=== PATIENT | male | born 1940 | race Caucasian/White ===

== ENCOUNTER 2016-07-28 10:46 | Emergency (ER) | payer MEDICARE, OTHER ==
[2016-07-28] MEDS ORDERED: DEXAMETHASONE 10 MG/ML VIAL PO STA (11:36)
[2016-07-28] MEDS ORDERED: CHERRY SYRUP 10 ML UDC PO ONE (11:37)
[2016-07-28] MEDS ORDERED: DEXAMETHASONE 10 MG/ML VIAL ONE (11:37)
== END 2016-07-28 13:15 | disposition home or self-care (01) ==
DX: M54.32 Sciatica, left side (principal); I10 Essential (primary) hypertension; E78.00 Pure hypercholesterolemia, unspecified; Z79.899 Other long term (current) drug therapy
CPT/HCPCS: 93971; 99283; A9270

== ENCOUNTER 2016-10-14 23:09 | Inpatient (IN) | payer MEDICARE, OTHER ==
[2016-10-14] MEDS ORDERED: SODIUM CHLORIDE 0.9% 1,000 ML IV ONE (23:19)
[2016-10-14] MEDS ORDERED: MORPHINE 10 MG/ML VIAL IVP STA (23:19)
[2016-10-14] MEDS ORDERED: ONDANSETRON 4 MG/2 ML VIAL IVP STA (23:19)
[2016-10-14] MEDS ORDERED: MORPHINE 10 MG/ML VIAL ONE (23:28)
[2016-10-14] MEDS ORDERED: ONDANSETRON 4 MG/2 ML VIAL ONE (23:28)
[2016-10-15] MEDS ORDERED: HYDROmorphone 1 MG/ML SYRINGE ONE ×2 (00:37→02:59)
[2016-10-15] MEDS ORDERED: HYDROmorphone 1 MG/ML SYRINGE IVP STA ×2 (00:38→03:04)
[2016-10-15] MEDS ORDERED: ONDANSETRON 4 MG/2 ML VIAL ONE (00:39)
[2016-10-15] MEDS ORDERED: IOPAMIDOL-300 100 ML VIAL IVP ONE (01:19)
[2016-10-15] MEDS ORDERED: MORPHINE 2 MG/ML SYRINGE IVP PRN (03:41)
[2016-10-15] MEDS ORDERED: SODIUM CHLORIDE FLUSH 0.9% 10 ML SYRINGE IVP PRN ×2 (03:41→04:11)
[2016-10-15] MEDS ORDERED: ONDANSETRON 4 MG/2 ML VIAL IVP PRN ×2 (03:46→04:11)
[2016-10-15] MEDS ORDERED: LACTATED RINGERS 1,000 ML IV SCH (04:00)
[2016-10-15] MEDS: LACTATED RINGERS 1,000 ML IV SCH ×3 (05:24→22:29)
[2016-10-15] MEDS: MORPHINE 2 MG/ML SYRINGE IVP PRN ×3 (05:24→17:01)
[2016-10-15] MEDS: SODIUM CHLORIDE FLUSH 0.9% 10 ML SYRINGE IVP SCH ×3 (05:24→22:27)
[2016-10-15] MEDS ORDERED: SODIUM CHLORIDE FLUSH 0.9% 10 ML SYRINGE IVP SCH (06:00)
[2016-10-15] MEDS ORDERED: ENALAPRILAT 1.25 MG/ML VIAL IVP SCH (06:00)
[2016-10-15] MEDS: ENALAPRILAT 1.25 MG/ML VIAL IVP SCH ×2 (06:21→12:55)
[2016-10-15] MEDS ORDERED: ENOXAPARIN 40 MG/0.4 ML SYRINGE SUBQ SCH (09:00)
[2016-10-15] MEDS ORDERED: PHENOL THROAT SPRAY 177 ML MM ONE (09:02)
[2016-10-15] MEDS: ENOXAPARIN 40 MG/0.4 ML SYRINGE SUBQ SCH (12:52)
[2016-10-15] MEDS ORDERED: ENALAPRILAT 1.25 MG/ML VIAL IVP PRN (17:10)
[2016-10-16] MEDS: SODIUM CHLORIDE FLUSH 0.9% 10 ML SYRINGE IVP SCH ×3 (05:53→20:47)
[2016-10-16] MEDS: LACTATED RINGERS 1,000 ML IV SCH ×2 (06:04→16:31)
[2016-10-16] MEDS ORDERED: MAGNESIUM HYDROXIDE 2,400 MG/30 ML UDC NG ONE (08:45)
[2016-10-16] MEDS: ENOXAPARIN 40 MG/0.4 ML SYRINGE SUBQ SCH (09:30)
[2016-10-17] MEDS: SODIUM CHLORIDE FLUSH 0.9% 10 ML SYRINGE IVP SCH (06:34)
== END 2016-10-17 10:02 | disposition home or self-care (01) | DRG 390 ==
DX: K56.60 Unspecified intestinal obstruction (principal); D72.819 Decreased white blood cell count, unspecified; I10 Essential (primary) hypertension; E78.00 Pure hypercholesterolemia, unspecified; Z79.899 Other long term (current) drug therapy; Z90.79 Acquired absence of other genital organ(s)

== ENCOUNTER 2016-11-21 08:39 | Outpatient (CLI) | payer MEDICARE, OTHER ==
[2016-11-21] MEDS ORDERED: SIMETHICONE/SOD BICARB/CIT AC 1 EACH PACKET PO ONE (12:11)
[2016-11-21] MEDS ORDERED: BARIUM SULFATE 148 GM POWDER PO ONE (12:11)
[2016-11-21] MEDS ORDERED: BARIUM SULFATE 135 ML BOTTLE PO ONE (12:11)
--- NOTE | 2016-11-21 12:49 | XRAY Report ---
UPPER GI WITH SMALL BOWEL FOLLOW THROUGH: 11/21/2016 CLINICAL INDICATION: History of bowel obstruction. FINDINGS: Initial hand polisher view of the abdomen demonstrates a normal bowel gas pattern. Single and doub le contrast upper GI was performed, followed by small bowel follow through. The esophagus is normal i n caliber. Gastroesophageal reflux was seen during the course of the study. No esophageal ulceration, mass lesion, or stricturing is appreciated. The stomach demonstrates a normal fold pattern. No gastr ic ulceration or mass lesion is seen. The duodenal cap distends normally. Duodenal diverticula are in cidentally noted. No duodenal ulceration or mass lesion is identified. The jejunum and ileum demonstr ate normal fold patterns. No abnormal dilatation, separation, or stricturing of small bowel loops is identified. Oral contrast reached the colon at 90 minutes. The terminal ileum is unremarkable. IMPRESSION: 1. GASTROESOPHAGEAL REFLUX, WITHOUT EVIDENCE OF ULCERATION. 2. INCIDENTAL DUODENAL DIVERTICULA. 3. NORMAL JEJUNUM AND ILEUM. ORAL CONTRAST REACHED THE COLON AT 90 MINUTES. NO EVIDENCE OF SMALL ANN MARIE L OBSTRUCTION. FLUOROSCOPY TIME: 3 MINUTES 52 SECONDS; 28 SPOT IMAGES OBTAINED. JOB #: [id number] EXT JOB #:[id number]
== END 2016-11-21 08:40 | disposition home or self-care (01) ==
LOC: DI 08:39
PROVIDERS: ATTEND Surgery
DX: K21.9 Gastro-esophageal reflux disease without esophagitis (principal)
CPT/HCPCS: 74249; A9270

== ENCOUNTER 2017-01-30 06:13 | Day surgery (SDC) | payer MEDICARE, OTHER ==
[2017-01-30] MEDS ORDERED: LACTATED RINGERS 1,000 ML IV ONE (06:52)
[2017-01-30] MEDS ORDERED: MIDAZOLAM 2 MG/2 ML VIAL IVP ONE (07:26)
[2017-01-30] MEDS ORDERED: fentaNYL 100 MCG/2 ML VIAL IVP ONE (07:26)
[2017-01-30 09:25] VITALS: BP 133/90
== END 2017-01-30 06:14 | disposition home or self-care (01) ==
LOC: SDS 06:13
PROVIDERS: ATTEND Surgery
PROC: 0DBK8ZX Excision of Ascending Colon, Via Natural or Artificial Opening Endoscopic, Diagnostic (ICD-10-PCS; principal; 2017-01-30 07:30)
DX: K62.5 Hemorrhage of anus and rectum (principal); D12.2 Benign neoplasm of ascending colon; K57.30 Diverticulosis of large intestine without perforation or abscess without bleeding; K64.8 Other hemorrhoids; E78.00 Pure hypercholesterolemia, unspecified; I10 Essential (primary) hypertension
CPT/HCPCS: 45380; J7120

== ENCOUNTER 2017-02-18 00:20 | Observation (INO) | payer MEDICARE, OTHER ==
--- NOTE | 2017-02-18 00:25 | ED Physician Documentation ---
PD HPI ABD PAIN - Stated complaint Stated Complaint: ABDOMINAL PAIN,VOMITING - History obtained from History obtained from: Patient - History of Present Illness Timing - onset: Today (this afternoon) Timing - details: Gradual onset, Waxing and waning Pain level now: 8 Quality: Pain Location: All over / everywhere Radiation: Other (no radiation) Improved by: Other (no ameliorating factors) Worsened by: Other (no exacerbating factors) Associated symptoms: Nausea, Vomiting, Constipation. No: Fever, Diarrhea Similar symptoms before: Diagnosis (similar to SBO (admitted to [facility] September 2016) ) Review of Systems Constitutional: reports: Reviewed and negative Eyes: reports: Reviewed and negative Ears: reports: Reviewed and negative Nose: reports: Reviewed and negative Throat: reports: Reviewed and negative Cardiac: reports: Reviewed and negative Respiratory: reports: Reviewed and negative GI: reports: Abdominal Pain, Abdominal Swelling, Nausea, Vomiting, Constipation. denies: Diarrhea : denies: Dysuria, Frequency Skin: reports: Reviewed and negative Musculoskeletal: reports: Reviewed and negative Neurologic: reports: Reviewed and negative PD PAST MEDICAL HISTORY - Past Medical History Cardiovascular: Hypertension, High cholesterol Respiratory: None Neuro: None Endocrine/Autoimmune: None GI: None, Other : None, Benign prostate hypertrophy HEENT: Other Psych: None Musculoskeletal: Chronic back pain Derm: None - Past Surgical History Past Surgical History: Yes General: Other - Present Medications Home Medications: Ambulatory Orders Medication Instructions Recorded Confirmed Lisinopril 10 mg ORAL DAILY 09/25/14 01/30/17 Simvastatin [Zocor] 40 mg PO QPM 09/25/14 01/30/17 Oxybutynin [Ditropan] 5 mg PO BID 07/28/16 01/30/17 Levocetirizine Dihydrochloride 5 mg PO DAILY 10/15/16 01/30/17 [Xyzal] Aspirin [Aspirin EC] 81 mg PO DAILY 01/30/17 01/30/17 Cholecalciferol (Vitamin D3) 2,000 unit PO DAILY 01/30/17 01/30/17 [Vitamin D] Meclizine [Antivert] 25 mg PO Q6H PRN 01/30/17 01/30/17 Multivitamin [Multiple Vitamins] 1 each PO DAILY 01/30/17 01/30/17 [place]-3/Dha/Epa/Fish Oil [Fish Oil 1 each PO DAILY 01/30/17 01/30/17 1,000 mg Softgel] - Allergies Allergies/Adverse Reactions: Allergies Allergy/AdvReac Type Severity Reaction Status Date / Time No Known Drug Allergies Allergy Verified 01/30/17 06:58 - Social History Does the pt smoke?: No Smoking Status: Never smoker Does the pt drink ETOH?: No Does the pt have substance abuse?: No - Immunizations Immunizations are current?: Yes - POLST Patient has POLST: No PD ED PE NORMAL - Vitals Vital signs reviewed: Yes - General General: Alert and oriented X 3, Well developed/nourished, Other (appears to be in painful distress) - HEENT HEENT: Moist mucous membranes - Neck Neck: Supple, no meningeal sign - Cardiac Cardiac: RRR, No murmur - Respiratory Respiratory: No respiratory distress, Clear bilaterally - Abdomen Abdomen: Soft, Non tender - Back Back: No CVA TTP - Derm Derm: Normal color, Warm and dry - Extremities Extremities: No edema PD ED PE EXPANDED - Abdomen Abdomen: Decreased BS, Tender to palpation (periumbilical without rebound or guarding) Results - Vitals Vitals: Vital Signs - 24 hr 02/18/17 02/18/17 02/18/17 00:28 00:45 01:20 Temperature 36.5 C Heart Rate 83 61 55 L Respiratory 18 17 16 Rate Blood Pressure 154/71 H 147/69 H 156/79 H O2 Saturation 99 94 95 02/18/17 02/18/17 02/18/17 01:45 02:06 02:38 Temperature Heart Rate 79 80 80 Respiratory 16 16 16 Rate Blood Pressure 147/75 H 145/71 H 132/84 H O2 Saturation 95 95 93 Oxygen O2 Source Room air - Labs Labs: Laboratory Tests 02/18/17 02/18/17 00:40 00:40 WBC 7.3 RBC 5.39 Hgb 16.9 Hct 48.2 MCV 89.4 MCH 31.3 H MCHC 35.0 RDW 14.4 Plt Count 296 MPV 6.9 L Neut # 4.4 Lymph # 2.0 [place] # 0.1 Eos # 0.1 Baso # 0.7 H Absolute Nucleated RBC 0.01 Nucleated RBCs 0.2 Manual Slide Review Indicated Platelet Estimate NORMAL (130-450,000) Platelet Morphology NORMAL APPEARANCE RBC Morph Micro Appear NORMAL APPEARANCE Sodium 136 Potassium 4.1 Chloride 101 Carbon Dioxide 22 Anion Gap 13.0 BUN 20 Creatinine 0.9 Estimated GFR (MDRD) 82 L Glucose 205 H Calcium 10.6 H Total Bilirubin 1.2 H AST 25 ALT 29 Alkaline Phosphatase 78 Total Protein 7.7 Albumin 4.6 Globulin 3.1 Albumin/Globulin Ratio 1.5 Lipase 20 L - Rads (name of study) CT A/P Radiology: Prelim report reviewed, See rad report PD MEDICAL DECISION MAKING - ED course Complexity details: reviewed old records, reviewed results, re-evaluated patient , considered differential, d/w patient Departure - Departure Disposition: ED Place in Observation Clinical Impression: Small bowel obstruction Condition: Stable Discharge Date/Time: 02/18/17 03:40
[2017-02-18] MEDS ORDERED: SODIUM CHLORIDE 0.9% 500 ML IV STA (00:42)
[2017-02-18] MEDS ORDERED: ONDANSETRON 4 MG/2 ML VIAL IVP STA (00:42)
[2017-02-18] MEDS ORDERED: MORPHINE 2 MG/ML CARPUJECT IVP STA ×3 (00:42→02:56)
[2017-02-18] MEDS ORDERED: MORPHINE 2 MG/ML CARPUJECT ONE ×3 (00:45→03:02)
[2017-02-18] MEDS ORDERED: ONDANSETRON 4 MG/2 ML VIAL ONE (00:45)
[2017-02-18 00:58] LABS: BASOPHILS # (AUTO) 0.7 10^3/uL (0.0-0.1); BASOPHILS % (AUTO) 9.5 %; EOSINOPHILS # (AUTO) 0.1 10^3/uL (0.0-0.7); HCT - HEMATOCRIT 48.2 % (42.0-52.0); HGB - HEMOGLOBIN 16.9 g/dL (14.0-18.0); LYMPHOCYTES % (AUTO) 27.3 %; MEAN CORPUSCULAR HEMOGLOBIN 31.3 pg (27.0-31.0); MEAN CORPUSCULAR VOLUME 89.4 fL (80.0-94.0); MEAN PLATELET VOLUME 6.9 fL (7.4-11.4); MONOCYTES # (AUTO) 0.1 10^3/uL (0.0-1.0); MONOCYTES % (AUTO) 1.6 %; NEUTROPHILS # (AUTO) 4.4 10^3/uL (1.5-6.6); NEUTROPHILS % (AUTO) 60.6 %; NUCLEATED RED BLOOD CELLS AUTO 0.2 /100WBC; RED BLOOD COUNT 5.39 10^6/uL (4.70-6.10); RED CELL DISTRIBUTION WIDTH 14.4 % (12.0-15.0); UNCORRECTED WHITE BLOOD COUNT 7.3 x10^3/uL; WHITE BLOOD COUNT 7.3 x10^3/uL (4.8-10.8)
[2017-02-18 01:12] LABS: ALBUMIN/GLOBULIN RATIO 1.5 (1.0-2.2); BILIRUBIN,TOTAL 1.2 mg/dL (0.2-1.0); CALCIUM 10.6 mg/dL (8.5-10.3); CREATININE 0.9 mg/dL (0.6-1.2); POTASSIUM 4.1 mmol/L (3.5-5.0); TOTAL PROTEIN 7.7 g/dL (6.7-8.2)
[2017-02-18 01:23] LABS: PLATELET ESTIMATE, MANUAL NORMAL (130-450,000) (NORMAL); PLATELET MORPHOLOGY NORMAL APPEARANCE (NORMAL)
[2017-02-18] MEDS ORDERED: IOPAMIDOL-300 100 ML VIAL IVP ONE (01:43)
[2017-02-18] MEDS ORDERED: SODIUM CHLORIDE 0.9% 1,000 ML IV STA (02:00)
--- NOTE | 2017-02-18 02:39 | CT Preliminary Report ---
Exam: CT Abdomen/Pelvis W/ IMPRESSION: 1. Recurrent bowel obstruction with transition in the right lower quadrant region. 2. Trace amount of intraperitoneal free fluid, probably reactive. 3. Indeterminate .4 cm right adrenal nodule. If the patient has history of malignancy, further assess ment could be considered with a PET CT. If there is no history of prior malignancy, follow-up adrenal protocol CT recommended at 12 months. [facility] SITE ID: [id number]
[2017-02-18] MEDS ORDERED: HYDROmorphone 1 MG/ML SYRINGE IVP PRN (02:59)
[2017-02-18] MEDS ORDERED: SODIUM CHLORIDE FLUSH 0.9% 10 ML SYRINGE IVP PRN (02:59)
[2017-02-18] MEDS ORDERED: PROCHLORPERAZINE 10 MG/2 ML VIAL IVP PRN (02:59)
[2017-02-18] MEDS ORDERED: SODIUM CHLORIDE FLUSH 0.9% 10 ML SYRINGE IVP ONE (03:03)
--- NOTE | 2017-02-18 03:03 | CT Report ---
EXAM: CT ABDOMEN AND PELVIS EXAM DATE: 02/18/2017 01:47 AM. CLINICAL HISTORY: Abdominal pain. COMPARISONS: 10/15/2016. TECHNIQUE: Routine helical CT imaging was performed through the abdomen and pelvis. IV contrast: 100 mL Isovue-300. Enteric contrast: No. Reconstructions: Coronal and sagittal. In accordance with CT protocol optimization, one or more of the following dose reduction techniques w ere utilized for this exam: automated exposure control, adjustment of mA and/or KV based on patient s ize, or use of iterative reconstructive technique. FINDINGS: ABDOMEN: Liver: No significant abnormality. Stomach/Distal Esophagus: Small hiatal hernia. Gallbladder: No significant abnormality. Bile Ducts: No significant abnormality. Pancreas: No significant abnormality. Spleen: No significant abnormality. Kidneys: No solid appearing lesion. No hydronephrosis. Adrenals: Mildly heterogeneous nodule noted within the right adrenal as before, measuring 2.4 cm (fernanda ge 27 series 3). This nodule is difficult to characterize with certainty on this exam. As before, the re is slight thickening of the anterior portion of the left adrenal as well. Bowel: Multiple moderately dilated loops of bowel are present with a right lower quadrant transition point. There is fecal matter within the small bowel near the transition point in the right lower quad rant region. There is mild associated mesenteric edema. There is average amount of retained fecal mat ter within the colon. There is moderate distal colon diverticulosis. No evidence of diverticulitis. Appendix: A few appendicoliths. Appendix is normal in caliber. There is no evidence of inflammatory c hange of the appendix. Lymph Nodes: No pathologically enlarged nodes. Vasculature: Normal caliber aorta. Fluid: There is trace perisplenic ascites. Abdominal Wall: No significant abnormality. Other: No significant abnormality. PELVIS: Prostate and Seminal Vesicles: No significant abnormality. Bladder: Bilateral posterolateral bladder diverticula are noted. No suspicious bladder filling defect noted. Previously noted stones within the right posterolateral bladder diverticulum are not visualiz ed on this exam. Lymph Nodes: No pathologically enlarged nodes. Fluid: Trace amount of fluid layering within the inferior aspect of the pelvis. Other: None. BONES: No suspicious bony lesions. LOWER CHEST: No significant consolidation or effusion. IMPRESSION: 1. Recurrent bowel obstruction with transition in the right lower quadrant region. 2. Trace amount of intraperitoneal free fluid, probably reactive. 3. Indeterminate 2.4 cm right adrenal nodule. If the patient has history of malignancy, further asses sment could be considered with a PET CT. If there is no history of prior malignancy, follow-up adrena l protocol CT recommended at 12 months. [facility] Referring Provider Line: [phone] SITE ID: [id number]
[2017-02-18] MEDS: DEXTROSE 5%-0.9% NACL 1,000 ML IV SCH ×3 (04:32→23:29)
[2017-02-18] MEDS: SODIUM CHLORIDE FLUSH 0.9% 10 ML SYRINGE IVP SCH ×3 (04:32→19:37)
[2017-02-18] MEDS: PANTOPRAZOLE 40 MG VIAL IVP SCH (06:24)
[2017-02-18 06:31] LABS: BILIRUBIN,URINE NEGATIVE (NEGATIVE); UA CHARGE (STRIP ONLY) YES; UR CULTURE IF IND NOT INDICATED
--- NOTE | 2017-02-18 23:43 | CONSULTATION NOTE ---
Referring Provider Name of Referring Provider:: Dr. Ancelmo Godoy Consult Date: 02/18/17 Chief Complaint - Chief Complaint Chief Complaint: Small bowel obstruction History of Present Illness - Admitted From Admitted From:: ED - History Obtained From Records Reviewed: Yes History obtained from: Patient Exam Limitations: None - History of Present Illness HPI Comment/Other: I was called in consultation on this very pleasant 77-year-old male by Dr. Ancelmo Godoy to evaluate him and possibly treat him for a partial small bowel obstruction. The patient had a less than 24-hour history of worsening abdominal pain that he described much like the abdominal pain he experienced back in September of this year when he was admitted with a small bowel obstruction that spontaneously resolved. There are no aggravating or alleviating factors. There is no constipation or diarrhea. There was nausea and vomiting. History - Past Medical History Cardiovascular: reports: Hypertension, High cholesterol Respiratory: reports: None Neuro: reports: None Endocrine/Autoimmune: reports: None GI: reports: None, Other : reports: None, Benign prostate hypertrophy HEENT: reports: Other Psych: reports: None Musculoskeletal: reports: Chronic back pain Derm: reports: None MRSA Hx?: No - Past Surgical History General: reports: Other - POLST Patient has POLST: No Meds/Allgy - Home Medications Home Medications: Ambulatory Orders Medication Instructions Recorded Confirmed Lisinopril 10 mg ORAL DAILY 09/25/14 02/18/17 Simvastatin [Zocor] 40 mg PO QPM 09/25/14 02/18/17 Oxybutynin [Ditropan] 5 mg PO BID 07/28/16 02/18/17 Levocetirizine Dihydrochloride 5 mg PO DAILY 10/15/16 02/18/17 [Xyzal] Aspirin [Aspirin EC] 81 mg PO DAILY 01/30/17 02/18/17 Cholecalciferol (Vitamin D3) 2,000 unit PO DAILY 01/30/17 02/18/17 [Vitamin D] Meclizine [Antivert] 25 mg PO Q6H PRN 01/30/17 02/18/17 Multivitamin [Multiple Vitamins] 1 each PO DAILY 01/30/17 02/18/17 [place]-3/Dha/Epa/Fish Oil [Fish Oil 1 each PO DAILY 01/30/17 02/18/17 1,000 mg Softgel] Methocarbamol [Methocarbamol] 500 mg PO BID 02/18/17 02/18/17 - Allergies Allergies/Adverse Reactions: Allergies Allergy/AdvReac Type Severity Reaction Status Date / Time No Known Drug Allergies Allergy Verified 01/30/17 06:58 Review of Systems - Constitutional Constitutional: denies: Fatigue, Fever, Chills, Malaise, Diaphoresis, Night sweats - Respiratory Respiratory: denies: Cough - Gastrointestinal Gastrointestinal: reports: Abdominal pain, Abdominal distention, Nausea (But markedly improved since he passed gas several times today and had a small bowel movement.), Vomiting Exam - Vital Signs Reviewed Vital Signs: Yes Vital Signs: Vital Signs x48h Temp Pulse Resp BP Pulse Ox 02/18/17 22:21 36.8 C 67 16 111/53 L 94 - Physical Exam General Appearance: positive: No acute distress, Alert Eyes Bilateral: positive: No lid inflammation, Conjunctivae nml, No scleral icterus Neck: positive: Trachea midline Respiratory: positive: Chest non-tender, No respiratory distress, Breath sounds nml Cardiovascular: positive: Regular rate & rhythm Abdomen: positive: Non-tender (There was only mild distention with tympany and near normal bowel sounds.), Nml bowel sounds. negative: Guarding, Rebound, Hepatomegaly, Splenomegaly Skin: positive: Color nml Extremities: positive: Non-tender, Nml appearance (Walking wihtout difficulty or pain.) Conclusion/Plan - Diagnosis Diagnosis: Small bowel obstruction - partially resolved. - Plan Plan: With the passage of gas and a small bowel movement this may signify that the patient's small bowel obstruction has resolved. In any rate he has not had a regular bowel movement and I will watch him over tonight to see whether or not his bowel function returns. I will check his examination and labs in the morning. If his clinical status continues to improve I do not think that he will require radiographic studies. If on the other hand his exam is equivocal abdominal series may be ordered. In short continue to observe overnight and into the morning with the plan being that with clinical improvement he is discharged home and with clinical deterioration he may require surgery. The patient has been told this plan and would like to avoid surgery if at all possible. - Lab Results Lab results reviewed: Yes Fish Bones: 02/18/17 00:40 02/18/17 00:40 - Diagnostic Imaging Results Diagnostic Imaging Results: positive: Final report reviewed, Read independently
[2017-02-19] MEDS: SODIUM CHLORIDE FLUSH 0.9% 10 ML SYRINGE IVP SCH (06:04)
[2017-02-19] MEDS: PANTOPRAZOLE 40 MG VIAL IVP SCH (06:04)
[2017-02-19 07:36] VITALS: BP 119/66
[2017-02-19] MEDS: DEXTROSE 5%-0.9% NACL 1,000 ML IV SCH (09:38)
--- NOTE | 2017-02-19 11:17 | PROVIDER PROGRESS NOTE ---
Subjective - General Admit Date: 02/18/17 - Review of Systems General: positive: No symptoms HEENT: positive: No symptoms Pulmonary: positive: No symptoms Cardiovascular: positive: No symptoms Gastrointestinal: positive: No symptoms (Patient passing gas and stool - hungry. ) Genitourinary: positive: No symptoms Musculoskeletal: positive: No symptoms Skin: positive: No symptoms Psychiatric: positive: No symptoms Objective - Patient Data Reviewed Vital Signs: Yes Vital Signs: Vital Signs x48h Temp Pulse Resp BP Pulse Ox 02/19/17 07:35 36.3 C L 55 L 18 119/66 96 Weight: Weight 02/17/17 02/18/17 02/19/17 23:59 23:59 23:59 Weight (kg) 95.254 kg Intake & Output: Intake and Output Totals x24h 02/17/17 02/18/17 02/19/17 23:59 23:59 23:59 Intake Total 2061 819 Output Total 1002 790 Balance 1059 29 - Lab Results Lab Results: 02/18/17 00:40 02/18/17 00:40 - Current Medications Current Medications: Current Medications Generic Name Dose Route Start Last Admin Trade Name Freq PRN Reason Stop Dose Admin Hydromorphone HCl 0.5 mg 02/18/17 02:59 02/18/17 04:32 Dilaudid Inj IVP 0.5 mg Q2HR PRN Administration Abdominal Pain Dextrose/Sodium Chloride 1,000 mls @ 100 mls/hr 02/18/17 03:00 02/19/17 09:38 D5ns IV 100 mls/hr .Q10H DENZEL Administration Pantoprazole Sodium 40 mg 02/18/17 07:00 02/19/17 06:04 Protonix IVP 40 mg QDAC DENZEL Administration Prochlorperazine Edisylate 10 mg 02/18/17 02:59 02/18/17 04:32 Compazine Inj IVP 10 mg Q6HR PRN Administration Nausea / Vomiting Sodium Chloride 10 ml 02/18/17 02:59 02/18/17 06:24 Normal Saline Flush 0.9% IVP 10 ml PRN PRN Administration NEEDED PER PROVIDER ORDERS Sodium Chloride 10 ml 02/18/17 06:00 02/19/17 06:04 Normal Saline Flush 0.9% IVP 10 ml Q8HR DENZEL Administration - Physical Exam Respiratory: positive: No respiratory distress, Breath sounds nml Cardiovascular: positive: Regular rate & rhythm Abdomen: positive: Non-tender, Nml bowel sounds, No distention Impression/Plan - Problem List Problem List: SBO has resolved. Discharge patient home.
--- NOTE | 2017-02-19 11:19 | Discharge Plan ---
Discharge Plan Disposition: 01 Home, Self Care Condition: Good Diet: Regular Activity Restrictions: No Restrictions Shower Restrictions: No Driving Restrictions: No Weight Bearing: Full Weight No Smoking: If you smoke, Please STOP! Call for help. Follow-up with: Amari Strauss MD [Primary Care Provider] - Darek Palmer MD [Provider Admit Priv/Credential] -
== END 2017-02-19 13:10 | disposition home or self-care (01) ==
LOC: ED 00:20 → OBS 02:59
PROVIDERS: ADMIT Surgery; ATTEND Surgery
DX: K56.60 Unspecified intestinal obstruction (principal); I10 Essential (primary) hypertension; E78.00 Pure hypercholesterolemia, unspecified; N40.0 Benign prostatic hyperplasia without lower urinary tract symptoms; G89.29 Other chronic pain; M54.9 Dorsalgia, unspecified; Z79.82 Long term (current) use of aspirin; Z79.899 Other long term (current) drug therapy
CPT/HCPCS: 36415; 74177; 80053; 81001; 81003; 83690; 85025; 87086; 96361; 96374; 96375; 96376; 99284; 99285

== ENCOUNTER 2017-08-11 03:23 | Inpatient (IN) | payer MEDICARE, OTHER ==
[2017-08-11] MEDS ORDERED: SODIUM CHLORIDE 0.9% 1,000 ML IV ONE ×2 (04:23→06:22)
[2017-08-11] MEDS ORDERED: HYDROmorphone 1 MG/ML SYRINGE IVP STA ×2 (04:24→05:29)
[2017-08-11] MEDS ORDERED: ONDANSETRON 4 MG/2 ML VIAL IVP STA (04:24)
[2017-08-11 04:30] LABS: BASOPHILS % (AUTO) 0.7 %; EOSINOPHILS # (AUTO) 0.1 10^3/uL (0.0-0.7); HGB - HEMOGLOBIN 17.5 g/dL (14.0-18.0); LYMPHOCYTES # (AUTO) 0.9 10^3/uL (1.5-3.5); LYMPHOCYTES % (AUTO) 15.9 %; MEAN CORPUSCULAR HEMOGLOBIN 30.9 pg (27.0-31.0); MEAN CORPUSCULAR VOLUME 90.8 fL (80.0-94.0); MEAN PLATELET VOLUME 7.4 fL (7.4-11.4); MONOCYTES # (AUTO) 0.5 10^3/uL (0.0-1.0); MONOCYTES % (AUTO) 9.5 %; NEUTROPHILS % (AUTO) 72.9 %; PLT - PLATELET COUNT 337 10^3/uL (130-450); RED BLOOD COUNT 5.66 10^6/uL (4.70-6.10); RED CELL DISTRIBUTION WIDTH 14.3 % (12.0-15.0); WHITE BLOOD COUNT 5.5 x10^3/uL (4.8-10.8)
[2017-08-11 04:41] LABS: ALBUMIN 4.4 g/dL (3.2-5.5); ALBUMIN/GLOBULIN RATIO 1.3 (1.0-2.2); ALKALINE PHOSPHATASE 88 IU/L (42-121); ALT ALANINE AMINOTRANSFERASE 35 IU/L (10-60); AST ASPARTATE AMINOTRANSFERASE 32 IU/L (10-42); BUN - BLOOD UREA NITROGEN 17 mg/dL (6-20); CALCIUM 9.8 mg/dL (8.5-10.3); CARBON DIOXIDE - CO2 21 mmol/L (21-32); CHLORIDE 98 mmol/L (101-111); CREATININE 1.2 mg/dL (0.6-1.2); GFR - MDRD 59 (>89); GLUCOSE 221 mg/dL (70-100); LIPASE < 10 U/L (22-51); SODIUM 136 mmol/L (135-145); TOTAL PROTEIN 7.7 g/dL (6.7-8.2)
[2017-08-11] MEDS ORDERED: IOPAMIDOL-300 100 ML VIAL ONE (05:00)
[2017-08-11] MEDS ORDERED: IOPAMIDOL-300 100 ML VIAL IVP ONE (05:16)
--- NOTE | 2017-08-11 05:17 | ED Physician Documentation ---
PD HPI ABD PAIN - Stated complaint Stated Complaint: CONSTIPATION - Chief complaint Chief Complaint: Abd Pain - History obtained from History obtained from: Patient, Family (Son.) - History of Present Illness Timing - onset: Yesterday Timing - details: Gradual onset, Constant Quality: Pain Location: All over / everywhere Associated symptoms: Nausea, Vomiting (Dry heaves.), Diarrhea (One episode.). No: Fever Similar symptoms before: Diagnosis (History of small bowel obstruction.) - Additional information Additional information: The patient is a 77-year-old male who presents with generalized abdominal pain that started yesterday and has become worse this morning. He reports abdominal distention and nausea with dry heaves. He reports one episode of diarrhea. He denies fever or dysuria, but reports decreased urine output. He has a history of similar symptoms in the past, and review of his medical record reveals hospitalization for small bowel obstruction in September and in January 2017. Review of Systems Constitutional: denies: Fever Nose: denies: Congestion Throat: denies: Sore throat Cardiac: denies: Chest pain / pressure Respiratory: denies: Dyspnea, Cough GI: reports: Abdominal Pain, Nausea, Vomiting : denies: Dysuria Skin: denies: Rash Musculoskeletal: denies: Back pain Neurologic: denies: Altered mental status, Headache PD PAST MEDICAL HISTORY - Past Medical History Past Medical History: Yes Cardiovascular: Hypertension, High cholesterol Respiratory: None Neuro: None Endocrine/Autoimmune: None GI: Other (Small bowel obstruction.) : None HEENT: Other Psych: None Musculoskeletal: Chronic back pain Derm: None Other Past Medical History: Bowel obstruction - Past Surgical History Past Surgical History: Yes General: Other - Present Medications Home Medications: Ambulatory Orders Medication Instructions Recorded Confirmed Lisinopril 10 mg ORAL DAILY 09/25/14 02/18/17 Simvastatin [Zocor] 40 mg PO QPM 09/25/14 02/18/17 Oxybutynin [Ditropan] 5 mg PO BID 07/28/16 02/18/17 Levocetirizine Dihydrochloride 5 mg PO DAILY 10/15/16 02/18/17 [Xyzal] Aspirin [Aspirin EC] 81 mg PO DAILY 01/30/17 02/18/17 Cholecalciferol (Vitamin D3) 2,000 unit PO DAILY 01/30/17 02/18/17 [Vitamin D3] Meclizine [Antivert] 25 mg PO Q6H PRN 01/30/17 02/18/17 Multivitamin [Multiple Vitamins] 1 each PO DAILY 01/30/17 02/18/17 [place]-3/Dha/Epa/Fish Oil [Fish Oil 1 each PO DAILY 01/30/17 02/18/17 1,000 mg Softgel] Methocarbamol 500 mg PO BID 02/18/17 02/18/17 - Allergies Allergies/Adverse Reactions: Allergies Allergy/AdvReac Type Severity Reaction Status Date / Time No Known Drug Allergies Allergy Verified 01/30/17 06:58 - Social History Does the pt smoke?: No Smoking Status: Never smoker Does the pt drink ETOH?: No Does the pt have substance abuse?: No - Immunizations Immunizations are current?: Yes - POLST Patient has POLST: No PD ED PE NORMAL - Vitals Vital signs reviewed: Yes (Initially hypertensive.) - General General: Alert and oriented X 3, Well developed/nourished, Other (Groaning in discomfort.) - HEENT HEENT: Atraumatic, Pharynx benign - Neck Neck: No adenopathy, No JVD - Cardiac Cardiac: RRR - Respiratory Respiratory: Clear bilaterally - Abdomen Abdomen: Other (Decreased bowel tones, distended with tympany to percussion. Generalized tenderness to palpation without focal tenderness or rebound.) - Back Back: No CVA TTP - Derm Derm: No rash - Extremities Extremities: No edema, No calf tenderness / cord - Neuro Neuro: Alert and oriented X 3, No motor deficit, Normal speech Results - Vitals Vitals: Vital Signs - 24 hr 08/11/17 08/11/17 08/11/17 03:32 04:33 05:25 Temperature 36.0 C L Heart Rate 111 H 104 H 107 H Respiratory 16 16 Rate Blood Pressure 142/98 H 141/110 H O2 Saturation 94 93 95 08/11/17 08/11/17 07:23 07:25 Temperature Heart Rate 107 H 120 H Respiratory 16 18 Rate Blood Pressure 132/92 H 150/95 H O2 Saturation 92 92 Oxygen O2 Source Nasal cannula - Labs Labs: Laboratory Tests 08/11/17 08/11/17 08/11/17 03:40 03:40 04:38 WBC 5.5 RBC 5.66 Hgb 17.5 Hct 51.4 MCV 90.8 MCH 30.9 MCHC 34.0 RDW 14.3 Plt Count 337 MPV 7.4 Neut # 4.0 Lymph # 0.9 L [place] # 0.5 Eos # 0.1 Baso # 0.0 Absolute Nucleated RBC 0.01 Nucleated RBC % 0.2 Sodium 136 Potassium 4.3 Chloride 98 L Carbon Dioxide 21 Anion Gap 17.0 H BUN 17 Creatinine 1.2 Estimated GFR (MDRD) 59 L Glucose 221 H Lactic Acid 3.1 H* Calcium 9.8 Total Bilirubin 1.0 AST 32 ALT 35 Alkaline Phosphatase 88 Total Protein 7.7 Albumin 4.4 Globulin 3.3 Albumin/Globulin Ratio 1.3 Lipase < 10 L Urine Color Urine Clarity Urine pH Ur Specific [place] Urine Protein Urine Glucose (UA) Urine Ketones Urine Occult Blood Urine Nitrite Urine Bilirubin Urine Urobilinogen Ur Leukocyte Esterase Ur Microscopic Review Urine Culture Comments 08/11/17 05:50 WBC RBC Hgb Hct MCV MCH MCHC RDW Plt Count MPV Neut # Lymph # [place] # Eos # Baso # Absolute Nucleated RBC Nucleated RBC % Sodium Potassium Chloride Carbon Dioxide Anion Gap BUN Creatinine Estimated GFR (MDRD) Glucose Lactic Acid Calcium Total Bilirubin AST ALT Alkaline Phosphatase Total Protein Albumin Globulin Albumin/Globulin Ratio Lipase Urine Color YELLOW Urine Clarity CLEAR Urine pH 5.0 Ur Specific [place] 1.015 Urine Protein NEGATIVE Urine Glucose (UA) NEGATIVE Urine Ketones NEGATIVE Urine Occult Blood TRACE-INTA Urine Nitrite NEGATIVE Urine Bilirubin NEGATIVE Urine Urobilinogen 0.2 (NORMAL) Ur Leukocyte Esterase NEGATIVE Ur Microscopic Review NOT INDICATED Urine Culture Comments NOT INDICATED - Rads (name of study) CT abd/pelvis Radiology: Prelim report reviewed, EMP read contemporaneously, See rad report ( Small bowel obstruction with transition in the right lower quadrant. Appendix appears normal. Colonic diverticula without evidence of diverticulitis. Fatty liver. Right adrenal nodule is unchanged.) Procedures - General procedure General procedure: NGTube placement. After 3 failed attempts by the nurse to place NG tube, I was asked to try inserting the NG tube. After cooling the tube in ice water it was inserted without difficulty. Dark gastric contents were suctioned through the tube, which the patient is tolerating well. PD MEDICAL DECISION MAKING - ED course Complexity details: reviewed old records, reviewed results, re-evaluated patient , considered differential, d/w patient, d/w family, d/w software consultant ED course: The patient's presentation is significant for recurrent small bowel obstruction. CT scan reveals no evidence of perforation or abscess. His white count is normal at 5.5; lactate is elevated at 3.1. Treatment in the emergency depaertment included administration of normal saline IV, Dilaudid 1 mg IV 2, and Zofran 4 mg IV. A nasogastric tube was inserted. I discussed his condition with Dr. Heard who evaluated him in the emergency department and will admit him for further evaluation and treatment. Departure - Departure Disposition: 66 [facility] DC/Xfer Clinical Impression: Small bowel obstruction Condition: Stable
--- NOTE | 2017-08-11 05:37 | CT Report ---
EXAM: CT ABDOMEN AND PELVIS EXAM DATE: 08/11/2017 05:23 AM. CLINICAL HISTORY: Abdominal pain and distention. Constipation. History of bowel obstruction. COMPARISONS: 02/18/2017. TECHNIQUE: Routine helical CT imaging was performed through the abdomen and pelvis. IV contrast: ISOV UE 300 100mL. Enteric contrast: No. Reconstructions: Coronal and sagittal. In accordance with CT protocol optimization, one or more of the following dose reduction techniques w ere utilized for this exam: automated exposure control, adjustment of mA and/or KV based on patient s ize, or use of iterative reconstructive technique. FINDINGS: Lung Bases: Mild bibasilar atelectasis. Coronary artery calcifications. Liver: Fatty infiltration. Gallbladder/Bile Ducts: Unremarkable. Spleen: Normal. Pancreas: Normal. Adrenal Glands: Right adrenal nodule is unchanged. Left adrenal is unremarkable. Kidneys: Normal. No masses or hydronephrosis. Peritoneal Cavity/Bowel: Dilated small bowel loops with air-fluid levels and decompressed distal loop s, consistent with small bowel obstruction. Transition in the right lower quadrant. There are colonic diverticula. No diverticulitis is seen. The colon is empty. No free air or free fluid is seen. No ly mphadenopathy is noted. Appendix appears normal. Pelvic Organs: Bladder diverticula. Visualized pelvic organs are otherwise unremarkable. Vasculature: Mild atherosclerosis. No aortic aneurysm. Bones: No significant abnormality. Other: None. IMPRESSION: 1. Small bowel obstruction with transition in the right lower quadrant. 2. Appendix appears normal. 3. Colonic diverticula without evidence of diverticulitis. No stool is seen in the colon. 4. Fatty liver. 5. Right adrenal nodule is unchanged. [facility] Referring Provider Line: [phone] SITE ID: [id number]
[2017-08-11 06:15] LABS: BILIRUBIN,URINE NEGATIVE (NEGATIVE); GLUCOSE, URINE (UA) NEGATIVE (NEGATIVE); KETONES,URINE (UA) NEGATIVE (NEGATIVE); LEUKOCYTE ESTERASE, URINE NEGATIVE (NEGATIVE); NITRITE,URINE NEGATIVE (NEGATIVE); OCCULT BLOOD,URINE TRACE-INTA (NEGATIVE); PROTEIN,URINE NEGATIVE (NEGATIVE); UROBILINOGEN,URINE 0.2 (NORMAL) E.U./dL (NORMAL)
[2017-08-11 06:18] LABS: CLARITY,URINE CLEAR (CLEAR)
[2017-08-11] MEDS ORDERED: BENZOCAINE/TETRACAINE/BUTAMBEN 20 GM TOP SCH ×2 (06:55→07:00)
[2017-08-11] MEDS ORDERED: ONDANSETRON 4 MG/2 ML VIAL IVP PRN (07:35)
[2017-08-11] MEDS: SODIUM CHLORIDE FLUSH 0.9% 10 ML SYRINGE IVP SCH ×2 (08:40→12:09)
--- NOTE | 2017-08-11 08:50 | HISTORY & PHYSICAL EXAMINATION ---
Chief Complaint - Chief Complaint Chief Complaint: abdominal pain Abdominal Pain HPI - Admitted From Admitted from: ED - History of Present Illness HPI Comment/Other: This is a 77-year-old gentleman who presents to the emergency department for recurrent small bowel obstruction. Patient states that yesterday he began having cramping abdominal pain nausea and vomiting. He has had at least 6 episodes of emesis. He also began having abdominal distention and subsequently came to the emergency department at approximately 2 AM today. Upon evaluation in the emergency department the patient was noted to have a significantly distended abdomen and a CT scan of the abdomen without oral contrast was performed which demonstrated dilated loops of small bowel with a transition point in the right lower quadrant concerning for small bowel obstruction. Subsequently a surgical consultation was obtained.The patient has had 2 prior recent admissions for small bowel obstruction, one in January of last year and prior in September of last year. Both of these episodes resolved with conservative management. On each admission he did have a CT scan and each time his transition point has been noted to be in the right lower quadrant. He states that since September of last year he has not really had normal bowel movements and always has loose stools. He does not feel particularly constipated and has bowel movements most days. His last colonoscopy was performed in December of this past year by myself and was only notable for a single subcentimeter tubular adenoma in the ascending colon. Upon my evaluation of the patient he is continuing to complain of abdominal pain but states that this has improved. He is hemodynamically stable. He does appear dehydrated and his lactic acid is 3. His white blood cell count is normal. PMH/PSH - Past Medical History Cardiovascular: positive: Hypertension, High cholesterol Respiratory: positive: None Neuro: positive: None Endocrine/Autoimmune: positive: None GI: positive: Other (recurrent Small bowel obstruction.) : positive: None HEENT: positive: Other Psych: positive: None Musculoskeletal: positive: Chronic back pain Derm: positive: None MRSA Hx?: No Other Past Medical History: Bowel obstruction - Past Surgical History General: positive: Other Social & Family Hx - Social History Does the pt smoke?: No Smoking Status: Never smoker Does the pt drink ETOH?: No Does the pt have substance abuse?: No - POLST Patient has POLST: No Meds/Allgy - Home Medications Home Medications: Ambulatory Orders Medication Instructions Recorded Confirmed Lisinopril 10 mg ORAL DAILY 09/25/14 08/11/17 Simvastatin [Zocor] 40 mg PO QPM 09/25/14 08/11/17 Oxybutynin [Ditropan] 5 mg PO DAILY 07/28/16 08/11/17 Aspirin [Aspirin EC] 81 mg PO DAILY 01/30/17 08/11/17 Cholecalciferol (Vitamin D3) 2,000 unit PO DAILY 01/30/17 08/11/17 [Vitamin D3] Meclizine [Antivert] 25 mg PO Q6H PRN 01/30/17 08/11/17 Multivitamin [Multiple Vitamins] 1 each PO DAILY 01/30/17 08/11/17 Parker-3/Dha/Epa/Fish Oil [Fish Oil 1 each PO DAILY 01/30/17 08/11/17 1,000 mg Softgel] Methocarbamol 500 mg PO BID 02/18/17 08/11/17 - Allergies Allergies/Adverse Reactions: Allergies Allergy/AdvReac Type Severity Reaction Status Date / Time No Known Drug Allergies Allergy Verified 01/30/17 06:58 Exam - Vital Signs Reviewed Vital Signs: Yes - Physical Exam General Appearance: positive: Mild distress Respiratory: positive: No respiratory distress, Breath sounds nml Cardiovascular: positive: Regular rate & rhythm Abdomen: positive: Other (distended and tympanic abdomen with tenderness to palpation in the RLQ without peritoneal findings. No guarding or rigidity.) Neurologic/Psychiatric: positive: Oriented x3 Results - Lab Results Fish Bones: 08/11/17 03:40 08/11/17 03:40 Impression/Plan - Problem List Problem List: Recurrent SBO The patient will be admitted to the surgical service with an NG tube in place. He will be resuscitated with IV fluids and strict I's and O's will be monitored. His lactate will be repeated in 4 hours to ensure improvement. If he fails to improve with conservative management with the next 24 hours he will likely require operative intervention given that this bowel obstruction has recurred for the third time within 1 year. All this was explained to the patient in detail.
[2017-08-11] MEDS: MORPHINE 2 MG/ML CARPUJECT IVP PRN ×4 (09:13→22:13)
[2017-08-11] MEDS: PANTOPRAZOLE 40 MG VIAL IVP SCH (09:13)
[2017-08-11] MEDS: LACTATED RINGERS 1,000 ML IV SCH ×3 (09:16→20:21)
[2017-08-11] MEDS: PHENOL THROAT SPRAY 177 ML MM PRN (10:56)
[2017-08-11] MEDS: BENZOCAINE/MENTHOL LOZENGE MM PRN (10:56)
--- NOTE | 2017-08-11 13:31 | PROVIDER PROGRESS NOTE ---
Subjective - Prog Note Date Prog Note Date: 08/11/17 - Subjective Pt reports feeling: No change Objective - Vital Signs/Intake & Output Vital Signs: Vital Signs x48h Temp Pulse Resp BP Pulse Ox 08/11/17 12:07 37.1 C 105 H 16 124/75 94 08/11/17 09:00 36.7 C 107 H 18 161/86 H 93 Intake & Output: Intake & Output 08/08/17 08/09/17 08/10/17 08/11/17 23:59 23:59 23:59 23:59 Intake Total 460 Output Total 350 Balance 110 - Lab Results Fish Bones: 08/11/17 03:40 08/11/17 03:40 Other Labs: Lab Results x24hrs 08/11/17 Range/Units 11:40 Lactic Acid 4.6 H* (0.5-2.2) mmol/L Assessment/Plan - Problem List (1) Small bowel obstruction Impression: After admission the patient underwent a repeat lactic acid evaluation which is increased from 3 to 4.6. He has continued to receive pain medication for his persistent abdominal pain, however, he does state that this has not necessarily worsened. Due to his worsening lactic acidosis despite fluid resuscitation I am concerned for bowel ischemia and would like to proceed urgently for exploratory laparoscopy possible laparotomy possible bowel resection and all related procedures. The procedure was explained to the patient in detail including potential risks involved including not limited to bleeding, infection damage to intra-abdominal organs. He understands all the above and agrees to proceed.
[2017-08-11] MEDS ORDERED: LACTATED RINGERS 1,000 ML IV ONE ×3 (13:40→15:40)
[2017-08-11] MEDS ORDERED: BUPIVACAINE 0.5% PF 30 ML VIAL INFIL ONE (15:21)
[2017-08-11] MEDS ORDERED: NEOSTIGMINE 1 MG/1 ML 10 ML MDV IVP ONE (15:24)
[2017-08-11] MEDS ORDERED: ONDANSETRON 4 MG/2 ML VIAL IVP ONE (15:24)
[2017-08-11] MEDS ORDERED: ROCURONIUM 50 MG/5 ML VIAL IVP ONE (15:24)
[2017-08-11] MEDS ORDERED: SUCCINYLCHOLINE 200 MG/10 ML VIAL IVP ONE (15:24)
[2017-08-11] MEDS ORDERED: ceFAZolin 1 GM VIAL IV ONE (15:24)
[2017-08-11] MEDS ORDERED: GLYCOPYRROLATE 1 MG/5 ML VIAL IVP ONE (15:24)
[2017-08-11] MEDS ORDERED: fentaNYL 100 MCG/2 ML VIAL IVP ONE (15:24)
[2017-08-11] MEDS ORDERED: PROPOFOL 200 MG/20 ML VIAL IVP ONE (15:24)
--- NOTE | 2017-08-11 15:27 | OPERATIVE REPORT ---
Operative Report - General Admit Date: 08/11/17 Procedure Date: 08/11/17 Pre-Op Diagnosis: bowel obstruction Procedure Performed: Exploratory laprascopy, lysis of adhesions, evaluation of entire small bowel - Procedure Note Primary Surgeon: ema Anesthesia Technique: General ET tube - Other Other Information/Narrative: After obtaining informed consent the patient was brought into the operating room position on the operating table in the supine position taking noted pressure points. He was intubated by anesthesia and administered perioperative antibiotics. He was prepped and draped in the usual sterile fashion and a timeout was taken according to protocol. A 5 mm incision was created in the patient's left upper quadrant just below the costal margin and using the Optiview trocar the abdominal cavity was entered the abdominal cavity was entered then insufflated. An additional 5 mm port was placed in the infra umbilical midline under direct visualization. The abdomen wall abdominal cavity was inspected and dilated loops of small bowel were noted. There were no adhesions to the anterior abdominal wall. The patient was positioned in Trendelenburg with the right side elevated and the bowel was rotated towards the patient's left upper quadrant but I was unable to do so with only one grasper. A second 5 mm port was placed in the left lateral abdominal wall. Small bowel was then rotated cephalad and to the left. Eventually I was able to find an area of small bowel which had looped upon itself which had an interloop adhesion. This adhesion was freed using a combination of blunt dissection and the LigaSure device. Upon full release of this adhesion the small bowel was inspected and noted to be viable. It was palpated to feel for any intraluminal masses, but none were noted. It felt as though there was fecalization of this portion of the small bowel, however, no intraluminal mass could be definitively palpated. The underlying mesentery was somewhat edematous but otherwise appeared normal. I then ran the bowel from the ileocecal valve to the ligament of Treitz. No additional adhesions were noted. The clear area of obstruction was the interloop adhesion approximately 15 cm proximal to the ligament of Treitz. The bowel distal to the site was decompressed and proximal was dilated. No ischemic bowel was visualized. After satisfactory examination of the entire small bowel the patient's was flattened and the abdominal cavity desufflated. Trochars were removed. The skin incisions were closed with 4-0 Monocryl. 30 cc of local anesthetic was utilized. The patient was subsequently extubated and taken to the recovery room in stable condition. Estimated blood loss minimal Complications none Specimens none Drains: NG tube, Paredes catheter
[2017-08-11] MEDS: HYDROmorphone 1 MG/ML SYRINGE ONE ×3 (15:49→16:12)
[2017-08-11] MEDS ORDERED: fentaNYL 100 MCG/2 ML VIAL ONE (16:35)
[2017-08-11] MEDS ORDERED: ACETAMINOPHEN 1,000 MG/100 ML 100 ML IV ONE (16:48)
[2017-08-11] MEDS ORDERED: HYDROmorphone 1 MG/ML SYRINGE ONE (16:59)
[2017-08-12] MEDS: MORPHINE 2 MG/ML CARPUJECT IVP PRN ×5 (00:13→23:52)
[2017-08-12] MEDS: PHENOL THROAT SPRAY 177 ML MM PRN ×2 (00:13→03:40)
[2017-08-12] MEDS: LACTATED RINGERS 1,000 ML IV SCH ×3 (04:02→20:26)
[2017-08-12] MEDS: SODIUM CHLORIDE FLUSH 0.9% 10 ML SYRINGE IVP SCH ×3 (04:33→21:59)
[2017-08-12 05:58] LABS: BASOPHILS % (AUTO) 0.6 %; EOSINOPHILS % (AUTO) 0.3 %; HGB - HEMOGLOBIN 13.1 g/dL (14.0-18.0); LYMPHOCYTES # (AUTO) 0.6 10^3/uL (1.5-3.5); LYMPHOCYTES % (AUTO) 39.5 %; MEAN CORPUSCULAR HEMOGLOBIN 30.2 pg (27.0-31.0); MEAN CORPUSCULAR HGB CONC 33.5 g/dL (32.0-36.0); MEAN CORPUSCULAR VOLUME 90.2 fL (80.0-94.0); MONOCYTES # (AUTO) 0.3 10^3/uL (0.0-1.0); MONOCYTES % (AUTO) 20.4 %; NEUTROPHILS % (AUTO) 39.2 %; PLT - PLATELET COUNT 239 10^3/uL (130-450); RED BLOOD COUNT 4.32 10^6/uL (4.70-6.10); RED CELL DISTRIBUTION WIDTH 14.5 % (12.0-15.0)
[2017-08-12 06:01] LABS: NEUTROPHILS # (AUTO) 0.6 10^3/uL (1.5-6.6); WHITE BLOOD COUNT 1.6 x10^3/uL (4.8-10.8)
[2017-08-12 06:06] LABS: CALCIUM 7.8 mg/dL (8.5-10.3); CREATININE 1.1 mg/dL (0.6-1.2)
[2017-08-12] MEDS: SODIUM CHLORIDE FLUSH 0.9% 10 ML SYRINGE IVP PRN ×2 (06:23→23:52)
[2017-08-12] MEDS: PANTOPRAZOLE 40 MG VIAL IVP SCH (06:23)
[2017-08-12 06:24] LABS: PLATELET ESTIMATE, MANUAL NORMAL (130-450,000) (NORMAL); PLATELET MORPHOLOGY NORMAL APPEARANCE (NORMAL); RBC MORPHOLOGY (MULTIPLE) NORMAL APPEARANCE (NORMAL)
[2017-08-12] MEDS ORDERED: POLYETHYLENE GLYCOL 3350 17 GM PACKET NG ONE (09:30)
--- NOTE | 2017-08-12 10:25 | PROVIDER PROGRESS NOTE ---
Subjective - General Admit Date: 08/11/17 Procedure Date: 08/11/17 Post Op Days: 1 Procedure Performed: Exploratory laparoscopy, lysis of adhesions - Review of Systems Wound/Incisions: positive: Healing well Drain Type: NGT Drain Output Description: 50 cc bilious General: positive: Weakness. negative: Fever Pulmonary: negative: Shortness of breath Cardiovascular: negative: No symptoms Gastrointestinal: positive: Abdominal pain, Other (incisional abdominal pain). negative: Nausea, Vomiting, Flatus Genitourinary: positive: Other (catheterized) Psychiatric: positive: No symptoms - Other Other Information/Narrative: NGT became dislodged overnight. Was readvanced but hasn't been functioning as well since readvancement. Awaiting imaging confirmation of placement. Objective - Patient Data Reviewed Vital Signs: Yes Vital Signs: Vital Signs x48h Temp Pulse Resp BP Pulse Ox 08/12/17 08:16 36.7 C 78 20 99/66 93 08/12/17 06:13 105/56 L 08/12/17 05:00 37.1 C 88 18 98/62 93 Weight: Weight 08/10/17 08/11/17 08/12/17 23:59 23:59 23:59 Weight (kg) 100.5 kg Intake & Output: Intake and Output Totals x24h 08/10/17 08/11/17 08/12/17 23:59 23:59 23:59 Intake Total 1880.000 980.417 Output Total 600 700 Balance 1280.000 280.417 - Lab Results Lab Results: 08/12/17 05:50 08/12/17 05:50 Other Lab Results: Lab Results x24hrs 08/12/17 08/12/17 08/12/17 Range/Units 05:50 05:50 05:50 WBC 1.6 L* (4.8-10.8) x10^3/uL RBC 4.32 L (4.70-6.10) 10^6/uL Hgb 13.1 L (14.0-18.0) g/dL Hct 39.0 L (42.0-52.0) % MCV 90.2 (80.0-94.0) fL MCH 30.2 (27.0-31.0) pg MCHC 33.5 (32.0-36.0) g/dL RDW 14.5 (12.0-15.0) % Plt Count 239 (130-450) 10^3/uL MPV 7.0 L (7.4-11.4) fL Neut # 0.6 L (1.5-6.6) 10^3/uL Lymph # 0.6 L (1.5-3.5) 10^3/uL [place] # 0.3 (0.0-1.0) 10^3/uL Eos # 0.0 (0.0-0.7) 10^3/uL Baso # 0.0 (0.0-0.1) 10^3/uL Absolute Nucleated RBC 0.01 x10^3/uL Nucleated RBC % 0.3 /100WBC Manual Slide Review Indicated Platelet Estimate NORMAL (130-450,000) (NORMAL) Platelet Morphology NORMAL APPEARANCE (NORMAL) RBC Morph Micro Appear NORMAL APPEARANCE (NORMAL) Sodium 135 (135-145) mmol/L Potassium 4.3 (3.5-5.0) mmol/L Chloride 103 (101-111) mmol/L Carbon Dioxide 23 (21-32) mmol/L Anion Gap 9.0 (6-13) BUN 20 (6-20) mg/dL Creatinine 1.1 (0.6-1.2) mg/dL Estimated GFR (MDRD) 65 L (>89) Glucose 177 H (70-100) mg/dL Lactic Acid 2.4 H (0.5-2.2) mmol/L Calcium 7.8 L (8.5-10.3) mg/dL 08/11/17 Range/Units 11:40 WBC (4.8-10.8) x10^3/uL RBC (4.70-6.10) 10^6/uL Hgb (14.0-18.0) g/dL Hct (42.0-52.0) % MCV (80.0-94.0) fL MCH (27.0-31.0) pg MCHC (32.0-36.0) g/dL RDW (12.0-15.0) % Plt Count (130-450) 10^3/uL MPV (7.4-11.4) fL Neut # (1.5-6.6) 10^3/uL Lymph # (1.5-3.5) 10^3/uL [place] # (0.0-1.0) 10^3/uL Eos # (0.0-0.7) 10^3/uL Baso # (0.0-0.1) 10^3/uL Absolute Nucleated RBC x10^3/uL Nucleated RBC % /100WBC Manual Slide Review Platelet Estimate (NORMAL) Platelet Morphology (NORMAL) RBC Morph Micro Appear (NORMAL) Sodium (135-145) mmol/L Potassium (3.5-5.0) mmol/L Chloride (101-111) mmol/L Carbon Dioxide (21-32) mmol/L Anion Gap (6-13) BUN (6-20) mg/dL Creatinine (0.6-1.2) mg/dL Estimated GFR (MDRD) (>89) Glucose (70-100) mg/dL Lactic Acid 4.6 H* (0.5-2.2) mmol/L Calcium (8.5-10.3) mg/dL - Current Medications Current Medications: Current Medications Generic Name Dose Route Start Last Admin Trade Name Freq PRN Reason Stop Dose Admin Lactated Ringer's 1,000 mls @ 125 mls/hr 08/11/17 09:00 08/12/17 04:02 Lr IV 125 mls/hr .Q8H DENZEL Administration Morphine Sulfate 2 mg 08/11/17 07:35 08/12/17 04:58 Morphine (Carpuject) IVP 2 mg Q2HR PRN Administration Pain 8 to 10 Pantoprazole Sodium 40 mg 08/11/17 09:00 08/12/17 06:23 Protonix IVP 40 mg QDAC DENZEL Administration Phenol/Menthol 2 sprays 08/11/17 10:31 08/12/17 03:40 Chloraseptic MM 2 sprays Q2HR PRN Administration Throat Pain Sodium Chloride 10 ml 08/11/17 07:35 08/12/17 06:23 Normal Saline Flush 0.9% IVP 10 ml PRN PRN Administration NEEDED PER PROVIDER ORDERS Sodium Chloride 10 ml 08/11/17 14:00 08/12/17 07:39 Normal Saline Flush 0.9% IVP Not Given Q8HR DENZEL Throat Lozenges 1 lozenge 08/11/17 10:31 08/11/17 10:56 Cepacol MM 1 lozenge Q2HR PRN Administration Throat pain - Physical Exam Wound/Incisions: positive: Healing well, No drainage General Appearance: positive: No acute distress Respiratory: positive: No respiratory distress Cardiovascular: positive: Regular rate & rhythm Abdomen: positive: Other (soft, mildly distended, mildly tender to palpation) Neurologic/Psychiatric: positive: Oriented x3 Impression/Plan - Problem List Problem List: s/p exploratory laparoscopy and BILLY POD 1 - Awaiting xray confirmation of NGT placement. Once confirmed in stomach will bive Miralax 10 cc Q 4 hours via NGT as tolerated - encourage ambulation - awaiting bowel function. Patient to remain NPO with NGT until passing flatus. - leukopenia - likely secondary to anesthetic. Will monitor. No intra- operative findings to suggest need for antibiotics. Patient remains afebrile. - PPI for GI prophylaxis. - Lovenox SQ for DVT prophylaxis.
[2017-08-12] MEDS: ENOXAPARIN 40 MG/0.4 ML SYRINGE SUBQ SCH (11:15)
--- NOTE | 2017-08-12 13:38 | XRAY Report ---
FRONTAL CHEST: 08/11/2017 CLINICAL INDICATION: NG placement. COMPARISON: 09/25/2014. FINDINGS: Frontal view of the chest demonstrates a normal cardiac silhouette. A nasogastric tube terminates in the stomach. There is bibasilar atelectasis. Nodular opacities are seen at the right base. The possibility of pulmonary nodules cannot be excluded. No definite effusion or pneumothorax is seen. IMPRESSION: NASOGASTRIC TUBE TERMINATING IN THE STOMACH. BIBASILAR ATELECTASIS. POSSIBLE RIGHT PULMONARY NODULE. CONSIDER CHEST CT FOR FURTHER EVALUATION WHEN THE PATIENT'S RESPIRATORY STATUS IMPROVES. TD: 08/12/2017 13:37
[2017-08-13] MEDS: LACTATED RINGERS 1,000 ML IV SCH ×2 (03:47→12:34)
[2017-08-13] MEDS: SODIUM CHLORIDE FLUSH 0.9% 10 ML SYRINGE IVP SCH ×3 (05:43→18:57)
[2017-08-13 05:55] LABS: BASOPHILS % (AUTO) 0.3 %; EOSINOPHILS % (AUTO) 1.9 %; LYMPHOCYTES # (AUTO) 0.7 10^3/uL (1.5-3.5); LYMPHOCYTES % (AUTO) 38.3 %; MEAN CORPUSCULAR HEMOGLOBIN 30.6 pg (27.0-31.0); MEAN CORPUSCULAR HGB CONC 33.8 g/dL (32.0-36.0); MEAN CORPUSCULAR VOLUME 90.7 fL (80.0-94.0); MEAN PLATELET VOLUME 7.1 fL (7.4-11.4); MONOCYTES # (AUTO) 0.3 10^3/uL (0.0-1.0); NEUTROPHILS # (AUTO) 0.9 10^3/uL (1.5-6.6); NEUTROPHILS % (AUTO) 44.5 %; PLT - PLATELET COUNT 216 10^3/uL (130-450); RED BLOOD COUNT 3.91 10^6/uL (4.70-6.10); RED CELL DISTRIBUTION WIDTH 14.2 % (12.0-15.0)
[2017-08-13 05:57] LABS: WHITE BLOOD COUNT 1.9 x10^3/uL (4.8-10.8)
[2017-08-13 05:59] LABS: CREATININE 0.7 mg/dL (0.6-1.2)
[2017-08-13] MEDS: PANTOPRAZOLE 40 MG VIAL IVP SCH (06:03)
[2017-08-13] MEDS: SODIUM CHLORIDE FLUSH 0.9% 10 ML SYRINGE IVP PRN (06:03)
[2017-08-13] MEDS: MORPHINE 2 MG/ML CARPUJECT IVP PRN ×2 (06:03→22:19)
[2017-08-13 06:16] LABS: PLATELET ESTIMATE, MANUAL DECREASED (<130,000) (NORMAL); PLATELET MORPHOLOGY NORMAL APPEARANCE (NORMAL); RBC MORPHOLOGY (MULTIPLE) NORMAL APPEARANCE (NORMAL)
[2017-08-13] MEDS: ENOXAPARIN 40 MG/0.4 ML SYRINGE SUBQ SCH (09:32)
[2017-08-13] MEDS: POLYETHYLENE GLYCOL 3350 17 GM PACKET PO ONE ×2 (09:32→14:30)
--- NOTE | 2017-08-13 09:37 | PROVIDER PROGRESS NOTE ---
Subjective - General Admit Date: 08/11/17 Procedure Date: 08/11/17 Post Op Days: 2 Procedure Performed: Exploratory laparoscopy, lysis of adhesions - Review of Systems Wound/Incisions: positive: Healing well, No drainage Drain Type: NGT Drain Output Description: 100 cc bilious General: positive: Weakness. negative: Fever Pulmonary: negative: Shortness of breath Cardiovascular: negative: No symptoms Gastrointestinal: positive: Abdominal pain, Other (incisional abdominal pain, bloating improved today). negative: Nausea, Vomiting, Flatus Genitourinary: positive: Other (benavides removed and patient is voiding spontaneously) Psychiatric: positive: No symptoms Objective - Patient Data Reviewed Vital Signs: Yes Vital Signs: Vital Signs x48h Temp Pulse Resp BP Pulse Ox 08/13/17 08:51 36.6 C 64 18 122/71 92 08/13/17 04:39 37.0 C 61 18 124/65 92 Weight: Weight 08/11/17 08/12/17 08/13/17 23:59 23:59 23:59 Weight (kg) 100.5 kg Intake & Output: Intake and Output Totals x24h 08/11/17 08/12/17 08/13/17 23:59 23:59 23:59 Intake Total 5544.946 9551.417 931.2 Output Total 600 1415 300 Balance 4971.897 7745.417 631.2 - Lab Results Lab Results: 08/13/17 05:44 08/13/17 05:44 Other Lab Results: Lab Results x24hrs 08/13/17 08/13/17 08/13/17 Range/Units 05:44 05:44 05:44 WBC 1.9 L* (4.8-10.8) x10^3/uL RBC 3.91 L (4.70-6.10) 10^6/uL Hgb 12.0 L (14.0-18.0) g/dL Hct 35.5 L (42.0-52.0) % MCV 90.7 (80.0-94.0) fL MCH 30.6 (27.0-31.0) pg MCHC 33.8 (32.0-36.0) g/dL RDW 14.2 (12.0-15.0) % Plt Count 216 (130-450) 10^3/uL MPV 7.1 L (7.4-11.4) fL Neut # 0.9 L (1.5-6.6) 10^3/uL Lymph # 0.7 L (1.5-3.5) 10^3/uL [place] # 0.3 (0.0-1.0) 10^3/uL Eos # 0.0 (0.0-0.7) 10^3/uL Baso # 0.0 (0.0-0.1) 10^3/uL Absolute Nucleated RBC 0.00 x10^3/uL Nucleated RBC % 0.2 /100WBC Manual Slide Review Indicated Platelet Estimate DECREASED (<130,000) (NORMAL) Platelet Morphology NORMAL APPEARANCE (NORMAL) RBC Morph Micro Appear NORMAL APPEARANCE (NORMAL) Sodium 137 (135-145) mmol/L Potassium 4.0 (3.5-5.0) mmol/L Chloride 104 (101-111) mmol/L Carbon Dioxide 24 (21-32) mmol/L Anion Gap 9.0 (6-13) BUN 18 (6-20) mg/dL Creatinine 0.7 (0.6-1.2) mg/dL Estimated GFR (MDRD) 110 (>89) Glucose 143 H (70-100) mg/dL Lactic Acid 0.9 (0.5-2.2) mmol/L Calcium 8.0 L (8.5-10.3) mg/dL - Current Medications Current Medications: Current Medications Generic Name Dose Route Start Last Admin Trade Name Freq PRN Reason Stop Dose Admin Enoxaparin Sodium 40 mg 08/12/17 11:00 08/12/17 11:15 Lovenox SUBQ 40 mg DAILY DENZEL Administration Lactated Ringer's 1,000 mls @ 125 mls/hr 08/11/17 09:00 08/13/17 03:47 Lr IV 125 mls/hr .Q8H DENZEL Administration Morphine Sulfate 2 mg 08/11/17 07:35 08/13/17 06:03 Morphine (Carpuject) IVP 2 mg Q2HR PRN Administration Pain 8 to 10 Pantoprazole Sodium 40 mg 08/11/17 09:00 08/13/17 06:03 Protonix IVP 40 mg QDAC DENZEL Administration Phenol/Menthol 2 sprays 08/11/17 10:31 08/12/17 03:40 Chloraseptic MM 2 sprays Q2HR PRN Administration Throat Pain Sodium Chloride 10 ml 08/11/17 07:35 08/13/17 06:03 Normal Saline Flush 0.9% IVP 10 ml PRN PRN Administration NEEDED PER PROVIDER ORDERS Sodium Chloride 10 ml 08/11/17 14:00 08/13/17 07:21 Normal Saline Flush 0.9% IVP Not Given Q8HR DENZEL Throat Lozenges 1 lozenge 08/11/17 10:31 08/11/17 10:56 Cepacol MM 1 lozenge Q2HR PRN Administration Throat pain - Physical Exam Wound/Incisions: positive: Healing well, No drainage. negative: Erythema General Appearance: positive: No acute distress Respiratory: positive: No respiratory distress Cardiovascular: positive: Regular rate & rhythm Abdomen: positive: Other (softly distended, incisions CDI. minimal tenderness to light palpation) Extremities: positive: No pedal edema Neurologic/Psychiatric: positive: Oriented x3 Impression/Plan - Problem List Problem List: SBO s/p laparoscopic BILLY POD 2 - still no bowel function. This may take several days to resolved given fecalization of the small bowel. Continue NGT to LCWS until patient is passing flatus. Ice chips for comfort. - IV fluid resuscitation - Encourage ambulation - flush NGT with 10 cc miralax q 4 hours - Continue lovenox for DVT prophylaxis - Continue PPI for GI prophylaxis - leukopenia slightly improved. Will continue to monitor. No indication for antibiotics at this time. - patient will be ready for DC once he is tolerating a diet and having bowel movements. This could take more than 96 hours from admission.
[2017-08-13] MEDS: BENZOCAINE/MENTHOL LOZENGE MM PRN (09:39)
[2017-08-13] MEDS: PHENOL THROAT SPRAY 177 ML MM PRN (09:39)
[2017-08-13] MEDS ORDERED: BACITRACIN OINT TOP ONE (11:48)
[2017-08-13] MEDS: D5.45NS W/20 MEQ KCL 1,000 ML IV SCH (14:24)
[2017-08-13] MEDS: ACETAMINOPHEN 1,000 MG/100 ML 100 ML IV SCH (18:31)
[2017-08-14] MEDS: D5.45NS W/20 MEQ KCL 1,000 ML IV SCH ×3 (00:14→23:52)
[2017-08-14] MEDS: ACETAMINOPHEN 1,000 MG/100 ML 100 ML IV SCH ×2 (00:16→06:18)
[2017-08-14] MEDS: MORPHINE 2 MG/ML CARPUJECT IVP PRN (04:31)
[2017-08-14] MEDS: SODIUM CHLORIDE FLUSH 0.9% 10 ML SYRINGE IVP SCH ×3 (06:19→22:14)
[2017-08-14] MEDS: PANTOPRAZOLE 40 MG VIAL IVP SCH (06:19)
[2017-08-14 06:56] LABS: BASOPHILS % (AUTO) 0.5 %; EOSINOPHILS # (AUTO) 0.1 10^3/uL (0.0-0.7); EOSINOPHILS % (AUTO) 3.3 %; HGB - HEMOGLOBIN 12.9 g/dL (14.0-18.0); LYMPHOCYTES # (AUTO) 0.9 10^3/uL (1.5-3.5); LYMPHOCYTES % (AUTO) 31.9 %; MEAN CORPUSCULAR HEMOGLOBIN 30.7 pg (27.0-31.0); MEAN CORPUSCULAR HGB CONC 34.1 g/dL (32.0-36.0); MEAN PLATELET VOLUME 8.1 fL (7.4-11.4); MONOCYTES # (AUTO) 0.3 10^3/uL (0.0-1.0); MONOCYTES % (AUTO) 12.1 %; NEUTROPHILS # (AUTO) 1.4 10^3/uL (1.5-6.6); NEUTROPHILS % (AUTO) 52.2 %; PLT - PLATELET COUNT 262 10^3/uL (130-450); RED CELL DISTRIBUTION WIDTH 14.3 % (12.0-15.0); WHITE BLOOD COUNT 2.8 x10^3/uL (4.8-10.8)
[2017-08-14 07:39] LABS: DIFFERENTIAL COMMENT MANUAL=AUTO DIFF; PLATELET ESTIMATE, MANUAL NORMAL (130-450,000) (NORMAL); PLATELET MORPHOLOGY NORMAL APPEARANCE (NORMAL); RBC MORPHOLOGY (MULTIPLE) NORMAL APPEARANCE (NORMAL)
[2017-08-14 07:40] LABS: CREATININE 0.8 mg/dL (0.6-1.2)
[2017-08-14] MEDS: POLYETHYLENE GLYCOL 3350 17 GM PACKET PO SCH ×5 (08:00→23:52)
--- NOTE | 2017-08-14 08:17 | PROVIDER PROGRESS NOTE ---
Subjective - General Admit Date: 08/11/17 Procedure Date: 08/11/17 Post Op Days: 3 Procedure Performed: Exploratory laparoscopy, lysis of adhesions - Review of Systems Wound/Incisions: positive: Healing well, No drainage. negative: Erythema Drain Type: NGT Drain Output Description: 100 cc bilious General: positive: Other (feels hungry). negative: Fever HEENT: positive: Sore throat Pulmonary: negative: Shortness of breath Cardiovascular: negative: No symptoms Gastrointestinal: positive: Abdominal pain, Flatus, Other (passing flatus, less distention). negative: Nausea, Vomiting Genitourinary: positive: Other Psychiatric: positive: No symptoms Objective - Patient Data Reviewed Vital Signs: Yes Vital Signs: Vital Signs x48h Temp Pulse Resp BP Pulse Ox 08/14/17 04:10 36.9 C 60 16 121/68 95 Intake & Output: Intake and Output Totals x24h 08/12/17 08/13/17 08/14/17 23:59 23:59 23:59 Intake Total 3020.417 2370.200 1630.000 Output Total 1415 1550 550 Balance 1605.417 413.668 0917.000 - Lab Results Lab Results: 08/14/17 06:15 08/14/17 07:20 Other Lab Results: Lab Results x24hrs 08/14/17 08/14/17 Range/Units 07:20 06:15 WBC 2.8 L (4.8-10.8) x10^3/uL RBC 4.20 L (4.70-6.10) 10^6/uL Hgb 12.9 L (14.0-18.0) g/dL Hct 37.8 L (42.0-52.0) % MCV 90.0 (80.0-94.0) fL MCH 30.7 (27.0-31.0) pg MCHC 34.1 (32.0-36.0) g/dL RDW 14.3 (12.0-15.0) % Plt Count 262 (130-450) 10^3/uL MPV 8.1 (7.4-11.4) fL Neut # 1.4 L (1.5-6.6) 10^3/uL Lymph # 0.9 L (1.5-3.5) 10^3/uL [place] # 0.3 (0.0-1.0) 10^3/uL Eos # 0.1 (0.0-0.7) 10^3/uL Baso # 0.0 (0.0-0.1) 10^3/uL Absolute Nucleated RBC 0.00 x10^3/uL Band Neuts % (Manual) Not Reportable Abnorm Lymph % (Manual) Not Reportable Nucleated RBC % 0.1 /100WBC Neutrophils # (Manual) Not Reportable Lymphocytes # (Manual) Not Reportable Monocytes # (Manual) Not Reportable Eosinophils # (Manual) Not Reportable Basophils # (Manual) Not Reportable Differential Comment MANUAL=AUTO DIFF WBC Morphology NORMAL APPEARANCE (NORMAL) Platelet Estimate NORMAL (130-450,000) (NORMAL) Platelet Morphology NORMAL APPEARANCE (NORMAL) RBC Morph Micro Appear NORMAL APPEARANCE (NORMAL) Sodium 136 (135-145) mmol/L Potassium 3.7 (3.5-5.0) mmol/L Chloride 105 (101-111) mmol/L Carbon Dioxide 22 (21-32) mmol/L Anion Gap 9.0 (6-13) BUN 18 (6-20) mg/dL Creatinine 0.8 (0.6-1.2) mg/dL Estimated GFR (MDRD) 94 (>89) Glucose 146 H (70-100) mg/dL Calcium 8.0 L (8.5-10.3) mg/dL - Current Medications Current Medications: Current Medications Generic Name Dose Route Start Last Admin Trade Name Freq PRN Reason Stop Dose Admin Enoxaparin Sodium 40 mg 08/12/17 11:00 08/13/17 09:32 Lovenox SUBQ 40 mg DAILY DENZEL Administration Potassium Chloride/Dextrose/Sod Cl 1,000 mls @ 100 mls/hr 08/13/17 13:00 06:44 D5.45ns W/20 Meq Kcl IV 100 mls/hr .Q10H DENZEL Infusion Acetaminophen 100 mls @ 400 mls/hr 08/13/17 18:00 08/14/17 06:44 Ofirmev IV Infused Q6H DENZEL Infusion Morphine Sulfate 2 mg 08/11/17 07:35 08/14/17 04:31 Morphine (Carpuject) IVP 2 mg Q2HR PRN Administration Pain 8 to 10 Pantoprazole Sodium 40 mg 08/11/17 09:00 08/14/17 06:19 Protonix IVP 40 mg QDAC DENZEL Administration Phenol/Menthol 2 sprays 08/11/17 10:31 08/13/17 09:39 Chloraseptic MM 2 sprays Q2HR PRN Administration Throat Pain Sodium Chloride 10 ml 08/11/17 07:35 08/13/17 06:03 Normal Saline Flush 0.9% IVP 10 ml PRN PRN Administration NEEDED PER PROVIDER ORDERS Sodium Chloride 10 ml 08/11/17 14:00 08/14/17 06:19 Normal Saline Flush 0.9% IVP 10 ml Q8HR DENZEL Administration Throat Lozenges 1 lozenge 08/11/17 10:31 08/13/17 09:39 Cepacol MM 1 lozenge Q2HR PRN Administration Throat pain - Physical Exam Wound/Incisions: positive: Healing well. negative: Erythema General Appearance: positive: No acute distress Respiratory: positive: No respiratory distress Cardiovascular: positive: Regular rate & rhythm Abdomen: positive: Other (softly distended but improved. Non-tender to palpation. pos bowel sounds) Extremities: positive: No pedal edema Neurologic/Psychiatric: positive: Oriented x3 Impression/Plan - Problem List Problem List: s/p laparoscopic BILLY for SBO POD 3 - Patient is passing flatus. Remove NGT, start clear liquids. Continue Miralax orally. Will advance diet as tolerated - resume home medications - encourage ambulation - continue Lovenox for DVT prophylaxis - Patient will be ready for discharge once he is tolerating a regular diet and having bowel movements.
[2017-08-14] MEDS: ENOXAPARIN 40 MG/0.4 ML SYRINGE SUBQ SCH (08:36)
[2017-08-14] MEDS ORDERED: ACETAMINOPHEN 325 MG TABLET PO PRN (08:46)
[2017-08-14] MEDS: ASPIRIN EC 81 MG TABLET PO SCH (10:26)
[2017-08-14] MEDS: LISINOPRIL 5 MG TABLET PO SCH (12:07)
[2017-08-15] MEDS: POLYETHYLENE GLYCOL 3350 17 GM PACKET PO SCH ×3 (04:46→12:00)
[2017-08-15 06:12] LABS: BASOPHILS % (AUTO) 0.4 %; EOSINOPHILS # (AUTO) 0.1 10^3/uL (0.0-0.7); EOSINOPHILS % (AUTO) 4.7 %; HGB - HEMOGLOBIN 11.8 g/dL (14.0-18.0); LYMPHOCYTES # (AUTO) 1.1 10^3/uL (1.5-3.5); MEAN CORPUSCULAR HEMOGLOBIN 30.8 pg (27.0-31.0); MEAN CORPUSCULAR HGB CONC 33.9 g/dL (32.0-36.0); MEAN CORPUSCULAR VOLUME 90.7 fL (80.0-94.0); MEAN PLATELET VOLUME 7.4 fL (7.4-11.4); MONOCYTES # (AUTO) 0.3 10^3/uL (0.0-1.0); MONOCYTES % (AUTO) 12.6 %; NEUTROPHILS % (AUTO) 39.3 %; PLT - PLATELET COUNT 241 10^3/uL (130-450); RED BLOOD COUNT 3.82 10^6/uL (4.70-6.10); RED CELL DISTRIBUTION WIDTH 14.2 % (12.0-15.0); WHITE BLOOD COUNT 2.6 x10^3/uL (4.8-10.8)
[2017-08-15 06:48] LABS: DIFFERENTIAL COMMENT MANUAL=AUTO DIFF; PLATELET ESTIMATE, MANUAL NORMAL (130-450,000) (NORMAL); RBC MORPHOLOGY (MULTIPLE) NORMAL APPEARANCE (NORMAL)
[2017-08-15] MEDS: SODIUM CHLORIDE FLUSH 0.9% 10 ML SYRINGE IVP SCH (06:53)
--- NOTE | 2017-08-15 08:19 | PROVIDER PROGRESS NOTE ---
Subjective - General Admit Date: 08/11/17 Procedure Date: 08/11/17 Post Op Days: 4 Procedure Performed: Exploratory laparoscopy, lysis of adhesions - Review of Systems Wound/Incisions: positive: Healing well. negative: Erythema General: positive: Other (tolerating clear cliquids. Multiple loose bowel movements yesterday. No Nausea or emesis.). negative: Fever Pulmonary: negative: Shortness of breath Cardiovascular: negative: No symptoms Gastrointestinal: positive: Abdominal pain, Flatus, Other (passing flatus, less distention). negative: Nausea, Vomiting Genitourinary: positive: Other Psychiatric: positive: No symptoms Objective - Patient Data Reviewed Vital Signs: Yes Vital Signs: Vital Signs x48h Temp Pulse Resp BP BP Pulse Ox 08/15/17 07:54 36.4 C L 54 L 18 119/71 93 08/15/17 05:30 36.6 C 67 16 137/70 H 95 Intake & Output: Intake and Output Totals x24h 08/13/17 08/14/17 08/15/17 23:59 23:59 23:59 Intake Total 2370.200 3883.333 250 Output Total 1550 850 400 Balance 465.570 1390.333 -150 - Lab Results Lab Results: 08/15/17 05:14 08/14/17 07:20 Other Lab Results: Lab Results x24hrs 08/15/17 Range/Units 05:14 WBC 2.6 L (4.8-10.8) x10^3/uL RBC 3.82 L (4.70-6.10) 10^6/uL Hgb 11.8 L (14.0-18.0) g/dL Hct 34.6 L (42.0-52.0) % MCV 90.7 (80.0-94.0) fL MCH 30.8 (27.0-31.0) pg MCHC 33.9 (32.0-36.0) g/dL RDW 14.2 (12.0-15.0) % Plt Count 241 (130-450) 10^3/uL MPV 7.4 (7.4-11.4) fL Neut # 1.0 L (1.5-6.6) 10^3/uL Lymph # 1.1 L (1.5-3.5) 10^3/uL [place] # 0.3 (0.0-1.0) 10^3/uL Eos # 0.1 (0.0-0.7) 10^3/uL Baso # 0.0 (0.0-0.1) 10^3/uL Absolute Nucleated RBC 0.00 x10^3/uL Band Neuts % (Manual) Not Reportable Abnorm Lymph % (Manual) Not Reportable Nucleated RBC % 0.0 /100WBC Neutrophils # (Manual) Not Reportable Lymphocytes # (Manual) Not Reportable Monocytes # (Manual) Not Reportable Eosinophils # (Manual) Not Reportable Basophils # (Manual) Not Reportable Differential Comment MANUAL=AUTO DIFF Platelet Estimate NORMAL (130-450,000) (NORMAL) RBC Morph Micro Appear NORMAL APPEARANCE (NORMAL) - Current Medications Current Medications: Current Medications Generic Name Dose Route Start Last Admin Trade Name Freq PRN Reason Stop Dose Admin Aspirin 81 mg 08/14/17 09:00 08/14/17 10:26 Ecotrin PO 81 mg DAILY DENZEL Administration Enoxaparin Sodium 40 mg 08/12/17 11:00 08/14/17 08:36 Lovenox SUBQ 40 mg DAILY DENZEL Administration Lisinopril 10 mg 08/14/17 09:00 08/14/17 12:07 Zestril PO 10 mg DAILY DENZEL Administration Morphine Sulfate 2 mg 08/11/17 07:35 08/14/17 04:31 Morphine (Carpuject) IVP 2 mg Q2HR PRN Administration Pain 8 to 10 Phenol/Menthol 2 sprays 08/11/17 10:31 08/13/17 09:39 Chloraseptic MM 2 sprays Q2HR PRN Administration Throat Pain Polyethylene Glycol 1.89 gm 08/14/17 08:00 08/15/17 04:46 Miralax PO 08/15/17 16:01 Not Given Q4H DENZEL Sodium Chloride 10 ml 08/11/17 07:35 08/13/17 06:03 Normal Saline Flush 0.9% IVP 10 ml PRN PRN Administration NEEDED PER PROVIDER ORDERS Sodium Chloride 10 ml 08/11/17 14:00 08/15/17 06:53 Normal Saline Flush 0.9% IVP Not Given Q8HR DENZEL Throat Lozenges 1 lozenge 08/11/17 10:31 08/13/17 09:39 Cepacol MM 1 lozenge Q2HR PRN Administration Throat pain - Physical Exam Wound/Incisions: positive: Healing well. negative: Erythema General Appearance: positive: No acute distress Respiratory: positive: No respiratory distress Cardiovascular: positive: Regular rate & rhythm Abdomen: positive: Other (soft, non-distended. Incisions CDI) Extremities: positive: No pedal edema Neurologic/Psychiatric: positive: Oriented x3 Impression/Plan - Problem List Problem List: Advance to soft diet. DC IV fluids. If patient tolerates soft diet will plan for discharge today. Persistent Leukopenia - will recheck CBC as outpatient and if persistently low will refer to court reporter. No infectious concerns at this point.
--- NOTE | 2017-08-15 08:25 | Discharge Plan ---
Discharge Plan Disposition: 01 Home, Self Care Condition: Stable Diet: Soft Activity Restrictions: No Restrictions Shower Restrictions: No Driving Restrictions: No Weight Bearing: Full Weight Instruction Topics: Obstruction Sm Bowel, Diet Soft Dc Additional Instructions or Follow Up instructions: You have glue on your incisions. This will come off on its own in approximately 2 weeks. Do not pick the glue. Do not submerge in water in bath or pool for 1 week post operatively. Wash your hands prior to touching your incision. Call your surgeon if you develop redness around incision or drainage from incisions, fever or chills. Take Dulcolox orally once per day. If you don't have a bowel movement within 24 hours increase to three times per day. If you still do not have a bowel movement after 48 yours take Miralax. For pain take Tylenol 650 mg Q 6 hours. Add Ibuprofen 600 mg every 6 hours if you still have pain with Tylenol alone. Follow up with Dr. Heard in 2 weeks from discharge. No Smoking: If you smoke, Please STOP! Call for help. Follow-up with: SOY HEARD MD [Provider Admit Priv/Credential] - 2 Weeks
[2017-08-15] MEDS ORDERED: BISACODYL 5 MG TABLET PO SCH (09:00)
[2017-08-15] MEDS: LISINOPRIL 5 MG TABLET PO SCH (09:47)
[2017-08-15] MEDS: ENOXAPARIN 40 MG/0.4 ML SYRINGE SUBQ SCH (09:48)
[2017-08-15] MEDS: ASPIRIN EC 81 MG TABLET PO SCH (09:48)
[2017-08-15 13:46] VITALS: BP 121/67
--- NOTE | 2017-09-05 15:01 | DISCHARGE SUMMARY ---
Discharge Summary Admit Date: 08/11/17 Discharge Date: 08/15/17 Discharging Provider: Félix Condition at Discharge: Stable Discharge Disposition: 01 Home, Self Care - DIAGNOSES Admission Diagnoses: Small Bowel Obstruction Discharge Diagnoses with Status of Each Condition: Small Bowel Obstruction: resolved after surgical lysis of adhesions - HPI History of Present Illness: This is a 77-year-old gentleman who reported to the emergency department with a recurrent small bowel obstruction. He had had 2 prior admissions within the last 12 months with a similar diagnosis. Both were treated conservatively. Upon admission to the surgical service he was hemodynamically stable. An NG tube was placed for decompression. He did have a slight lactic acidosis upon admission and this was trended. Within the next 6 hours he developed a worsening lactic acidosis despite fluid resuscitation. For this reason he was urgently taken to the operating room for exploratory surgery. - HOSPITAL COURSE Hospital Course: The patient underwent an exploratory laparoscopy with lysis of an interloop adhesion in the distal small bowel. He was transferred to the floor postoperatively with an NG tube and Paredes catheter in place. His Paredes catheter was removed on postoperative day #1 and he was encouraged to ambulate. He began passing flatus on hospital day 3 and the NG tube was subsequently removed and he was started on a clear liquid diet. This was advanced as the patient tolerated. He initially was on IV pain medications and these were discontinued and exchanged for oral pain medications once he was able to tolerate an oral diet. Upon the day of discharge he was noted to be ambulating without assistance and tolerating a soft diet. He had had several soft bowel movements and his small bowel obstruction had resolved. He was discharged home with a prescription for Percocet for pain control and stool softeners. He was instructed to follow-up with the surgeon, Dr. Heard within 2 weeks. He was noted in the postoperative period to be leukopenic. This slowly improved but never normalized prior to discharge. He was instructed to obtain a blood sample prior to his visit with Dr. Heard as an outpatient to ensure his white blood cell count had normalized. - ALLERGIES Allergies/Adverse Reactions: Allergies Allergy/AdvReac Type Severity Reaction Status Date / Time No Known Drug Allergies Allergy Verified 01/30/17 06:58 - MEDICATIONS Home Medications: Ambulatory Orders Medication Instructions Recorded Confirmed Lisinopril 10 mg ORAL DAILY 09/25/14 08/11/17 Simvastatin [Zocor] 40 mg PO QPM 09/25/14 08/11/17 Oxybutynin [Ditropan] 5 mg PO DAILY 07/28/16 08/11/17 Aspirin [Aspirin EC] 81 mg PO DAILY 01/30/17 08/11/17 Cholecalciferol (Vitamin D3) 2,000 unit PO DAILY 01/30/17 08/11/17 [Vitamin D3] Meclizine [Antivert] 25 mg PO Q6H PRN 01/30/17 08/11/17 Multivitamin [Multiple Vitamins] 1 each PO DAILY 01/30/17 08/11/17 [place]-3/Dha/Epa/Fish Oil [Fish Oil 1 each PO DAILY 01/30/17 08/11/17 1,000 mg Softgel] Methocarbamol 500 mg PO BID 02/18/17 08/11/17 Acetaminophen [Tylenol] 650 mg PO Q4HR PRN tablet 08/15/17 Bisacodyl [Dulcolax] 10 mg PO DAILY tablet 08/15/17 Polyethylene Glycol 3350 [Miralax] 1.89 gm PO Q4H packet 08/15/17 - PHYSICAL EXAM AT DISCHARGE General Appearance: positive: No acute distress Respiratory: positive: No respiratory distress Cardiovascular: positive: Regular rate & rhythm Abdomen: positive: Non-tender, No distention, Other (well healing surgical incisions) Extremities: positive: No pedal edema Neurologic/Psychiatric: positive: Oriented x3 - LABS Result Diagrams: 08/15/17 05:14 08/14/17 07:20 - FOLLOW UP Follow Up: Dr. Heard 2 weeks - TIME SPENT Time Spent in Discharge (Minutes): 30
== END 2017-08-15 14:35 | disposition home or self-care (01) | DRG 336 ==
LOC: ED 03:23 → MS2 07:35
PROVIDERS: ADMIT Surgery; ATTEND Surgery
PROC: 0DN84ZZ Release Small Intestine, Percutaneous Endoscopic Approach (ICD-10-PCS; principal; 2017-08-11 14:30)
DX: K56.609 Unspecified intestinal obstruction, unspecified as to partial versus complete obstruction (principal); K56.52 Intestinal adhesions [bands] with complete obstruction; E87.2 Acidosis; G89.29 Other chronic pain; M54.9 Dorsalgia, unspecified; D72.819 Decreased white blood cell count, unspecified; I10 Essential (primary) hypertension; E78.00 Pure hypercholesterolemia, unspecified; Z79.82 Long term (current) use of aspirin; Z79.899 Other long term (current) drug therapy
CPT/HCPCS: 36415; 43752; 71045; 74177; 80048; 80053; 81001; 81003; 83605; 83690; 85025; 87086; 96361; 96374; 96376; 99284; 99285

== ENCOUNTER 2017-08-28 14:26 | Outpatient (CLI) | payer MEDICARE, OTHER ==
[2017-08-28 14:52] LABS: CALCIUM 9.2 mg/dL (8.5-10.3)
[2017-08-28 14:56] LABS: BASOPHILS % (AUTO) 1.3 %; EOSINOPHILS % (AUTO) 1.9 %; HGB - HEMOGLOBIN 15.2 g/dL (14.0-18.0); LYMPHOCYTES % (AUTO) 50.2 %; MEAN CORPUSCULAR HEMOGLOBIN 30.3 pg (27.0-31.0); MEAN CORPUSCULAR HGB CONC 34.4 g/dL (32.0-36.0); MEAN CORPUSCULAR VOLUME 88.1 fL (80.0-94.0); MEAN PLATELET VOLUME 6.5 fL (7.4-11.4); MONOCYTES % (AUTO) 8.1 %; NEUTROPHILS % (AUTO) 38.5 %; PLT - PLATELET COUNT 445 10^3/uL (130-450); RED BLOOD COUNT 5.03 10^6/uL (4.70-6.10); RED CELL DISTRIBUTION WIDTH 14.1 % (12.0-15.0); WHITE BLOOD COUNT 5.1 x10^3/uL (4.8-10.8)
[2017-08-28 15:02] LABS: ABNORMAL LYMPHS % (MANUAL) 0 %
[2017-08-28 15:23] LABS: BAND NEUTROPHILS % (MANUAL) 1 %; DIFFERENTIAL COMMENT MANUAL DIFFERENTIAL; EOSINOPHILS # (MANUAL) 0.1 10^3/uL (0-0.7); LYMPHOCYTES % (MANUAL) 58 %; MONOCYTES # (MANUAL) 0.1 10^3/uL (0.0-1.0); NEUTROPHILS % (MANUAL) 38 %; PLATELET ESTIMATE, MANUAL NORMAL (130-450,000) (NORMAL); PLATELET MORPHOLOGY NORMAL APPEARANCE (NORMAL); RBC MORPHOLOGY (MULTIPLE) NORMAL APPEARANCE (NORMAL)
== END 2017-08-28 14:27 | disposition home or self-care (01) ==
LOC: LAB 14:26
PROVIDERS: ATTEND Surgery
DX: K56.609 Unspecified intestinal obstruction, unspecified as to partial versus complete obstruction (principal)
CPT/HCPCS: 80048; 85025

== ENCOUNTER 2017-08-30 09:26 | Outpatient (CLI) | payer MEDICARE, OTHER ==
[2017-08-30] MEDS ORDERED: IOPAMIDOL-300 100 ML VIAL ONE (09:39)
[2017-08-30] MEDS ORDERED: IOPAMIDOL-300 50 ML VIAL ONE (09:39)
[2017-08-30] MEDS ORDERED: IOPAMIDOL-300 50 ML VIAL PO ONE (11:31)
[2017-08-30] MEDS ORDERED: IOPAMIDOL-300 100 ML VIAL IVP ONE (11:31)
--- NOTE | 2017-08-31 16:53 | CT Report ---
EXAM: CT ABDOMEN AND PELVIS EXAM DATE: 08/30/2017 11:22 AM. CLINICAL HISTORY: BOWEL OBSTRUCTION. COMPARISONS: None. TECHNIQUE: Routine helical CT imaging was performed through the abdomen and pelvis. IV contrast: ISOV UE 300 100mL. Enteric contrast: Yes. Reconstructions: Coronal and sagittal. In accordance with CT protocol optimization, one or more of the following dose reduction techniques w ere utilized for this exam: automated exposure control, adjustment of mA and/or KV based on patient s ize, or use of iterative reconstructive technique. FINDINGS: Lung Bases: There is a 4 mm nodule in the peripheral left lower lobe on image 3/ 8. Otherwise unremarkable. Liver: Diffuse fatty infiltration. No masses. Gallbladder/Bile Ducts: Unremarkable. Spleen: Normal. Pancreas: Normal. Adrenal Glands: Overall stable appearance of right adrenal nodule. Left adrenal gland also appears st able. Kidneys: Normal. No masses or hydronephrosis. Peritoneal Cavity/Bowel: No free fluid, free air or adenopathy. Extensive sigmoid diverticulosis with out evidence of diverticulitis. No masses or acute inflammatory process. The appendix is well visuali zed and normal. Pelvic Organs: Bladder diverticula noted. Otherwise within normal limits. Vasculature: No aneurysms or other significant abnormality. Bones: No significant abnormality. Other: None. IMPRESSION: 1. Extensive sigmoid diverticulosis without evidence of diverticulitis. 2. Overall stable appearance of right adrenal nodule. This remains indeterminate and follow-up adrena l mass CT or MRI would be useful. 3. Bladder diverticula noted. 4. Fatty infiltration of the liver. 5. 4 mm pulmonary nodule in the peripheral left lower lobe. If the patient is considered high risk fo r lung cancer, follow-up CT could be performed in 12 months for further evaluation. [facility] Referring Provider Line: [phone] SITE ID: [id number]
== END 2017-08-30 09:27 | disposition home or self-care (01) ==
LOC: DI 09:26
PROVIDERS: ATTEND Surgery
DX: K57.30 Diverticulosis of large intestine without perforation or abscess without bleeding (principal); E27.9 Disorder of adrenal gland, unspecified; N32.3 Diverticulum of bladder; K76.0 Fatty (change of) liver, not elsewhere classified; R91.1 Solitary pulmonary nodule
CPT/HCPCS: 74177; Q9967

== ENCOUNTER 2017-09-11 10:51 | Outpatient (CLI) | payer MEDICARE, OTHER | END 2017-09-11 10:52 | disposition home or self-care (01) | LOC: LAB 10:51 | PROVIDERS: ATTEND Physician Assistant | DX: N40.0 Benign prostatic hyperplasia without lower urinary tract symptoms (principal) | CPT/HCPCS: 36415; 84153 ==

== ENCOUNTER 2017-12-09 09:41 | Outpatient (CLI) | END 2017-12-09 09:42 | disposition home or self-care (01) | CPT/HCPCS: 99203; G0463 ==

== ENCOUNTER 2018-01-18 20:28 | Outpatient (CLI) | payer MEDICARE, OTHER | END 2018-01-18 20:29 | disposition home or self-care (01) | LOC: SC 20:28 | PROVIDERS: ATTEND Internal Medicine Pulmonary Disease | DX: G47.33 Obstructive sleep apnea (adult) (pediatric) (principal); G47.61 Periodic limb movement disorder | CPT/HCPCS: 95810 ==

== ENCOUNTER 2018-02-26 09:15 | Outpatient (CLI) | payer MEDICARE, OTHER | END 2018-02-26 09:16 | disposition home or self-care (01) | LOC: SC 09:15 | PROVIDERS: ATTEND Nurse Practitioner Family | DX: G47.33 Obstructive sleep apnea (adult) (pediatric) (principal); G47.61 Periodic limb movement disorder | CPT/HCPCS: 99214; G0463; 99212 ==

== ENCOUNTER 2018-04-20 10:35 | Outpatient (CLI) | payer MEDICARE, OTHER | END 2018-04-20 10:36 | disposition home or self-care (01) | LOC: SC 10:35 | PROVIDERS: ATTEND Nurse Practitioner Family | DX: G47.33 Obstructive sleep apnea (adult) (pediatric) (principal) | CPT/HCPCS: 99213; G0463; 99212 ==

== ENCOUNTER 2018-06-27 11:38 | Outpatient (CLI) | payer MEDICARE, OTHER ==
--- NOTE | 2018-06-28 21:50 | XRAY Report ---
Reason: L FOOT PAIN X MONTHS Procedure Date: 06/27/2018 Accession Number: [id number] / [id number] Procedure: XR - Foot 3 View LT CPT Code: FULL RESULT: EXAM: LEFT FOOT RADIOGRAPHY EXAM DATE: 06/27/2018 01:20 PM. CLINICAL HISTORY: Left foot pain for months. COMPARISON: None. TECHNIQUE: 3 views. FINDINGS: Bones: Small calcaneal enthesophytes. No acute fracture or bone lesion. Joints: Hallux valgus deformity Soft Tissues: Normal. No soft tissue swelling. IMPRESSION: 1. Hallux valgus deformity. 2. Small calcaneal enthesophytes. 3. No acute fracture or dislocation. [facility]
== END 2018-06-27 11:39 | disposition home or self-care (01) ==
LOC: DI 11:38
PROVIDERS: ATTEND Podiatrist
DX: M20.12 Hallux valgus (acquired), left foot (principal); M77.32 Calcaneal spur, left foot

== ENCOUNTER 2018-07-15 10:30 | Outpatient (CLI) | payer MEDICARE, OTHER | END 2018-07-15 10:31 | disposition home or self-care (01) | LOC: SC 10:30 | PROVIDERS: ATTEND Nurse Practitioner Family | DX: G47.33 Obstructive sleep apnea (adult) (pediatric) (principal) | CPT/HCPCS: 99214; G0463; 99212 ==

== ENCOUNTER 2018-08-18 13:26 | Outpatient (CLI) | payer MEDICARE, OTHER | END 2018-08-18 13:27 | disposition home or self-care (01) | LOC: SC 13:26 | PROVIDERS: ATTEND Nurse Practitioner Family | DX: G47.33 Obstructive sleep apnea (adult) (pediatric) (principal) | CPT/HCPCS: 99214; G0463; 99212 ==

== ENCOUNTER 2018-09-15 13:37 | Outpatient (CLI) | payer MEDICARE, OTHER | END 2018-09-15 13:38 | disposition home or self-care (01) | LOC: SC 13:37 | PROVIDERS: ATTEND Nurse Practitioner Family | DX: G47.33 Obstructive sleep apnea (adult) (pediatric) (principal) | CPT/HCPCS: 99214; G0463; 99212 ==

== ENCOUNTER 2018-10-19 13:45 | Outpatient (CLI) | payer MEDICARE, OTHER | END 2018-10-19 13:46 | disposition home or self-care (01) | LOC: SC 13:45 | PROVIDERS: ATTEND Nurse Practitioner Family | DX: G47.33 Obstructive sleep apnea (adult) (pediatric) (principal) | CPT/HCPCS: 99214; G0463; 99212 ==

== ENCOUNTER 2018-11-05 20:29 | Outpatient (CLI) | payer MEDICARE, OTHER | END 2018-11-05 20:30 | disposition home or self-care (01) | LOC: SC 20:29 | PROVIDERS: ATTEND Internal Medicine Pulmonary Disease | DX: G47.33 Obstructive sleep apnea (adult) (pediatric) (principal); G47.61 Periodic limb movement disorder; E66.9 Obesity, unspecified; Z68.31 Body mass index [BMI] 31.0-31.9, adult | CPT/HCPCS: 95811 ==

== ENCOUNTER 2018-11-25 13:31 | Outpatient (CLI) | payer MEDICARE, OTHER | END 2018-11-25 13:32 | disposition home or self-care (01) | LOC: SC 13:31 | PROVIDERS: ATTEND Nurse Practitioner Family | DX: G47.33 Obstructive sleep apnea (adult) (pediatric) (principal); G47.61 Periodic limb movement disorder | CPT/HCPCS: 99215; G0463; 99212 ==

== ENCOUNTER 2019-01-25 13:28 | Outpatient (CLI) | payer MEDICARE, OTHER ==
[2019-01-25 15:02] VITALS: BP 120/70
--- NOTE | 2019-01-25 15:02 | SLEEP CARE CONSULTATION ---
Information from patient questionnaire entered by Dorothy Mendoza. I have reviewed and concur with the information entered by Dorothy Mendoza. This document represents the service I personally performed and the decisions made by me, Luz Shay RN, MSN, [employer]. - History of Present Illness HPI: CATIA FROST was diagnosed to have moderate, AHI 21.5, obstructive sleep apnea- hypopnea syndrome and returned today for CPAP therapy two month follow-up. Changes since last seen is he is now sleeping in his own room as his spouse has recovered fully from her cataract / glaucoma surgery. However, he has found that he is getting less sleep due to watching TV later. Instead of his usual 7 hours, he is getting around 5 hours. When he was sharing room with spouse before, he had a timer for TV to shut off about 11- 11:30pm. He had to watch what she wanted but now there are new programs later that he likes. He also had que stions about the non-disposable as it has not been replaced. The mask cushion was replaced for a larger size with better fit when sleeping on his back. But on his side, he will have mask leaks and wake him occasionally. He followed up with his direct support professional caregiver about foot pain that is better but still uncomfortable and working on treatment with an appointment next month. He had urinary tract reconstruction a few weeks ago with better urinary flow. Equipment obtained from: [facility] Mask style: Nasal Mask brand: Respironics Backup mask available: Yes Last cushion change: a couple weeks ago - Compliance Data Reviewed with Patient Average duration of nightly device use: 7.10 Compliance rate % (4+hrs/night over past 30 nights): 96.7 Current pressure setting (cmH2O): 12-14 Humidity settin Heated hose settin Average residual AHI: 11.4 Central apnea: 3.5 Obstructive apnea: 2.9 Hypopnea: 5.0 - Subjective Patient concerns: denies: aerophagia, mask discomfort, air blowing in eyes, mask leak noise, condensation in mask/hose, nasal congestion, dry mouth, nose, throat, epistaxis Observed to snore while using device: No (on rare occasions only when mask leaking ) Current pressure setting perceived as: comfortable On therapy, patient: reports: sleeping better, awakening more refreshed, being more awake and alert during the day, more rested overall. denies: drowsiness while driving Initial [place] Sleepiness Scale score: 9 Current [place] Sleepiness Scale score: 3 - Review of Systems Review of systems same as previous: No Cardiovascular: reports: high blood pressure Urinary: denies: incontinence, frequency, urgency (Has had urinary reconstruction with benefit) - Allergies/Medications Simvastatin 40mg tab one daily at bedtime Lisinopril 10mg tab one daily Meclizine HCI 25mg tab one up to TID prn Multi-Vitamin Tab one daily Vitamin D 2000unit tab one daily Aspirin EC 81mg tab one daily No known drug allergies: No Allergies and home medications reviewed: Yes - Physical Examination Blood Pressure: 120/70 Cuff size: long Heart Rate: 72 O2 Saturation: 96 Height: 5 ft 8.75 in Weight (kg): 98.52 kg Body Mass Index: 32.3 BMI Classification: Class 1 - Impression 1. Obstructive Sleep Apnea-Hypopnea Syndrome,moderate , with good treatment compliance and fair apnea control due to elevated residual AHI. The CPAP pressure was not changed as ordered by [facility]. Thus I will again request pressure change to [id number] and have completed in office if access. On CPAP therapy, there is improved sleep quality and continues to feel more rested overall. For his filter concerns, I showed him the supply replacement schedule and that it could be replaced every 6 months. It is also to be rinsed well every week. An order was written to replace. His mask leaks are much less with new mask cushion size but still occasionally will wake to mask leaks when sleeping on his side. Thus I showed him a CPAP pillow that can be bought online for about $60 or another style. For his upcoming surgery for cataract surgery, he is advised to take his CPAP if sedated and check with his surgeon with rationale discussed. To improve sleep length, we discussed different approaches such as TV timer to go bed earlier or wake later. However, he normally wakes about 7am and unable to go back to sleep. So he will consider a TV timer and other shows to watch earlier. Most people require 7-8 hours a night for optimal mental and physical function. Patient's apnea severity and rationale for treatment to reduce apnea, improve sleep quality and reduce cardiovascular and cerebrovascular events was reviewed. I also reviewed the benefit of consistent device use of CPAP for hypertension. - Plan Plan: Change auto CPAP pressure at 14-18 cm H2O. Notify me if snoring with the mask or feeling that the pressure is too much or too little. Attempt to lose weight. Clean filter as directed Consider CPAP pillow TAke CPAP to surgical procedure Bedtime timer obtain more sleep. Return for follow-up in 6 weeks, or sooner if concerns arise. I spent 100% of this 45 minute visit face to face with the patient with greater than 50% of this was spent time counseling the patient and coordination of care.
== END 2019-01-25 13:29 | disposition home or self-care (01) ==
LOC: SC 13:28
PROVIDERS: ATTEND Nurse Practitioner Family
DX: G47.33 Obstructive sleep apnea (adult) (pediatric) (principal)
CPT/HCPCS: 99215; G0463; 99212

== ENCOUNTER 2019-03-23 13:26 | Outpatient (CLI) | payer MEDICARE, OTHER ==
[2019-03-23 15:03] VITALS: BP 128/68
--- NOTE | 2019-03-23 15:03 | SLEEP CARE CONSULTATION ---
Information from patient questionnaire entered by Dorothy Mendoza. I have reviewed and concur with the information entered by Dorothy Mendoza. This document represents the service I personally performed and the decisions made by me, Luz Shay, RN, MSN, WET CROWN BLOCKING OPERATOR. History of Present Illness Previous diagnosis: Moderate, Obstructive Sleep Apnea-Hypopnea Syndrome AHI: 21.5 Reason for CPAP/BiPAP follow up: other (6 week follow up- pressure change) Equipment type: CPAP Equipment obtained from: [employer] (He is having problems getting equipment or the right size mask. he would like to transfer.) Mask style: Nasal (Dreamwear) Backup mask available: Yes Last cushion change: a couple of weeks ago Prior sleep studies: Yes Year and Where: 2017 [facility] additional information: Changes since last seen is he has had to move in to spouses room and sleeping in recliner with his CPAP as his spouse fell and broke her patella and is wearing a knee brace and requires his assistance. She also has an appointment with a vascular surgeon end of month. CPAP Compliance Data - Data Reviewed with Patient Average duration of nightly device use: 8h 5m Compliance rate %: 100 Current pressure setting (cmH2O): 14-18 Humidity settin Heated hose settin Average residual AHI: 20 Central apnea: 6.5 Obstructive apnea: 5.5 Hypopnea: 8.0 Subjective Patient concerns: reports: dry mouth, nose, throat (mild lip dryness 1 time a week.). denies: aerophagia, mask discomfort, air blowing in eyes, mask leak noise, condensation in mask/hose, nasal congestion, epistaxis Observed to snore while using device: Yes (rare) Current pressure setting perceived as: comfortable On therapy, patient: reports: sleeping better, awakening more refreshed, being more awake and alert during the day, more rested overall. denies: drowsiness while driving Initial [place] Sleepiness Scale score: 9 Current [place] Sleepiness Scale score: 2 Allergies and Home Medications Known drug allergies: No Home medication list reviewed: Yes Allergy and home medication list: Medication Name (generic/name brand) Strength & Dosage Simvastatin 40mg tab one daily at bedtime Lisinopril 10mg tab one daily Meclizine HCI 25mg tab one up to TID prn Multi-Vitamin Tab one daily Vitamin D 2000unit tab one daily Aspirin EC 81mg tab one daily Review of Systems Review of systems same as previous: Yes Physical Exam Blood Pressure: 128/68 Heart Rate: 73 O2 Saturation: 97 Height: 5 ft 8.75 in Weight: 220 lb 12.8 oz Body Mass Index: 32.8 BMI Classification: Obesity Class 1 Impression and Plan 1. Obstructive Sleep Apnea-Hypopnea Syndrome, moderate, with good treatment comp liance and continued elevation of his residual AHI despite change in autoCPAP pressure. On CPAP therapy, the patient has better sleep quality and is more rested overall. Patient continues to benefit from treatment in reduction of sleepiness symptoms despite high residual AHI. Thus after review of compliance it was noted when there is no mask leaks and his pressure was set at [id number], his residual AHI was the lowest. Thus I offered to try a new mask style as current one is leaking so much despite mask adjustment and regular replacement of cushion and daily cleaning. He is also having difficulty getting supplies. I fitted him with a sample Dreamwear Wisp mask, large cushion. For his CPAP concerns, he was advised how he could transfer. He would like to talk to his son on who he uses. I will have my international logistics coordinator inform him of his options. He will consider transfering at next visit if continued problems with getting equipment. Patient's apnea severity and rationale for treatment to reduce apnea, improve sleep quality and reduce cardiovascular and cerebrovascular events was reviewed. I also reviewed the benefit of consistent device use of CPAP for hypertension, . He has also gained some weight since spouse stopped cooking and will be working on weight loss. * * Change CPAP pressure to 16 cmH2O * Try Dreamwear wisp mask * Notify me if snoring with mask or feeling that the pressure is too much or too little * Attempt to lose weight * Return for follow up in 1-2 months , or sooner if concerns arise I spent 100% of this 35 minute visit face to face with the patient with greater than 50% of this was spent time counseling the patient and coordination of care.
== END 2019-03-23 13:27 | disposition home or self-care (01) ==
LOC: SC 13:26
PROVIDERS: ATTEND Nurse Practitioner Family
DX: G47.33 Obstructive sleep apnea (adult) (pediatric) (principal); E66.9 Obesity, unspecified; Z68.32 Body mass index [BMI] 32.0-32.9, adult
CPT/HCPCS: 99214; G0463; 99212

== ENCOUNTER 2019-04-11 03:19 | Observation (INO) | payer MEDICARE, OTHER ==
[2019-04-11] MEDS ORDERED: ONDANSETRON 4 MG/2 ML VIAL IVP STA (03:32)
--- NOTE | 2019-04-11 03:33 | ED Physician Documentation ---
History of Present Illness - Stated complaint Stated Complaint: BOWEL OBSTRUCTION - Chief complaint Chief Complaint: Abd Pain - Additonal information Additional information: This is a 79-year-old male with a history of small bowel obstructions, s/p lysis of adhesions with Dr. Major in July of 2017, who presents with abdominal pain, distention and vomiting. Patient states he had a bowel movement yesterday which was small, and he has not had any bowel movement since then. He thought he was straining to have a bowel movement so he went to [facility] [place] to get an enema, and when he was on his way there he vomited multiple times. He had increasing pain in his abdomen which is diffuse and moderate to severe in severity, so he presented here for further evaluation. No fever. No dysuria. Review of Systems Constitutional: denies: Fever Cardiac: denies: Chest pain / pressure GI: reports: Abdominal Pain, Nausea, Vomiting : denies: Dysuria Neurologic: denies: Generalized weakness PD PAST MEDICAL HISTORY - Past Medical History Cardiovascular: Hypertension, High cholesterol Respiratory: None Endocrine/Autoimmune: None GI: Other (recurrent Small bowel obstruction.) : None HEENT: Other Psych: None Musculoskeletal: Chronic back pain Derm: None - Past Surgical History Past Surgical History: Yes General: Other - Present Medications Home Medications: Ambulatory Orders Medication Instructions Recorded Confirmed Lisinopril 10 mg ORAL DAILY 09/25/14 08/11/17 Simvastatin [Zocor] 40 mg PO QPM 09/25/14 08/11/17 Oxybutynin [Ditropan] 5 mg PO DAILY 07/28/16 08/11/17 Aspirin [Aspirin EC] 81 mg PO DAILY 01/30/17 08/11/17 Cholecalciferol (Vitamin D3) 2,000 unit PO DAILY 01/30/17 08/11/17 [Vitamin D3] Meclizine [Antivert] 25 mg PO Q6H PRN 01/30/17 08/11/17 Multivitamin [Multiple Vitamins] 1 each PO DAILY 01/30/17 08/11/17 [place]-3/Dha/Epa/Fish Oil [Fish Oil 1 each PO DAILY 01/30/17 08/11/17 1,000 mg Softgel] Methocarbamol 500 mg PO BID 02/18/17 08/11/17 Acetaminophen [Tylenol] 650 mg PO Q4HR PRN tablet 08/15/17 Bisacodyl [Dulcolax] 10 mg PO DAILY tablet 08/15/17 Polyethylene Glycol 3350 [Miralax] 1.89 gm PO Q4H packet 08/15/17 - Allergies Allergies/Adverse Reactions: Allergies Allergy/AdvReac Type Severity Reaction Status Date / Time No Known Drug Allergies Allergy Verified 01/30/17 06:58 - Social History Does the pt smoke?: No Smoking Status: Never smoker Does the pt drink ETOH?: No Does the pt have substance abuse?: No - Immunizations Immunizations are current?: Yes - POLST Patient has POLST: No PD ED PE NORMAL - Vitals Vital signs reviewed: Yes - General General: Alert and oriented X 3, No acute distress - HEENT HEENT: PERRL - Neck Neck: Supple, no meningeal sign - Cardiac Cardiac: RRR - Respiratory Respiratory: Clear bilaterally - Abdomen Abdomen: Other (Soft, mildly distended, diffusely tender to palpation. There is no guarding) - Derm Derm: Warm and dry - Extremities Extremities: No deformity - Neuro Neuro: Alert and oriented X 3 - Psych Psych: Normal mood, Normal affect Results - Vitals Vitals: Vital Signs - 24 hr 04/11/19 03:25 Temperature 97.7 C H Heart Rate 99 Respiratory 24 Rate Blood Pressure 158/103 H O2 Saturation 97 Oxygen O2 Source Room air - Labs Labs: Laboratory Tests 04/11/19 04/11/19 04/11/19 03:40 03:40 03:40 WBC 5.6 RBC 5.35 Hgb 16.0 Hct 47.6 MCV 89.0 MCH 29.9 MCHC 33.6 RDW 14.6 Plt Count 290 MPV 8.8 Neut # (Auto) 3.7 Lymph # (Auto) 1.5 [place] # (Auto) 0.3 Eos # (Auto) 0.1 Baso # (Auto) 0.0 Absolute Nucleated RBC 0.00 Nucleated RBC % 0.0 PT 12.2 INR 1.1 Sodium 135 Potassium 4.4 Chloride 99 L Carbon Dioxide 25 Anion Gap 11.0 BUN 18 Creatinine 0.9 Estimated GFR (MDRD) 82 L Glucose 210 H Calcium 9.4 Total Bilirubin 0.8 AST 22 ALT 25 Alkaline Phosphatase 89 Total Protein 7.6 Albumin 4.2 Globulin 3.4 Albumin/Globulin Ratio 1.2 Lipase 29 - Rads (name of study) CT abd/pelvis W Radiology: Other (Bowel obstruction with transition point, along the transition point there is bowel wall edema.) PD MEDICAL DECISION MAKING - ED course Complexity details: considered differential (Bowel obstruction, constipation, ileus, electrolyte abnormality) ED course: On examination patient is somewhat hypertensive, vital signs otherwise unremarkable, he has diffuse abdominal tenderness. He was given Zofran, morphine, and a liter of crystalloid. He had good control of his symptoms with these medications. Labs are unremarkable including normal lactate, CT scan shows a bowel obstruction. I spoke with Dr. Palmer of general surgery who recommended that patient be admitted to the hospitalist service, and General surgery will consult this morning. For now they will try conservative management. On repeat evaluation patient's pain is Creeping back up, he was given a second dose of morphine. I explained the results and the plan of care, patient is in agreement and was admitted to the hospital. Departure - Departure Disposition: ED Place in Observation Clinical Impression: Bowel obstruction Qualifiers: Intestinal obstruction type: unspecified Intestinal obstruction extent: unspecified extent Qualified Code(s): K56.609 - Unspecified intestinal obstruction, unspecified as to partial versus complete obstruction Condition: Stable
[2019-04-11 03:53] LABS: BASOPHILS % (AUTO) 0.5 %; EOSINOPHILS # (AUTO) 0.1 10^3/uL (0.0-0.7); EOSINOPHILS % (AUTO) 0.9 %; LYMPHOCYTES # (AUTO) 1.5 10^3/uL (1.5-3.5); LYMPHOCYTES % (AUTO) 26.5 %; MEAN CORPUSCULAR HEMOGLOBIN 29.9 pg (27.0-31.0); MEAN CORPUSCULAR HGB CONC 33.6 g/dL (32.0-36.0); MEAN PLATELET VOLUME 8.8 fL (7.4-11.4); MONOCYTES # (AUTO) 0.3 10^3/uL (0.0-1.0); MONOCYTES % (AUTO) 5.9 %; NEUTROPHILS # (AUTO) 3.7 10^3/uL (1.5-6.6); NEUTROPHILS % (AUTO) 65.7 %; PLT - PLATELET COUNT 290 10^3/uL (130-450); RED BLOOD COUNT 5.35 10^6/uL (4.70-6.10); RED CELL DISTRIBUTION WIDTH 14.6 % (12.0-15.0); WHITE BLOOD COUNT 5.6 x10^3/uL (4.8-10.8)
[2019-04-11] MEDS ORDERED: MORPHINE 2 MG/ML CARPUJECT IVP STA ×2 (03:58→05:52)
[2019-04-11 04:02] LABS: ALBUMIN 4.2 g/dL (3.2-5.5); ALBUMIN/GLOBULIN RATIO 1.2 (1.0-2.2); BILIRUBIN,TOTAL 0.8 mg/dL (0.2-1.0); CALCIUM 9.4 mg/dL (8.5-10.3); CREATININE 0.9 mg/dL (0.6-1.2); TOTAL PROTEIN 7.6 g/dL (6.7-8.2)
[2019-04-11] MEDS ORDERED: IOVERSOL 320 100 ML VIAL IVP ONE ×2 (04:27→04:50)
--- NOTE | 2019-04-11 05:32 | CT Report ---
Reason: Abd pain, vomiting, hx obstruction Procedure Date: 04/11/2019 Accession Number: [id number] / [id number] Procedure: CT - Abdomen/Pelvis W CPT Code: FULL RESULT: EXAM: CT ABDOMEN AND PELVIS EXAM DATE: 04/11/2019 04:48 AM. CLINICAL HISTORY: Abd pain, vomiting, hx obstruction. COMPARISONS: ABDOMEN/PELVIS W/ 08/30/2017 11:21 AM. TECHNIQUE: Routine helical CT imaging was performed through the abdomen and pelvis. IV contrast: OPTI 320 100ML. Enteric contrast: No. Reconstructions: Coronal and sagittal. In accordance with CT protocol optimization, one or more of the following dose reduction techniques were utilized for this exam: automated exposure control, adjustment of mA and/or KV based on patient size, or use of iterative reconstructive technique. FINDINGS: Lung Bases: Severe coronary artery atherosclerotic calcifications. Otherwise, unremarkable. Liver: The liver is globally enlarged with the longitudinal dimension of the right lobe measuring 17.8 cm. No masses. Gallbladder/Bile Ducts: Unremarkable. Spleen: Normal. Pancreas: Normal. Adrenal Glands: Stable 2.4 cm right adrenal nodule. Kidneys: Low density lesions in the left kidney likely reflects this. 2 mm stone in the inferior left pole. The right kidney appears normal. No hydronephrosis. Peritoneal Cavity/Bowel: Dilated and uncoiled loops of mid to distal small bowel with transition point in the distal ileum in the right anterior abdomen; image 23 series 5. At the transition point the small bowel wall is thickened and hyperemic for approximately 4 cm distance. The distal ileum and colon are decompressed. Small amount of interloop ascites. The appendix is well visualized and normal. Pelvic Organs: Normal. The bladder and visualized pelvic organs are within normal limits. Vasculature: No aneurysms or other significant abnormality. Bones: No significant abnormality. Other: None. IMPRESSION: 1. Findings which likely reflect a mechanical small bowel obstruction. The mid to distal small bowel is dilated and uncoiled with an apparent transition point in the right mid anterior abdomen. At the transition point the small bowel wall is hyperemic and thickened over approximately 4 cm distance. The bowel wall thickening may be from inflammation, infection, or an infiltrative process. The bowel distal to this transition point is decompressed. Small amount of interloop ascites is associated with the loops of dilated small bowel. 2. Severe coronary artery atherosclerotic calcifications. 3. Nephrolithiasis. 4. Hepatomegaly. 5. Stable 2.4 cm right adrenal nodule. RADIA
[2019-04-11] MEDS ORDERED: LACTATED RINGERS 1,000 ML IV STA (05:46)
[2019-04-11] MEDS ORDERED: ONDANSETRON ODT 4 MG TABLET TL PRN (05:53)
[2019-04-11] MEDS ORDERED: MORPHINE 2 MG/ML CARPUJECT IVP PRN (05:53)
[2019-04-11] MEDS ORDERED: ONDANSETRON 4 MG/2 ML VIAL IVP PRN (05:53)
--- NOTE | 2019-04-11 06:00 | HISTORY & PHYSICAL EXAMINATION ---
Chief Complaint - Chief Complaint Chief Complaint: abd pain w hx of SBO x 3 History of Present Illness - Admitted From Admitted From:: Home/ER - History Obtained From Records Reviewed: [facility] History obtained from: patient and medtiech Exam Limitations: none - History of Present Illness HPI Comment/Other: This is a 79-year-old male with a history of small bowel obstructions, who presents with abdominal pain distention and vomiting. Patient states he had a bowel movement yesterday which was small, and he has not had any bowel movement since then. He thought he was straining to have a bowel movement so he went to [facility] to get an enema, and when he was on his way there he vomited multiple times. He had increasing pain in his abdomen which is diffuse and moderate to severe in severity, so he presented here for further evaluation. His WBC is low at 5.6 and he does not have a fever. The patient has had 3 prior recent admissions for small bowel obstruction, one in January of 2017 and prior in September 2016. Both of these episodes resolved with conservative management. On each admission he did have a CT scan and each time his transition point has been noted to be in the right lower quadrant. With his 3rd admission 07/2017, he was taken to the OR by Dr. Heard for a lysis of adhesions. 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 - Past Surgical History General: reports: Bowel surgery (lysis of adnesions), Colonoscopy (01/30/17), Other (hernia repair, epigastric? 1956) - Family & Social History Family History Comment/Other: Mother and unknown history. Dad in his 40s after being in SNF for 5 years after crush injury on the job. Sister unknown hx. Brother unknown hx. 2 Sons, one w with DM Living arrangement: At home Living Situation: With spouse/s.o. ( has her own medical problems and knee fx 01/2019) Social History Notes: born and raised in [place]. Dad when patient was 5 thru crush injury at a foundry. Mother left withhis sister and he and his brother went to an Uncles house where they were raised. 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 Smoked 1-3 cigs a day until 2003 and rarely drinks. No recreational substance abuse - Substance History Use: Uses substance without health or social issues: NONE Abuse: Recurrent use of substance despite neg consequences: NONE Dependence: Experiences withdrawal or developed tolerances: NONE - POLST Patient has POLST: No POLST Status: Full Code Meds/Allgy - Home Medications Home Medications: Ambulatory Orders Medication Instructions Recorded Confirmed Lisinopril 10 mg ORAL DAILY 09/25/14 04/11/19 Simvastatin [Zocor] 40 mg PO QPM 09/25/14 04/11/19 Cetirizine [ZyrTEC] 10 mg PO DAILY 04/11/19 04/11/19 Multivit-Min/FA/Lycopen/Lutein 1 each PO DAILY 04/11/19 04/11/19 [Centrum Silver Men Tablet] Multivit-Min/Iron/Folic/Fnt526 1 each PO DAILY 04/11/19 04/11/19 [Hair, Skin and Nails Tablet] - Allergies Allergies/Adverse Reactions: Allergies Allergy/AdvReac Type Severity Reaction Status Date / Time No Known Drug Allergies Allergy Verified 01/30/17 06:58 Review of Systems - Constitutional Constitutional: denies: Fatigue, Fever, Chills, Malaise - Eyes Eyes: denies: Pain, Irritation, Amaurosis, Blurred vision - Ears, Nose & Throat Ears, Nose & Throat: reports: Hearing loss, Vertigo. denies: Ear pain, Hearing aids, Nasal pain, Nasal discharge, Sore throat - Cardiovascular Cariovascular: denies: Irregular heart rate, Palpitations, Chest pain, Edema, Exertional dyspnea - Respiratory Respiratory: denies: Cough, Sputum production, Wheezing, Snoring - Gastrointestinal Gastrointestinal: reports: Abdominal pain, Abdominal distention, Nausea, Vomiting - Genitourinary Genitourinary: reports: Frequency, Nocturia. denies: Dysuria, Urgency, Hematuria, Flank pain - Musculoskeletal Musculoskeletal: reports: Back pain, Joint pain (right shoulder and right knee but knee is better since PT this last winter) - Integumentary Integumentary: denies: Rash, Pruritis, Lesions - Neurological Neurological: reports: Memory problems. denies: General weakness, Focal weakness, Headache, Dizziness, Pre-existing deficit, Abnormal gait - Psychiatric Psychiatric: denies: Depression, Anxiety, Suicidal - Endocrine Endocrine: denies: Polyuria, Polydypsia - Hematologic/Lymphatic Hematologic/Lymphatic: denies: Anemia, Bruising Prior Level of Functionality: Independent w ADL's and no use of DME. still drives. takes care of . Gets help from sons. Exam - Vital Signs Reviewed Vital Signs: Yes Vital Signs: Vital Signs x48h Temp Pulse Resp BP Pulse Ox 04/11/19 03:25 97.7 C H 99 24 158/103 H 97 - Physical Exam General Appearance: positive: Alert, Moderate distress Eyes Bilateral: positive: PERRL ENT: positive: Pharynx nml Neck: positive: No JVD Respiratory: positive: Chest non-tender. negative: Wheezes, Rales, Rhonchi Cardiovascular: positive: Regular rate & rhythm. negative: JVD present, Gallop/S4, Friction rub Peripheral Pulses: positive: 1+ Abdomen: positive: Other (distended, no bowel sound, crescendoing diffuse ab pa in). negative: Guarding, Rebound Skin: positive: Warm, Dry Extremities: positive: Non-tender, No pedal edema Neurologic/Psychiatric: positive: Oriented x3, CN's nml (2-12) (except deaf), Motor nml Conclusion/Plan - Problem List (1) Small bowel obstruction Conclusion/Plan: this is his 4th episode. Surgery has been consulted in the ER. There is no fever or elvated WBC. NSQIP calculation, if he goes to surgery, shows 10.5% risk of complication and 13.6% of any complication. Predicted LOS if he goes to surgery is 4.5 days. 13.7% risk of going to SNF. Plan; OBV NG CT w gastrograffin challenge morphine for pain zofran for nausea (2) Chronic leukopenia Conclusion/Plan: present since 2016 and was seen by Oncology at [facility]. He states thaat he is now "normal". His current nml level of 5k may be as response to his SBO Plan: old records from [place] we will ask family. if not, peripheral flow cytometry (3) HTN (hypertension) Conclusion/Plan: change his MONSERRAT to IV q 8 for control of BP Qualifiers: Hypertension type: essential hypertension Qualified Code(s): I10 - Essential (primary) hypertension (4) Hyperglycemia, unspecified Conclusion/Plan: no history of DM. Plan: check A1c SS insulin before meals Nutrition consult - Lab Results Lab results reviewed: Yes Fish Bones: 04/11/19 03:40 04/11/19 03:40 - Diagnostic Imaging Results Diagnostic Imaging Results: positive: Final report reviewed Diagnostic Imaging Results Comments: CT ABDOMEN AND PELVIS EXAM DATE: 04/11/2019 04:48 AM. CLINICAL HISTORY: Abd pain, vomiting, hx obstruction. COMPARISONS: ABDOMEN/PELVIS W/ 08/30/2017 11:21 AM. TECHNIQUE: Routine helical CT imaging was performed through the abdomen and pelvis. IV contrast: OPTI 320 100ML. Enteric contrast: No. Reconstructions: Coronal and sagittal. In accordance with CT protocol optimization, one or more of the following dose reduction techniques were utilized for this exam: automated exposure control, adjustment of mA and/or KV based on patient size, or use of iterative reconstructive technique. FINDINGS: Lung Bases: Severe coronary artery atherosclerotic calcifications. Otherwise, unremarkable. Liver: The liver is globally enlarged with the longitudinal dimension of the right lobe measuring 17.8 cm. No masses. Gallbladder/Bile Ducts: Unremarkable. Spleen: Normal. Pancreas: Normal. Adrenal Glands: Stable 2.4 cm right adrenal nodule. Kidneys: Low density lesions in the left kidney likely reflects this. 2 mm stone in the inferior left pole. The right kidney appears normal. No hydronephrosis. Peritoneal Cavity/Bowel: Dilated and uncoiled loops of mid to distal small bowel with transition point in the distal ileum in the right anterior abdomen; image 23 series 5. At the transition point the small bowel wall is thickened and hyperemic for approximately 4 cm distance. The distal ileum and colon are decompressed. Small amount of interloop ascites. The appendix is well visualized and normal. Pelvic Organs: Normal. The bladder and visualized pelvic organs are within normal limits. Vasculature: No aneurysms or other significant abnormality. Bones: No significant abnormality. Other: None. IMPRESSION: 1. Findings which likely reflect a mechanical small bowel obstruction. The mid to distal small bowel is dilated and uncoiled with an apparent transition point in the right mid anterior abdomen. At the transition point the small bowel wall is hyperemic and thickened over approximately 4 cm distance. The bowel wall thickening may be from inflammation, infection, or an infiltrative process. The bowel distal to this transition point is decompressed. Small amount of interloop ascites is associated with the loops of dilated small bowel. 2. Severe coronary artery atherosclerotic calcifications. 3. Nephrolithiasis. 4. Hepatomegaly. 5. Stable 2.4 cm right adrenal nodule. - EKG Results EKG Interpreted Independently: No EKG Comparison: Other (no KG done) Core Measures - Anticipated LOS I expect patient to be DC'd or transferred within 96 hours.: Yes - DVT/VTE - Prophylaxis VTE/DVT Device ordered at admit?: Yes
[2019-04-11 06:03] LABS: INR 1.1 (0.8-1.2); PT - PROTHROMBIN TIME 12.2 secs (9.9-12.6)
--- NOTE | 2019-04-11 07:03 | XRAY Report ---
Reason: NG Placement confirmation Procedure Date: 04/11/2019 Accession Number: [id number] / [id number] Procedure: XR - Chest 1 View X-Ray CPT Code: 54732 FULL RESULT: EXAM: CHEST RADIOGRAPHY EXAM DATE: 04/11/2019 06:30 AM. CLINICAL HISTORY: NG placement confirmation. COMPARISON: None. TECHNIQUE: 1 view. FINDINGS: Lungs/Pleura: Hypoexpansion with minimal subsegmental left basilar atelectasis. No effusion or extra ventilatory air. Mediastinum: Within exam limitations, the cardiomediastinal contour is normal. Other: NG tube traverses the esophagus, the tip is in the stomach. The proximal port of the NG tube is at the level of the EG junction and ideally should be advanced by 5 cm. IMPRESSION: NG tube tip within the stomach. Consider advancing the tube by an additional 5 cm. MICHAELA
[2019-04-11] MEDS: SODIUM CHLORIDE 0.9% 1,000 ML IV SCH ×2 (08:54→18:28)
[2019-04-11] MEDS: SODIUM CHLORIDE FLUSH 0.9% 10 ML SYRINGE IVP SCH ×2 (08:55→18:27)
[2019-04-11] MEDS ORDERED: POLYETHYLENE GLYCOL 3350 17 GM PACKET PO SCH (09:00)
[2019-04-11] MEDS: HYDROmorphone 1 MG/ML CARPUJECT IVP PRN ×2 (09:06→13:14)
[2019-04-11] MEDS: PANTOPRAZOLE 40 MG VIAL IVP SCH (09:13)
[2019-04-11] MEDS: SODIUM CHLORIDE FLUSH 0.9% 10 ML SYRINGE IVP PRN (09:13)
[2019-04-11] MEDS: ENALAPRILAT 1.25 MG/ML VIAL IVP SCH ×3 (09:21→22:05)
--- NOTE | 2019-04-11 10:55 | CT Report ---
Reason: sbo Procedure Date: 04/11/2019 Accession Number: [id number] / [id number] Procedure: CT - Abdomen/Pelvis WO CPT Code: FULL RESULT: EXAM: CT ABDOMEN AND PELVIS EXAM DATE: 04/11/2019 09:54 AM. CLINICAL HISTORY: Small bowel obstruction. COMPARISONS: ABDOMEN/PELVIS W/ 04/11/2019 4:34 AM. ABDOMEN/PELVIS W/ 02/18/2017 1:33 AM. TECHNIQUE: Routine helical CT imaging was performed through the abdomen and pelvis. IV contrast: No. Enteric contrast: IV 100 mL [id number]. Reconstructions: Coronal and sagittal. In accordance with CT protocol optimization, one or more of the following dose reduction techniques were utilized for this exam: automated exposure control, adjustment of mA and/or KV based on patient size, or use of iterative reconstructive technique. FINDINGS: Lung Bases: Subsegmental platelike bibasilar atelectasis. Liver: Normal. No masses. Gallbladder/Bile Ducts: Unremarkable. Spleen: Normal. Pancreas: Normal. Adrenal Glands: Stable circumscribed 2 cm nodule of the right adrenal gland since 2017 measuring less than 10 HU favoring adenoma. Kidneys: Small amounts of excreted contrast within the collecting systems from recent study. Parapelvic cyst formation on the left. Stable 1 cm exophytic structure lower pole right kidney measuring greater than 20 HU, unchanged since 2017 favoring a dense cyst. Peritoneal Cavity/Bowel: Gastrografin contrast administered 2 hours ago remains confined to the stomach. Otherwise, there is no appreciable evidence of gastric outlet obstruction. Continued abnormal bowel gas pattern with multiple mildly dilated loops of small bowel with transition point in the distal ileum, corresponding to an acutely angulated loop of bowel favoring adhesion (reference coronal series 5 images 16 through 20; axial series 3 images 54 through 56 ) . Stable small slips of fluid in the adjacent mesentery. Stable sigmoid diverticulosis but no evidence of diverticulitis. No free air or adenopathy. No masses or acute inflammatory process. The appendix is well visualized and normal. Pelvic Organs: Bilateral bladder diverticula near the UVJ's. The bladder and visualized pelvic organs are otherwise within normal limits. Vasculature: No aneurysms or other significant abnormality. Bones: No significant abnormality. Other: None. IMPRESSION: 1. Findings consistent with distal small bowel obstruction with focal adhesion as likely cause. Transition point corresponds to acutely angulated loop of distal ileum as detailed. 2. Administered Gastrografin contrast remains within the stomach on this study. If functional follow-through study is desired, recommend follow-up with delayed serial plain films to assess contrast progression through the bowel. 3. Other stable/benign imaging findings as detailed. RADIA
[2019-04-11 12:08] LABS: BILIRUBIN,URINE NEGATIVE (NEGATIVE); GLUCOSE, URINE (UA) NEGATIVE (NEGATIVE); KETONES,URINE (UA) NEGATIVE (NEGATIVE); LEUKOCYTE ESTERASE, URINE NEGATIVE (NEGATIVE); NITRITE,URINE NEGATIVE (NEGATIVE); OCCULT BLOOD,URINE TRACE-INTA (NEGATIVE); PH,URINE 6.5 PH (5.0-7.5); PROTEIN,URINE NEGATIVE (NEGATIVE); UROBILINOGEN,URINE 0.2 (NORMAL) E.U./dL (NORMAL)
[2019-04-11 12:09] LABS: CLARITY,URINE CLEAR (CLEAR)
[2019-04-11] MEDS: INSULIN REGULAR HUMAN 300 UNIT/3 ML VIAL SUBQ SCH (19:35)
--- NOTE | 2019-04-11 20:41 | XRAY Report ---
Reason: SBO s/p gastrografin challenge. Procedure Date: 04/11/2019 Accession Number: [id number] / [id number] Procedure: XR - Abdomen 1 View X-Ray CPT Code: 54332 FULL RESULT: EXAM: ABDOMEN RADIOGRAPHY EXAM DATE: 04/11/2019 06:51 PM. CLINICAL HISTORY: SBO s/p gastrografin challenge. COMPARISON: UGI SBFT W/AIR 11/21/2016 9:34 AM. TECHNIQUE: 1 view. FINDINGS: Bowel Gas Pattern: There are dilated loops of small bowel within the abdomen. Maximal diameter is 3.5 cm. There is positive all contrast within colon. There is some small bowel opacification within the mid and low abdomen. Other: None. IMPRESSION: There are mildly dilated loops of small bowel within the abdomen. There is positive oral contrast within these loops. There is a change contrast within stomach. RADIA
--- NOTE | 2019-04-11 21:26 | CONSULTATION NOTE ---
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 - Past Surgical History General: reports: Other - Family & Social History Family History Comment/Other: Mother and unknown history. Dad in his 40s after being in SNF for 5 years after crush injury on the job. Sister unknown hx. Brother unknown hx. 2 Sons, one w with DM Living arrangement: At home Living Situation: With spouse/s.o. ( has her own medical problems and knee fx 01/2019) Social History Notes: born and raised in [facility]. Dad when patient was 5 thru crush injury at a foundry. Mother left withhis sister and he and his brother went to an [id number] house where they were raised. [employer] for 26 years then onto [employer], [employer] and [employer]. Then worked for [employer] for 5 years before retiring. Smoked 1-3 cigs a day until 2003 and rarely drinks. No recreational substance abuse - Substance History Use: Uses substance without health or social issues: NONE Abuse: Recurrent use of substance despite neg consequences: NONE Dependence: Experiences withdrawal or developed tolerances: NONE - POLST Patient has POLST: No POLST Status: Full Code Meds/Allgy - Home Medications Home Medications: Ambulatory Orders Medication Instructions Recorded Confirmed Lisinopril 10 mg ORAL DAILY 09/25/14 04/11/19 Simvastatin [Zocor] 40 mg PO QPM 09/25/14 04/11/19 Cetirizine [ZyrTEC] 10 mg PO DAILY 04/11/19 04/11/19 Multivit-Min/FA/Lycopen/Lutein 1 each PO DAILY 04/11/19 04/11/19 [Centrum Silver Men Tablet] Multivit-Min/Iron/Folic/Vgo381 1 each PO DAILY 04/11/19 04/11/19 [Hair, Skin and Nails Tablet] - Allergies Allergies/Adverse Reactions: Allergies Allergy/AdvReac Type Severity Reaction Status Date / Time No Known Drug Allergies Allergy Verified 01/30/17 06:58 Exam - Vital Signs Reviewed Vital Signs: Yes Vital Signs: Vital Signs x48h Temp Pulse Pulse Resp BP Pulse Ox 04/11/19 20:25 37.0 C 68 16 122/63 92 04/11/19 16:58 37.2 C 60 16 96 04/11/19 16:12 37.2 C 63 20 119/62 96 04/11/19 14:45 71 16 121/70 97 04/11/19 14:01 37.0 C 77 16 126/83 H 95 Conclusion/Plan - Lab Results Lab results reviewed: Yes Fish Bones: 04/11/19 03:40 04/11/19 03:40 - Diagnostic Imaging Results Diagnostic Imaging Results: positive: Final report reviewed, Read independently
[2019-04-12] MEDS ORDERED: BENZOCAINE SPRAY MM PRN (01:40)
[2019-04-12] MEDS: INSULIN REGULAR HUMAN 300 UNIT/3 ML VIAL SUBQ SCH ×3 (01:56→12:36)
[2019-04-12] MEDS: SODIUM CHLORIDE FLUSH 0.9% 10 ML SYRINGE IVP SCH ×3 (01:57→18:34)
[2019-04-12] MEDS ORDERED: PHENOL THROAT SPRAY 177 ML MM PRN (02:13)
[2019-04-12] MEDS: SODIUM CHLORIDE 0.9% 1,000 ML IV SCH (03:56)
[2019-04-12 05:35] LABS: BASOPHILS % (AUTO) 0.8 %; HGB - HEMOGLOBIN 12.9 g/dL (14.0-18.0); LYMPHOCYTES % (AUTO) 41.7 %; MEAN CORPUSCULAR HEMOGLOBIN 29.7 pg (27.0-31.0); MEAN CORPUSCULAR HGB CONC 32.5 g/dL (32.0-36.0); MEAN CORPUSCULAR VOLUME 91.3 fL (80.0-94.0); MEAN PLATELET VOLUME 9.1 fL (7.4-11.4); MONOCYTES % (AUTO) 14.4 %; NEUTROPHILS % (AUTO) 39.7 %; PLT - PLATELET COUNT 251 10^3/uL (130-450); RED BLOOD COUNT 4.35 10^6/uL (4.70-6.10); RED CELL DISTRIBUTION WIDTH 15.2 % (12.0-15.0); WHITE BLOOD COUNT 2.6 x10^3/uL (4.8-10.8)
[2019-04-12 05:43] LABS: ABNORMAL LYMPHS % (MANUAL) 0 %; BAND NEUTROPHILS % (MANUAL) 0 %
[2019-04-12 05:53] LABS: CREATININE 0.9 mg/dL (0.6-1.2)
[2019-04-12 06:00] LABS: HB2 TOTAL 13.6 g/dL; HEMOGLOBIN A1C 0.6 g/dL; HEMOGLOBIN A1C % 6.2 % (4.6-6.2)
[2019-04-12 06:20] LABS: DIFFERENTIAL COMMENT MANUAL DIFFERENTIAL; EOSINOPHILS # (MANUAL) 0.1 10^3/uL (0-0.7); LYMPHOCYTES # (MANUAL) 1.2 10^3/uL (1.5-3.5); LYMPHOCYTES % (MANUAL) 47 %; MONOCYTES # (MANUAL) 0.2 10^3/uL (0.0-1.0); PLATELET ESTIMATE, MANUAL NORMAL (130-450,000) (NORMAL); PLATELET MORPHOLOGY NORMAL APPEARANCE (NORMAL); RBC MORPHOLOGY (MULTIPLE) NORMAL APPEARANCE (NORMAL)
[2019-04-12] MEDS: ENALAPRILAT 1.25 MG/ML VIAL IVP SCH ×2 (06:21→14:27)
[2019-04-12] MEDS: PANTOPRAZOLE 40 MG VIAL IVP SCH (06:34)
[2019-04-12] MEDS: SODIUM CHLORIDE FLUSH 0.9% 10 ML SYRINGE IVP PRN (06:34)
[2019-04-12] MEDS ORDERED: INSULIN ASPART 300 UNIT/3 ML PEN SUBQ SCH (17:00)
--- NOTE | 2019-04-12 17:14 | Discharge Plan ---
Discharge Plan Problem Reviewed?: Yes Disposition: Home, Self Care Condition: Good Diet: Regular Activity Restrictions: Activity as Tolerated Shower Restrictions: No Driving Restrictions: No Instruction Topics: Obstruction Sm Bowel Health Concerns: You were admitted to the hospital because you had an obstruction of your small bowel which has occurred before. We needed to place an NG tube to help decompress your stomach. We gave you contrast to try and relieve the obstruction and that worked. You have been able to eat a diet with no further pain or vomiting. Plan of Treatment: There were no changes made to your medication. Care Goals: Please continue to follow up with your primary care physician. Assessment: The patient expressed understanding of the treatment and goals. No Smoking: If you smoke, Please STOP! Call for help. Follow-up with: Amari Strauss MD [Primary Care Provider] -
--- NOTE | 2019-04-12 17:21 | DISCHARGE SUMMARY ---
"Discharge Summary Admit Date: 04/11/19 Discharge Date: 04/12/19 Discharging Provider: Myke Russell Primary Care Provider: Amari Strauss Code Status: Attempt Resuscitation Condition at Discharge: Good Discharge Disposition: 01 Home, Self Care - DIAGNOSES Admission Diagnoses: SBO Chronic leukopenia Hypertnesion Hyperglycemia Discharge Diagnoses with Status of Each Condition: SBO - Resolved. Required NG tube and gastrografin challenge. Tolerated diet. Leukopenia - Chronic. White count did decrease but no signs of infection. O utpatient follow up. Hypertension - Stable. Continue Lisinopril. Prediabetes - Stable. A1c 6.2%. No medications on discharge. - HPI History of Present Illness: H&P per Dr. Galicia on 04/11/19: This is a 79-year-old male with a history of small bowel obstructions, who presents with abdominal pain distention and vomiting. Patient states he had a bowel movement yesterday which was small, and he has not had any bowel movement since then. He thought he was straining to have a bowel movement so he went to [facility] to get an enema, and when he was on his way there he vomited multiple times. He had increasing pain in his abdomen which is diffuse and moderate to severe in severity, so he presented here for further evaluation. His WBC is low at 5.6 and he does not have a fever. The patient has had 3 prior recent admissions for small bowel obstruction, one in January of 2017 and prior in September 2016. Both of these episodes resolved with conservative management. On each admission he did have a CT scan and each time his transition point has been noted to be in the right lower quadrant. With his 3rd admission 07/2017, he was taken to the OR by Dr. Heard for a lysis of adhesions. - CONSULTS | PROCEDURES Consultations: General Surgery Procedures: NG tube placement. Gastrografin challenge. - HOSPITAL COURSE Hospital Course: He was admitted for SBO and a NG tube was placed. He was given a gastrografin challenge. A CT of the abdomen/pelvis showed showed persistent SBO and concern for adhesion. Following day, he had multiple bowel movements and the contrast had pass the previous transition point. He was given a clear liquid diet and the NG tube was removed. His diet was advanced without problems and he was discharged home. - ALLERGIES Allergies/Adverse Reactions: Allergies Allergy/AdvReac Type Severity Reaction Status Date / Time No Known Drug Allergies Allergy Verified 01/30/17 06:58 - MEDICATIONS Home Medications: Ambulatory Orders Medication Instructions Recorded Confirmed Lisinopril 10 mg ORAL DAILY 09/25/14 04/11/19 Simvastatin [Zocor] 40 mg PO QPM 09/25/14 04/11/19 Cetirizine [ZyrTEC] 10 mg PO DAILY 04/11/19 04/11/19 Multivit-Min/FA/Lycopen/Lutein 1 each PO DAILY 04/11/19 04/11/19 [Centrum Silver Men Tablet] Multivit-Min/Iron/Folic/Zun233 1 each PO DAILY 04/11/19 04/11/19 [Hair, Skin and Nails Tablet] - PHYSICAL EXAM AT DISCHARGE General Appearance: positive: No acute distress, Alert ENT: positive: ENT inspection nml Neck: positive: Nml inspection Respiratory: positive: No respiratory distress. negative: Wheezes, Rales, Rhonchi Cardiovascular: positive: Regular rate & rhythm, No murmur. negative: Tachycardia, Bradycardia Abdomen: positive: Non-tender, Nml bowel sounds, No distention. negative: Tenderness, Guarding, Rebound Skin: positive: Color nml, No rash, Warm, Dry Extremities: positive: Full ROM, No pedal edema Neurologic/Psychiatric: positive: Oriented x3, Motor nml. negative: Disoriented to person, Disoriented to place, Disoriented to time, Weakness - LABS Result Diagrams: 04/12/19 05:03 04/12/19 05:03 - DIAGNOSTIC IMAGING Diagnostic Imaging Results: Final report reviewed - TIME SPENT Time Spent in Discharge (Minutes): 35"
[2019-04-12 18:38] VITALS: BP 136/71
== END 2019-04-12 18:49 | disposition home or self-care (01) ==
LOC: ED 03:19 → MS3 05:53 → MS2 06:46
PROVIDERS: ADMIT Specialist; ATTEND Internal Medicine
DX: K56.609 Unspecified intestinal obstruction, unspecified as to partial versus complete obstruction (principal); D72.819 Decreased white blood cell count, unspecified; I10 Essential (primary) hypertension; R73.03 Prediabetes; G47.33 Obstructive sleep apnea (adult) (pediatric); N40.0 Benign prostatic hyperplasia without lower urinary tract symptoms; I25.10 Atherosclerotic heart disease of native coronary artery without angina pectoris; N20.0 Calculus of kidney; E27.9 Disorder of adrenal gland, unspecified; R16.0 Hepatomegaly, not elsewhere classified; Z87.891 Personal history of nicotine dependence
CPT/HCPCS: 36415; 71045; 74018; 74176; 74177; 80048; 80053; 81003; 83036; 83605; 83690; 85025; 85610; 96361; 96374; 96375; 96376; 99284; 99285; A9270; G0378; J1170; J7120; Q9967; 81001; 87086

== ENCOUNTER 2019-05-12 10:36 | Outpatient (CLI) | payer MEDICARE, OTHER ==
[2019-05-12 11:47] VITALS: BP 124/60
--- NOTE | 2019-05-12 11:47 | SLEEP CARE CONSULTATION ---
Information from patient questionnaire entered by Lorelei Krueger. I have reviewed and concur with the information entered by Lorelei Krueger. This document represents the service I personally performed and the decisions made by me, Luz Shay, RN, MSN, DISPATCHER ELECTRIC POWER. History of Present Illness Previous diagnosis: Moderate, Obstructive Sleep Apnea-Hypopnea Syndrome AHI: 21.5 Reason for follow up: other (6 week) Equipment type: CPAP Equipment obtained from: [facility] Mask style: Nasal (Dreamwear) Mask brand: Respironics Backup mask available: Yes Last cushion change: week ago HPI additional information: The pressure was changed to reduce residual AHI. A sample Wisp nasal mask was given to reduce mask leaks that seemed to contribute to higher residual CPAP Compliance Data - Data Reviewed with Patient Average duration of nightly device use: 8.9 Compliance rate %: 93.3 Current pressure setting (cmH2O): 16 Humidity settin Heated hose settin Average residual AHI: 19.3 Central apnea: 7.1 Obstructive apnea: 4.7 Hypopnea: 7.5 Average large leak: 2 hr 3 min 41 sec Subjective Missed days of use due to: reports: illness Patient concerns: denies: aerophagia, mask discomfort, air blowing in eyes, mask leak noise, condensation in mask/hose, nasal congestion, dry mouth, nose, throat, epistaxis Observed to snore while using device: No Current pressure setting perceived as: comfortable On therapy, patient: reports: sleeping better (he is no longer waking to get up to the bathroom. ), awakening more refreshed, being more awake and alert during the day, more rested overall. denies: drowsiness while driving Initial Gilbert Sleepiness Scale score: 9 Current Gilbert Sleepiness Scale score: 1 Allergies and Home Medications Known drug allergies: No Home medication list reviewed: Yes Allergy and home medication list: Simvastatin 40mg tab one daily at bedtime Lisinopril 10mg tab one daily Meclizine HCI 25mg tab one up to TID prn Multi-Vitamin Tab one daily Vitamin D 2000unit tab one daily Aspirin EC 81mg tab one daily Review of Systems Review of systems same as previous: No (hospitalized for bowel obstruction) Physical Exam Blood Pressure: 124/60 Cuff size: long Heart Rate: 79 O2 Saturation: 96 Height: 5 ft 8.75 in Weight: 214 lb Weight change since last visit: lost 6 pounds Body Mass Index: 31.8 BMI Classification: Obesity Class 1 Impression and Plan 1. Obstructive Sleep Apnea-Hypopnea Syndrome, moderate, with good treatment compliance and elevated residual AHI. Despite elevated residual patient reports that on CPAP therapy, he has better sleep quality and is more rested overall. For mask leaks problems, I will order a mask refitting. It appears the mask leaks are contributing to his residual AHI. At the fitting he is advised to take all his masks to show to see if they can be adjusted better or a new style is needed. I will also reduce his autoCPAP pressure to [id number]. Review of past complaince reports when no mask leaks, one compliance report showed AHI down to normal or mild range. Patient's apnea severity and rationale for treatment to reduce apnea, improve sleep quality and reduce cardiovascular and cerebrovascular events was reviewed. I also reviewed the benefit of consistent device use of CPAP for hypertension. * Change CPAP pressure to 12-13 cmH2O * Mask refitting. * Notify me if snoring with mask or feeling that the pressure is too much or too little * Attempt to lose weight * Return for follow up in 2 months , or sooner if concerns arise I spent 100% of this 30 minute visit face to face with the patient with greater than 50% of this was spent time counseling the patient and coordination of care.
== END 2019-05-12 10:37 | disposition home or self-care (01) ==
LOC: SC 10:36
PROVIDERS: ATTEND Nurse Practitioner Family
DX: G47.33 Obstructive sleep apnea (adult) (pediatric) (principal); E66.9 Obesity, unspecified; Z68.31 Body mass index [BMI] 31.0-31.9, adult
CPT/HCPCS: 99214; G0463; 99212

== ENCOUNTER 2019-05-21 09:50 | Outpatient (CLI) | payer MEDICARE, OTHER | END 2019-05-21 23:59 | disposition home or self-care (01) | LOC: LAB.R 09:50 | PROVIDERS: ATTEND Family Medicine | DX: K52.9 Noninfective gastroenteritis and colitis, unspecified (principal) | CPT/HCPCS: 87045; 87046; 87177; 87209; 87493 ==

== ENCOUNTER 2019-07-14 14:40 | Outpatient (CLI) | payer MEDICARE, OTHER ==
[2019-07-14 15:33] VITALS: BP 112/60
--- NOTE | 2019-07-14 15:33 | SLEEP CARE CONSULTATION ---
Information from patient questionnaire entered by Lorelei Krueger. I have reviewed and concur with the information entered by Lorelei Krueger. This document represents the service I personally performed and the decisions made by me, Luz Shay, RN, MSN, ENVIRONMENTAL PROTECTION GEOLOGIST. History of Present Illness Previous diagnosis: Moderate, Obstructive Sleep Apnea-Hypopnea Syndrome AHI: 21.5 Reason for follow up: other (2 month) Equipment type: CPAP Equipment obtained from: [facility] (having difficulty getting supplies.) Mask style: Nasal (Dreamwear) Mask brand: Respironics Backup mask available: Yes Last cushion change: 1 month ago HPI additional information: He did not get new mask fitting as ordered. He did not pursue as he has noted much better mask fit on his CPAP data since he has adjusted headgear tighter. The CPAP pressure was also reduced. He is much more comfortable with this pressure range as not waking to pressure feeling too high. It is also easier to keep the leaks controlled. CPAP Compliance Data - Data Reviewed with Patient Average duration of nightly device use: 8.25 Compliance rate %: 96.7 (60 days) Current pressure setting (cmH2O): 12-13 Humidity settin Heated hose settin Average residual AHI: 11.7 Central apnea: 3.4 Obstructive apnea: 3.2 Hypopnea: 5.1 Average large leak: 19 min 18 sec Subjective Missed days of use due to: reports: other (power outage) Patient concerns: denies: aerophagia, mask discomfort, air blowing in eyes, mask leak noise, condensation in mask/hose, nasal congestion, dry mouth, nose, throat, epistaxis, other Current pressure setting perceived as: comfortable On therapy, patient: reports: sleeping better, awakening more refreshed, being more awake and alert during the day, more rested overall (especially since pressure reduction) Initial [place] Sleepiness Scale score: 9 Current [place] Sleepiness Scale score: 2 Allergies and Home Medications Known drug allergies: No Home medication list reviewed: Yes (no changes) Review of Systems Review of systems same as previous: Yes Physical Exam Blood Pressure: 112/60 Cuff size: long Heart Rate: 82 O2 Saturation: 97 Height: 5 ft 8.75 in Weight: 220 lb Weight change since last visit: gained 6 pounds he just lost Body Mass Index: 32.7 BMI Classification: Obesity Class 1 Impression and Plan 1. Obstructive Sleep Apnea-Hypopnea Syndrome, moderate but very severe supine , with good treatment compliance and better apnea control. His residual AHI was reduced from 19. 3 to 11.7 since pressure reduction and better control of mask leaks. On CPAP therapy, the patient has better sleep quality and is more rested overall especially since pressure change. Patient very pleased with current pressure and benefit from CPAP. I reviewed several past visits. This is the best residual AHI so far and best benefit. Patient uncomfortable at higher pressures. Thus no change in pressure range and patient will continue to monitor mask fit. If he continues to have problems getting supplies, I again explained he can transfer to another company. At this time he would like to work out supply issues with [facility]. Patient's apnea severity and rationale for treatment to reduce apnea, improve sleep quality and reduce cardiovascular and cerebrovascular events was reviewed. I also reviewed the benefit of consistent device use of CPAP for hypertension . Since his apnea is more severe supine, he is advised to avoid supine sleep and elevate his head 30-40 degrees if unable to use CPAP to reduce apnea risk. * Continue CPAP pressure at 12-13 cmH2O * Monitor mask leaks * Notify me if snoring with mask or feeling that the pressure is too much or too little * Attempt to lose weight * Call this office if any problems using CPAP * Return for follow up in 6 months , or sooner if concerns arise Time Spent with Patient (minutes): 30 I spent 100% of this visit face to face with the patient with greater than 50% of this was spent time counseling the patient and coordination of care.
== END 2019-07-14 14:41 | disposition home or self-care (01) ==
LOC: SC 14:40
PROVIDERS: ATTEND Nurse Practitioner Family
DX: G47.33 Obstructive sleep apnea (adult) (pediatric) (principal); E66.9 Obesity, unspecified; Z68.32 Body mass index [BMI] 32.0-32.9, adult
CPT/HCPCS: 99214; G0463; 99212

== ENCOUNTER 2020-01-06 13:47 | Outpatient (CLI) | payer MEDICARE, OTHER ==
--- NOTE | 2020-01-06 15:00 | SLEEP CARE CONSULTATION ---
Information from patient questionnaire entered by Dorothy Mendoza. I have reviewed and concur with the information entered by Dorothy Mendoza. This document represents the service I personally performed and the decisions made by me, Luz Shay, RN, MSN, REMANUFACTURING TECHNICIAN. History of Present Illness Service Date and Time: 01/06/2020 1347 Previous diagnosis: Moderate, Obstructive Sleep Apnea-Hypopnea Syndrome AHI: 21.5 Reason for follow up: six month Equipment type: CPAP Equipment obtained from: [facility] (getting supplies better recently) Mask style: Nasal (Dreamwear) Backup mask available: Yes (old mask ) Last cushion change: a week ago Prior sleep studies: Yes Year and Where: 2017 [facility] Type of Sleep Study: Polysomnography CPAP Compliance Data - Data Reviewed with Patient Average duration of nightly device use: 8h 43m Compliance rate %: 98.9 Current pressure setting (cmH2O): 12-13 Humidity settin Heated hose settin Average residual AHI: 18.8 Central apnea: 5.8 Obstructive apnea: 7.8 Hypopnea: 4.8 Average large leak: 9m 29s Subjective Patient concerns: denies: aerophagia, mask discomfort, air blowing in eyes, mask leak noise, condensation in mask/hose, nasal congestion, dry mouth, nose, throat, epistaxis, other Observed to snore while using device: No Current pressure setting perceived as: comfortable On therapy, patient: reports: sleeping better (no further nocturia ), awakening more refreshed, being more awake and alert during the day, more rested overall. denies: drowsiness while driving Initial [place] Sleepiness Scale score: 9 Current [place] Sleepiness Scale score: 2 Allergies and Home Medications Known drug allergies: No Home medication list reviewed: No (no changes) Allergy and home medication list: lisinopril 10mg daily Zocor Review of Systems Review of systems same as previous: Yes Physical Exam Blood Pressure: 120/60 Cuff size: long Heart Rate: 74 O2 Saturation: 96 Height: 5 ft 8.75 in Weight: 222 lb 3.2 oz Body Mass Index: 33.0 BMI Classification: Obese Impression and Plan 1. Obstructive Sleep Apnea-Hypopnea Syndrome, moderate, with good treatment compliance and moderate elevation of residual AHI even with better control mask leaks. Despite residual AHI elevation on CPAP therapy, the patient has better sleep quality and is more rested overall. He no longer experiences nocturia and sleeps well through the night. There have been several pressure adjustments with difficulty getting to optimal residual AHI. His residual last visit was 11.7 and best achieved so far yet elevated to 18.5 this visit on same pressure with no change in weight. Patient has not wanted to come back to a manual titration study. His last study the mask was uncomfortable and he did not feel the surveying technician listened to him. After much discussion, patient agreed to manual titration study. He will have a different techician and I will have the lean leader talk to him about his concerns about the test and Covid precautions so that he is comfortable with process. He has a tech preference. He is also advised to update his mask headgear as it is coming loose sometimes even after adjustment. Until his sleep study I will change his autoCPAP pressure to [id number]. Patient advised to contact this office if uncomfortable. Patient is aware he needs to lose weight but reports this is a challenge with choice of food available due to spouse dietary wants and no desire to cook. Patient's apnea severity and rationale for treatment to reduce apnea, improve sleep quality and reduce cardiovascular and cerebrovascular events was reviewed. I also reviewed the benefit of consistent device use of CPAP for hypertension. * Change auto CPAP pressure to 10-15 cmH2O * Manual titration study. * Notify me if snoring with mask or feeling that the pressure is too much or too little * Attempt to lose weight * Call this office if any problems using CPAP * Return for follow up after manual titration study , or sooner if concerns arise At check out, the lean leader Michael Jim spoke to patient about his concerns and reported back that patient comfortable with process. Visit Type: In Office Time Spent with Patient (minutes): 30 Provider Statement: I spent 100% of the Face to Face Visit with the patient with greater than 50% spent counseling the patient and coordination of care.
[2020-01-06 15:01] VITALS: BP 120/60
== END 2020-01-06 13:48 | disposition home or self-care (01) ==
LOC: SC 13:47
PROVIDERS: ATTEND Nurse Practitioner Family
DX: G47.33 Obstructive sleep apnea (adult) (pediatric) (principal); E66.9 Obesity, unspecified; Z68.33 Body mass index [BMI] 33.0-33.9, adult
CPT/HCPCS: 99214; G0463; 99212

== ENCOUNTER 2020-02-06 20:35 | Outpatient (CLI) | payer MEDICARE, OTHER | END 2020-02-06 20:36 | disposition home or self-care (01) | LOC: SC 20:35 | PROVIDERS: ATTEND Internal Medicine Pulmonary Disease | DX: G47.33 Obstructive sleep apnea (adult) (pediatric) (principal); G47.61 Periodic limb movement disorder | CPT/HCPCS: 95811 ==

== ENCOUNTER 2020-02-27 08:25 | Emergency (ER) | payer MEDICARE, OTHER ==
[2020-02-27] MEDS ORDERED: KETOROLAC 60 MG/2 ML VIAL IM STA (08:53)
--- NOTE | 2020-02-27 08:56 | ED Physician Documentation ---
History of Present Illness - Stated complaint Stated Complaint: R SHOULDER PX - Chief complaint Chief Complaint: Ext Problem - History obtained from History obtained from: Patient - Additonal information Additional information: Emergency department complaining of right shoulder pain and limited range of motion after an injury about a week and a half ago. Patient states that he was trying to lift a garbage can to put into his truck when he suddenly felt a pop and instant pain in his right shoulder. Patient states that he had not had an injury there before. He states that over the course of the next several days, the pain peaked and then seem to be getting better. However, he was at the hospital with his , who was admitted, and was pushing a reclining chair while there. He states the chair was heavy and that he suddenly felt a recurrence of sharp pain in his right shoulder, but that this time, it shot down into his upper arm, as well. The patient states that he has not been able to move his shoulder without severe pain since, especially with rotational movements. He denies any other injuries. He has a little numbness and tingling in his first 3 digits. He is right-hand dominant. Patient has not seen anybody for this medically yet, prior to today. Review of Systems Ten Systems: 10 systems reviewed and negative Constitutional: reports: Reviewed and negative Eyes: reports: Reviewed and negative Ears: reports: Reviewed and negative Nose: reports: Reviewed and negative Throat: reports: Reviewed and negative Cardiac: reports: Reviewed and negative Respiratory: reports: Reviewed and negative GI: reports: Reviewed and negative : reports: Reviewed and negative Skin: reports: Reviewed and negative Musculoskeletal: reports: Extremity pain, Joint pain Neurologic: reports: Numbness. denies: Focal weakness Psychiatric: reports: Reviewed and negative Endocrine: reports: Reviewed and negative Immunocompromised: reports: Reviewed and negative PD PAST MEDICAL HISTORY - Past Medical History Cardiovascular: Hypertension, High cholesterol Respiratory: None Neuro: Other (Xavier's Palsy) Endocrine/Autoimmune: None GI: Other (recurrent Small bowel obstruction.) : None HEENT: Other Psych: None Musculoskeletal: Chronic back pain Derm: None - Past Surgical History Past Surgical History: Yes General: Other - Present Medications Home Medications: Ambulatory Orders Medication Instructions Recorded Confirmed Simvastatin [Zocor] 40 mg PO QPM 09/25/14 04/11/19 lisinopriL [Lisinopril] 10 mg ORAL DAILY 09/25/14 04/11/19 Cetirizine [ZyrTEC] 10 mg PO DAILY 04/11/19 04/11/19 Multivit-Min/FA/Lycopen/Lutein 1 each PO DAILY 04/11/19 04/11/19 [Centrum Silver Men Tablet] Multivit-Min/Iron/Folic/[id number] 1 each PO DAILY 04/11/19 04/11/19 [Hair, Skin and Nails Tablet] Ibuprofen [Motrin] 800 mg PO Q8H PRN #30 tablet 02/27/20 Oxycodone HCl/Acetaminophen 1 - 2 each PO Q6H PRN #14 tablet 02/27/20 [Percocet 5-325 mg Tablet] - Allergies Allergies/Adverse Reactions: Allergies Allergy/AdvReac Type Severity Reaction Status Date / Time No Known Drug Allergies Allergy Verified 01/30/17 06:58 - Social History Does the pt smoke?: No Smoking Status: Never smoker Does the pt drink ETOH?: No Does the pt have substance abuse?: No - Immunizations Immunizations are current?: Yes - POLST Patient has POLST: No POLST Status: Full Code PD ED PE NORMAL - Vitals Vital signs reviewed: Yes - General General: Alert and oriented X 3, No acute distress - HEENT HEENT: Atraumatic, PERRL, EOMI, Moist mucous membranes - Neck Neck: Supple, no meningeal sign - Cardiac Cardiac: Strong equal pulses - Respiratory Respiratory: No respiratory distress - Back Back: No spinal TTP - Derm Derm: Normal color, Warm and dry, No rash - Extremities Extremities: No deformity, Other (Full tenderness over his right shoulder, including the deltoid, and anteriorly and posteriorly. No palpable deformity. There does seem to be a possible effusion palpable posteriorly.). No: Normal ROM s pain (Patient is very limited range of motion of right shoulder. He is able to flex his elbow nearly fully, but cannot externally or internally rotate at the shoulder in this position, even a little bit. Patient has no rotation and minimal abduction of the shoulder.) - Neuro Neuro: Alert and oriented X 3 - Psych Psych: Normal mood, Normal affect Results - Vitals Vitals: Vital Signs - 24 hr 02/27/20 02/27/20 08:37 09:54 Temperature 36.7 C Heart Rate 69 61 Respiratory 16 18 Rate Blood Pressure 146/59 H 124/77 O2 Saturation 98 95 Oxygen O2 Source Room air - Rads (name of study) R shoulder Radiology: Final report received, EMP read indepedently, See rad report (No fx) PD MEDICAL DECISION MAKING - ED course Complexity details: reviewed old records, reviewed results, re-evaluated patient, considered differential, d/w patient ED course: I discussed with the patient that his symptoms sound most likely to represent a tendon or muscle injury, particularly in light of his initial mechanism of injury. It is also possible that he has a ligamentous injury. I discussed with him that the most helpful test for this would be an MRI, which would be done as an outpatient through his primary care physician. I have ordered an x-ray series of the patient's right shoulder for today. He is also been given a dose of Toradol, as he did drive himself here and has no one else to drive him home. I have also discussed that it is very important that he tries to get even some mild range of motion of the shoulder to avoid a frozen shoulder, and that it is important that he talk with his doctor about getting set up with physical therapy, as he will almost certainly need it after this. Departure - Departure Disposition: 01 Home, Self Care Clinical Impression: Right shoulder strain Qualifiers: Encounter type: initial encounter Qualified Code(s): S46.911A - Strain of unspecified muscle, fascia and tendon at shoulder and upper arm level, right arm, initial encounter Condition: Stable Instructions: ED Torn Rotator Cuff Prescriptions: Ibuprofen [Motrin] 800 mg PO Q8H PRN #30 tablet PRN Reason: PAIN &/OR FEVER Oxycodone HCl/Acetaminophen [Percocet 5-325 mg Tablet] 1 - 2 each PO Q6H PRN #14 tablet PRN Reason: pain Comments: Series looks good, and that there is no evidence of bony injury. As we Friday discussed you most likely have torn either the tendon or actual muscle associated with 20 your rotator cuff muscles. It is possible, alternatively, that you may have torn a ligament in your shoulder complex. Unfortunately, the reinjury a few days ago has probably worsened the injury a little and has triggered greater inflammation and swelling, causing the increase in pain. It is extremely important that you try to move the shoulder at least a little. To take the pressure of moving away from your body off, you may bend forward slightly, as much as is comfortable for you, and let your arm hang to gravity. You can lightly push the hanging arm with the good arm/hand to cause it to move in a circular fashion, and this will help with range of motion. You may also walk your fingers up the wall progressively to help inch your shoulder into a greater range of motion. Both of these are very important to prevent you from developing a frozen shoulder. Please take the medication for pain and inflammation, as prescribed and as needed. This will also help you with being able to go through your range of motion exercises. It is important that you follow-up with your primary care physician to discuss getting an MRI done and potentially, going to physical therapy to help restore function and range of motion of your shoulder. Discharge Date/Time: 02/27/20 10:00
--- NOTE | 2020-02-27 09:36 | XRAY Report ---
PROCEDURE: Shoulder 3 View RT INDICATIONS: injury/pain TECHNIQUE: 3 views of the shoulder were acquired. COMPARISON: Correlation is made with chest radiograph 04/11/2019 FINDINGS: Bones: No fractures or dislocations. No suspicious bony lesions. Visualized ribs appear intact. Ag e-appropriate degenerative changes are seen. Soft tissues: No suspicious soft tissue calcifications. The visualized lung demonstrates a normal a ppearance. IMPRESSION: Normal plain films for age. If it would be helpful for clinical management decision making, please consider a dedicated, schedule d shoulder MRI for further evaluation (assuming that there is no contraindication). If there is stron g clinical concern for labral pathology, then please consider performing this according to the arthro gram protocol. Reviewed by: Matt Cortés MD on 02/27/2020 8:34 AM SERA Approved by: Matt Cortés MD on 02/27/2020 8:34 AM SERA Station ID: [id number]
[2020-02-27 09:54] VITALS: BP 124/77
== END 2020-02-27 10:00 | disposition home or self-care (01) ==
LOC: ED 08:25
DX: S46.911A Strain of unspecified muscle, fascia and tendon at shoulder and upper arm level, right arm, initial encounter (principal); X50.1XXA Overexertion from prolonged static or awkward postures, initial encounter; I10 Essential (primary) hypertension; E78.00 Pure hypercholesterolemia, unspecified
CPT/HCPCS: 99283

== ENCOUNTER 2020-07-07 01:53 | Emergency (ER) | payer MEDICARE, OTHER ==
--- NOTE | 2020-07-07 02:22 | ED Physician Documentation ---
PD HPI ABD PAIN - Stated complaint Stated Complaint: BOWEL OBSTRUCTION - Chief complaint Chief Complaint: Abd Pain - History obtained from History obtained from: Patient - History of Present Illness Timing - onset: How many days ago (2) Timing - duration: Days (2) Timing - details: Gradual onset, Still present Quality: Cramping, Aching, Fullness/distended, Pain Location: All over / everywhere Improved by: Laying still Worsened by: Eating, Position, Palpation Associated symptoms: Nausea, Constipation. No: Diarrhea Similar symptoms before: Diagnosis (small bowel obstruction) Recently seen: Not recently seen - Additional information Additional information: 80-year-old male with a 2-year history of recurrent small bowel obstruction has had 4 prior obstructions he has had one surgical procedure and has had conservative treatment for the rest. He has had a hernia operation is the only abdominal operation he has had and he had lysis of adhesions that is his initial bowel obstruction. He has developed symptoms about 2 days ago of having some difficulty with getting stool out and distention of the abdomen this worsened today now is having isabel pain and distention consistent with what he has had previously with bowel obstruction. He is still mourning the loss of his of 60 years who here at this hospital in April. He is feeling somewhat emotional about being here at the hospital. Review of Systems Constitutional: denies: Fever Ears: denies: Ear pain Nose: denies: Congestion Throat: denies: Sore throat Cardiac: denies: Chest pain / pressure, Palpitations Respiratory: denies: Dyspnea, Cough GI: reports: Abdominal Pain, Abdominal Swelling, Nausea, Constipation. denies: Vomiting, Diarrhea : denies: Dysuria, Frequency Skin: denies: Rash Musculoskeletal: denies: Neck pain, Back pain, Extremity pain PD PAST MEDICAL HISTORY - Past Medical History Cardiovascular: Hypertension, High cholesterol Respiratory: None Neuro: Other (Xavier's Palsy) Endocrine/Autoimmune: None GI: Other (recurrent Small bowel obstruction.) : None HEENT: Other Psych: None Musculoskeletal: Chronic back pain Derm: None - Past Surgical History Past Surgical History: Yes General: Other - Present Medications Home Medications: Ambulatory Orders Medication Instructions Recorded Confirmed Simvastatin [Zocor] 40 mg PO QPM 09/25/14 07/07/20 lisinopriL [Lisinopril] 10 mg ORAL DAILY 09/25/14 07/07/20 Cetirizine [ZyrTEC] 10 mg PO DAILY 04/11/19 07/07/20 Multivit-Min/FA/Lycopen/Lutein 1 each PO DAILY 04/11/19 07/07/20 [Centrum Silver Men Tablet] Multivit-Min/Iron/Folic/Qlj659 1 each PO DAILY 04/11/19 07/07/20 [Hair, Skin and Nails Tablet] Ibuprofen [Motrin] 800 mg PO Q8H PRN #30 tablet 02/27/20 07/07/20 Oxycodone HCl/Acetaminophen 1 - 2 each PO Q6H PRN #14 tablet 02/27/20 07/07/20 [Percocet 5-325 mg Tablet] Aspirin Chewable [[place] Juaquin 81 mg PO DAILY 07/07/20 07/07/20 Aspirin] - Allergies Allergies/Adverse Reactions: Allergies Allergy/AdvReac Type Severity Reaction Status Date / Time No Known Drug Allergies Allergy Verified 07/07/20 02:05 - Social History Does the pt smoke?: No Smoking Status: Never smoker Does the pt drink ETOH?: No Does the pt have substance abuse?: No - Immunizations Immunizations are current?: Yes - POLST Patient has POLST: No POLST Status: Full Code PD ED PE NORMAL - Vitals Vital signs reviewed: Yes (hypertensive mild ) - General General: Alert and oriented X 3, Well developed/nourished, Other - HEENT HEENT: Atraumatic, PERRL, EOMI - Neck Neck: Supple, no meningeal sign - Cardiac Cardiac: RRR, No murmur - Respiratory Respiratory: No respiratory distress, Clear bilaterally - Abdomen Abdomen: Normal bowel sounds (The abdomen is firm and distended it is generally tender there is no specific guarding.), Other - Back Back: No CVA TTP, No spinal TTP - Derm Derm: Normal color, Warm and dry, No rash - Extremities Extremities: No deformity, No edema - Neuro Neuro: Alert and oriented X 3, block engraver 2-12 intact, No motor deficit, No sensory deficit, Normal speech Eye Opening: Spontaneous Motor: Obeys Commands Verbal: Oriented GCS Score: 15 - Psych Psych: Other (The patient's mood is sad and his affect is labile He is currently mourning.) Results - Vitals Vitals: Vital Signs - 24 hr 07/07/20 07/07/2007/07/21 02:03 02:17 04:19 Temperature 36.1 C L 36.1 C L Heart Rate 94 94 64 Respiratory 18 18 Rate Blood Pressure 148/82 H 148/82 H 120/80 O2 Saturation 95 95 95 Oxygen O2 Source Room air - Labs Labs: Laboratory Tests 07/07/20 07/07/20 07/07/20 03:08 03:08 03:39 WBC 4.4 L RBC 5.23 Hgb 15.7 Hct 46.8 MCV 89.5 MCH 30.0 MCHC 33.5 RDW 14.3 Plt Count 293 MPV 9.2 Neut # (Auto) 2.4 Lymph # (Auto) 1.4 L Pratt # (Auto) 0.4 Eos # (Auto) 0.1 Baso # (Auto) 0.0 Absolute Nucleated RBC 0.00 Nucleated RBC % 0.0 Sodium 137 Potassium 4.5 Chloride 102 Carbon Dioxide 22 Anion Gap 13.0 BUN 24 H Creatinine 1.0 Estimated GFR (MDRD) 72 L Glucose 163 H Calcium 9.2 Total Bilirubin 0.9 AST 24 ALT 29 Alkaline Phosphatase 88 Total Protein 7.6 Albumin 4.1 Globulin 3.5 Albumin/Globulin Ratio 1.2 Lipase 34 Nasal Adenovirus (PCR) NOT DETECTED Nasal B. parapertussis DNA (PCR) NOT DETECTED Nasal Coronavir 229E PCR NOT DETECTED Nasal Coronavir HKU1 PCR NOT DETECTED Nasal Coronavir NL63 PCR NOT DETECTED Nasal Coronavir OC43 PCR NOT DETECTED Nasal Enterovir/Rhinovir PCR NOT DETECTED Nasal Influenza B PCR NOT DETECTED Nasal Influenza A PCR NOT DETECTED Nasal Parainfluen 1 PCR NOT DETECTED Nasal Parainfluen 2 PCR NOT DETECTED Nasal Parainfluen 3 PCR NOT DETECTED Nasal Parainfluen 4 PCR NOT DETECTED Nasal RSV (PCR) NOT DETECTED Nasal B.pertussis DNA PCR NOT DETECTED Nasal C.pneumoniae (PCR) NOT DETECTED Yousif Human Metapneumo PCR NOT DETECTED Nasal M.pneumoniae (PCR) NOT DETECTED Nasal SARS-CoV-2 (PCR) NOT DETECTED PD MEDICAL DECISION MAKING - ED course Complexity details: considered differential, d/w patient ED course: Josias Byers is a 80-year-old male with 2 days of bowel obstruction symptoms similar to what is had previously with small bowel obstruction. He is also still grieving the loss of his white spooler of 60 years who in this hospital over Thanksgiving. In anticipation of the patient being admitted into the hospital a respiratory PCR is obtained to rule out COVID-19. The patients symptoms improve dramatically with the morphine and his CT scan is without evidence of obstruction. The results are shared with the patient and for reassurance he is given copy's of sales representative [employer] cuts of his CT scan from today and from 2018. He is satisfied that he will be OK to go home. He is concerned about his bowel movements and today there really is not much stool in the colon at all. He has been using miralax and supplementing this with exlax and he has only watery stool and no formed stool. Not very satisfying. I have encouraged the patient to stop the exlax and not to strain for BM. Departure - Departure Disposition: 01 Home, Self Care Clinical Impression: Abdominal pain Qualifiers: Abdominal location: generalized Qualified Code(s): R10.84 - Generalized abdominal pain Condition: Stable Instructions: ED Abdominal Pain Unkn Cause Follow-Up: Amari Strauss MD [Primary Care Provider] - Comments: Today there is no evidence of constipation and there is no evidence of bowel obstruction on the CT scan. My recommendation for your bowel program is to stop the use of the Ex-Lax and use the MiraLAX on a regular basis.
[2020-07-07] MEDS ORDERED: MORPHINE 2 MG/ML CARPUJECT IVP STA (02:51)
[2020-07-07] MEDS ORDERED: ONDANSETRON 4 MG/2 ML VIAL IVP STA (02:51)
[2020-07-07] MEDS ORDERED: SODIUM CHLORIDE 0.9% 1,000 ML IV STA ×2 (02:51→05:11)
[2020-07-07] MEDS ORDERED: IOVERSOL 320 100 ML VIAL IVP ONE (03:13)
[2020-07-07 03:33] LABS: BASOPHILS % (AUTO) 0.9 %; EOSINOPHILS # (AUTO) 0.1 10^3/uL (0.0-0.7); EOSINOPHILS % (AUTO) 1.6 %; HGB - HEMOGLOBIN 15.7 g/dL (14.0-18.0); LYMPHOCYTES # (AUTO) 1.4 10^3/uL (1.5-3.5); LYMPHOCYTES % (AUTO) 32.5 %; MEAN CORPUSCULAR HGB CONC 33.5 g/dL (32.0-36.0); MEAN CORPUSCULAR VOLUME 89.5 fL (80.0-94.0); MEAN PLATELET VOLUME 9.2 fL (7.4-11.4); MONOCYTES # (AUTO) 0.4 10^3/uL (0.0-1.0); MONOCYTES % (AUTO) 9.6 %; NEUTROPHILS # (AUTO) 2.4 10^3/uL (1.5-6.6); NEUTROPHILS % (AUTO) 54.9 %; PLT - PLATELET COUNT 293 10^3/uL (130-450); RED BLOOD COUNT 5.23 10^6/uL (4.70-6.10); RED CELL DISTRIBUTION WIDTH 14.3 % (12.0-15.0); WHITE BLOOD COUNT 4.4 x10^3/uL (4.8-10.8)
[2020-07-07 03:43] LABS: ALBUMIN 4.1 g/dL (3.2-5.5); ALBUMIN/GLOBULIN RATIO 1.2 (1.0-2.2); BILIRUBIN,TOTAL 0.9 mg/dL (0.2-1.0); CALCIUM 9.2 mg/dL (8.5-10.3); TOTAL PROTEIN 7.6 g/dL (6.7-8.2)
[2020-07-07 04:30] LABS: C. PNEUMONIAE- RESP PCR PANEL NOT DETECTED
[2020-07-07 06:11] VITALS: BP 157/85
--- NOTE | 2020-07-07 08:35 | CT Report ---
PROCEDURE: Abdomen/Pelvis W INDICATIONS: bowel obstruction CONTRAST: IV CONTRAST: Optiray 320 ml: 100 PO CONTRAST: *NO PO CONTRAST TECHNIQUE: After the administration of intravenous contrast, 5 mm thick sections acquired from the diaphragms to the symphysis. 5 mm thick coronal and sagittal reformats were acquired. For radiation dose reducti on, the following was used: automated exposure control, adjustment of mA and/or kV according to shirley ent size. COMPARISON: None. FINDINGS: Image quality: Excellent. ABDOMEN: Lung bases: Lung bases are clear. Heart size is normal. Solid organs: Hepatic steatosis. Spleen unremarkable Gallbladder negative Biliary system is non dilated. Pancreas enhances normally. Grossly unchanged a ppearance of right adrenal nodule measuring approximately 1.9 cm, dating back to 08/30/2017. No hydron ephrosis. Bilateral few sub-3 mm renal calculi Peritoneum and bowel: There are scattered air-fluid levels seen within the small bowel and colon. Nor mal appearance of the appendix. Colonic diverticulosis incidentally noted without evidence of acute i nflammation. Nodes and vessels: No retroperitoneal or mesenteric adenopathy by size criteria. Aorta and inferior vena cava are normal in size. Scattered vascular calcifications are present in the aorta. Miscellaneous: No ventral hernias. PELVIS: Genitourinary: Bladder wall thickness is normal. Miscellaneous: No inguinal hernias or adenopathy. Bones: No suspicious bony lesions. No vertebral body compression fractures. IMPRESSION: Scattered air-fluid levels throughout the colon and small bowel suggestive of enterocoli tis and/or malabsorption. Recommend clinical correlation No specific evidence of bowel obstruction although continued surveillance with abdominal radiographs could be performed if the patient's symptoms do not improve. Additional chronic and incidental findin gs as above. Findings are concordant with the preliminary study interpretation provided at the time of the study. Reviewed by: William Roger MD on 07/07/2020 8:33 AM PST Approved by: William Roger MD on 07/07/2020 8:33 AM PST Station ID: [id number]
== END 2020-07-07 06:11 | disposition home or self-care (01) ==
LOC: ED 01:53
DX: R10.84 Generalized abdominal pain (principal); Z87.19 Personal history of other diseases of the digestive system; Z20.822 Contact with and (suspected) exposure to COVID-19; I10 Essential (primary) hypertension; Z79.82 Long term (current) use of aspirin
CPT/HCPCS: 74177; 80053; 83690; 85025; 87631; 96374; 96375; 99284; Q9967; 0202U

== ENCOUNTER 2020-07-25 13:50 | Outpatient (CLI) | payer MEDICARE, OTHER ==
--- NOTE | 2020-07-25 14:42 | SLEEP CARE CONSULTATION ---
Information from patient questionnaire entered by Addie Barnett. I have reviewed and concur with the information entered by Addie Barnett. This document represents the service I personally performed and the decisions made by me, Maya Jin ARNP. History of Present Illness Service Date and Time: 07/25/2020 1350 Previous diagnosis: Moderate, Obstructive Sleep Apnea-Hypopnea Syndrome AHI: 21.5 (in 2018)(34.9 in 2010) Reason for follow up: six month (followup) Equipment type: CPAP Equipment obtained from: Other ([facility]; gets supplies as needed) Mask style: Nasal (unknown - ? Dreamwear) Backup mask available: Yes Prior sleep studies: Yes Year and Where: 2018 [email or web address] additional information: CATIA FROST was diagnosed to have moderate, AHI 21.8, obstructive sleep apnea- hypopnea syndrome and returned today for CPAP therapy six month pressure change follow-up. Sleep Study - Results Prior sleep studies: Yes Year and Where: 2017 [facility] CPAP Compliance Data - Data Reviewed with Patient Average duration of nightly device use: 7 h 51 min Compliance rate %: 87.2 Current pressure setting (cmH2O): 14-16 (average 14.2 and 90% 15.4 cmH2O) Humidity settin Heated hose settin Average residual AHI: 22.8 Central apnea: 8.2 Obstructive apnea: 7.4 Hypopnea: 7.2 Average large leak: 56 min 20 sec Subjective Missed days of use due to: reports: family emergency Patient concerns: reports: other (Need to change size of mask (headgear)). denies: aerophagia, mask discomfort, air blowing in eyes, mask leak noise, condensation in mask/hose, nasal congestion, dry mouth, nose, throat, epistaxis Observed to snore while using device: No Current pressure setting perceived as: comfortable On therapy, patient: reports: sleeping better, awakening more refreshed, being more awake and alert during the day, more rested overall. denies: drowsiness while driving Initial [place] Sleepiness Scale score: 8 (in 2009) Current [place] Sleepiness Scale score: 1 Allergies and Home Medications Drug allergies reviewed: Yes (NKDA) Home medication list reviewed: Yes (no changes) Review of Systems Review of systems same as previous: Yes (no changes) Physical Exam Heart Rate: 98 O2 Saturation: 86 Height: 5 ft 10 in Weight: 218 lb Body Mass Index: 31.2 BMI Classification: Obese Impression and Plan 1. Obstructive Sleep Apnea-Hypopnea Syndrome, moderate, with good treatment compliance and poor apnea control with elevated residual AHI. On CPAP therapy, the patient has better sleep quality and is more rested overall. He lost his in April and is still very sad about her passing. He is not sleeping much and having difficulty with using the machine due to this stressful situation at his 's . He was very tearful in the office and I suggested that he seek grief counseling or at least finding a good friend of family member to talk to about his loss. He voiced understanding but is not sure he wants to do any counseling. The patients pressure will be changed to autoCPAP 12-14 cmH20 for elevation of residual AHI (elevated central at 8.2 and obstructive index 7.4). Patient advised to contact me if pressure change is uncomfortable so that it can be adjusted. Goals for apnea control discussed. Patient's apnea severity and rationale for treatment to reduce apnea, improve sleep quality and reduce cardiovascular and cerebrovascular events was reviewed. I also reviewed the benefit of consistent device use of CPAP for hypertension. * Update supplies, needs smaller headgear for his mask * Change auto CPAP pressure to 12-14 cmH2O * Notify me if snoring with mask or feeling that the pressure is too much or too little * Attempt to lose weight * Call this office if any problems using CPAP * Return for follow up in 1-2 months, or sooner if concerns arise Counseling Topics: Spare mask Visit Type: In Office Time Spent with Patient (minutes): 25 Provider Statement: I spent 100% of the Face to Face Visit with the patient with greater than 50% spent counseling the patient and coordination of care.
== END 2020-07-25 13:51 | disposition home or self-care (01) ==
LOC: SC 13:50
PROVIDERS: ATTEND Nurse Practitioner Family
DX: G47.33 Obstructive sleep apnea (adult) (pediatric) (principal); E66.9 Obesity, unspecified; Z68.31 Body mass index [BMI] 31.0-31.9, adult
CPT/HCPCS: 99213; G0463; 99212

== ENCOUNTER 2020-10-04 13:43 | Outpatient (CLI) | payer MEDICARE, OTHER ==
--- NOTE | 2020-10-04 14:14 | SLEEP CARE CONSULTATION ---
Information from patient questionnaire entered by Addie Barnett. I have reviewed and concur with the information entered by Addie Barnett. This document represents the service I personally performed and the decisions made by me, Maya Jin ARNP. History of Present Illness Service Date and Time: 10/04/2020 1343 Previous diagnosis: Moderate, Obstructive Sleep Apnea-Hypopnea Syndrome AHI: 21.5 (in 2018)(34.9 in 2009) Reason for follow up: other (2-month followup - pressure change) Equipment type: CPAP Equipment obtained from: Other ([facility]; gets supplies but they are getting his mask size wrong and not communicating well with him) Mask style: Nasal (unknown - ? Dreamwear) Backup mask available: Yes (old mask) Last cushion change: 2-3 weeks ago Prior sleep studies: Yes Year and Where: 2017 and 2009 [facility] additional information: CATIA FROST was diagnosed to have moderate, AHI 21.5, obstructive sleep apnea- hypopnea syndrome and returned today for CPAP therapy 2 month pressure change follow-up. CPAP Compliance Data - Data Reviewed with Patient Average duration of nightly device use: 5 h 46 min Compliance rate %: 86.7 Current pressure setting (cmH2O): 12-14 Humidity settin Heated hose settin Average residual AHI: 26.2 Central apnea: 8.9 Obstructive apnea: 11.2 Hypopnea: 6.1 Average large leak: 20 min 10 sec Subjective Missed days of use due to: reports: family emergency Patient concerns: denies: aerophagia, mask discomfort, air blowing in eyes, mask leak noise, condensation in mask/hose, nasal congestion, dry mouth, nose, throat, epistaxis, other Observed to snore while using device: No Current pressure setting perceived as: comfortable On therapy, patient: reports: sleeping better, awakening more refreshed, being more awake and alert during the day, more rested overall. denies: drowsiness while driving Initial [place] Sleepiness Scale score: 8 (in 2009) Current [place] Sleepiness Scale score: 0 Allergies and Home Medications Drug allergies reviewed: Yes (NKDA) Home medication list reviewed: Yes (no changes) Review of Systems Review of systems same as previous: Yes (no changes) Physical Exam Heart Rate: 76 O2 Saturation: 97 Height: 5 ft 10 in Weight: 224 lb Body Mass Index: 32.1 BMI Classification: Obese Impression and Plan 1. Obstructive Sleep Apnea-Hypopnea Syndrome, moderate, with good treatment compliance and poor apnea control. On CPAP therapy, the patient has better sleep quality and is more rested overall. The patients pressure will be changed to autoCPAP 14-18 cmH20 for elevation of residual AHI. Patient advised to contact me if pressure change is uncomfortable so that it can be adjusted. Goals for apnea control discussed. Patient has not been happy with current DME. He tried to get mask size changed and got the run around. He finally got the mask but it was sent without the corresponding headgear. He would like to consider other options for his DME but does not want to change today. 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 Patient's apnea severity and rationale for treatment to reduce apnea, improve sleep quality and reduce cardiovascular and cerebrovascular events was reviewed. I also reviewed the benefit of consistent device use of CPAP for hypertension. * Change auto CPAP pressure to 14-18 cmH2O * Notify me if snoring with mask or feeling that the pressure is too much or too little * Attempt to lose weight * Call this office if any problems using CPAP * Return for follow up in 1-2 months, or sooner if concerns arise Counseling Topics: Spare mask, Weight loss health impact Visit Type: In Office Time Spent with Patient (minutes): 21 Provider Statement: I spent 100% of the Face to Face Visit with the patient with greater than 50% spent counseling the patient and coordination of care.
== END 2020-10-04 13:44 | disposition home or self-care (01) ==
LOC: SC 13:43
PROVIDERS: ATTEND Nurse Practitioner Family
DX: G47.33 Obstructive sleep apnea (adult) (pediatric) (principal); E66.9 Obesity, unspecified; Z68.32 Body mass index [BMI] 32.0-32.9, adult
CPT/HCPCS: 99213; G0463; 99212

== ENCOUNTER 2020-12-06 13:38 | Outpatient (CLI) | payer MEDICARE, OTHER ==
--- NOTE | 2020-12-06 14:24 | SLEEP CARE CONSULTATION ---
Information from patient questionnaire entered by Lorelei Krueger. I have reviewed and concur with the information entered by Lorelei Krueger. This document represents the service I personally performed and the decisions made by , Maya Jin ARNP. History of Present Illness Service Date and Time: 12/06/2020 1338 Previous diagnosis: Moderate, Obstructive Sleep Apnea-Hypopnea Syndrome AHI: 21.5 (in 2017)(34.9 in 2009) Reason for follow up: other (2 month with pressure change) Equipment type: CPAP Equipment obtained from: Other ([facility]: keeps getting wrong st uf) Mask style: Nasal (unknown - ? Dreamwear) Backup mask available: Yes (old mask) Prior sleep studies: Yes Year and Where: 2017 and 2009 - [facility] Type of Sleep Study: Polysomnography HPI additional information: CATIA FROST was diagnosed to have moderate, AHI 21.5, obstructive sleep apnea- hypopnea syndrome and returned today for CPAP therapy 2 month pressure change follow-up. CPAP Compliance Data - Data Reviewed with Patient Average duration of nightly device use: 4 hr 38 min Compliance rate %: 51.7 ( 60 days) Current pressure setting (cmH2O): 14-18 (mean 14.5, 90% avg 16.0, peak 17.5) Humidity settin Heated hose settin Average residual AHI: 20.6 Central apnea: 5.7 Obstructive apnea: 5.2 Hypopnea: 9.7 Average large leak: 1 hr 14 min Subjective Missed days of use due to: reports: mask issues Patient concerns: denies: aerophagia, mask discomfort, air blowing in eyes, mask leak noise, condensation in mask/hose, nasal congestion, dry mouth, nose, throat, epistaxis, other Observed to snore while using device: No Current pressure setting perceived as: comfortable On therapy, patient: reports: sleeping better, awakening more refreshed, being more awake and alert during the day, more rested overall. denies: drowsiness while driving Initial [place] Sleepiness Scale score: 8 (in 2009) Current [place] Sleepiness Scale score: 0 Allergies and Home Medications Home medication list reviewed: Yes (no new meds) Review of Systems Review of systems same as previous: Yes (no changes) Physical Exam Heart Rate: 62 O2 Saturation: 98 Height: 5 ft 10 in Weight: 220 lb Body Mass Index: 31.5 BMI Classification: Obese Impression and Plan 1. Obstructive Sleep Apnea-Hypopnea Syndrome, moderate, with fair treatment compliance and fair apnea control with an elevated residual AHI. On CPAP therapy, the patient has better sleep quality and is more rested overall. Patient states he is feeling well at current pressure settings and would like to stay, despite the elevated residual AHI. He does have a large air leak over an hour which may be adding to his elevation. His overall central and obstructive apneas have reduced with this last pressure change. His current Gray sleepiness scale is at 0 out of 24. Patient states he is just not sleeping very well since the of his . He states he cannot sleep during the day or at night. He is trying to take care of himself and is appreciative of the care through our office. We will continue pressure settings and follow-up with him in 3 months to see if he has improved his compliance and apnea control. He was encouraged to lose weight. Patient's apnea severity and rationale for treatment to reduce apnea, improve sleep quality and reduce cardiovascular and cerebrovascular events was reviewed. I also reviewed the benefit of consistent device use of CPAP for hypertension. * Continue auto CPAP pressure at 14-18 cmH2O * Notify me if snoring with mask or feeling that the pressure is too much or too little * Attempt to lose weight * Call this office if any problems using CPAP * Return for follow up in 3 months, or sooner if concerns arise Counseling Topics: Spare mask, Weight loss health impact Visit Type: In Office Time Spent with Patient (minutes): 26 Provider Statement: I spent 100% of the Face to Face Visit with the patient with greater than 50% spent counseling the patient and coordination of care.
== END 2020-12-06 13:39 | disposition home or self-care (01) ==
LOC: SC 13:38
PROVIDERS: ATTEND Nurse Practitioner Family
DX: G47.33 Obstructive sleep apnea (adult) (pediatric) (principal); E66.9 Obesity, unspecified; Z68.31 Body mass index [BMI] 31.0-31.9, adult
CPT/HCPCS: 99213; G0463; 99212

== ENCOUNTER 2021-01-19 08:16 | Emergency (ER) | payer MEDICARE, OTHER ==
[2021-01-19 08:26] VITALS: BP 133/77
--- NOTE | 2021-01-19 08:43 | ED Physician Documentation ---
PD HPI LOWER EXT INJURY - Stated complaint Stated Complaint: RT LITTLE TOE INJURY - Chief complaint Chief Complaint: Trauma Ext - History obtained from History obtained from: Patient - History of Present Illness PD HPI LOW EXT INJURY LOCATION: Right, Toe Pain level max: 7 Pain level now: 4 Improved by: Rest Worsened by: Moving, Palpating Associated symptoms: Swelling. No: Weakness - Additional information Additional information: Patient is an 81-year-old male who presents to the emergency department with a right fifth toe injury. He states he stubbed it this morning about 4:30 in the morning. Has swelling and pain. Worse with walking, better with rest. Review of Systems Constitutional: denies: Fever, Chills GI: denies: Vomiting, Diarrhea Skin: denies: Rash Musculoskeletal: denies: Neck pain, Back pain Neurologic: denies: Headache PD PAST MEDICAL HISTORY - Past Medical History Cardiovascular: Hypertension, High cholesterol Respiratory: None Neuro: Other (Xavier's Palsy) Endocrine/Autoimmune: None GI: Other (recurrent Small bowel obstruction.) : None HEENT: Other Psych: None Musculoskeletal: Chronic back pain Derm: None - Past Surgical History Past Surgical History: Yes General: Other - Present Medications Home Medications: Ambulatory Orders Medication Instructions Recorded Confirmed Simvastatin [Zocor] 40 mg PO QPM 09/25/14 07/07/20 lisinopriL [Lisinopril] 10 mg ORAL DAILY 09/25/14 07/07/20 Cetirizine [ZyrTEC] 10 mg PO DAILY 04/11/19 07/07/20 Multivit-Min/FA/Lycopen/Lutein 1 each PO DAILY 04/11/19 07/07/20 [Centrum Silver Men Tablet] Multivit-Min/Iron/Folic/Kjo739 1 each PO DAILY 04/11/19 07/07/20 [Hair, Skin and Nails Tablet] Ibuprofen [Motrin] 800 mg PO Q8H PRN #30 tablet 02/27/20 07/07/20 Oxycodone HCl/Acetaminophen 1 - 2 each PO Q6H PRN #14 tablet 02/27/20 07/07/20 [Percocet 5-325 mg Tablet] Aspirin Chewable [St Juaquin 81 mg PO DAILY 07/07/20 07/07/20 Aspirin] - Allergies Allergies/Adverse Reactions: Allergies Allergy/AdvReac Type Severity Reaction Status Date / Time No Known Drug Allergies Allergy Verified 01/19/21 08:26 - Social History Does the pt smoke?: No Smoking Status: Never smoker Does the pt drink ETOH?: No Does the pt have substance abuse?: No - Immunizations Immunizations are current?: Yes - POLST Patient has POLST: No POLST Status: Full Code PD ED PE NORMAL - Vitals Vital signs reviewed: Yes - General General: Alert and oriented X 3, No acute distress - HEENT HEENT: Moist mucous membranes - Neck Neck: Supple, no meningeal sign - Derm Derm: Warm and dry - Extremities Extremities: Other (TTP over the R 5th toe, No tenderness over the remainder of the foot. Mild swelling over the toe. Diffusely tender over the toe) Results - Vitals Vitals: Vital Signs - 24 hr 01/19/21 08:24 Temperature 36.0 C L Heart Rate 73 Respiratory 16 Rate Blood Pressure 133/77 H O2 Saturation 96 Oxygen O2 Source Room air - Rads (name of study) Right fifth toe x-ray Radiology: Final report received, EMP read contemporaneously, See rad report (Minimally displaced transverse fracture of the fifth proximal phalanx. ) PD MEDICAL DECISION MAKING - ED course Complexity details: reviewed results, considered differential, d/w patient ED course: Patient with a right fifth toe fracture. Placed in a postop shoe for comfort. Declines pain medication here for home. Patient counseled regarding signs and symptoms for which I believe and urgent re-evaluation would be necessary. Patient with good understanding of and agreement to plan and is comfortable going home at this time This document was made in part using voice recognition software. While efforts are made to proofread this document, sound alike and grammatical errors may occur. Departure - Departure Disposition: 01 Home, Self Care Clinical Impression: Toe fracture, right Qualifiers: Encounter type: initial encounter Toe: lesser toe Fracture type: closed Phalanx: middle Fracture alignment: nondisplaced Qualified Code(s): S92.524A - Nondisplaced fracture of middle phalanx of right lesser toe(s), initial encounter for closed fracture Condition: Good Instructions: ED Fx Toe Closed Follow-Up: Amari Strauss MD [Primary Care Provider] - Within 1 week Comments: Wear the postop shoe for comfort. Follow-up with your doctor for further care. Return if you worsen. You can use Motrin or Tylenol for pain.
--- NOTE | 2021-01-19 09:22 | XRAY Report ---
PROCEDURE: Toe(s) RT INDICATIONS: R 5th toe injury TECHNIQUE: AP view of the foot and 2 views of the right fifth toe obtained. COMPARISON: None. FINDINGS: Bones: There is a transverse fracture at the fifth proximal phalangeal shaft with minimal angulation. No intra-articular extension is seen. The remaining visualized osseous structures are intact. No diann picious bony lesions. Soft tissues: No suspicious soft tissue densities. IMPRESSION: Minimally displaced transverse fracture of the fifth proximal phalanx. Reviewed by: Jesús Lopez MD on 01/19/2021 9:20 AM PDT Approved by: Jesús Lopez MD on 01/19/2021 9:20 AM PDT Station ID: [id number]
[2021-01-19] MEDS ORDERED: IBUPROFEN 600 MG TABLET PO STA (09:26)
== END 2021-01-19 09:46 | disposition home or self-care (01) ==
LOC: ED 08:16
DX: S92.514A Nondisplaced fracture of proximal phalanx of right lesser toe(s), initial encounter for closed fracture (principal); W22.09XA Striking against other stationary object, initial encounter; I10 Essential (primary) hypertension; Z79.82 Long term (current) use of aspirin
CPT/HCPCS: 99282; 99283

== ENCOUNTER 2021-01-27 10:43 | Emergency (ER) | payer MEDICARE, OTHER ==
[2021-01-27 11:19] VITALS: BP 139/103
--- NOTE | 2021-01-27 11:51 | ED Physician Documentation ---
PD HPI LOWER EXT INJURY - Stated complaint Stated Complaint: R FOOT PX - Chief complaint Chief Complaint: Ext Problem - History obtained from History obtained from: Patient - History of Present Illness PD HPI LOW EXT INJURY LOCATION: Right, Ankle, Foot. No: Lower leg Type of injury: Other (he had broken his little toe a week ago and has post op shoe on. He states he is having some tenderness top of the foot now. No pain in calf nor lower leg edema. He noted the vein on top of foot to be prominent and tender.). No: Fall, Twist Timing - details: Gradual onset, Still present, Waxing and waning Worsened by: Palpating Associated symptoms: No: Weakness, Numbness Similar symptoms before: Has not had sx before Recently seen: Emergency Dept (toe fracture a week ago and has post op shoe. was not shown taping for toes.) Review of Systems Constitutional: denies: Fever, Chills Cardiac: denies: Chest pain / pressure, Palpitations Respiratory: denies: Dyspnea, Cough Skin: denies: Rash, Lesions Neurologic: denies: Focal weakness, Numbness PD PAST MEDICAL HISTORY - Past Medical History Cardiovascular: Hypertension, High cholesterol Respiratory: None Neuro: Other Endocrine/Autoimmune: None GI: Other : None HEENT: Other Psych: None Musculoskeletal: Chronic back pain Derm: None - Past Surgical History Past Surgical History: Yes General: Other - Present Medications Home Medications: Ambulatory Orders Medication Instructions Recorded Confirmed Simvastatin [Zocor] 40 mg PO QPM 09/25/14 07/07/20 lisinopriL [Lisinopril] 10 mg ORAL DAILY 09/25/14 07/07/20 Cetirizine [ZyrTEC] 10 mg PO DAILY 04/11/19 07/07/20 Multivit-Min/FA/Lycopen/Lutein 1 each PO DAILY 04/11/19 07/07/20 [Centrum Silver Men Tablet] Multivit-Min/Iron/Folic/[id number] 1 each PO DAILY 04/11/19 07/07/20 [Hair, Skin and Nails Tablet] Ibuprofen [Motrin] 800 mg PO Q8H PRN #30 tablet 02/27/20 07/07/20 Oxycodone HCl/Acetaminophen 1 - 2 each PO Q6H PRN #14 tablet 09/06/20 01/15/21 [Percocet 5-325 mg Tablet] Aspirin Chewable [St Juaquin 81 mg PO DAILY 07/07/20 07/07/20 Aspirin] - Allergies Allergies/Adverse Reactions: Allergies Allergy/AdvReac Type Severity Reaction Status Date / Time No Known Drug Allergies Allergy Verified 01/19/21 08:26 - Social History Does the pt smoke?: No Smoking Status: Never smoker Does the pt drink ETOH?: No Does the pt have substance abuse?: No - Immunizations Immunizations are current?: Yes - POLST Patient has POLST: No POLST Status: Full Code PD ED PE NORMAL - Vitals Vital signs reviewed: Yes - General General: Alert and oriented X 3, No acute distress, Well developed/nourished - Derm Derm: Normal color, Warm and dry - Extremities Extremities: Other (right little toe without deformity. It has some old bruising at base of it near MTP and proximal phalanx. Good sensation at tip. Dorsum of the foot with mild tendeness at vein. Good pulse. There is mild firmness of the vein but it is collapsable to palpation. No calf tenderness nor swelling. ) - Neuro Neuro: Alert and oriented X 3, No motor deficit, No sensory deficit Results - Vitals Vitals: Oxygen O2 Source Room air PD MEDICAL DECISION MAKING - ED course Complexity details: considered differential (seems likely some mild phlebitis from the foot strap portion of the post op shoe rubbing. No clinical suspicion for DVT higher. Given precautions of what to watch for for DVT. ), d/w patient Departure - Departure Disposition: 01 Home, Self Care Clinical Impression: Superficial phlebitis Condition: Stable Record reviewed to determine appropriate education?: Yes Instructions: ED Phlebitis Superficial Follow-Up: Amari Strauss MD [Primary Care Provider] - Comments: This seems like some irritation of the vein on the top of the foot. It likely is coming from just a little pressure off of the foot orthosis you are using. It is okay to continue with the foot splint. You can also add taping of the toes to decrease movement and pain of the toes. Have the foot rested and elevated periodically through the day with the boot off as you have been doing. Use warm moist towels to the area periodically as well. This helps with softening of the lew of the vein to reduce the chance of clotting. Return if you have increased tenderness, swelling through the foot and particularly if it develops into the lower calf. Discharge Date/Time: 01/27/21 12:17
== END 2021-01-27 12:17 | disposition home or self-care (01) ==
LOC: ED 10:43
DX: I80.3 Phlebitis and thrombophlebitis of lower extremities, unspecified (principal); M79.671 Pain in right foot; I10 Essential (primary) hypertension; Z79.82 Long term (current) use of aspirin
CPT/HCPCS: 99281; 99283

== ENCOUNTER 2021-03-07 13:33 | Outpatient (CLI) | payer MEDICARE, OTHER ==
--- NOTE | 2021-03-07 14:34 | SLEEP CARE CONSULTATION ---
Information from patient questionnaire entered by Lorelei Krueger. I have reviewed and concur with the information entered by Lorelei Krueger. This document represents the service I personally performed and the decisions made by , Maya Jni ARNP. History of Present Illness Service Date and Time: 03/07/2021 1333 Previous diagnosis: Moderate, Obstructive Sleep Apnea-Hypopnea Syndrome AHI: 21.5 (in 2018)(34.9 in 2009) Reason for follow up: three month Equipment type: CPAP Equipment obtained from: Other ([facility]: getting supplies as needed) Mask style: Nasal (Dreamwear) Mask brand: Respironics Backup mask available: Yes (old mask) Last cushion change: last week Prior sleep studies: Yes Year and Where: 2017 and [address] [facility] Sleep Type of Sleep Study: Polysomnography HPI additional information: CATIA FROST was diagnosed to have moderate, AHI 21.5, obstructive sleep apnea- hypopnea syndrome and returned today for CPAP therapy three month follow-up. CPAP Compliance Data - Data Reviewed with Patient Average duration of nightly device use: 4 hr 27 min Compliance rate %: 55.6 (90 days) Current pressure setting (cmH2O): 14-18 Humidity settin Heated hose settin Average residual AHI: 18 Central apnea: 6.4 Obstructive apnea: 5.6 Hypopnea: 6.0 Average large leak: 36 min 24 sec Subjective Patient concerns: denies: aerophagia, mask discomfort, air blowing in eyes, mask leak noise, condensation in mask/hose, nasal congestion, dry mouth, nose, throat, epistaxis, other Observed to snore while using device: No Current pressure setting perceived as: comfortable On therapy, patient: reports: sleeping better, awakening more refreshed, being more awake and alert during the day, more rested overall. denies: drowsiness while driving Initial [place] Sleepiness Scale score: 8 (in 2009) Current [place] Sleepiness Scale score: 3 Allergies and Home Medications Home medication list reviewed: Yes (no changes) Review of Systems Review of systems same as previous: Yes (no changes) Physical Exam Blood Pressure: 127/75 Cuff size: wrist Heart Rate: 68 O2 Saturation: 95 Height: 5 ft 10 in Weight: 216 lb 6.4 oz Body Mass Index: 31.0 BMI Classification: Obese Impression and Plan 1. Obstructive Sleep Apnea-Hypopnea Syndrome, moderate, with poor treatment compliance and fair apnea control with elevated residual AHI. On CPAP therapy, the patient has better sleep quality and is more rested overall. Patient was aware of the recall on his device and we reviewed particulars. Patient has already registered their device for the recall. Patient denies any black particles seen in machine or hoses, any unusual odors coming from device. Patient has not experienced any physical symptoms such as upper airway irritation, headache, skin or eye irritation, asthma, nausea/vomiting, difficulty breathing or chest pain. Patient informed that they may use an inline CPAP filter that they can obtain online to reduce chance of any particles being inhaled or ingested. We discussed thoroughly the health risks of not using the CPAP versus continuing use with the filter in place. If patient is not able to sleep due to waking up choking, gasping for air or other respiratory distress that they may decide to continue using it until it is either replaced or repaired. Patient voiced understanding and agreement with plan. Patient would still like to continue pressures at current setting since it is comfortable for him and he feels he is getting good results. I will make no adjustments today. Patient's apnea severity and rationale for treatment to reduce apnea, improve sleep quality and reduce cardiovascular and cerebrovascular events was reviewed. I also reviewed the benefit of consistent device use of CPAP for hypertension. * Continue auto CPAP pressure at 14-18 cmH2O * Notify me if snoring with mask or feeling that the pressure is too much or too little * Attempt to lose weight * Call this office if any problems using CPAP * Return for follow up in 6 months, or sooner if concerns arise Counseling Topics: Spare mask, Weight loss health impact Visit Type: In Office Time Spent with Patient (minutes): 24 Provider Statement: I spent 100% of the Face to Face Visit with the patient with greater than 50% spent counseling the patient and coordination of care.
[2021-03-07 14:35] VITALS: BP 127/75
== END 2021-03-07 13:34 | disposition home or self-care (01) ==
LOC: SC 13:33
PROVIDERS: ATTEND Nurse Practitioner Family
DX: G47.33 Obstructive sleep apnea (adult) (pediatric) (principal); E66.9 Obesity, unspecified; Z68.31 Body mass index [BMI] 31.0-31.9, adult
CPT/HCPCS: 99213; G0463; 99212

== ENCOUNTER 2021-03-18 10:35 | Emergency (ER) | payer MEDICARE, OTHER ==
[2021-03-18] MEDS ORDERED: TETANUS/DIPHTHERIA/PERTUSSIS 0.5 ML SYRINGE IM ONE (11:11)
--- NOTE | 2021-03-18 11:52 | ED Physician Documentation ---
PD HPI LOWER EXT INJURY - Stated complaint Stated Complaint: R LEG LAC - Chief complaint Chief Complaint: Laceration - History obtained from History obtained from: Patient - History of Present Illness PD HPI LOW EXT INJURY LOCATION: Right, Lower leg Type of injury: Other (deep abrasion) Where injury occurred: Home Timing - onset: Yesterday Timing - duration: Days (1) Timing - details: Abrupt onset, Still present Improved by: Rest, Immobilization Worsened by: Moving, Palpating Associated symptoms: Discolored. No: Weakness, Numbness, Tingling Contributing factors: No: Anticoagulated Similar symptoms before: Diagnosis (abrasion) Recently seen: Not recently seen - Additional information Additional information: 81-year-old male was disassembling a fence yesterday when he was scraped by a old gabriele nail in his right calf laterally. He was able to control the bleeding with direct pressure and he comes in now for evaluation. He has some redness around the margins of the wound which he states have improved dramatically since earlier in the day. He does state that he is not up-to-date on his tetanus. Review of Systems Constitutional: denies: Fever Eyes: denies: Decreased vision Ears: denies: Ear pain Nose: denies: Congestion Throat: denies: Sore throat Respiratory: denies: Cough GI: denies: Vomiting PD PAST MEDICAL HISTORY - Past Medical History Past Medical History: Yes Cardiovascular: Hypertension, High cholesterol Respiratory: None Neuro: Other Endocrine/Autoimmune: None GI: Other : None HEENT: Other Psych: None Musculoskeletal: Chronic back pain Derm: None - Past Surgical History Past Surgical History: Yes General: Other - Present Medications Home Medications: Ambulatory Orders Medication Instructions Recorded Confirmed Simvastatin [Zocor] 40 mg PO QPM 09/25/14 07/07/20 lisinopriL [Lisinopril] 10 mg ORAL DAILY 09/25/14 07/07/20 Cetirizine [ZyrTEC] 10 mg PO DAILY 04/11/19 07/07/20 Multivit-Min/FA/Lycopen/Lutein 1 each PO DAILY 04/11/19 07/07/20 [Centrum Silver Men Tablet] Multivit-Min/Iron/Folic/Aik322 1 each PO DAILY 04/11/19 07/07/20 [Hair, Skin and Nails Tablet] Ibuprofen [Motrin] 800 mg PO Q8H PRN #30 tablet 02/27/20 07/07/20 Oxycodone HCl/Acetaminophen 1 - 2 each PO Q6H PRN #14 tablet 02/27/20 07/07/20 [Percocet 5-325 mg Tablet] Aspirin Chewable [St Juaquin 81 mg PO DAILY 07/07/20 07/07/20 Aspirin] - Allergies Allergies/Adverse Reactions: Allergies Allergy/AdvReac Type Severity Reaction Status Date / Time No Known Drug Allergies Allergy Verified 03/18/21 10:51 - Social History Does the pt smoke?: No Smoking Status: Never smoker Does the pt drink ETOH?: No Does the pt have substance abuse?: No - Immunizations Immunizations are current?: Yes - POLST Patient has POLST: No POLST Status: Full Code PD ED PE NORMAL - Vitals Vital signs reviewed: Yes (normal) - General General: Alert and oriented X 3, No acute distress, Well developed/nourished - HEENT HEENT: Atraumatic, PERRL, EOMI - Respiratory Respiratory: No respiratory distress - Back Back: No CVA TTP, No spinal TTP - Derm Derm: Normal color, Warm and dry, No rash - Extremities Extremities: No deformity, No edema, Other (There is a 3cm abrasion to the right anterolateral calf, about mid calf. There is no involvment of deeper structures. Mild erythema about 1-2mm from the edge of the wound. 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, No motor deficit, No sensory deficit, Normal speech Eye Opening: Spontaneous Motor: Obeys Commands Verbal: Oriented GCS Score: 15 - Psych Psych: Normal mood, Normal affect Results - Vitals Vitals: Vital Signs - 24 hr 03/18/21 03/18/21 10:49 12:15 Temperature 36.2 C L 36.5 C Heart Rate 83 80 Respiratory 15 16 Rate Blood Pressure 142/73 H 138/70 H O2 Saturation 95 96 Oxygen O2 Source Room air PD MEDICAL DECISION MAKING - ED course Complexity details: considered differential, d/w patient ED course: Deep abrasion to the anterior lateral calf on the right side with some surrounding erythema that does not look angry and does not extend into the fish rrounding soft tissues. There is no drainage from the wound. Wound is cleansed and dressed and the patient is administered a tetanus booster. He is instructed return to the emergency department should he have signs of expanding erythema or drainage. I did indicate to the patient this wound will take excessively long to heal secondary to its location. Departure - Departure Disposition: 01 Home, Self Care Clinical Impression: Abrasion of lower leg Qualifiers: Encounter type: initial encounter Laterality: right Qualified Code(s): S80.811A - Abrasion, right lower leg, initial encounter Condition: Stable Instructions: ED Abrasion Follow-Up: Amari Strauss MD [Primary Care Provider] - Discharge Date/Time: 03/18/21 12:15
[2021-03-18 12:16] VITALS: BP 138/70
== END 2021-03-18 12:15 | disposition home or self-care (01) ==
LOC: ED 10:35
DX: S80.811A Abrasion, right lower leg, initial encounter (principal); W45.0XXA Nail entering through skin, initial encounter; Y93.H3 Activity, building and construction
CPT/HCPCS: 90471; 99282; 99283

== ENCOUNTER 2021-03-23 08:00 | Outpatient (CLI) | payer MEDICARE, OTHER | END 2021-03-23 23:59 | disposition home or self-care (01) | LOC: LAB.N 08:00 | PROVIDERS: ATTEND Family Medicine | DX: L03.115 Cellulitis of right lower limb (principal) | CPT/HCPCS: 87070; 87077; 87181; 87205 ==

== ENCOUNTER 2021-04-18 16:08 | Emergency (ER) | payer MEDICARE, OTHER ==
--- NOTE | 2021-04-18 17:05 | ED Physician Documentation ---
History of Present Illness - Stated complaint Stated Complaint: GLF - Chief complaint Chief Complaint: Trauma Ch/Bk - History obtained from History obtained from: Patient - History of Present Illness Timing: Today Pain level max: 6 Pain level now: 4 - Additonal information Additional information: 81-year-old male presents to the emergency department after a trip and fall today. Landed on the left ribs and injured his left shoulder and ribs. Worse with movement, better with rest. No head neck or back pain. No loss of consciousness. Does not take anticoagulants. Ambulating without difficulty. Review of Systems Constitutional: denies: Fever, Chills GI: denies: Vomiting, Diarrhea Skin: denies: Rash Musculoskeletal: denies: Neck pain, Back pain Neurologic: denies: Headache PD PAST MEDICAL HISTORY - Past Medical History Past Medical History: Yes Cardiovascular: Hypertension, High cholesterol Respiratory: None Neuro: Other Endocrine/Autoimmune: None GI: Other : None HEENT: Other Psych: None Musculoskeletal: Chronic back pain Derm: None - Past Surgical History Past Surgical History: Yes General: Other - Present Medications Home Medications: Ambulatory Orders Medication Instructions Recorded Confirmed Simvastatin [Zocor] 40 mg PO QPM 09/25/14 07/07/20 lisinopriL [Lisinopril] 10 mg ORAL DAILY 09/25/14 07/07/20 Cetirizine [ZyrTEC] 10 mg PO DAILY 04/11/19 07/07/20 Multivit-Min/FA/Lycopen/Lutein 1 each PO DAILY 04/11/19 07/07/20 [Centrum Silver Men Tablet] Multivit-Min/Iron/Folic/Rgn620 1 each PO DAILY 04/11/19 07/07/20 [Hair, Skin and Nails Tablet] Ibuprofen [Motrin] 800 mg PO Q8H PRN #30 tablet 02/27/20 07/07/20 Oxycodone HCl/Acetaminophen 1 - 2 each PO Q6H PRN #14 tablet 02/27/20 07/07/20 [Percocet 5-325 mg Tablet] Aspirin Chewable [St Juaquin 81 mg PO DAILY 07/07/20 07/07/20 Aspirin] - Allergies Allergies/Adverse Reactions: Allergies Allergy/AdvReac Type Severity Reaction Status Date / Time No Known Drug Allergies Allergy Verified 04/18/21 16:17 - Social History Does the pt smoke?: No Smoking Status: Never smoker Does the pt drink ETOH?: No Does the pt have substance abuse?: No - Immunizations Immunizations are current?: Yes - POLST Patient has POLST: No POLST Status: Full Code PD ED PE NORMAL - Vitals Vital signs reviewed: Yes - General General: Alert and oriented X 3, No acute distress, Well developed/nourished - HEENT HEENT: Moist mucous membranes - Neck Neck: Supple, no meningeal sign - Cardiac Cardiac: RRR, Strong equal pulses - Respiratory Respiratory: No respiratory distress, Clear bilaterally, Other (Tender to palpation over the left low anterior ribs. No crepitus. No ecchymosis.) - Abdomen Abdomen: Soft, Non tender, Non distended - Derm Derm: Warm and dry - Extremities Extremities: No edema, No calf tenderness / cord, Other (Tender palpation over the left shoulder, no deformity. Full range of motion present with minimal pain. The pain is mainly in the anterior aspect of the shoulder. Does have a history of a rotator cuff tear. Neurovascularly intact.) - Neuro Neuro: Alert and oriented X 3 - Psych Psych: Normal mood, Normal affect Results - Vitals Vitals: Vital Signs - 24 hr 04/18/21 04/18/21 16:09 17:48 Temperature 36.3 C L Heart Rate 97 85 Respiratory 16 16 Rate Blood Pressure 142/97 H 142/91 H O2 Saturation 99 97 Oxygen O2 Source Room air - Rads (name of study) Left shoulder x-ray Radiology: Final report received, EMP read contemporaneously, See rad report (No acute abnormality) Left-sided ribs with chest x-ray Radiology: Final report received, EMP read contemporaneously, See rad report (no acute abnormality) PD MEDICAL DECISION MAKING - ED course Complexity details: reviewed results, considered differential, d/w patient ED course: 81-year-old male status post ground-level fall. No acute findings on x-ray. Using the arm freely. Declines any pain medication here for home. Did not strike his head. No headache. No loss of consciousness. Does not take blood thinners. No indication for CT of the head or neck. Ambulating without difficulty. We will continue supportive care and have him follow-up with his doctor. Patient counseled regarding signs and symptoms for which I believe and urgent re-evaluation would be necessary. Patient with good understanding of and agreement to plan and is comfortable going home at this time This document was made in part using voice recognition software. While efforts are made to proofread this document, sound alike and grammatical errors may occur. Departure - Departure Disposition: 01 Home, Self Care Clinical Impression: Fall Qualifiers: Encounter type: initial encounter Qualified Code(s): W19.XXXA - Unspecified fall, initial encounter Contusion of rib on left side Qualifiers: Encounter type: initial encounter Qualified Code(s): S20.212A - Contusion of l eft front wall of thorax, initial encounter Shoulder pain Qualifiers: Chronicity: acute Laterality: left Qualified Code(s): M25.512 - Pain in left shoulder Condition: Good Instructions: ED Contusion Vs Minor Fx Rib, ED Shoulder Pain [facility] Follow-Up: Amari Strauss MD [Primary Care Provider] - Within 1 week Comments: Thankfully your x-rays do not show any acute abnormalities. Please follow-up with your doctor for further care. You can use Tylenol as needed for pain. Discharge Date/Time: 04/18/21 17:48
--- NOTE | 2021-04-18 17:32 | XRAY Report ---
PROCEDURE: Shoulder 3 View LT INDICATIONS: fall, pain TECHNIQUE: 3 views of the shoulder were acquired. COMPARISON: None. FINDINGS: Bones: No acute fractures or dislocations. Possible old distal clavicular head fracture is deformit y versus prominent osteophyte. No suspicious bony lesions. [id number] acromioclavicular and gl enohumeral joint degeneration. Visualized ribs appear intact. Soft tissues: No suspicious soft tissue calcifications. IMPRESSION: 1. No fracture or dislocation. If clinical symptoms persist, a repeat examination in 7-10 days or adv anced imaging such as CT or MRI is suggested. 2. Quwi-yy-rywtfjvr osteoarthritis. Reviewed by: Hailey Jo MD on 04/18/2021 5:30 PM PDT Approved by: Hailey Jo MD on 04/18/2021 5:30 PM PDT Station ID: [id number]
--- NOTE | 2021-04-18 17:36 | XRAY Report ---
PROCEDURE: Ribs w/PA Chest LT INDICATIONS: fall, pain TECHNIQUE: 3 views of the left ribs were acquired, along with a single view chest. COMPARISON: None. FINDINGS: Surgical changes and devices: None. Bones and chest wall: No fractures or dislocations. No suspicious bony lesions. Overlying soft tis sues appear unremarkable. Lungs and pleura: Left basilar atelectasis. No pleural effusions or pneumothorax. Lungs appear homar r. Mediastinum: Mediastinal contours appear normal. Heart size is normal. IMPRESSION: No displaced rib fractures. If clinical symptoms persist, a repeat examination is suggested in 7-10 d ays. Reviewed by: Hailey Jo MD on 04/18/2021 5:34 PM PDT Approved by: Hailey Jo MD on 04/18/2021 5:34 PM PDT Station ID: [id number]
[2021-04-18 17:49] VITALS: BP 142/91
== END 2021-04-18 17:48 | disposition home or self-care (01) ==
LOC: ED 16:08
DX: S20.212A Contusion of left front wall of thorax, initial encounter (principal); W01.0XXA Fall on same level from slipping, tripping and stumbling without subsequent striking against object, initial encounter
CPT/HCPCS: 99282; 99283

== ENCOUNTER 2021-09-24 19:15 | Emergency (ER) | payer MEDICARE, OTHER ==
[2021-09-24 20:09] LABS: BASOPHILS % (AUTO) 0.7 %; EOSINOPHILS # (AUTO) 0.1 10^3/uL (0.0-0.7); EOSINOPHILS % (AUTO) 1.4 %; HCT - HEMATOCRIT 46.7 % (42.0-52.0); HGB - HEMOGLOBIN 16.1 g/dL (14.0-18.0); LYMPHOCYTES # (AUTO) 1.3 10^3/uL (1.5-3.5); LYMPHOCYTES % (AUTO) 30.5 %; MEAN CORPUSCULAR HEMOGLOBIN 30.7 pg (27.0-31.0); MEAN CORPUSCULAR HGB CONC 34.5 g/dL (32.0-36.0); MEAN PLATELET VOLUME 8.5 fL (7.4-11.4); MONOCYTES # (AUTO) 0.5 10^3/uL (0.0-1.0); MONOCYTES % (AUTO) 10.5 %; NEUTROPHILS # (AUTO) 2.4 10^3/uL (1.5-6.6); NEUTROPHILS % (AUTO) 56.4 %; PLT - PLATELET COUNT 259 10^3/uL (130-450); RED BLOOD COUNT 5.25 10^6/uL (4.70-6.10); RED CELL DISTRIBUTION WIDTH 13.9 % (12.0-15.0); WHITE BLOOD COUNT 4.3 x10^3/uL (4.8-10.8)
[2021-09-24] MEDS ORDERED: IOVERSOL 320 100 ML VIAL IVP ONE ×2 (20:12→21:51)
[2021-09-24] MEDS ORDERED: IOVERSOL 320 50 ML VIAL ONE (20:13)
[2021-09-24 20:23] LABS: ALBUMIN/GLOBULIN RATIO 1.2 (1.0-2.2); BILIRUBIN,TOTAL 0.8 mg/dL (0.2-1.0); CALCIUM 9.5 mg/dL (8.5-10.3); CREATININE 0.9 mg/dL (0.6-1.2); POTASSIUM 4.7 mmol/L (3.5-5.0); TOTAL PROTEIN 7.3 g/dL (6.7-8.2)
[2021-09-24] MEDS ORDERED: MORPHINE 2 MG/ML CARPUJECT IVP STA (20:23)
[2021-09-24] MEDS ORDERED: IOVERSOL 320 50 ML VIAL PO ONE (21:52)
--- NOTE | 2021-09-24 22:22 | ED Physician Documentation ---
History of Present Illness - Stated complaint Stated Complaint: ABD PX,BLOATED - Chief complaint Chief Complaint: Abd Pain - History obtained from History obtained from: Patient - History of Present Illness Timing: Today Pain level max: 5 Pain level now: 5 - Additonal information Additional information: 81-year-old male states that he had abdominal pain and bloating today. History of bowel obstructions in the past. States this feels similar. Did have a bowel movement this morning. Has had nausea but no vomiting. No fevers. No chills. Nothing makes it better or worse. Review of Systems Constitutional: denies: Fever, Chills Respiratory: denies: Cough Skin: denies: Rash Musculoskeletal: denies: Neck pain, Back pain Neurologic: denies: Headache PD PAST MEDICAL HISTORY - Past Medical History Cardiovascular: Hypertension, High cholesterol Respiratory: None Neuro: Other Endocrine/Autoimmune: None GI: Other : None HEENT: Other Psych: None Musculoskeletal: Chronic back pain Derm: None - Past Surgical History Past Surgical History: Yes General: Other - Present Medications Home Medications: Ambulatory Orders Medication Instructions Recorded Confirmed Simvastatin [Zocor] 40 mg PO QPM 09/25/14 07/07/20 lisinopriL [Lisinopril] 10 mg ORAL DAILY 09/25/14 07/07/20 Cetirizine [ZyrTEC] 10 mg PO DAILY 04/11/19 07/07/20 Multivit-Min/FA/Lycopen/Lutein 1 each PO DAILY 04/11/19 07/07/20 [Centrum Silver Men Tablet] Multivit-Min/Iron/Folic/Alb086 1 each PO DAILY 04/11/19 07/07/20 [Hair, Skin and Nails Tablet] Ibuprofen [Motrin] 800 mg PO Q8H PRN #30 tablet 02/27/20 07/07/20 Oxycodone HCl/Acetaminophen 1 - 2 each PO Q6H PRN #14 tablet 02/27/20 07/07/20 [Percocet 5-325 mg Tablet] Aspirin Chewable [St Juaquin 81 mg PO DAILY 07/07/20 07/07/20 Aspirin] Hyoscyamine Sulfate [Levsin-Sl] 0.125 mg SL Q6H PRN #30 tab 09/24/21 Ondansetron Odt [Zofran] 4 mg TL Q6H PRN #10 tablet 09/24/21 - Allergies Allergies/Adverse Reactions: Allergies Allergy/AdvReac Type Severity Reaction Status Date / Time No Known Drug Allergies Allergy Verified 09/24/21 19:25 - Social History Does the pt smoke?: No Smoking Status: Never smoker Does the pt drink ETOH?: No Does the pt have substance abuse?: No - Immunizations Immunizations are current?: Yes - POLST Patient has POLST: No POLST Status: Full Code PD ED PE NORMAL - Vitals Vital signs reviewed: Yes - General General: Alert and oriented X 3, No acute distress - HEENT HEENT: Moist mucous membranes - Neck Neck: Supple, no meningeal sign - Cardiac Cardiac: RRR - Respiratory Respiratory: No respiratory distress, Clear bilaterally - Abdomen Abdomen: Soft, Non distended, Other (Mild diffuse tenderness to palpation. No peritoneal signs) - Derm Derm: Warm and dry - Extremities Extremities: No edema - Neuro Neuro: Alert and oriented X 3 - Psych Psych: Normal mood, Normal affect Results - Vitals Vitals: Vital Signs - 24 hr 09/24/21 09/24/21 19:19 19:24 Temperature 36.4 C L 36.4 C L Heart Rate 110 H 110 H Respiratory 18 18 Rate Blood Pressure 134/77 H 134/77 H O2 Saturation 97 97 Oxygen O2 Source Room air - Labs Labs: Laboratory Tests 09/24/21 09/24/21 20:04 20:04 WBC 4.3 L RBC 5.25 Hgb 16.1 Hct 46.7 MCV 89.0 MCH 30.7 MCHC 34.5 RDW 13.9 Plt Count 259 MPV 8.5 Neut # (Auto) 2.4 Lymph # (Auto) 1.3 L Rogers # (Auto) 0.5 Eos # (Auto) 0.1 Baso # (Auto) 0.0 Absolute Nucleated RBC 0.00 Nucleated RBC % 0.0 Sodium 135 Potassium 4.7 Chloride 99 L Carbon Dioxide 26 Anion Gap 10.0 BUN 22 H Creatinine 0.9 Estimated GFR (MDRD) 81 L Glucose 142 H Calcium 9.5 Total Bilirubin 0.8 AST 27 ALT 35 Alkaline Phosphatase 85 Total Protein 7.3 Albumin 4.0 Globulin 3.3 Albumin/Globulin Ratio 1.2 Lipase 29 - Rads (name of study) CT abdomen pelvis Radiology: Final report received, EMP read contemporaneously, See rad report PD MEDICAL DECISION MAKING - ED course Complexity details: reviewed results, re-evaluated patient, considered differential, d/w patient ED course: CT scan does not show a definite obstruction. He is not having any vomiting here. Possibly has an ileus. Pain well controlled. Tolerating p.o. without difficulty. Able to drink oral contrast without any vomiting. We will place him on antispasmodics for home and have him follow-up closely with his doctor to ensure resolution. He will return if he worsens including vomiting or worsening pain. Patient counseled regarding signs and symptoms for which I believe and urgent re-evaluation would be necessary. Patient with good understanding of and agreement to plan and is comfortable going home at this time This document was made in part using voice recognition software. While efforts are made to proofread this document, sound alike and grammatical errors may occur. IMPRESSION: 1. Mild small bowel fecalization suggestive of stasis without definite evidence of obstruction. Findings may reflect a possible ileus. 2. Nodular thickening of the adrenal glands appear stable in size compared to prior studies. 3. Small bibasilar nodules appear stable in size compared to the 07/07/2020 study but were not well evaluated on the 2019 study. Departure - Departure Disposition: 01 Home, Self Care Clinical Impression: Ileus Abdominal pain Qualifiers: Abdominal location: unspecified location Qualified Code(s): R10.9 - Unspecified abdominal pain Condition: Good Instructions: Ileus Follow-Up: Amari Strauss MD [Primary Care Provider] - Within 3 Days Prescriptions: Hyoscyamine Sulfate [Levsin-Sl] 0.125 mg SL Q6H PRN #30 tab PRN Reason: Abdominal Pain Ondansetron Odt [Zofran] 4 mg TL Q6H PRN #10 tablet PRN Reason: Nausea / Vomiting Comments: Your CT scan does not show any evidence of bowel obstruction today. You could have a possible ileus, this is when part of the intestine does not move normally. Usually these will resolve on their own. We will prescribe medication to help with any abdominal cramping. It is recommended that you stay on a liquid diet for the next 24 to 48 hours. Please return if you worsen as it is possible that you could develop a bowel obstruction. Drink plenty of fluids. Your prescriptions were sent to [facility].
--- NOTE | 2021-09-24 22:23 | CT Report ---
PROCEDURE: Abdomen/Pelvis W INDICATIONS: abd pain, h/o SBO CONTRAST: IV CONTRAST: Optiray 320 ml: 100 PO CONTRAST: Optiray 320 ml50 TECHNIQUE: After the administration of oral and intravenous contrast, 5 mm thick sections acquired from the diap hragms to the symphysis. 5 mm thick coronal and sagittal reformats were acquired. For radiation dos e reduction, the following was used: automated exposure control, adjustment of mA and/or kV accordin g to patient size. COMPARISON: CT abdomen pelvis 07/07/2020, 04/11/2019. FINDINGS: Image quality: Excellent. ABDOMEN: Lung bases: There is linear atelectasis and scarring the lung bases. Within the inferior right middl e lobe, there is a small nodule measuring 0.5 cm along the minor fissure. In the left lower lobe, the re is a small pleural-based nodule measuring up to 0.4 cm series 4 image 23. The findings appear unc hanged in size compared to the study of 07/07/2020. The right middle lobe nodule was likely present on the 2019 study but was not fully included. The left lower lobe nodule appears stable compared to the 07/07/2020 study and may have been obscured by left basilar atelectasis and scarring on the 2019 stud y. Heart size is normal. Solid organs: Evaluation of the liver demonstrates no focal hepatic lesions. Gallbladder is distended without calcified gallstones or wall thickening. Biliary system is non dilated. The spleen is tom l in size. Pancreas enhances normally without peripancreatic fat stranding or fluid collections. Ther e is a right adrenal nodule measuring up to 2.5 cm which appears stable in size compared to the prior studies. There is also thickening of the left adrenal gland which measures up to 1.1 cm in thickness , also unchanged from the prior study. Kidneys demonstrate no hydronephrosis. There are small parapel rafael renal cysts. Peritoneum and bowel: Bowel loops demonstrate normal wall thickness and caliber. There is mild fecal ization of the distal small bowel extending to the distal ileum. No focal transition point to suggest an obstruction. There is colonic diverticulosis without acute diverticulitis. No free fluid or air. Nodes and vessels: No retroperitoneal or mesenteric adenopathy by size criteria. Aorta and inferior vena cava are normal in size. Miscellaneous: No ventral hernias. PELVIS: Genitourinary: Bladder wall thickness is normal. There are small bilateral bladder diverticula or ur eteroceles redemonstrated. Miscellaneous: No inguinal hernias or adenopathy. Bones: No suspicious bony lesions. No vertebral body compression fractures. IMPRESSION: 1. Mild small bowel fecalization suggestive of stasis without definite evidence of obstruction. Findi ngs may reflect a possible ileus. 2. Nodular thickening of the adrenal glands appear stable in size compared to prior studies. 3. Small bibasilar nodules appear stable in size compared to the 07/07/2020 study but were not well ev aluated on the 2019 study. Reviewed by: Michael Otero MD on 09/24/2021 10:22 PM PDT Approved by: Michael Otero MD on 09/24/2021 10:22 PM PDT Station ID: [id number]
[2021-09-24] MEDS ORDERED: HYOSCYAMINE SL 0.125 MG TABLET SL STA (22:33)
[2021-09-24 23:20] VITALS: BP 129/88
== END 2021-09-24 23:31 | disposition home or self-care (01) ==
LOC: ED 19:15
DX: K56.7 Ileus, unspecified (principal)
CPT/HCPCS: 36415; 74177; 80053; 83690; 85025; 96374; 99283; 99284; A9270; Q9967

== ENCOUNTER 2022-03-07 10:32 | Outpatient (CLI) | payer MEDICARE, OTHER ==
[2022-03-07 11:20] VITALS: BP 158/80
--- NOTE | 2022-03-07 11:20 | SLEEP CARE CONSULTATION ---
Information from patient questionnaire entered by Nancy Roe. I have reviewed and concur with the information entered by Nancy Roe. This document represents the service I personally performed and the decisions made by me, Maya Jin ARNP. History of Present Illness Service Date and Time: 03/07/2022 1032 Previous diagnosis: Moderate, Obstructive Sleep Apnea-Hypopnea Syndrome AHI: 21.5 (in 2017)(34.9 in 2009) Reason for follow up: other (2 month f/u ) Equipment type: CPAP (DREAMSTATION) Equipment obtained from: Other ([facility]: getting supplies as needed) Mask style: Nasal (Dreamwear) Mask brand: Respironics Backup mask available: Yes (old mask) Last cushion change: 1 week Prior sleep studies: Yes Year and Where: 2017 and 2009 - [facility] Type of Sleep Study: Polysomnography HPI additional information: CATIA FROST was diagnosed to have moderate, AHI 21.5, obstructive sleep apnea- hypopnea syndrome and returned today for CPAP therapy two month follow-up. Sleep Study - Results Type of Sleep Study: Polysomnography Prior sleep [facility]: Yes [facility] Data - Data Reviewed with Patient Average duration of nightly device use: 4 HOURS, 37 MINUTES, 41 SECONDS Compliance rate %: 73.3 (02/04/22-03/05/22; 30/30 days used; 65% in last 2 months) Current pressure setting (cmH2O): 16-20 (avg 17.0) Average residual AHI: 16.5 Average large leak: 1 hours 36 mins 8 secs Subjective Patient concerns: denies: aerophagia, mask discomfort, air blowing in eyes, mask leak noise, condensation in mask/hose, nasal congestion, dry mouth, nose, throat Observed to snore while using device: No Current pressure setting perceived as: comfortable On therapy, patient: reports: sleeping better, awakening more refreshed, being more awake and alert during the day, more rested overall. denies: drowsiness while driving Initial Oz[place] Sleepiness Scale score: 8 (in 2009) Current [place] Sleepiness Scale score: 2 (03/07/22) Allergies and Home Medications Drug allergies reviewed: Yes (NKDA) Home medication list reviewed: Yes (no changes) Allergy and home medication list: Allergies No Known Drug Allergies Allergy (Verified 09/24/21 19:25) Physical Exam Vital signs obtained and entered by: CASTILLO MA Blood Pressure: 158/80 (right arm ) Cuff size: regular Heart Rate: 88 O2 Saturation: 97 Height: 5 ft 10 in Weight: 209 lb Weight change since last visit: 6 lb loss Body Mass Index: 29.9 BMI Classification: Overweight Impression and Plan 1. Obstructive Sleep Apnea-Hypopnea Syndrome, moderate, with fair treatment compliance and fair apnea control with elevation of residual AHI. On CPAP therapy, the patient has better sleep quality and is more rested overall. He has good improvement of his sleep apnea and patient finds current pressure comfortable. His residual AHI seems to be trending down with current pressure of 16-20 cmH2O and is average 90% pressure is 17 cmH2O. Patient's apnea severity and rationale for treatment to reduce apnea, improve sleep quality and reduce cardiovascular and cerebrovascular events was reviewed. I also reviewed the kevin efit of consistent device use of CPAP for hypertension. 2. Obesity, unspecified. Currently patients BMI is 29.9. Obesity increases the risk of apnea, CPAP pressure requirements and overall health risks especially cardiovascular and diabetes. Thus patient is advised to continue to try to lose weight. Weight loss can be done with reducing portion size, reducing refined foods and balancing content with vegetables, fruit and whole grain foods. In addition, patient encouraged to get regular exercise. * Continue auto CPAP pressure at 16-20 cmH2O * Notify me if snoring with mask or feeling that the pressure is too much or too little * Attempt to lose weight * Call this office if any problems using CPAP * Return for follow up in 1 year, or sooner if concerns arise Counseling Topics: Spare mask, Weight loss health impact Visit Type: In Office Time Spent with Patient (minutes): 21 Provider Statement: I spent 100% of the Face to Face Visit with the patient with greater than 50% spent counseling the patient and coordination of care.
== END 2022-03-07 10:33 | disposition home or self-care (01) ==
LOC: SC 10:32
PROVIDERS: ATTEND Nurse Practitioner Family
DX: G47.33 Obstructive sleep apnea (adult) (pediatric) (principal); E66.3 Overweight; Z68.29 Body mass index [BMI] 29.0-29.9, adult
CPT/HCPCS: 99213; G0463; 99212

== ENCOUNTER 2022-06-01 08:00 | Outpatient (CLI) | payer MEDICARE, OTHER | END 2022-06-01 23:59 | disposition home or self-care (01) | LOC: LAB.N 08:00 | PROVIDERS: ATTEND Nurse Practitioner | DX: R30.0 Dysuria (principal) | CPT/HCPCS: 87077; 87086; 87181 ==

== ENCOUNTER 2022-06-03 06:01 | Emergency (ER) | payer MEDICARE, OTHER ==
[2022-06-03 06:31] VITALS: BP 141/99
[2022-06-03 06:37] LABS: BILIRUBIN,URINE NEGATIVE (NEGATIVE); CLARITY,URINE SL. CLOUDY (CLEAR); GLUCOSE, URINE (UA) NEGATIVE (NEGATIVE); KETONES,URINE (UA) NEGATIVE (NEGATIVE); LEUKOCYTE ESTERASE, URINE MODERATE (NEGATIVE); NITRITE,URINE NEGATIVE (NEGATIVE); OCCULT BLOOD,URINE LARGE (NEGATIVE); PH,URINE 6.5 PH (5.0-7.5); PROTEIN,URINE 100 mg/dL (NEGATIVE); UROBILINOGEN,URINE 0.2 (NORMAL) E.U./dL (NORMAL)
[2022-06-03 06:45] LABS: BACTERIA,URINE Few /HPF (None Seen); SQUAMOUS EPITHELIAL CELL,UR RARE Squamous (<= Few); WBC,URINE >25 /HPF (0-3)
[2022-06-03] MEDS ORDERED: PHENAZOPYRIDINE 100 MG TABLET PO STA (08:04)
[2022-06-03] MEDS ORDERED: ACETAMINOPHEN 325 MG TABLET PO STA (08:04)
[2022-06-03 08:33] LABS: BASOPHILS % (AUTO) 0.9 %; EOSINOPHILS # (AUTO) 0.1 10^3/uL (0.0-0.7); EOSINOPHILS % (AUTO) 1.5 %; HCT - HEMATOCRIT 43.3 % (42.0-52.0); HGB - HEMOGLOBIN 14.9 g/dL (14.0-18.0); LYMPHOCYTES # (AUTO) 0.8 10^3/uL (1.5-3.5); LYMPHOCYTES % (AUTO) 25.3 %; MEAN CORPUSCULAR HEMOGLOBIN 29.9 pg (27.0-31.0); MEAN CORPUSCULAR HGB CONC 34.4 g/dL (32.0-36.0); MEAN CORPUSCULAR VOLUME 86.9 fL (80.0-94.0); MEAN PLATELET VOLUME 8.1 fL (7.4-11.4); MONOCYTES # (AUTO) 0.5 10^3/uL (0.0-1.0); MONOCYTES % (AUTO) 14.5 %; NEUTROPHILS # (AUTO) 1.9 10^3/uL (1.5-6.6); NEUTROPHILS % (AUTO) 57.2 %; PLT - PLATELET COUNT 332 10^3/uL (130-450); RED BLOOD COUNT 4.98 10^6/uL (4.70-6.10); WHITE BLOOD COUNT 3.2 x10^3/uL (4.8-10.8)
[2022-06-03 08:44] LABS: CALCIUM 9.3 mg/dL (8.5-10.3); CREATININE 1.1 mg/dL (0.6-1.2); POTASSIUM 4.1 mmol/L (3.5-5.0)
--- NOTE | 2022-06-03 09:34 | ED Physician Documentation ---
History of Present Illness - Stated complaint Stated Complaint: MALE - Chief complaint Chief Complaint: General - History obtained from History obtained from: Patient - Additonal information Additional information: Patient is an 82-year-old male presenting for evaluation of dysuria and a feeling that he is not urinating enough. He was recently seen by his urologist (Dr. Campuzano) and had a procedure done to the foreskin of his penis. He was seen 2 days ago at the walk-in clinic and they told him he had a urinary tract infection and be started on Bactrim. Patient continues to report having disc omfort and that has been drinking a lot of water but does not feel like he is urinating enough. He denies fever, chest pain, difficulty breathing, abdominal pain, vomiting or diarrhea. Review of Systems Constitutional: denies: Fever Cardiac: denies: Chest pain / pressure Respiratory: denies: Dyspnea, Cough GI: denies: Abdominal Pain : reports: Dysuria. denies: Hematuria Musculoskeletal: denies: Back pain Neurologic: denies: Headache PD PAST MEDICAL HISTORY - Past Medical History Cardiovascular: Hypertension, High cholesterol Respiratory: None Neuro: Other Endocrine/Autoimmune: None GI: Other : None HEENT: Other Psych: None Musculoskeletal: Chronic back pain Derm: None - Past Surgical History Past Surgical History: Yes General: Other - Present Medications Home Medications: Ambulatory Orders Medication Instructions Recorded Confirmed Simvastatin [Zocor] 40 mg PO QPM 09/25/14 07/07/20 lisinopriL [Lisinopril] 10 mg ORAL DAILY 09/25/14 07/07/20 Cetirizine [ZyrTEC] 10 mg PO DAILY 04/11/19 07/07/20 Multivit-Min/FA/Lycopen/Lutein 1 each PO DAILY 04/11/19 07/07/20 [Centrum Silver Men Tablet] Multivit-Min/Iron/Folic/[id number] 1 each PO DAILY 04/11/19 07/07/20 [Hair, Skin and Nails Tablet] Ibuprofen [Motrin] 800 mg PO Q8H PRN #30 tablet 02/27/20 07/07/20 Oxycodone HCl/Acetaminophen 1 - 2 each PO Q6H PRN #14 tablet 02/27/20 07/07/20 [Percocet 5-325 mg Tablet] Aspirin Chewable [St Juaquin 81 mg PO DAILY 07/07/20 07/07/20 Aspirin] Hyoscyamine Sulfate [Levsin-Sl] 0.125 mg SL Q6H PRN #30 tab 09/24/21 Ondansetron Odt [Zofran] 4 mg TL Q6H PRN #10 tablet 09/24/21 Phenazopyridine HCl [Pyridium] 200 mg PO TID PRN #6 tablet 06/03/22 - Allergies Allergies/Adverse Reactions: Allergies Allergy/AdvReac Type Severity Reaction Status Date / Time No Known Drug Allergies Allergy Verified 06/03/22 06:24 - Social History Does the pt smoke?: No Smoking Status: Never smoker Does the pt drink ETOH?: No Does the pt have substance abuse?: No - Immunizations Immunizations are current?: Yes - POLST Patient has POLST: No POLST Status: Full Code PD ED PE NORMAL - General General: Alert and oriented X 3, No acute distress, Well developed/nourished - HEENT HEENT: Atraumatic - Neck Neck: Supple, no meningeal sign - Cardiac Cardiac: RRR, No murmur - Respiratory Respiratory: No respiratory distress, Clear bilaterally - Abdomen Abdomen: Soft, Non tender, Non distended, Other (No suprapubic tenderness or fullness) - Male Male : 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5 Eos # (Auto) 0.1 Baso # (Auto) 0.0 Absolute Nucleated RBC 0.00 Nucleated RBC % 0.0 Sodium 136 Potassium 4.1 Chloride 101 Carbon Dioxide 23 Anion Gap 12.0 BUN 23 H Creatinine 1.1 Estimated GFR (MDRD) 64 L Glucose 156 H Calcium 9.3 Urine Color YELLOW Urine Clarity SL. CLOUDY Urine pH 6.5 Ur Specific Anson 1.025 Urine Protein 100 H Urine Glucose (UA) NEGATIVE Urine Ketones NEGATIVE Urine Occult Blood LARGE H Urine Nitrite NEGATIVE Urine Bilirubin NEGATIVE Urine Urobilinogen 0.2 (NORMAL) Ur Leukocyte Esterase MODERATE H Urine RBC 6-10 H Urine WBC >25 H Ur Squamous Epith Cells RARE Squamous Urine Bacteria Few Urine Culture Comments INDICATED PD MEDICAL DECISION MAKING - ED course ED course: Patient presenting for evaluation of dysuria and has concerns that he is not urinating enough.A Paredes catheter was placed upon patient's arrival but he did not have much out of the catheter. Bedside ultrasound also did not show a distended bladder and Bladder scan also did not show retention. Labs reviewed without significant findings. Patient does feel better after Tylenol and Pyridium. As patient does not actually appear to have urinary retention I did advise that we remove the catheter and have the patient continue with antibiotics and other supportive treatments. He is aware he needs to follow-up with his urologist this week. He is counseled on concerning symptoms to return for. Departure - Departure Disposition: 01 Home, Self Care Clinical Impression: Dysuria, UTI (urinary tract infection) Condition: Stable Instructions: ED UTI Cystitis Male Follow-Up: Elba Campuzano MD [Physician No Access] - Prescriptions: Phenazopyridine HCl [Pyridium] 200 mg PO TID PRN #6 tablet PRN Reason: dysuria Comments: I have sent a prescription for medication to help you with the burning called Pyridium to [facility] in [place]. I would also recommend using Tylenol for any discomfort. Please make sure to stay hydrated. Please complete the course of antibiotics. Please call your urologist today to ensure close follow-up this week. If you have any worsening symptoms such as increased pain or any concerns please consider return to the ER. Discharge Date/Time: 06/03/22 10:42
== END 2022-06-03 10:42 | disposition home or self-care (01) ==
LOC: ED 06:01
DX: N39.0 Urinary tract infection, site not specified (principal)
CPT/HCPCS: 36415; 80048; 81001; 85025; 87086; 99283; 99284; A9270

== ENCOUNTER 2022-11-14 07:45 | Day surgery (SDC) | payer MEDICARE, OTHER ==
--- NOTE | 2022-11-14 07:40 | ANESTHESIA ---
Pre-Anesthesia VS, & Labs - Diagnosis R nuclear cataract - Procedure r extraction cataract wIOL Height: 5 ft 10 in - NPO >8 hours - Lab Results Lab results reviewed: Yes Home Medications and Allergies Simvastatin [Zocor] 40 mg PO QPM 09/25/14 lisinopriL [Lisinopril] 10 mg ORAL DAILY 09/25/14 Cetirizine [ZyrTEC] 10 mg PO DAILY 04/11/19 Multivit-Min/FA/Lycopen/Lutein [Centrum Silver Men Tablet] 1 each PO DAILY 04/11/19 Multivit-Min/Iron/Folic/Ltk901 [Hair, Skin and Nails Tablet] 1 each PO DAILY 04/11/19 Aspirin Chewable [St Juaquin Aspirin] 81 mg PO DAILY 07/07/20 Allergies/Adverse Reactions: Allergies Allergy/AdvReac Type Severity Reaction Status Date / Time No Known Drug Allergies Allergy Verified 11/14/22 08:15 Anes History & Medical History - Anesthetic History Anesthesia Complications: reports: No previous complications Family history of Anesthesia Complications: Denies Family history of Malignant Hyperthermia: Denies - Medical History Cardiovascular: reports: Hypertension, High cholesterol Pulmonary: reports: None, Sleep apnea, CPAP use Gastrointestinal: reports: Colon polyps Urinary: reports: Benign prostate hypertrophy, Incontinence Neuro: reports: Other Musculoskeletal: reports: None Endocrine/Autoimmune: reports: None Blood Disorders: reports: None Skin: reports: None Smoking Status: Never smoker History of Cancer?: No - Surgical History General: reports: Colonoscopy Urologic: reports: Prostatic surgery Plan Anesthesia Type: MAC Consent for Procedure(s) Verified and Reviewed: Yes Code Status: Attempt Resuscitation ASA classification: 2-Mild systemic disease Is this case an emergency?: No
[~2022-11-14 07:45] MED LIST: CYCLOPENTOLATE 1% OPHTH DROPS 2 ML ONE; KETOROLAC 0.45% OPHTH DROPS ONE; PHENYLEPHRINE 2.5% OPHTH 2 ML DROPS ONE; PROPARACAINE 0.5% OPHTH DROPS 15 ML ONE
[2022-11-14] MEDS ORDERED: LACTATED RINGERS 1,000 ML IV ONE (08:02)
[2022-11-14] MEDS ORDERED: MIDAZOLAM 2 MG/2 ML VIAL ONE (08:18)
[2022-11-14] MEDS ORDERED: BSS/LIDOCAINE/EPINEPHRINE 1 ML VIAL ONE (08:33)
[2022-11-14] MEDS ORDERED: TRIAMCIN/MOXIFLOX OPHTHALMIC 0.6 ML VIAL IO ONE ×2 (08:33→08:38)
[2022-11-14] MEDS ORDERED: BRIMONIDINE 0.2% OPHTH DROPS 5 ML ONE (08:33)
[2022-11-14] MEDS ORDERED: EPINEPHrine 1 MG/ML AMP ONE (08:33)
[2022-11-14] MEDS ORDERED: TIMOLOL 0.5% OPHTH DROPS ONE (08:33)
[2022-11-14] MEDS ORDERED: VANCOMYCIN OPHTH (TOPICAL) 10 MG/ML SYRINGE ONE (08:33)
[2022-11-14] MEDS ORDERED: BRIMONIDINE 0.2% OPHTH DROPS 5 ML OPTH ONE (08:37)
[2022-11-14] MEDS ORDERED: TIMOLOL 0.5% OPHTH DROPS OPTH ONE (08:38)
[2022-11-14] MEDS ORDERED: BSS/LIDOCAINE/EPINEPHRINE 1 ML SYRINGE IO ONE (08:38)
[2022-11-14] MEDS ORDERED: EPINEPHrine 1 MG/ML AMP IR ONE (08:38)
[2022-11-14] MEDS ORDERED: VANCOMYCIN OPHTH (TOPICAL) 10 MG/ML SYRINGE TOP ONE (08:39)
[2022-11-14] MEDS ORDERED: PROPARACAINE 0.5% OPHTH DROPS 15 ML EACHEYE ONE (08:39)
--- NOTE | 2022-11-14 09:07 | OPERATIVE REPORT ---
Operative Report - Other Other Information/Narrative: Date of Surgery: 11/14/22 Preop Dx: Visually significant cataract right eye. This was the first cataract surgery. Postop Dx: Same Procedure: Phacoemulsification with posterior chamber intraocular lens implant right eye Surgeon: Dr. Amari Durant Anesthesia: Monitored anesthesia care Complications: None Operative Indications: This is a 82-year-old M with progressive vision loss in the right eye due to 3-4+ nuclear sclerotic and trace posterior subcapsular cataract. Best corrected visual acuity was 20/25 with glare to 20/100 vision in the right eye. Indications for surgery were: - Overall decrease in vision - Difficulty reading - Difficulty driving in low light or at night - Difficulty driving at night because of headlights from other vehicles The patient was consented at length concerning the risks and benefits of cataract surgery after which the patient expressed a desire to proceed with surgery. Operative Procedure: The patient was taken into OR#3 and placed under monitored anesthesia care. A surgical time-out was conducted confirming correct patient, correct procedure, and correct surgical site. The patient was given topical anesthesia and then prepped and draped in the usual sterile fashion. The eye was entered at the 6 and 3 oclock positions. Intracameral Shugarcaine was injected into the anterior chamber followed by a dispersive viscoelastic. A continuous-tear curvilinear capsulorhexis was performed. The nucleus was hydrodissected and phacoemulsified. The cortex was evacuated using automated infusion and aspiration. A cohesive viscoelastic was injected into the capsular bag and a 21.5 diopter intraocular lens was inserted into the bag. Infusion and aspiration were used to evacuate the viscoelastic materials from the eye. The wounds were hydrated and the eye inflated to physiologic pressure using balanced salt solution. Approximately 0.25ml of a mixture of triamcinolone and moxifloxacin was injected trans-sclerally into the vitreous in the inferotemporal quadrant using a 30 gauge cannula. An additional 0.25ml of a mixture of triamcinolone and moxifloxacin was injected subconjunctivally in the superior quadrant for infection and inflammation prophylaxis. Wound integrity was checked with Weck-Nan sponges. The patient was taken from the operating room in good condition and given post-op instructions.
[2022-11-14] MEDS ORDERED: LACTATED RINGERS 800 ML IV ONE (09:11)
--- NOTE | 2022-11-14 09:27 | ANESTHESIA POST OP EVALUATION ---
Anesthesia Post Eval - Post Anesthesia Eval Vitals: Last Vital Signs Temp 36.4 C L 11/14/22 09:13 Pulse 59 L 11/14/22 09:13 Resp 16 11/14/22 09:13 BP 109/85 H 11/14/22 09:13 Pulse Ox 97 11/14/22 09:13 O2 Flow Rate CV Function Including HR & BP: Stable Pain Control: Satisfactory Nausea & Vomiting: Negative Mental Status: Baseline Respiratory Status: Airway Patent Hydration Status: Satisfactory Anesthesia Complications: None
[2022-11-14 09:49] VITALS: BP 119/85
== END 2022-11-14 07:46 | disposition home or self-care (01) ==
LOC: SDS 07:45
PROVIDERS: ATTEND Ophthalmology
DX: H25.11 Age-related nuclear cataract, right eye (principal); G47.33 Obstructive sleep apnea (adult) (pediatric); N40.1 Benign prostatic hyperplasia with lower urinary tract symptoms; N39.498 Other specified urinary incontinence
CPT/HCPCS: 66984; A9270; J3490; J7120

== ENCOUNTER 2023-02-06 08:25 | Day surgery (SDC) | payer MEDICARE, OTHER ==
[2023-02-06] MEDS ORDERED: LACTATED RINGERS 1,000 ML IV ONE ×2 (08:31→10:37)
--- NOTE | 2023-02-06 09:19 | ANESTHESIA ---
Pre-Anesthesia VS, & Labs - Diagnosis Left eye senile combined cataract - Procedure Left eye cataract extraction with IOL implant Vital Signs: Temp Pulse Resp BP Pulse Ox O2 Flow Rate 36.5 C 61 16 139/83 H 97 02/06/23 08:37 02/06/23 08:37 02/06/23 08:37 02/06/23 08:37 02/06/23 08:37 Height: 5 ft 10 in Weight (kg): 96 kg Body Mass Index: 30.3 BMI Classification: Obese - NPO >8 hours Home Medications and Allergies Simvastatin [Zocor] 40 mg PO QPM 09/25/14 lisinopriL [Lisinopril] 10 mg ORAL DAILY 09/25/14 Cetirizine [ZyrTEC] 10 mg PO DAILY 04/11/19 Multivit-Min/Iron/Folic/Lhq140 [Hair, Skin and Nails Tablet] 1 each PO DAILY 04/11/19 Mv-Min/Folic/K1/Lycopen/Lutein [Centrum Silver Men Tablet] 1 each PO DAILY 04/11/19 Aspirin Chewable [St Juaquin Aspirin] 81 mg PO DAILY 07/07/20 Allergies/Adverse Reactions: Allergies Allergy/AdvReac Type Severity Reaction Status Date / Time No Known Drug Allergies Allergy Verified 02/05/23 12:48 Anes History & Medical History - Anesthetic History Anesthesia Complications: reports: No previous complications - Medical History Cardiovascular: reports: Hypertension, High cholesterol Pulmonary: reports: None, Sleep apnea, CPAP use (periodically) Gastrointestinal: reports: Colon polyps Urinary: reports: Benign prostate hypertrophy, Incontinence Neuro: reports: Other Musculoskeletal: reports: None Endocrine/Autoimmune: reports: None Blood Disorders: reports: None Skin: reports: None Smoking Status: Never smoker Psychosocial: reports: No issues indicated History of Cancer?: No - Surgical History General: reports: Colonoscopy Eyes Ears Nose Throat (EENT): reports: Cataracts Urologic: reports: Prostatic surgery Exam General: Alert, Oriented x3, Cooperative, No acute distress Dental: WNL Mouth Openin Fingerbreadth Neck Mobility: Normal Mallampati classification: III Thyromental Distance: 4-6 cm Mental/Cognitive Status: Alert/Oriented X3, Normal for patient Plan Anesthesia Type: MAC Consent for Procedure(s) Verified and Reviewed: Yes Code Status: Attempt Resuscitation ASA classification: 2-Mild systemic disease Is this case an emergency?: No
[2023-02-06] MEDS ORDERED: MIDAZOLAM 2 MG/2 ML VIAL ONE (09:53)
[2023-02-06] MEDS ORDERED: TIMOLOL 0.5% OPHTH DROPS ONE (10:14)
[2023-02-06] MEDS ORDERED: EPINEPHrine 1 MG/ML AMP ONE (10:14)
[2023-02-06] MEDS ORDERED: TRIAMCIN/MOXIFLOX OPHTHALMIC 0.6 ML VIAL IO ONE ×2 (10:14→10:29)
[2023-02-06] MEDS ORDERED: BRIMONIDINE 0.2% OPHTH DROPS 5 ML ONE (10:14)
[2023-02-06] MEDS ORDERED: BSS/LIDOCAINE/EPINEPHRINE 1 ML VIAL ONE (10:14)
[2023-02-06] MEDS ORDERED: BRIMONIDINE 0.2% OPHTH DROPS 5 ML OPTH ONE (10:28)
[2023-02-06] MEDS ORDERED: EPINEPHrine 1 MG/ML AMP IR ONE (10:29)
[2023-02-06] MEDS ORDERED: BSS/LIDOCAINE/EPINEPHRINE 1 ML SYRINGE IO ONE (10:29)
[2023-02-06] MEDS ORDERED: TIMOLOL 0.5% OPHTH DROPS OPTH ONE (10:29)
[2023-02-06] MEDS ORDERED: PROPARACAINE 0.5% OPHTH DROPS 15 ML EACHEYE ONE (10:30)
[2023-02-06] MEDS ORDERED: VANCOMYCIN OPHTH (TOPICAL) 10 MG/ML SYRINGE TOP ONE (10:30)
--- NOTE | 2023-02-06 10:46 | OPERATIVE REPORT ---
Operative Report - Other Other Information/Narrative: Date of Surgery: 02/06/23 Preop Dx: Visually significant cataract left eye. Cataract surgery was performed in the right eye on . Postop Dx: Same Procedure: Phacoemulsification with posterior chamber intraocular lens implant left eye Surgeon: Dr. Amari Durant Anesthesia: Monitored anesthesia care Complications: None Operative Indications: This is a 83-year-old M with progressive vision loss in the left eye due to 3-4+ nuclear sclerotic and 1+ posterior subcapsular cataract. Best corrected visual acuity was 20/30 with glare to 20/250 vision in the left eye. Indications for surgery were: - Overall decrease in vision - Difficulty reading - Difficulty driving in low light or at night - Difficulty driving at night because of headlights from other vehicles - Difficulty with glare or bright lights in any situation The patient was consented at length concerning the risks and benefits of cataract surgery after which the patient expressed a desire to proceed with surgery. Operative Procedure: The patient was taken into OR#3 and placed under monitored anesthesia care. A surgical time-out was conducted confirming correct patient, correct procedure, and correct surgical site. The patient was given topical anesthesia and then prepped and draped in the usual sterile fashion. The eye was entered at the 6 and 3 oclock positions. Intracameral Shugarcaine was injected into the anterior chamber followed by a dispersive viscoelastic. A continuous-tear curvilinear capsulorhexis was performed. The nucleus was hydrodissected and phacoemulsified. The cortex was evacuated using automated infusion and aspiration. A cohesive viscoelastic was injected into the capsular bag and a 21.5 diopter intraocular lens was inserted into the bag. Infusion and aspiration were used to evacuate the viscoelastic materials from the eye. The wounds were hydrated and the eye inflated to physiologic pressure using balanced salt solution. Approximately 0.25ml of a mixture of triamcinolone and moxifloxacin was injected trans-sclerally into the vitreous in the inferotemporal quadrant using a 30 gauge cannula. An additional 0.25ml of a mixture of triamcinolone and moxifloxacin was injected subconjunctivally in the superior quadrant for infection and inflammation prophylaxis. Wound integrity was checked with Weck-Nan sponges. The patient was taken from the operating room in good condition and given post-op instructions.
[2023-02-06 10:50] VITALS: BP 140/68; O2SAT 98
--- NOTE | 2023-02-06 11:06 | ANESTHESIA POST OP EVALUATION ---
Anesthesia Post Eval - Post Anesthesia Eval Vitals: Last Vital Signs Temp 36.5 C 02/06/23 10:40 Pulse 57 L 02/06/23 10:45 Resp 16 02/06/23 10:45 BP 140/68 H 02/06/23 10:45 Pulse Ox 98 02/06/23 10:45 O2 Flow Rate CV Function Including HR & BP: Stable Pain Control: Satisfactory Nausea & Vomiting: Negative Mental Status: Baseline Respiratory Status: Airway Patent Hydration Status: Satisfactory Anesthesia Complications: None
== END 2023-02-06 08:26 | disposition home or self-care (01) ==
LOC: SDS 08:25
PROVIDERS: ATTEND Ophthalmology
DX: H25.12 Age-related nuclear cataract, left eye (principal); I10 Essential (primary) hypertension; E66.9 Obesity, unspecified; Z68.30 Body mass index [BMI] 30.0-30.9, adult; G47.30 Sleep apnea, unspecified
CPT/HCPCS: 66984; A9270; J3490; J7120

== ENCOUNTER 2023-03-11 13:39 | Outpatient (CLI) | payer MEDICARE, OTHER ==
--- NOTE | 2023-03-11 14:14 | Sleep Patient Instructions ---
Sleep Center Visit Summary - Patient Visit Information Reason for Visit: Annual visit for PAP therapy - Patient Instructions Additional Instructions: You will continue with CPAP therapy with pressure set at 16-20 cmH2O. A supply prescription will be updated with your DME. We encourage you to continue to try to lose weight. Please follow up with the sleep care office in 1 year. - Clinic Information Contact: [facility] [address] [place] [address] [email or web address] T: [phone]
--- NOTE | 2023-03-11 14:24 | SLEEP CARE CONSULTATION ---
Information from patient questionnaire entered by Vandana Anguiano. I have reviewed and concur with the information entered by Vandana Anguiano. This document represents the service I personally performed and the decisions made by me, Maya Jin ARNP. History of Present Illness Service Date and Time: 03/11/2023 1339 Previous diagnosis: Moderate, Obstructive Sleep Apnea-Hypopnea Syndrome AHI: 21.5 (in 2018)(34.9 in 2009) Reason for follow up: annual (LAST SEEN 02/2022) Equipment type: CPAP (DREAMSTATION (not affected by recall); s/u 09/2020, [place] CARD NEEDED) Equipment obtained from: Other ([facility]: getting supplies as needed) Mask style: Nasal (Dreamwear, medium) Mask brand: Respironics Backup mask available: Yes (old mask) Last cushion change: 1 week Prior sleep studies: Yes Year and Where: 2017 and [address] - [facility] Type of Sleep Study: Polysomnography HPI additional information: CATIA FROST was diagnosed to have moderate, AHI 21.5, obstructive sleep apnea- hypopnea syndrome and returned today for CPAP therapy annual follow-up. Sleep Study - Results Type of Sleep Study: Polysomnography Prior sleep studies: Yes Year and Where: 2017 and [address] - [facility] CPAP Compliance Data - Data Reviewed with Patient Average duration of nightly device use: 3 hours 46 minutes Compliance rate %: 38.3 (148/180 days used) Current pressure setting (cmH2O): 16-20 (90% avg 17 cmH2O) Average residual AHI: 25.4 Central apnea: 4.3 Obstructive apnea: 3.2 Hypopnea: 17.9 Average large leak: 1 hour 28 minutes Subjective Missed days of use due to: reports: other (wears for all sleep but will sometimes not put on at all) Patient concerns: reports: mask leak noise. denies: aerophagia, mask discomfort, air blowing in eyes, condensation in mask/hose, nasal congestion, dry mouth, nose, throat, epistaxis Observed to snore while using device: No Current pressure setting perceived as: comfortable On therapy, patient: reports: sleeping better, awakening more refreshed, being more awake and alert during the day, more rested overall. denies: drowsiness while driving Initial [place] Sleepiness Scale score: 8 (in 2009) Current [place] Sleepiness Scale score: 2 (03/11/23) Allergies and Home Medications Known drug allergies: No Drug allergies reviewed: Yes Home medication list reviewed: Yes (no changes) Allergy and home medication list: Allergies No Known Drug Allergies Allergy (Verified 03/10/23 08:52) Review of Systems Review of systems same as previous: No (cataracts removed in both eyes) Physical Exam Vital signs obtained and entered by: VANDANA López MA Blood Pressure: 132/90 (LEFT ARM) Cuff size: regular Heart Rate: 97 O2 Saturation: 94 Height: 5 ft 10 in Weight: 219 lb Body Mass Index: 31.4 BMI Classification: Obese Impression and Plan 1. Obstructive Sleep Apnea-Hypopnea Syndrome, moderate, with good treatment compliance and fair apnea control with elevated residual AHI. On CPAP therapy, the patient has better sleep quality and is more rested overall. Darek states that he just does not sleep very much. He does remember to put his CPAP mask on most nights but does not make 4 hours regularly. He states he is comfortable with current pressures. His residual AHI is elevated with a hypopnea index of 17.4 and large leak of 1 hour 28 minutes on average. I think this is falsely elevating his AHI. I did talk to him about a titration study but he declined at this time. I will not make any adjustments at this time to his pressure. He became tearful when I asked him if he was depressed and he said yes. He is still grieving for his who 3 years ago. He was encouraged to followup with his primary doctor about his depression. He voiced that he did not feel they cared. I feel he would benefit from some evaluation and help in this area. I am not sure if he will reach out to them. Patient's apnea severity and rationale for treatment to reduce apnea, improve sleep quality and reduce cardiovascular and cerebrovascular events was reviewed. I also reviewed the benefit of consistent device use of CPAP for hypertension. 2. Obesity, unspecified. Currently patients BMI is 31.4. Obesity increases the risk of apnea, CPAP pressure requirements and overall health risks especially cardiovascular and diabetes. Thus patient is advised to lose weight. * Continue auto CPAP pressure at 16-20 cmH2O * Update supplies * Notify me if snoring with mask or feeling that the pressure is too much or too little * Attempt to lose weight * Call this office if any problems using CPAP * Return for follow up in 1 year, or sooner if concerns arise Counseling Topics: Spare mask, Weight loss health impact Prescriptions: Device supplies Visit Type: In Office Time Spent with Patient (minutes): 29 Provider Statement: I spent 100% of the Face to Face Visit with the patient with greater than 50% spent counseling the patient and coordination of care.
[2023-03-11 14:27] VITALS: BP 132/90; O2SAT 94
== END 2023-03-11 13:40 | disposition home or self-care (01) ==
LOC: SC 13:39
PROVIDERS: ATTEND Nurse Practitioner Family
DX: G47.33 Obstructive sleep apnea (adult) (pediatric) (principal); E66.9 Obesity, unspecified; Z68.31 Body mass index [BMI] 31.0-31.9, adult
CPT/HCPCS: 99213; G0463; 99212

== ENCOUNTER 2023-04-18 02:28 | Inpatient (IN) | payer MEDICARE, OTHER ==
[2023-04-18] MEDS ORDERED: SODIUM CHLORIDE 0.9% 1,000 ML IV STA (02:53)
[2023-04-18] MEDS ORDERED: MORPHINE 2 MG/ML CARPUJECT IVP STA (02:53)
[2023-04-18] MEDS ORDERED: ONDANSETRON 4 MG/2 ML VIAL IVP STA ×2 (02:54→06:56)
[2023-04-18 03:20] LABS: BASOPHILS % (AUTO) 0.8 %; EOSINOPHILS # (AUTO) 0.1 10^3/uL (0.0-0.7); EOSINOPHILS % (AUTO) 2.1 %; HCT - HEMATOCRIT 46.5 % (42.0-52.0); HGB - HEMOGLOBIN 15.6 g/dL (14.0-18.0); LYMPHOCYTES # (AUTO) 1.8 10^3/uL (1.5-3.5); MEAN CORPUSCULAR HEMOGLOBIN 30.1 pg (27.0-31.0); MEAN CORPUSCULAR HGB CONC 33.5 g/dL (32.0-36.0); MEAN CORPUSCULAR VOLUME 89.8 fL (80.0-94.0); MONOCYTES # (AUTO) 0.4 10^3/uL (0.0-1.0); MONOCYTES % (AUTO) 8.1 %; NEUTROPHILS # (AUTO) 2.5 10^3/uL (1.5-6.6); NEUTROPHILS % (AUTO) 51.6 %; PLT - PLATELET COUNT 284 10^3/uL (130-450); RED BLOOD COUNT 5.18 10^6/uL (4.70-6.10); RED CELL DISTRIBUTION WIDTH 14.1 % (12.0-15.0); WHITE BLOOD COUNT 4.8 x10^3/uL (4.8-10.8)
[2023-04-18 04:12] LABS: ALBUMIN 4.5 g/dL (3.2-5.5); ALBUMIN/GLOBULIN RATIO 1.6 (1.0-2.2); BILIRUBIN,TOTAL 0.7 mg/dL (0.2-1.0); CALCIUM 9.7 mg/dL (8.5-10.3); POTASSIUM 4.6 mmol/L (3.5-4.5); TOTAL PROTEIN 7.4 g/dL (6.4-8.9)
[2023-04-18] MEDS ORDERED: HYDROmorphone 1 MG/ML CARPUJECT IVP STA ×2 (04:50→06:56)
[2023-04-18] MEDS ORDERED: iohexoL-300 100 ML VIAL IVP ONE (06:02)
[2023-04-18 06:50] LABS: BILIRUBIN,URINE NEGATIVE (NEGATIVE); GLUCOSE, URINE (UA) NEGATIVE (NEGATIVE); KETONES,URINE (UA) NEGATIVE (NEGATIVE); LEUKOCYTE ESTERASE, URINE NEGATIVE (NEGATIVE); NITRITE,URINE NEGATIVE (NEGATIVE); OCCULT BLOOD,URINE NEGATIVE (NEGATIVE); PROTEIN,URINE NEGATIVE (NEGATIVE); UROBILINOGEN,URINE 0.2 (NORMAL) E.U./dL (NORMAL)
[2023-04-18 06:51] LABS: CLARITY,URINE CLEAR (CLEAR)
[2023-04-18] MEDS: SODIUM CHLORIDE 0.9% 1,000 ML IV SCH ×4 (06:51→21:19)
--- NOTE | 2023-04-18 07:03 | ED Physician Documentation ---
History of Present Illness - Stated complaint Stated Complaint: ABD PX - Chief complaint Chief Complaint: Abd Pain - History obtained from History obtained from: Patient - Additonal information Additional information: 83yM with pmh multiple prior sbo, no psh, pmh htn, hld, p/w midabdominal pain that is severe, aching, constant, similar to prior obstructions. unable to pass flatus. denies fever, n/v/d back pain, cp soa. PD PAST MEDICAL HISTORY - Past Medical History Cardiovascular: Hypertension, High cholesterol Respiratory: None, Sleep apnea, CPAP use Neuro: Other Endocrine/Autoimmune: None GI: Colon polyps : Benign prostate hypertrophy, Incontinence HEENT: Other Psych: None Musculoskeletal: None Derm: None - Past Surgical History Past Surgical History: Yes General: Colonoscopy - Present Medications Home Medications: Ambulatory Orders Medication Instructions Recorded Confirmed Simvastatin [Zocor] 40 mg PO QPM 09/25/14 04/18/23 lisinopriL [Lisinopril] 10 mg ORAL DAILY 09/25/14 04/18/23 Multivit-Min/Iron/Folic/Wud225 1 each PO DAILY 04/11/19 04/18/23 [Hair, Skin and Nails Tablet] Mv-Min/Folic/K1/Lycopen/Lutein 1 each PO DAILY 04/11/19 04/18/23 [Centrum Silver Men Tablet] Aspirin Chewable [St Juaquin 81 mg PO DAILY 07/07/20 04/18/23 Aspirin] Hyoscyamine Sulfate [Levsin-Sl] 0.125 mg SL Q6H PRN #30 tab 09/24/21 04/18/23 - Allergies Allergies/Adverse Reactions: Allergies Allergy/AdvReac Type Severity Reaction Status Date / Time No Known Drug Allergies Allergy Verified 04/18/23 02:36 - Social History Does the pt smoke?: No Smoking Status: Never smoker Does the pt drink ETOH?: No Does the pt have substance abuse?: No - Immunizations Immunizations are current?: Yes - POLST Patient has POLST: No POLST Status: Full Code PD ED PE NORMAL - Vitals Vital signs reviewed: Yes - General General: Alert and oriented X 3, Well developed/nourished, Other (large body habitus) - HEENT HEENT: Atraumatic, PERRL, EOMI, Moist mucous membranes, Pharynx benign - Neck Neck: Supple, no meningeal sign - Cardiac Cardiac: RRR - Respiratory Respiratory: No respiratory distress, Clear bilaterally - Abdomen Abdomen: Other (diffusely ttp) - Back Back: No CVA TTP - Derm Derm: Normal color, Warm and dry Results - Vitals Vitals: Vital Signs - 24 hr 04/18/23 04/18/23 04/18/23 02:29 03:24 05:00 Temperature 36.4 C L Heart Rate 86 78 70 Respiratory 20 16 18 Rate Blood Pressure 123/89 H 128/83 H 146/83 H O2 Saturation 100 92 95 Oxygen O2 Source Room air - Labs Labs: Laboratory Tests 04/18/23 04/18/23 04/18/23 03:13 03:13 06:35 WBC 4.8 RBC 5.18 Hgb 15.6 Hct 46.5 MCV 89.8 MCH 30.1 MCHC 33.5 RDW 14.1 Plt Count 284 MPV 9.0 Neut # (Auto) 2.5 Lymph # (Auto) 1.8 Slope # (Auto) 0.4 Eos # (Auto) 0.1 Baso # (Auto) 0.0 Absolute Nucleated RBC 0.00 Nucleated RBC % 0.0 Sodium 136 Potassium 4.6 H Chloride 102 Carbon Dioxide 27 Anion Gap 7.0 BUN 16 Creatinine 1.0 Estimated GFR (MDRD) 72 L Glucose 179 H Calcium 9.7 Total Bilirubin 0.7 AST 30 ALT 34 Alkaline Phosphatase 92 Total Protein 7.4 Albumin 4.5 Globulin 2.9 Albumin/Globulin Ratio 1.6 Lipase 18 Urine Color YELLOW Urine Clarity CLEAR Urine pH 6.0 Ur Specific [place] 1.010 Urine Protein NEGATIVE Urine Glucose (UA) NEGATIVE Urine Ketones NEGATIVE Urine Occult Blood NEGATIVE Urine Nitrite NEGATIVE Urine Bilirubin NEGATIVE Urine Urobilinogen 0.2 (NORMAL) Ur Leukocyte Esterase NEGATIVE Ur Microscopic Review NOT INDICATED Urine Culture Comments NOT INDICATED PD Medical Decision Making - ED course ED course: 83yM presents to the ED with abdominal pain, found to have SBO on CT. d/w Dr. Maldonado who states we should admit medicine and he will consult in. Plan to admit daytime hospitalist. Departure - Departure Disposition: 66 [facility] DC/Xfer Clinical Impression: Abdominal pain, SBO (small bowel obstruction) Condition: Fair
--- NOTE | 2023-04-18 07:20 | ED Physician Documentation ---
ED Addendum - Addendum Addendum: 04/18/23 07:[address] Eduardo at 7 AM shift change. Briefly 83-year-old gentleman with recurrent SBO, now with NG tube in place. Previous SBO's have been managed medically and he has had no abdominal surgeries. Decision to admit was made after the telehealth cut off time so I spoke with Dr. Godwin at this time for admission. Disposition: Admitted to the hospital Condition: Stable Diagnosis: 1. SBO
--- NOTE | 2023-04-18 08:11 | XRAY Report ---
PROCEDURE: Chest for Line Placement INDICATIONS: NGT TECHNIQUE: One view of the chest was acquired. COMPARISON: Lung bases on CT 04/18/2023 at 5:46 AM. CXR 04/11/2019. FINDINGS: Surgical changes and devices: Enteric tube with the tip in the stomach. Lungs and pleura: No pleural effusions or pneumothorax. Lungs are clear. Mediastinum: Mediastinal contours appear unchanged. Heart size is normal. Bones and chest wall: No suspicious bony lesions. Overlying soft tissues appear unremarkable. IMPRESSION: No acute cardiopulmonary process. Enteric tube with the tip in the stomach. Reviewed by: Anthony Alvarez MD on 04/18/2023 8:09 AM PDT Approved by: Anhtony Alvarez MD on 04/18/2023 8:09 AM PDT Station ID: [id number]
[2023-04-18] MEDS ORDERED: SODIUM CHLORIDE FLUSH 0.9% 10 ML SYRINGE IVP PRN (08:56)
[2023-04-18] MEDS ORDERED: BENZOCAINE/MENTHOL LOZENGE MM PRN (08:59)
[2023-04-18] MEDS ORDERED: SALIVA STIMULANT SPRAY 44.3 ML BOTTLE PO PRN (09:01)
--- NOTE | 2023-04-18 09:05 | HISTORY & PHYSICAL EXAMINATION ---
Chief Complaint - Chief Complaint Chief Complaint: abdominal pain History of Present Illness - Admitted From Admitted From:: Home - History Obtained From Records Reviewed: Yes History obtained from: Patient and ED provider - History of Present Illness HPI Comment/Other: An 83 years old male with history of hypertension, hyperlipidemia, recurrent sma ll bowel obstruction, with no history of abdominal surgery Presented to the ED due to severe abdominal pain for 1 day, unable to pass gas, report similar symptoms as previous small bowel obstructions. Patient reports this is the fifth time of the same condition, his last small bowel obstruction was 3 years ago. The previous episode was on managed conservatively with NG tube suction. Patient reports he was not given a diagnosis on why he has recurrent small bowel obstruction. He only recalled in 1964 he was told that he had hernia. Patient reports he eat out often. After his 3 years ago, he really felt depressed. He has 1 son lives in an RV on his property, another son lives in town. Both are single, somewhat supportive. In the ED, patient vitals were within normal limits, labs are unremarkable. CT abdomen showsSmall bowel obstruction, transition point in the right lower quadrant. Trace fluid next to the liver no free air. Small bladder diverticuli, diverticulosis. Benign right adrenal adenoma ED provider discussed with on-call surgeon who recommended continued conservative treatment, NG tube was placed for GI decompression History - Past Medical History Cardiovascular: reports: Hypertension, High cholesterol Respiratory: reports: None, Sleep apnea, CPAP use Neuro: reports: Other Endocrine/Autoimmune: reports: None GI: reports: Colon polyps : reports: Benign prostate hypertrophy, Incontinence HEENT: reports: Other Psych: reports: None Musculoskeletal: reports: None Derm: reports: None MRSA Hx?: No - Past Surgical History General: reports: Colonoscopy - Family & Social History Family History Comment/Other: Mother and unknown history. Dad in his 40s after being in SNF for 5 years after crush injury on the job. Sister unknown hx. Brother unknown hx. 2 Sons, one w with DM Social History Notes: born and raised in [facility]. Dad when patient was 5 thru crush injury at a foundry. Mother left withhis sister and he and his brother went to an [employer] house where they were raised. 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 Smoked 1-3 cigs a day until 2003 and rarely drinks. No recreational substance abuse - Substance History Use: Uses substance without health or social issues: NONE - POLST Patient has POLST: No POLST Status: Full Code Meds/Allgy - Home Medications Home Medications: Ambulatory Orders Medication Instructions Recorded Confirmed Simvastatin [Zocor] 40 mg PO QPM 09/25/14 04/18/23 lisinopriL [Lisinopril] 10 mg ORAL DAILY 09/25/14 04/18/23 Multivit-Min/Iron/Folic/Nun388 1 each PO DAILY 04/11/19 04/18/23 [Hair, Skin and Nails Tablet] Mv-Min/Folic/K1/Lycopen/Lutein 1 each PO DAILY 04/11/19 04/18/23 [Centrum Silver Men Tablet] Aspirin Chewable [St Juaquin 81 mg PO DAILY 07/07/20 04/18/23 Aspirin] Hyoscyamine Sulfate [Levsin-Sl] 0.125 mg SL Q6H PRN #30 tab 09/24/21 04/18/23 - Allergies Allergies/Adverse Reactions: Allergies Allergy/AdvReac Type Severity Reaction Status Date / Time No Known Drug Allergies Allergy Verified 04/18/23 02:36 Review of Systems - Constitutional Constitutional: reports: Fatigue. denies: Fever, Chills - Eyes Eyes: denies: Vision loss - Ears, Nose & Throat Ears, Nose & Throat: reports: Other (Sore throat). denies: Nasal discharge - Cardiovascular Cariovascular: denies: Palpitations, Chest pain, Syncope - Respiratory Respiratory: reports: Snoring. denies: Cough, Wheezing, SOB with exertion - Gastrointestinal Gastrointestinal: reports: Abdominal pain, Abdominal distention. denies: Change in bowel habits, Rectal bleeding, Nausea, Vomiting - Genitourinary Genitourinary: denies: Dysuria, Frequency, Urgency - Neurological Neurological: denies: Focal weakness, Headache - Psychiatric Psychiatric: reports: Depression - Endocrine Endocrine: denies: Polyuria, Polydypsia, Polyphagia - Hematologic/Lymphatic Hematologic/Lymphatic: denies: Anemia Prior Level of Functionality: Independent ADLs Lives alone Exam - Vital Signs Reviewed Vital Signs: Yes Vital Signs: Vital Signs x48h Temp Pulse Resp BP Pulse Ox 04/18/23 07:19 67 18 139/86 H 97 04/18/23 05:00 70 18 146/83 H 95 04/18/23 03:24 78 16 128/83 H 92 04/18/23 02:29 36.4 C L 86 20 123/89 H 100 - Physical Exam General Appearance: positive: Mild distress Eyes Bilateral: positive: PERRL, EOMI ENT: positive: Other (NG tube in place, on intermittent suction) Neck: positive: Nml inspection, No JVD Respiratory: positive: Chest non-tender, No respiratory distress Cardiovascular: positive: Regular rate & rhythm Abdomen: positive: Other (Distended, tender, bowel sounds present) Skin: positive: Warm, Dry Extremities: positive: No pedal edema Sepsis Event Note (H) - Evaluation Current Stage of Sepsis: Ruled out Conclusion/Plan - Problem List (1) Small bowel obstruction Conclusion/Plan: recurrent, this is the 5th episodes, the last one was three years ago. Patient always can have a resoluation of the SBO with conservative treatment. call center support consultant surgical team is aware of patient, recommends NG suction, bowel rest (2) HTN (hypertension) Conclusion/Plan: Patient was on amlodipine 5 mg twice a day at home Currently n.p.o., blood pressure is reasonable, monitoring blood pressure Qualifiers: Hypertension type: essential hypertension Qualified Code(s): I10 - Essential (primary) hypertension - Lab Results Fish Bones: 04/18/23 03:13 04/18/23 03:13 - Diagnostic Imaging Results Diagnostic Imaging Results: positive: Final report reviewed
--- NOTE | 2023-04-18 09:22 | CT Report ---
PROCEDURE: ABDOMEN/PELVIS W INDICATIONS: mid abdominal pain sharp since midnight CONTRAST: Omni 300 100ml TECHNIQUE: After the administration of intravenous contrast, 5 mm thick sections acquired from the diaphragms to the symphysis. 5 mm thick coronal and sagittal reformats were acquired. For radiation dose reducti on, the following was used: automated exposure control, adjustment of mA and/or kV according to shirley ent size. COMPARISON: CT abdomen pelvis 09/24/2021. Noncontrast CT abdomen pelvis 04/11/2019. FINDINGS: Image quality: Excellent. Lung bases and heart: Bibasal atelectasis. No pleural effusion. Liver: No focal lesion. Gallbladder and biliary tree: Gallbladder is distended. No calcified gallstones seen. No biliary duct al dilatation. Spleen: No splenomegaly. Pancreas: No pancreatic ductal dilation. Adrenals: Right adrenal nodule measuring 2.5 cm, (08/20), unchanged. Also unchanged compared to 2019 w here it measures less than 10 Hounsfield units on the noncontrast CT. Kidneys and ureters: No hydronephrosis. No renal cystic lesion which requires follow up. No solid mas s. Bowel and peritoneum: Sigmoid colon is redundant. Diverticulosis. No diverticulitis. Small bowel obst ruction. Transition point in the right lower quadrant, (11/14). There is fecalization within the adjac ent small bowel. There are scattered air-fluid levels. The stomach is not significantly distended. Th e duodenum is not distended. Small duodenal diverticulum. No pneumoperitoneum. Trace free fluid adjac ent to the liver. Lymph nodes: No central or retroperitoneal adenopathy. Vessels: No infrarenal aortic aneurysm. Scattered calcified atherosclerotic plaque. PELVIS Reproductive organs: Suspect prior TURP. Bladder: Small bladder diverticuli. No stone. Pelvic lymph nodes: No pelvic adenopathy by size criteria. Bones: No aggressive osseous abnormality. Other: No significant ventral or inguinal hernia. IMPRESSION: 1. Small bowel obstruction. Transition point in the right lower quadrant. 2. Trace free fluid adjacent to the liver. No pneumoperitoneum. 3. Small bladder diverticuli. Abdominal diverticulum. Diverticulosis. 4. Benign right adrenal adenoma measuring 2.5 cm, unchanged. This report is concordant with the overnight preliminary interpretation. Reviewed by: Anthony Alvarez MD on 04/18/2023 9:21 AM PDT Approved by: Anthony Alvarez MD on 04/18/2023 9:21 AM PDT Station ID: [id number]
--- NOTE | 2023-04-18 10:40 | PHARMACY PROGRESS NOTE ---
- Best Possible Medication History Admit Date and Time: 04/18/23 0856 Processed by: Nursing As the person ultimately responsible for medication therapy, providers are able to order a medication from an existing home medication list in [facility] via the "Reconcile Routine" prior to Confirmation of that medication by support service tech. Such practice is discouraged except when the physician, in their clinical judgment, deems that a medical need exists for a medication without regard to previous use.
[2023-04-18] MEDS: ENOXAPARIN 40 MG/0.4 ML SYRINGE SUBQ SCH (11:48)
--- NOTE | 2023-04-18 14:14 | CONSULTATION NOTE ---
Referring Provider Consult Date: 04/18/23 Chief Complaint - Chief Complaint Chief Complaint: sharp abdominal pain History of Present Illness - History Obtained From Records Reviewed: yes History obtained from: pt Exam Limitations: none - History of Present Illness HPI Comment/Other: History poor small bowel motility for years. prior admissions for " small bowel obstruction", last time 3 years ago. No prior abdominal surgery. pain currently improved. last bm/ flatus yesterday. he states he typically passes alot of gas. ct scans over the years show chronic poor small bowel motility and large duodenum diverticulum History - Past Medical History Cardiovascular: reports: Hypertension, High cholesterol Respiratory: reports: None, Sleep apnea, CPAP use Neuro: reports: Other Endocrine/Autoimmune: reports: None GI: reports: Colon polyps : reports: Benign prostate hypertrophy, Incontinence HEENT: reports: Other Psych: reports: None Musculoskeletal: reports: None Derm: reports: None MRSA Hx?: No - Past Surgical History General: reports: Colonoscopy - Family & Social History Family History Comment/Other: Mother and unknown history. Dad in his 40s after being in SNF for 5 years after crush injury on the job. Sister unknown hx. Brother unknown hx. 2 Sons, one w with DM Social History Notes: born and raised in [facility]. Dad when patient was 5 thru crush injury at a foundry. Mother left withhis sister and he and his brother went to an [employer] house where they were raised. 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 Smoked 1-3 cigs a day until 2003 and rarely drinks. No recreational substance abuse - Substance History Use: Uses substance without health or social issues: NONE - POLST Patient has POLST: No POLST Status: Full Code Meds/Allgy - Home Medications Home Medications: Ambulatory Orders Medication Instructions Recorded Confirmed Simvastatin [Zocor] 40 mg PO QPM 09/25/14 04/18/23 lisinopriL [Lisinopril] 10 mg ORAL DAILY 09/25/14 04/18/23 Multivit-Min/Iron/Folic/Jcc504 1 each PO DAILY 04/11/19 04/18/23 [Hair, Skin and Nails Tablet] Mv-Min/Folic/K1/Lycopen/Lutein 1 each PO DAILY 04/11/19 04/18/23 [Centrum Silver Men Tablet] Aspirin Chewable [St Juaquin 81 mg PO DAILY 07/07/20 04/18/23 Aspirin] Hyoscyamine Sulfate [Levsin-Sl] 0.125 mg SL Q6H PRN #30 tab 09/24/21 04/18/23 - Allergies Allergies/Adverse Reactions: Allergies Allergy/AdvReac Type Severity Reaction Status Date / Time No Known Drug Allergies Allergy Verified 04/18/23 02:36 Review of Systems - Other Findings Other Findings: 10 pt ros as above otherwise unremarkable Exam - Vital Signs Reviewed Vital Signs: Yes Vital Signs: Vital Signs x48h Temp Pulse Pulse Resp BP BP Pulse Ox 04/18/23 10: 36.4 C L 60 18 134/81 H 97 04/18/23 07:19 67 18 139/86 H 97 - Physical Exam General Appearance: positive: No acute distress, Alert Eyes Bilateral: positive: PERRL, EOMI, No scleral icterus ENT: positive: No signs of dehydration Neck: positive: No JVD, Trachea midline Respiratory: positive: No respiratory distress Abdomen: positive: Other (mild distension and tenderness. benign abdominal exam ngt scant clear) Neurologic/Psychiatric: positive: Oriented x3 Conclusion/Plan - Problem List (1) Abdominal pain Conclusion/Plan: chronic poor small bowel motility with pain yesterday. currently improved. agree with supportive care and bowel rest until feeling better. - Lab Results Fish Bones: 04/18/23 03:13 04/18/23 03:13
[2023-04-18] MEDS: SODIUM CHLORIDE FLUSH 0.9% 10 ML SYRINGE IVP SCH ×2 (14:16→21:38)
[2023-04-18] MEDS: PHENOL THROAT SPRAY 177 ML MM PRN ×2 (15:14→18:18)
[2023-04-18] MEDS: BENZOCAINE/MENTHOL LOZENGE MM PRN ×2 (15:14→20:58)
[2023-04-18] MEDS: ACETAMINOPHEN 325 MG TABLET PO PRN (16:58)
[2023-04-19] MEDS: SODIUM CHLORIDE FLUSH 0.9% 10 ML SYRINGE IVP SCH ×4 (01:19→23:55)
[2023-04-19] MEDS: PHENOL THROAT SPRAY 177 ML MM PRN ×5 (01:20→23:57)
[2023-04-19] MEDS: ACETAMINOPHEN 325 MG TABLET PO PRN ×2 (01:26→05:38)
[2023-04-19] MEDS: BENZOCAINE/MENTHOL LOZENGE MM PRN ×5 (01:27→21:05)
[2023-04-19 05:27] LABS: BASOPHILS % (AUTO) 0.3 %; EOSINOPHILS # (AUTO) 0.1 10^3/uL (0.0-0.7); EOSINOPHILS % (AUTO) 3.3 %; HCT - HEMATOCRIT 39.6 % (42.0-52.0); HGB - HEMOGLOBIN 13.7 g/dL (14.0-18.0); LYMPHOCYTES # (AUTO) 1.1 10^3/uL (1.5-3.5); LYMPHOCYTES % (AUTO) 31.8 %; MEAN CORPUSCULAR HEMOGLOBIN 30.9 pg (27.0-31.0); MEAN CORPUSCULAR HGB CONC 34.6 g/dL (32.0-36.0); MEAN CORPUSCULAR VOLUME 89.4 fL (80.0-94.0); MEAN PLATELET VOLUME 9.2 fL (7.4-11.4); MONOCYTES # (AUTO) 0.4 10^3/uL (0.0-1.0); MONOCYTES % (AUTO) 11.8 %; NEUTROPHILS # (AUTO) 1.7 10^3/uL (1.5-6.6); NEUTROPHILS % (AUTO) 52.5 %; PLT - PLATELET COUNT 215 10^3/uL (130-450); RED BLOOD COUNT 4.43 10^6/uL (4.70-6.10); RED CELL DISTRIBUTION WIDTH 14.4 % (12.0-15.0); WHITE BLOOD COUNT 3.3 x10^3/uL (4.8-10.8)
[2023-04-19 05:58] LABS: CALCIUM 8.6 mg/dL (8.5-10.3); CREATININE 0.8 mg/dL (0.6-1.3)
[2023-04-19] MEDS ORDERED: guaiFENesin/DEXTROMETHORPHAN 10 ML UDC PO PRN (07:37)
[2023-04-19] MEDS ORDERED: SODIUM CHLORIDE 0.9% 1,000 ML IV SCH (08:00)
--- NOTE | 2023-04-19 08:15 | PROVIDER PROGRESS NOTE ---
Progress Note General Surgery Progress Note S: Patient's abdominal bloating and discomfort have resolved with NGT. He has throat discomfort from the NGT. He claims to have passed flatus this morning but denies having a bowel motion. He has had several prior episodes since 2018 that have resolved with medical management. Of note, on 08/11/2017 the patient had laparoscopic adhesiolysis with what is described to be a clear area of obstruction due to adhesions in the RLQ 15-20 cm proximal to the TI. O: VS: WNL AAO: Does not appear uncomfortable. Easily converses with examiner. HEENT: NGT in place. The wall suction is connected to the air vent instead of the tube. I corrected this and educated his nurse on the proper way to manage an NGT. There is about 300 - 400 ml of succus in the NGT cannister Lungs: Clear to auscultation Heart: NSR, no tachycardia; Radial pulse easily palpable Abd: Soft, non-distended, no tympany, no tenderness, few BS Labs: BMP, CBC normal Images: CT Abd/pelvis - fecalization of small bowel in RLQ with dilation of proximal small bowel and decompression of terminal ileum. No free fluid or bowel wall ischemia. Similar to CT findings in 09/2021 A: SBO vs ileus; no clinical, lab or image findings consistent with ischemic intestine. P: SBFT challenge study; May need diagnostic laparoscopy if medical management fails to resolve his bowel dysfunction Timothy Gage MD General Surgery Service
--- NOTE | 2023-04-19 08:36 | PROVIDER PROGRESS NOTE ---
Assessment/Plan - Problem List (1) Small bowel obstruction Assessment/Plan: Resolved, Patient had small bowel follow-through, contrast agent appeared in colon within 2 hours Patient had bowel movement Per surgical Dr. Lyons, advance patient diet as tolerated (2) HTN (hypertension) Qualifiers: Hypertension type: essential hypertension Assessment/Plan: Blood pressure is stable with systolic 130s Resume home meds amlodipine 5 mg once a day - Current Meds Current Meds: Current Medications Generic Name Dose Route Start Last Admin Trade Name Freq PRN Reason Stop Dose Admin Acetaminophen 650 mg 04/18/23 16:27 04/19/23 05:38 Acetaminophen 325 Mg Tablet PO 650 mg Q4HR PRN Administration Pain or Fever > 38C (100.4F) Enoxaparin Sodium 40 mg 04/18/23 09:00 04/18/23 11:48 Enoxaparin 40 Mg/0.4 Ml Syringe SUBQ 40 mg DAILY DENZEL Administration Sodium Chloride 1,000 mls @ 100 mls/hr 04/19/23 08:00 04/19/23 07:39 Normal Saline 0.9% IV 04/19/23 17:59 100 mls/hr .Q10H DENZEL Administration Phenol/Menthol 2 sprays 04/18/23 12:59 04/19/23 05:36 Phenol Throat [place] 177 Ml MM 2 sprays Q2HR PRN Administration Throat Pain Sodium Chloride 10 ml 04/18/23 09:00 04/19/23 01:19 Sodium Chloride Flush 0.9% 10 Ml Syringe IVP 10 ml 0100,0900,1700 DENZEL Administration Throat Lozenges 1 lozenge 04/18/23 14:39 04/19/23 05:39 Benzocaine/Menthol Lozenge MM 1 lozenge Q1H PRN Administration soar thorat - Lab Result Fish Bone Diagrams: 04/19/23 04:44 04/19/23 04:44 - Diagnostic Imaging Results Diagnostic Imaging Results: See rad report, Read independently - Additional Planning Condition/Complexity: Improved My Orders: My Active Orders 04/18/23 08:56 Activity Orders [RC] Q2HR IO [RC] IOSHIFT Incentive Spirometry - RT [RC] TID Initiate Bowel Care Protocol [RC] .protocol Initiate Line Care Protocol [RC] QSHIFT Initiate Personal Care Protoco [RC] .protocol Oxygen Therapy [RC] .PRN Vital Signs [RC] 0800,1600,0000 Sodium Chloride Flush 0.9% [Normal Saline Flush 0.9%] 10 ml IVP PRN PRN Code Status [OTHERS] Routine Condition of Patient [OTHERS] Routine DVT Prophylaxis [OTHERS] Routine 04/18/23 08:58 NPO [DIET] 04/18/23 09:00 Enoxaparin [Lovenox] 40 mg SUBQ DAILY Sodium Chloride Flush 0.9% [Normal Saline Flush 0.9%] 10 ml IVP 0100,0900,1700 04/18/23 09:01 Saliva Stimulant [place] [Biotene Moisturizing Mouth [place]] 2 sprays PO Q4H PRN 04/18/23 12:59 phenoL [Chloraseptic] 2 sprays MM Q2HR PRN 04/18/23 14:39 Benzocaine/Menthol [Cepacol] 1 lozenge MM Q1H PRN 04/18/23 16:27 Acetaminophen [Tylenol] 650 mg PO Q4HR PRN 04/18/23 17:37 NG Tube Care [RC] Q4HR 04/19/23 07:37 guaiFENesin/DEXTROMETHORPHAN [Robitussin Dm] 10 ml PO Q6HR PRN 04/19/23 08:00 Sodium Chloride 0.9% [Normal Saline 0.9%] 1,000 ml IV 100 mls/hr 04/20/23 05:00 BMP - BASIC METABOLIC PANEL [CHEM] DAILYLAB CBC [CBC - COMP BLD CT W/AUTO DIFF] [HEME] DAILYLAB 04/21/23 05:00 BMP - BASIC METABOLIC PANEL [CHEM] DAILYLAB CBC [CBC - COMP BLD CT W/AUTO DIFF] [HEME] DAILYLAB 04/22/23 05:00 BMP - BASIC METABOLIC PANEL [CHEM] DAILYLAB CBC [CBC - COMP BLD CT W/AUTO DIFF] [HEME] DAILYLAB 04/23/23 05:00 BMP - BASIC METABOLIC PANEL [CHEM] DAILYLAB CBC [CBC - COMP BLD CT W/AUTO DIFF] [HEME] DAILYLAB Plan Discussed with:: Patient Time Spent: 15-30 minutes Subjective - Subjective Patient Reports: Feeling Better (Abdominal pain much resolved, able to have tess wel movements) Objective Vital Signs: Vital Signs - 24 hr 04/18/23 04/18/2323 10 16:00 01:27 Temperature 36.4 C L 36.7 C 37.3 C Heart Rate [ 60 64 66 Brachial] Respiratory 18 18 18 Rate Blood Pressure 134/81 H 130/69 138/57 H [Right Brachial artery] O2 Saturation 97 94 96 Oxygen O2 Source Room air I&O (Last 24 Hrs): Intake and Output Totals x24h 04/17/23 04/18/23 04/19/23 23:59 23:59 23:59 Intake Total 2620.833 170 Output Total 2175 2100 Balance 445.833 -1930 General: Alert, Oriented x3 HEENT: PERRLA Neck: Supple, No JVD Neuro: Alert Cardiovascular: Regular rate, Normal S1 Respiratory: Chest non-tender, No respiratory distress Abdomen: Soft, Other (Bowel sound present) Extremities: No clubbing, No edema - Results Results: Laboratory Results WBC 3.3 x10^3/uL (4.8-10.8) L 04/19/23 04:44 RBC 4.43 10^6/uL (4.70-6.10) L 04/19/23 04:44 Hgb 13.7 g/dL (14.0-18.0) L 04/19/23 04:44 Hct 39.6 % (42.0-52.0) L 04/19/23 04:44 MCV 89.4 fL (80.0-94.0) 04/19/23 04:44 MCH 30.9 pg (27.0-31.0) 04/19/23 04:44 MCHC 34.6 g/dL (32.0-36.0) 04/19/23 04:44 RDW 14.4 % (12.0-15.0) 04/19/23 04:44 Plt Count 215 10^3/uL (130-450) 04/19/23 04:44 MPV 9.2 fL (7.4-11.4) 04/19/23 04:44 Neut # (Auto) 1.7 10^3/uL (1.5-6.6) 04/19/23 04:44 Lymph # (Auto) 1.1 10^3/uL (1.5-3.5) L 04/19/23 04:44 [place] # (Auto) 0.4 10^3/uL (0.0-1.0) 04/19/23 04:44 Eos # (Auto) 0.1 10^3/uL (0.0-0.7) 04/19/23 04:44 Baso # (Auto) 0.0 10^3/uL (0.0-0.1) 04/19/23 04:44 Absolute Nucleated RBC 0.00 x10^3/uL 04/19/23 04:44 Nucleated RBC % 0.0 /100WBC 04/19/23 04:44 Sodium 139 mmol/L (135-145) 04/19/23 04:44 Potassium 4.0 mmol/L (3.5-4.5) 04/19/23 04:44 Chloride 106 mmol/L (101-111) 04/19/23 04:44 Carbon Dioxide 28 mmol/L (21-32) 04/19/23 04:44 Anion Gap 5.0 (6-13) L 04/19/23 04:44 BUN 13 mg/dL (6-20) 04/19/23 04:44 Creatinine 0.8 mg/dL (0.6-1.3) 04/19/23 04:44 Estimated GFR (MDRD) 93 (>89) 04/19/23 04:44 Glucose 149 mg/dL (74-104) H 04/19/23 04:44 Calcium 8.6 mg/dL (8.5-10.3) 04/19/23 04:44 Total Bilirubin 0.7 mg/dL (0.2-1.0) 04/18/23 03:13 AST 30 IU/L (10-42) 04/18/23 03:13 ALT 34 IU/L (10-60) 04/18/23 03:13 Alkaline Phosphatase 92 IU/L (42-121) 04/18/23 03:13 Total Protein 7.4 g/dL (6.4-8.9) 04/18/23 03:13 Albumin 4.5 g/dL (3.2-5.5) 04/18/23 03:13 Globulin 2.9 g/dL (2.1-4.2) 04/18/23 03:13 Albumin/Globulin Ratio 1.6 (1.0-2.2) 04/18/23 03:13 Lipase 18 U/L (11-82) 04/18/23 03:13 Urine Color YELLOW 04/18/23 06:35 Urine Clarity CLEAR (CLEAR) 04/18/23 06:35 Urine pH 6.0 PH (5.0-7.5) 04/18/23 06:35 Ur Specific [place] 1.010 (1.002-1.030) 04/18/23 06:35 Urine Protein NEGATIVE mg/dL (NEGATIVE) 04/18/23 06:35 Urine Glucose (UA) NEGATIVE mg/dL (NEGATIVE) 04/18/23 06:35 Urine Ketones NEGATIVE mg/dL (NEGATIVE) 04/18/23 06:35 Urine Occult Blood NEGATIVE (NEGATIVE) 04/18/23 06:35 Urine Nitrite NEGATIVE (NEGATIVE) 04/18/23 06:35 Urine Bilirubin NEGATIVE (NEGATIVE) 04/18/23 06:35 Urine Urobilinogen 0.2 (NORMAL) E.U./dL (NORMAL) 04/18/23 06:35 Ur Leukocyte Esterase NEGATIVE (NEGATIVE) 04/18/23 06:35 Ur Microscopic Review NOT INDICATED 04/18/23 06:35 Urine Culture Comments NOT INDICATED 04/18/23 06:35 - Procedures Procedures: Procedures EXCISION OF ASCENDING COLON, ENDO, DIAGN (01/30/17) RELEASE SMALL INTESTINE, PERCUTANEOUS ENDOSCOPIC APPROACH (08/11/17) Sepsis Event Note (H) - Evaluation Current Stage of Sepsis: Ruled out ABX Reporting Has patient been on IV antibiotics over the past 48 hours?: No Current Medications - Current Medications Current Medications: Active Medications Acetaminophen (Acetaminophen 325 Mg Tablet) 650 mg PO Q4HR PRN PRN Reason: Pain or Fever > 38C (100.4F) Last Admin: 04/19/23 05:38 Dose: 650 mg Amlodipine Besylate (Amlodipine 5 Mg Tablet) 5 mg PO DAILY [facility] Enoxaparin Sodium (Enoxaparin 40 Mg/0.4 Ml Syringe) 40 mg SUBQ DAILY [facility] Last Admin: 04/19/23 08:46 Dose: 40 mg Guaifenesin (Guaifenesin/Dextromethorphan 10 Ml Udc) 10 ml PO Q6HR PRN PRN Reason: Cough Phenol/Menthol (Phenol Throat [place] 177 Ml) 2 sprays MM Q1HR PRN PRN Reason: Throat Pain Saliva Substitute (Saliva Stimulant [place] 44.3 Ml Bottle) 2 sprays PO Q4H PRN PRN Reason: Mouth Sore Pain Sodium Chloride (Sodium Chloride Flush 0.9% 10 Ml Syringe) 10 ml IVP PRN PRN PRN Reason: NEEDED PER PROVIDER ORDERS Sodium Chloride (Sodium Chloride Flush 0.9% 10 Ml Syringe) 10 ml IVP 0100,0900,1700 DENZEL Last Admin: 04/19/23 08:46 Dose: Not Given Throat Lozenges (Benzocaine/Menthol Lozenge) 1 lozenge MM Q1H PRN PRN Reason: zia nino Last Admin: 04/19/23 08:46 Dose: 1 lozenge Simvastatin [Zocor] 40 mg PO QPM 09/25/14 lisinopriL [Lisinopril] 10 mg ORAL DAILY 09/25/14 Multivit-Min/Iron/Folic/Uyj305 [Hair, Skin and Nails Tablet] 1 each PO DAILY 04/11/19 Mv-Min/Folic/K1/Lycopen/Lutein [Centrum Silver Men Tablet] 1 each PO DAILY 04/11/19 Aspirin Chewable [[place]quin Aspirin] 81 mg PO DAILY 07/07/20
[2023-04-19] MEDS: ENOXAPARIN 40 MG/0.4 ML SYRINGE SUBQ SCH (08:46)
[2023-04-19] MEDS ORDERED: guaiFENesin 600 MG TABLET PO SCH (09:00)
[2023-04-19] MEDS ORDERED: NICOTINE 21 MG PATCH TOP SCH (09:00)
[2023-04-19] MEDS ORDERED: DIATR MEGLU/DIATRIZOATE SODIUM 120 ML BOTTLE ONE (09:22)
--- NOTE | 2023-04-19 12:16 | XRAY Report ---
PROCEDURE: SBFT Challenge Panel INDICATIONS: SBO vs Ileus COMPARISON: CT abdomen 2022 CONTRAST: Oral contrast FLUOROSCOPY TIME: Was administered at 9:30, 945, and 1030, 11:15 FINDINGS: Small bowel: Sequential images reveal oral contrast which had been administered through an enteric tu be in the stomach, progressing through the small intestine, and appearing within the right side of th e colon by one hour and 45 minutes. IMPRESSION: Passage of contrast through to the colon in less than 2 hours. Reviewed by: Earnest Lizama MD on 04/19/2023 11:15 AM SERA Approved by: Earnest Lizama MD on 04/19/2023 11:15 AM SERA Station ID: [id number]
[2023-04-19] MEDS ORDERED: DIATR MEGLU/DIATRIZOATE SODIUM 120 ML BOTTLE PO ONE (12:19)
--- NOTE | 2023-04-19 15:07 | PROVIDER PROGRESS NOTE ---
Progress Note General Surgery Progress Note: S: Feels good; Passing stool and flatus from rectum. No abdominal pain. O: Abdomen is soft and not distended; no tenderness SBFT challenge study shows contrast in the entire colon by 2 hours. There is no distended small bowel present. The patient does not have image evidence of a small bowel obstruction. A: Resolved ileus vs SBO P: Remove NGT; May start on clear liquid diet and advance as tolerated. Timothy Gage MD General Surgery Service
[2023-04-20] MEDS: BENZOCAINE/MENTHOL LOZENGE MM PRN ×5 (00:04→18:06)
[2023-04-20] MEDS: PHENOL THROAT SPRAY 177 ML MM PRN ×3 (04:46→21:17)
[2023-04-20 05:09] LABS: BASOPHILS % (AUTO) 0.3 %; EOSINOPHILS % (AUTO) 1.1 %; HCT - HEMATOCRIT 37.8 % (42.0-52.0); HGB - HEMOGLOBIN 12.7 g/dL (14.0-18.0); LYMPHOCYTES # (AUTO) 1.2 10^3/uL (1.5-3.5); LYMPHOCYTES % (AUTO) 32.1 %; MEAN CORPUSCULAR HEMOGLOBIN 30.3 pg (27.0-31.0); MEAN CORPUSCULAR HGB CONC 33.6 g/dL (32.0-36.0); MEAN CORPUSCULAR VOLUME 90.2 fL (80.0-94.0); MONOCYTES # (AUTO) 0.5 10^3/uL (0.0-1.0); MONOCYTES % (AUTO) 12.7 %; NEUTROPHILS % (AUTO) 53.5 %; PLT - PLATELET COUNT 232 10^3/uL (130-450); RED BLOOD COUNT 4.19 10^6/uL (4.70-6.10); RED CELL DISTRIBUTION WIDTH 14.4 % (12.0-15.0); WHITE BLOOD COUNT 3.7 x10^3/uL (4.8-10.8)
[2023-04-20 05:48] LABS: CREATININE 0.9 mg/dL (0.6-1.3); POTASSIUM 3.8 mmol/L (3.5-4.5)
--- NOTE | 2023-04-20 08:14 | PROVIDER PROGRESS NOTE ---
Progress Note General Surgery Progress Note S: No complaints of recurrent abdominal pain. Tolerated a full liquid diet and is now eating eggs, oatmeal, and toast for breakfast. No BM since yesterday O: VSS, T ~ 100 Lungs are clear - no cough or wheezing Abdomen is soft, non-distended, and non-tender; BS are present Labs: BMP and CBC normal (WBC unchanged - low normal) Admission UA normal A: SBO vs Ileus - resolved; Single temp elevation noted. Recommendation: Ambulate QID; Miralax q 3 days if no BM; Consider fever work-up if temp remains elevated. Timothy Gage MD General Surgery Service
[2023-04-20] MEDS: ACETAMINOPHEN 325 MG TABLET PO PRN (08:25)
[2023-04-20] MEDS: ENOXAPARIN 40 MG/0.4 ML SYRINGE SUBQ SCH (08:26)
[2023-04-20] MEDS: amLODIPine 5 MG TABLET PO SCH (08:26)
[2023-04-20] MEDS: SODIUM CHLORIDE FLUSH 0.9% 10 ML SYRINGE IVP SCH ×2 (08:27→18:06)
[2023-04-20] MEDS ORDERED: ACETAMINOPHEN 325 MG TABLET PO SCH (11:00)
[2023-04-20] MEDS: ACETAMINOPHEN 325 MG TABLET PO SCH ×2 (13:32→21:27)
--- NOTE | 2023-04-20 13:48 | PROVIDER PROGRESS NOTE ---
Assessment/Plan - Problem List (1) Small bowel obstruction Assessment/Plan: Resolved, able to tolerate with diet (2) HTN (hypertension) Qualifiers: Hypertension type: essential hypertension Assessment/Plan: Stable, controlled BP 110/60 Continue amlodipine (3) Sore throat Assessment/Plan: Patient reports sore throat at time of admission, was thought can be from the NG tube insertion However his thought throat has been persistent, on physical exam both tonsils are swollen and red, no exudate noted. Check strep throat With unwell feeling, and weakness, keep patient overnight for further obse rvation Optimize potassium level with giving 10 mEq for 2 times with goal potassium of 4 (4) Acute anemia Assessment/Plan: Baseline hemoglobin 15 at time of admission, today hemoglobin 12.7 No sign of bleeding Patient may have hemoconcentration due to dehydration at time of admission, with IV fluid received after admission it can have dilutional component Check FOBT to rule out GI blood loss Monitoring CBC - Current Meds Current Meds: Current Medications Generic Name Dose Route Start Last Admin Trade Name Freq PRN Reason Stop Dose Admin Acetaminophen 650 mg 04/20/23 14:00 04/20/23 13:32 Acetaminophen 325 Mg Tablet PO 650 mg TID DENZEL Administration Amlodipine Besylate 5 mg 04/20/23 09:00 04/20/23 08:26 Amlodipine 5 Mg Tablet PO 5 mg DAILY DENZEL Administration Enoxaparin Sodium 40 mg 04/18/23 09:00 04/20/23 08:26 Enoxaparin 40 Mg/0.4 Ml Syringe SUBQ 40 mg DAILY DENZEL Administration Phenol/Menthol 2 sprays 04/19/23 16:05 04/20/23 08:17 Phenol Throat [place] 177 Ml MM 2 sprays Q1HR PRN Administration Throat Pain Sodium Chloride 10 ml 04/18/23 09:00 04/20/23 08:27 Sodium Chloride Flush 0.9% 10 Ml Syringe IVP 10 ml 0100,0900,1700 DENZEL Administration Throat Lozenges 1 lozenge 04/18/23 14:39 04/20/23 08:25 Benzocaine/Menthol Lozenge MM 1 lozenge Q1H PRN Administration soblank thorat - Lab Result Lab results reviewed: Yes Fish Bone Diagrams: 04/20/23 04:33 04/20/23 04:33 - Diagnostic Imaging Results Diagnostic Imaging Results: Final report reviewed - Additional Planning Condition/Complexity: Stable My Orders: My Active Orders 04/19/23 16:05 phenoL [Chloraseptic] 2 sprays MM Q1HR PRN 04/20/23 OCCULT BLOOD IN PAT. SINGLE [RAPID] Routine 04/20/23 Breakfast DIET [Soft (Low Fiber) Diet] [DIET] 04/20/23 05:00 CRP - C-REACTIVE PROTEIN [CHEM] Routine 04/20/23 09:00 amLODIPine [Norvasc] 5 mg PO DAILY 04/20/23 11:30 CUL, THROAT (STREP SCREEN) [RM] Routine 04/20/23 14:00 Acetaminophen [Tylenol] 650 mg PO TID Potassium Chloride/Water 10 mEq/100 mL q1h (Enter # of bags) Potassium Chlor 10 Meq/100 ml [Potassium Chloride] 10 meq in 100 ml IV Q1H 04/21/23 05:00 BMP - BASIC METABOLIC PANEL [CHEM] DAILYLAB CBC [CBC - COMP BLD CT W/AUTO DIFF] [HEME] DAILYLAB 04/22/23 05:00 BMP - BASIC METABOLIC PANEL [CHEM] DAILYLAB CBC [CBC - COMP BLD CT W/AUTO DIFF] [HEME] DAILYLAB 04/23/23 05:00 BMP - BASIC METABOLIC PANEL [CHEM] DAILYLAB CBC [CBC - COMP BLD CT W/AUTO DIFF] [HEME] DAILYLAB Plan Discussed with:: Patient Time Spent: 15-30 minutes Subjective - Subjective Patient Reports: Pain, Other (Throat pain, weakness, general unwell feeding) Objective Vital Signs: Vital Signs - 24 hr 04/19/23 04/19/23 04/20/23 16:00 23:49 08:00 Temperature 36.9 C 37.8 C 36.8 C Heart Rate [ 95 72 69 Brachial] Respiratory 20 18 18 Rate Blood Pressure 138/73 H 102/52 L 113/62 [Right Brachial artery] O2 Saturation 92 94 92 Oxygen O2 Source Room air I&O (Last 24 Hrs): Intake and Output Totals x24h 04/18/23 04/19/23 04/20/23 23:59 23:59 23:59 Intake Total 2620.833 3460 1680 Output Total 2175 2400 300 Balance 537.682 6759 1380 General: Alert, Oriented x3 HEENT: PERRLA, EOMI, Other (Both tonsils are enlarged, redness noted No exudate) Neck: Supple, No JVD Neuro: Alert, CN 2-12 Grossly Intact Cardiovascular: Regular rate Respiratory: Chest non-tender, No respiratory distress Abdomen: Normal bowel sounds, Soft, No tenderness Extremities: No clubbing, No edema Skin: No rashes, No breakdown - Results Results: Laboratory Results WBC 3.7 x10^3/uL (4.8-10.8) L 04/20/23 04:33 RBC 4.19 10^6/uL (4.70-6.10) L 04/20/23 04:33 Hgb 12.7 g/dL (14.0-18.0) L 04/20/23 04:33 Hct 37.8 % (42.0-52.0) L 04/20/23 04:33 MCV 90.2 fL (80.0-94.0) 04/20/23 04:33 MCH 30.3 pg (27.0-31.0) 04/20/23 04:33 MCHC 33.6 g/dL (32.0-36.0) 04/20/23 04:33 RDW 14.4 % (12.0-15.0) 04/20/23 04:33 Plt Count 232 10^3/uL (130-450) 04/20/23 04:33 MPV 9.0 fL (7.4-11.4) 04/20/23 04:33 Neut # (Auto) 2.0 10^3/uL (1.5-6.6) 04/20/23 04:33 Lymph # (Auto) 1.2 10^3/uL (1.5-3.5) L 04/20/23 04:33 [place] # (Auto) 0.5 10^3/uL (0.0-1.0) 04/20/23 04:33 Eos # (Auto) 0.0 10^3/uL (0.0-0.7) 04/20/23 04:33 Baso # (Auto) 0.0 10^3/uL (0.0-0.1) 04/20/23 04:33 Absolute Nucleated RBC 0.00 x10^3/uL 04/20/23 04:33 Nucleated RBC % 0.0 /100WBC 04/20/23 04:33 Sodium 138 mmol/L (135-145) 04/20/23 04:33 Potassium 3.8 mmol/L (3.5-4.5) 04/20/23 04:33 Chloride 108 mmol/L (101-111) 04/20/23 04:33 Carbon Dioxide 24 mmol/L (21-32) 04/20/23 04:33 Anion Gap 6.0 (6-13) 04/20/23 04:33 BUN 17 mg/dL (6-20) 04/20/23 04:33 Creatinine 0.9 mg/dL (0.6-1.3) 04/20/23 04:33 Estimated GFR (MDRD) 81 (>89) L 04/20/23 04:33 Glucose 168 mg/dL (74-104) H 04/20/23 04:33 Calcium 8.0 mg/dL (8.5-10.3) L 04/20/23 04:33 Total Bilirubin 0.7 mg/dL (0.2-1.0) 04/18/23 03:13 AST 30 IU/L (10-42) 04/18/23 03:13 ALT 34 IU/L (10-60) 04/18/23 03:13 Alkaline Phosphatase 92 IU/L (42-121) 04/18/23 03:13 Total Protein 7.4 g/dL (6.4-8.9) 04/18/23 03:13 Albumin 4.5 g/dL (3.2-5.5) 04/18/23 03:13 Globulin 2.9 g/dL (2.1-4.2) 04/18/23 03:13 Albumin/Globulin Ratio 1.6 (1.0-2.2) 04/18/23 03:13 Lipase 18 U/L (11-82) 04/18/23 03:13 Urine Color YELLOW 04/18/23 06:35 Urine Clarity CLEAR (CLEAR) 04/18/23 06:35 Urine pH 6.0 PH (5.0-7.5) 04/18/23 06:35 Ur Specific [place] 1.010 (1.002-1.030) 04/18/23 06:35 Urine Protein NEGATIVE mg/dL (NEGATIVE) 04/18/23 06:35 Urine Glucose (UA) NEGATIVE mg/dL (NEGATIVE) 04/18/23 06:35 Urine Ketones NEGATIVE mg/dL (NEGATIVE) 04/18/23 06:35 Urine Occult Blood NEGATIVE (NEGATIVE) 04/18/23 06:35 Urine Nitrite NEGATIVE (NEGATIVE) 04/18/23 06:35 Urine Bilirubin NEGATIVE (NEGATIVE) 04/18/23 06:35 Urine Urobilinogen 0.2 (NORMAL) E.U./dL (NORMAL) 04/18/23 06:35 Ur Leukocyte Esterase NEGATIVE (NEGATIVE) 04/18/23 06:35 Ur Microscopic Review NOT INDICATED 04/18/23 06:35 Urine Culture Comments NOT INDICATED 04/18/23 06:35 - Procedures Procedures: Procedures EXCISION OF ASCENDING COLON, ENDO, DIAGN (01/30/17) RELEASE SMALL INTESTINE, PERCUTANEOUS ENDOSCOPIC APPROACH (08/11/17) Sepsis Event Note (H) - Evaluation Current Stage of Sepsis: Ruled out ABX Reporting Has patient been on IV antibiotics over the past 48 hours?: No Current Medications - Current Medications Current Medications: Active Medications Acetaminophen (Acetaminophen 325 Mg Tablet) 650 mg PO TID [facility] Last Admin: 04/20/23 13:32 Dose: 650 mg Amlodipine Besylate (Amlodipine 5 Mg Tablet) 5 mg PO DAILY [facility] Last Admin: 04/20/23 08:26 Dose: 5 mg Enoxaparin Sodium (Enoxaparin 40 Mg/0.4 Ml Syringe) 40 mg SUBQ DAILY [facility] Last Admin: 04/20/23 08:26 Dose: 40 mg Guaifenesin (Guaifenesin/Dextromethorphan 10 Ml Udc) 10 ml PO Q6HR PRN PRN Reason: Cough Potassium Chloride (Potassium Chloride) 10 meq in 100 mls @ 100 mls/hr IV Q1H [facility] Stop: 04/20/23 15:59 Phenol/Menthol (Phenol Throat [place] 177 Ml) 2 sprays MM Q1HR PRN PRN Reason: Throat Pain Last Admin: 04/20/23 08:17 Dose: 2 sprays Saliva Substitute (Saliva Stimulant [place] 44.3 Ml Bottle) 2 sprays PO Q4H PRN PRN Reason: Mouth Sore Pain Sodium Chloride (Sodium Chloride Flush 0.9% 10 Ml Syringe) 10 ml IVP PRN PRN PRN Reason: NEEDED PER PROVIDER ORDERS Sodium Chloride (Sodium Chloride Flush 0.9% 10 Ml Syringe) 10 ml IVP 0100,0900,1700 DENZEL Last Admin: 04/20/23 08:27 Dose: 10 ml Throat Lozenges (Benzocaine/Menthol Lozenge) 1 lozenge MM Q1H PRN PRN Reason: zia nino Last Admin: 04/20/23 08:25 Dose: 1 lozenge Simvastatin [Zocor] 40 mg PO QPM 09/25/14 lisinopriL [Lisinopril] 10 mg ORAL DAILY 09/25/14 Multivit-Min/Iron/Folic/Yho065 [Hair, Skin and Nails Tablet] 1 each PO DAILY 04/11/19 Mv-Min/Folic/K1/Lycopen/Lutein [Centrum Silver Men Tablet] 1 each PO DAILY 04/11/19 Aspirin Chewable [[place]quin Aspirin] 81 mg PO DAILY 07/07/20
[2023-04-20] MEDS: POTASSIUM CHLOR 10 MEQ/100 ML 10 MEQ/100 ML BAG IV SCH ×2 (14:08→15:43)
[2023-04-21] MEDS: PHENOL THROAT SPRAY 177 ML MM PRN ×3 (00:28→08:47)
[2023-04-21] MEDS: SODIUM CHLORIDE FLUSH 0.9% 10 ML SYRINGE IVP SCH ×3 (00:29→16:36)
[2023-04-21 05:51] LABS: BASOPHILS % (AUTO) 0.4 %; EOSINOPHILS # (AUTO) 0.1 10^3/uL (0.0-0.7); EOSINOPHILS % (AUTO) 3.9 %; HCT - HEMATOCRIT 35.2 % (42.0-52.0); HGB - HEMOGLOBIN 11.8 g/dL (14.0-18.0); LYMPHOCYTES # (AUTO) 1.1 10^3/uL (1.5-3.5); LYMPHOCYTES % (AUTO) 43.9 %; MEAN CORPUSCULAR HEMOGLOBIN 30.1 pg (27.0-31.0); MEAN CORPUSCULAR HGB CONC 33.5 g/dL (32.0-36.0); MEAN CORPUSCULAR VOLUME 89.8 fL (80.0-94.0); MEAN PLATELET VOLUME 9.5 fL (7.4-11.4); MONOCYTES # (AUTO) 0.3 10^3/uL (0.0-1.0); MONOCYTES % (AUTO) 10.2 %; NEUTROPHILS # (AUTO) 1.1 10^3/uL (1.5-6.6); NEUTROPHILS % (AUTO) 41.6 %; PLT - PLATELET COUNT 217 10^3/uL (130-450); RED BLOOD COUNT 3.92 10^6/uL (4.70-6.10); RED CELL DISTRIBUTION WIDTH 14.1 % (12.0-15.0); WHITE BLOOD COUNT 2.6 x10^3/uL (4.8-10.8)
[2023-04-21 06:10] LABS: CALCIUM 8.4 mg/dL (8.5-10.3); CREATININE 0.8 mg/dL (0.6-1.3); POTASSIUM 4.1 mmol/L (3.5-4.5)
[2023-04-21] MEDS: ACETAMINOPHEN 325 MG TABLET PO SCH ×3 (06:32→21:41)
[2023-04-21] MEDS ORDERED: PANTOPRAZOLE 40 MG VIAL IV STA (08:15)
--- NOTE | 2023-04-21 08:16 | PROVIDER PROGRESS NOTE ---
Assessment/Plan - Problem List (1) Acute anemia Assessment/Plan: Hb 15 on admission, today 11, had black stool, with FOBT positive concerns of upper GI bleed Give PPI drip for 24h Surgery Dr. Gage performed EGD, found gastritis, recommended PPI twice a day for 4-6 weeks started on PPI oral tomorrow (ordered) (2) Small bowel obstruction Assessment/Plan: resolved on soft low fiber diet (3) HTN (hypertension) Qualifiers: Hypertension type: essential hypertension Assessment/Plan: stable continue with amlodipin (4) Sore throat Assessment/Plan: Improved After being given Tylenol Strep throat culture in process - Current Meds Current Meds: Current Medications Generic Name Dose Route Start Last Admin Trade Name Freq PRN Reason Stop Dose Admin Acetaminophen 650 mg 04/20/23 14:00 04/21/23 06:32 Acetaminophen 325 Mg Tablet PO 650 mg TID DENZEL Administration Amlodipine Besylate 5 mg 04/20/23 09:00 04/20/23 08:26 Amlodipine 5 Mg Tablet PO 5 mg DAILY DENZEL Administration Enoxaparin Sodium 40 mg 04/18/23 09:00 04/20/23 08:26 Enoxaparin 40 Mg/0.4 Ml Syringe SUBQ 40 mg DAILY DENZEL Administration Guaifenesin 10 ml 04/19/23 07:37 04/20/23 21:28 Guaifenesin/Dextromethorphan 10 Ml Udc PO 10 ml Q6HR PRN Administration Cough Phenol/Menthol 2 sprays 04/19/23 16:05 04/21/23 06:40 Phenol Throat [place] 177 Ml MM 2 sprays Q1HR PRN Administration Throat Pain Sodium Chloride 10 ml 04/18/23 09:00 04/21/23 00:29 Sodium Chloride Flush 0.9% 10 Ml Syringe IVP 10 ml 0100,0900,1700 DENZEL Administration Throat Lozenges 1 lozenge 04/18/23 14:39 04/20/23 18:06 Benzocaine/Menthol Lozenge MM 1 lozenge Q1H PRN Administration soar thorat - Lab Result Lab results reviewed: Yes Fish Bone Diagrams: 04/21/23 04:46 04/21/23 04:46 - Diagnostic Imaging Results Diagnostic Imaging Results: Final report reviewed - Additional Planning Condition/Complexity: Stable My Orders: My Active Orders 04/20/23 09:00 amLODIPine [Norvasc] 5 mg PO DAILY 04/20/23 11:30 CUL, THROAT (STREP SCREEN) [RM] Routine 04/20/23 14:00 Acetaminophen [Tylenol] 650 mg PO TID 04/21/23 08:15 NPO [DIET] Pantoprazole [Protonix] 80 mg IV ONCE STA 04/21/23 09:00 PANTOPRAZOLE INFUSION (CONTINUOUS) Sodium Chloride 0.9% 100Ml [Normal Saline 0.9% 100Ml] 100 ml Pantoprazole [Protonix] 80 mg IV 10 mls/hr 04/22/23 05:00 BMP - BASIC METABOLIC PANEL [CHEM] DAILYLAB CBC [CBC - COMP BLD CT W/AUTO DIFF] [HEME] DAILYLAB 04/23/23 05:00 BMP - BASIC METABOLIC PANEL [CHEM] DAILYLAB CBC [CBC - COMP BLD CT W/AUTO DIFF] [HEME] DAILYLAB Time Spent: 31-60 minutes Subjective - Subjective Patient Reports: Feeling Better ( throat is better, concerns about dark stool) Nursing Reports: Other (Black stool noted) Objective Vital Signs: Vital Signs - 24 hr 04/20/23 04/21/23 16:00 00:23 Temperature 36.8 C 36.7 C Heart Rate [ 62 58 L Brachial] Respiratory 10 L 16 Rate Blood Pressure 112/98 H 107/55 L [Right Brachial artery] O2 Saturation 93 96 Oxygen O2 Source Room air I&O (Last 24 Hrs): Intake and Output Totals x24h 04/19/23 04/20/23 04/21/23 23:59 23:59 23:59 Intake Total 3460 2360.0 Output Total 2400 300 Balance 1060 2060.0 General: Alert, Oriented x3 HEENT: PERRLA, EOMI Neck: Supple, No JVD Neuro: Alert, CN 2-12 Grossly Intact Cardiovascular: Regular rate Respiratory: Chest non-tender, No respiratory distress Abdomen: Normal bowel sounds, Soft Extremities: No clubbing, No edema - Results Results: Laboratory Results WBC 2.6 x10^3/uL (4.8-10.8) L 04/21/23 04:46 RBC 3.92 10^6/uL (4.70-6.10) L 04/21/23 04:46 Hgb 11.8 g/dL (14.0-18.0) L 04/21/23 04:46 Hct 35.2 % (42.0-52.0) L 04/21/23 04:46 MCV 89.8 fL (80.0-94.0) 04/21/23 04:46 MCH 30.1 pg (27.0-31.0) 04/21/23 04:46 MCHC 33.5 g/dL (32.0-36.0) 04/21/23 04:46 RDW 14.1 % (12.0-15.0) 04/21/23 04:46 Plt Count 217 10^3/uL (130-450) 04/21/23 04:46 MPV 9.5 fL (7.4-11.4) 04/21/23 04:46 Neut # (Auto) 1.1 10^3/uL (1.5-6.6) L 04/21/23 04:46 Lymph # (Auto) 1.1 10^3/uL (1.5-3.5) L 04/21/23 04:46 [place] # (Auto) 0.3 10^3/uL (0.0-1.0) 04/21/23 04:46 Eos # (Auto) 0.1 10^3/uL (0.0-0.7) 04/21/23 04:46 Baso # (Auto) 0.0 10^3/uL (0.0-0.1) 04/21/23 04:46 Absolute Nucleated RBC 0.00 x10^3/uL 04/21/23 04:46 Nucleated RBC % 0.0 /100WBC 04/21/23 04:46 Sodium 137 mmol/L (135-145) 04/21/23 04:46 Potassium 4.1 mmol/L (3.5-4.5) 04/21/23 04:46 Chloride 107 mmol/L (101-111) 04/21/23 04:46 Carbon Dioxide 25 mmol/L (21-32) 04/21/23 04:46 Anion Gap 5.0 (6-13) L 04/21/23 04:46 BUN 17 mg/dL (6-20) 04/21/23 04:46 Creatinine 0.8 mg/dL (0.6-1.3) 04/21/23 04:46 Estimated GFR (MDRD) 93 (>89) 04/21/23 04:46 Glucose 165 mg/dL (74-104) H 04/21/23 04:46 Calcium 8.4 mg/dL (8.5-10.3) L 04/21/23 04:46 Total Bilirubin 0.7 mg/dL (0.2-1.0) 04/18/23 03:13 AST 30 IU/L (10-42) 04/18/23 03:13 ALT 34 IU/L (10-60) 04/18/23 03:13 Alkaline Phosphatase 92 IU/L (42-121) 04/18/23 03:13 C-Reactive Protein 10.4 mg/dL (<0.5) H 04/20/23 04:33 Total Protein 7.4 g/dL (6.4-8.9) 04/18/23 03:13 Albumin 4.5 g/dL (3.2-5.5) 04/18/23 03:13 Globulin 2.9 g/dL (2.1-4.2) 04/18/23 03:13 Albumin/Globulin Ratio 1.6 (1.0-2.2) 04/18/23 03:13 Lipase 18 U/L (11-82) 04/18/23 03:13 Urine Color YELLOW 04/18/23 06:35 Urine Clarity CLEAR (CLEAR) 04/18/23 06:35 Urine pH 6.0 PH (5.0-7.5) 04/18/23 06:35 Ur Specific [place] 1.010 (1.002-1.030) 04/18/23 06:35 Urine Protein NEGATIVE mg/dL (NEGATIVE) 04/18/23 06:35 Urine Glucose (UA) NEGATIVE mg/dL (NEGATIVE) 04/18/23 06:35 Urine Ketones NEGATIVE mg/dL (NEGATIVE) 04/18/23 06:35 Urine Occult Blood NEGATIVE (NEGATIVE) 04/18/23 06:35 Urine Nitrite NEGATIVE (NEGATIVE) 04/18/23 06:35 Urine Bilirubin NEGATIVE (NEGATIVE) 04/18/23 06:35 Urine Urobilinogen 0.2 (NORMAL) E.U./dL (NORMAL) 04/18/23 06:35 Ur Leukocyte Esterase NEGATIVE (NEGATIVE) 04/18/23 06:35 Ur Microscopic Review NOT INDICATED 04/18/23 06:35 Urine Culture Comments NOT INDICATED 04/18/23 06:35 - Procedures Procedures: Procedures EXCISION OF ASCENDING COLON, ENDO, DIAGN (01/30/17) RELEASE SMALL INTESTINE, PERCUTANEOUS ENDOSCOPIC APPROACH (08/11/17) Sepsis Event Note (H) - Evaluation Current Stage of Sepsis: Ruled out ABX Reporting Has patient been on IV antibiotics over the past 48 hours?: No Current Medications - Current Medications Current Medications: Active Medications Acetaminophen (Acetaminophen 325 Mg Tablet) 650 mg PO TID [facility] Last Admin: 04/21/23 13:55 Dose: Not Given Amlodipine Besylate (Amlodipine 5 Mg Tablet) 5 mg PO DAILY [facility] Last Admin: 04/21/23 08:36 Dose: Not Given Guaifenesin (Guaifenesin/Dextromethorphan 10 Ml Udc) 10 ml PO Q6HR PRN PRN Reason: Cough Last Admin: 04/20/23 21:28 Dose: 10 ml Pantoprazole Sodium 80 mg/ (Sodium Chloride) 100 mls @ 10 mls/hr IV .Q10H [facility] Stop: 04/22/23 08:59 Last Infusion: 04/21/23 14:20 Dose: 10 mls/hr Pantoprazole Sodium (Pantoprazole 40 Mg Tablet) 40 mg PO BID [facility] Phenol/Menthol (Phenol Throat [place] 177 Ml) 2 sprays MM Q1HR PRN PRN Reason: Throat Pain Last Admin: 04/21/23 08:47 Dose: 2 sprays Saliva Substitute (Saliva Stimulant [place] 44.3 Ml Bottle) 2 sprays PO Q4H PRN PRN Reason: Mouth Sore Pain Sodium Chloride (Sodium Chloride Flush 0.9% 10 Ml Syringe) 10 ml IVP PRN PRN PRN Reason: NEEDED PER PROVIDER ORDERS Sodium Chloride (Sodium Chloride Flush 0.9% 10 Ml Syringe) 10 ml IVP 0100,0900,1700 [facility] Last Admin: 04/21/23 16:36 Dose: Not Given Throat Lozenges (Benzocaine/Menthol Lozenge) 1 lozenge MM Q1H PRN PRN Reason: zia nino Last Admin: 04/21/23 08:37 Dose: 1 lozenge Simvastatin [Zocor] 40 mg PO QPM 09/25/14 lisinopriL [Lisinopril] 10 mg ORAL DAILY 09/25/14 Multivit-Min/Iron/Folic/Ggs550 [Hair, Skin and Nails Tablet] 1 each PO DAILY 04/11/19 Mv-Min/Folic/K1/Lycopen/Lutein [Centrum Silver Men Tablet] 1 each PO DAILY 04/11/19 Aspirin Chewable [St Juaquin Aspirin] 81 mg PO DAILY 07/07/20
[2023-04-21] MEDS: amLODIPine 5 MG TABLET PO SCH (08:36)
[2023-04-21] MEDS: PANTOPRAZOLE 80 MG in SODIUM CHLORIDE 0.9% 100ML 100 ML IV SCH ×2 (08:37→19:11)
[2023-04-21] MEDS: BENZOCAINE/MENTHOL LOZENGE MM PRN (08:37)
--- NOTE | 2023-04-21 13:33 | PROVIDER PROGRESS NOTE ---
Progress Note General Surgery Pre-op Note Mr Byers has developed an unexpected anemia and Guiaic + stools for which I have been asked to perform upper endoscopy. He is hemodynamically stable and has not required a blood transfusion. The concern is that he may have an undiagnosed UGI source for this anemia. Mr Byers did experience a traumatic NGT insertion episode with a transient period of epistaxis but this was brief and does not explain his Hgb drop from 15 g/dL to 11 g/dL since admission. I explained to Mr. Byers that the EGD would allow us to have an accurate diagnosis of the reason for his anemia prior to discharge from the hospital. Consent: Mr Byers has been counseled for the procedure (EGD), it's indications, risks, benefits and expected outcome as well as alternative therapies. We specifically discussed risks associated with anesthesia and placement of the endoscope. Torsten understands, agrees, and consents to the proposed operative strategy and requests that we proceed with the procedure as outlined in our discussion. Timothy Gage MD General Surgery Service
[2023-04-21] MEDS ORDERED: LIDOCAINE-MPF 2% 5 ML VIAL ONE (13:43)
[2023-04-21] MEDS ORDERED: PROPOFOL 200 MG/20 ML VIAL IVP ONE (13:43)
--- NOTE | 2023-04-21 13:52 | ANESTHESIA ---
Pre-Anesthesia VS, & Labs - Diagnosis anemia - Procedure EGD Vital Signs: Temp Pulse Resp BP Pulse Ox O2 Flow Rate 36.7 C 72 18 112/55 L 92 04/21/23 08:23 04/21/23 08:23 04/21/23 08:23 04/21/23 08:23 04/21/23 08:23 Height: 5 ft 10 in Weight (kg): 100 kg Body Mass Index: 31.6 BMI Classification: Obese - NPO >8 hours - Lab Results Current Lab Results: Laboratory Tests 04/21/23 04:46: Sodium 137, Potassium 4.1, Chloride 107, Carbon Dioxide 25, Anion Gap 5.0 L, BUN 17, Creatinine 0.8, Estimated GFR (MDRD) 93, Glucose 165 H, Calcium 8.4 L 04/21/23 04:46: WBC 2.6 L, RBC 3.92 L, Hgb 11.8 L, Hct 35.2 L, MCV 89.8, MCH 30.1, MCHC 33.5, RDW 14.1, Plt Count 217, MPV 9.5, Neut # (Auto) 1.1 L, Lymph # (Auto) 1.1 L, [place] # (Auto) 0.3, Eos # (Auto) 0.1, Baso # (Auto) 0.0, Absolute Nucleated RBC 0.00, Nucleated RBC % 0.0 04/20/23 04:33: C-Reactive Protein 10.4 H 04/20/23 04:33: Sodium 138, Potassium 3.8, Chloride 108, Carbon Dioxide 24, Anion Gap 6.0, BUN 17, Creatinine 0.9, Estimated GFR (MDRD) 81 L, Glucose 168 H, Calcium 8.0 L 04/20/23 04:33: WBC 3.7 L, RBC 4.19 L, Hgb 12.7 L, Hct 37.8 L, MCV 90.2, MCH 30.3, MCHC 33.6, RDW 14.4, Plt Count 232, MPV 9.0, Neut # (Auto) 2.0, Lymph # (Auto) 1.2 L, [place] # (Auto) 0.5, Eos # (Auto) 0.0, Baso # (Auto) 0.0, Absolute Nucleated RBC 0.00, Nucleated RBC % 0.0 04/19/23 04:44: Sodium 139, Potassium 4.0, Chloride 106, Carbon Dioxide 28, Anion Gap 5.0 L, BUN 13, Creatinine 0.8, Estimated GFR (MDRD) 93, Glucose 149 H, Calcium 8.6 04/19/23 04:44: WBC 3.3 L, RBC 4.43 L, Hgb 13.7 L, Hct 39.6 L, MCV 89.4, MCH 30.9, MCHC 34.6, RDW 14.4, Plt Count 215, MPV 9.2, Neut # (Auto) 1.7, Lymph # (Auto) 1.1 L, [place] # (Auto) 0.4, Eos # (Auto) 0.1, Baso # (Auto) 0.0, Absolute Nucleated RBC 0.00, Nucleated RBC % 0.0 04/18/23 03:13: Sodium 136, Potassium 4.6 H, Chloride 102, Carbon Dioxide 27, Anion Gap 7.0, BUN 16, Creatinine 1.0, Estimated GFR (MDRD) 72 L, Glucose 179 H, Calcium 9.7, Total Bilirubin 0.7, AST 30, ALT 34, Alkaline Phosphatase 92, Total Protein 7.4, Albumin 4.5, Globulin 2.9, Albumin/Globulin Ratio 1.6, Lipase 18 04/18/23 03:13: WBC 4.8, RBC 5.18, Hgb 15.6, Hct 46.5, MCV 89.8, MCH 30.1, MCHC 33.5, RDW 14.1, Plt Count 284, MPV 9.0, Neut # (Auto) 2.5, Lymph # (Auto) 1.8, [place] # (Auto) 0.4, Eos # (Auto) 0.1, Baso # (Auto) 0.0, Absolute Nucleated RBC 0 .00, Nucleated RBC % 0.0 Fish Bones: 04/21/23 04:46 04/21/23 04:46 Home Medications and Allergies Active Medications Acetaminophen (Acetaminophen 325 Mg Tablet) 650 mg PO TID [facility] Last Admin: 04/21/23 06:32 Dose: 650 mg Amlodipine Besylate (Amlodipine 5 Mg Tablet) 5 mg PO DAILY [facility] Last Admin: 04/21/23 08:36 Dose: Not Given Guaifenesin (Guaifenesin/Dextromethorphan 10 Ml Udc) 10 ml PO Q6HR PRN PRN Reason: Cough Last Admin: 04/20/23 21:28 Dose: 10 ml Pantoprazole Sodium 80 mg/ (Sodium Chloride) 100 mls @ 10 mls/hr IV .Q10H DENZEL Last Admin: 04/21/23 08:37 Dose: 10 mls/hr Phenol/Menthol (Phenol Throat [place] 177 Ml) 2 sprays MM Q1HR PRN PRN Reason: Throat Pain Last Admin: 04/21/23 08:47 Dose: 2 sprays Saliva Substitute (Saliva Stimulant [place] 44.3 Ml Bottle) 2 sprays PO Q4H PRN PRN Reason: Mouth Sore Pain Sodium Chloride (Sodium Chloride Flush 0.9% 10 Ml Syringe) 10 ml IVP PRN PRN PRN Reason: NEEDED PER PROVIDER ORDERS Sodium Chloride (Sodium Chloride Flush 0.9% 10 Ml Syringe) 10 ml IVP 0100,0900,1700 [facility] Last Admin: 04/21/23 08:37 Dose: 10 ml Throat Lozenges (Benzocaine/Menthol Lozenge) 1 lozenge MM Q1H PRN PRN Reason: zia nino Last Admin: 04/21/23 08:37 Dose: 1 lozenge Simvastatin [Zocor] 40 mg PO QPM 09/25/14 lisinopriL [Lisinopril] 10 mg ORAL DAILY 09/25/14 Multivit-Min/Iron/Folic/Xhk905 [Hair, Skin and Nails Tablet] 1 each PO DAILY 04/11/19 Mv-Min/Folic/K1/Lycopen/Lutein [Centrum Silver Men Tablet] 1 each PO DAILY 04/11/19 Aspirin Chewable [[place] Aspirin] 81 mg PO DAILY 07/07/20 Allergies/Adverse Reactions: Allergies Allergy/AdvReac Type Severity Reaction Status Date / Time No Known Drug Allergies Allergy Verified 04/18/23 02:36 Anes History & Medical History - Anesthetic History Anesthesia Complications: reports: No previous complications Family history of Anesthesia Complications: Denies Family history of Malignant Hyperthermia: Denies - Medical History Cardiovascular: reports: Hypertension, High cholesterol Pulmonary: reports: None, Sleep apnea, CPAP use Gastrointestinal: reports: Colon polyps Urinary: reports: Benign prostate hypertrophy, Incontinence Neuro: reports: Other Musculoskeletal: reports: None Endocrine/Autoimmune: reports: None Blood Disorders: reports: None Skin: reports: None Smoking Status: Never smoker - Surgical History General: reports: Colonoscopy Urologic: reports: Prostatic surgery Exam General: Alert, Oriented x3, Cooperative Dental: WNL Mouth Openin Fingerbreadth Neck Mobility: Normal Mallampati classification: II Thyromental Distance: 4-6 cm Respiratory: Lungs clear Cardiovascular: Regular rate Plan Anesthesia Type: General, Total IV Consent for Procedure(s) Verified and Reviewed: Yes Code Status: Attempt Resuscitation ASA classification: 2-Mild systemic disease Is this case an emergency?: No
--- NOTE | 2023-04-21 14:15 | PROVIDER PROGRESS NOTE ---
Progress Note General Surgery Brief Procedure Note - See "Provation" for details. EGD identified proximal gastric inflammation with mucosal friability. No active bleeding seen and esophagus and duodenum were normal. This finding explains his recent decrease in Hgb. Assessment: Proximal gastritis Recomendation: Avoid gastric irritants; PPI for 4-6 weeks Timothy Gage MD General Surgery Service
--- NOTE | 2023-04-21 14:45 | ANESTHESIA POST OP EVALUATION ---
Anesthesia Post Eval - Post Anesthesia Eval Vitals: Last Vital Signs Temp 36.4 C L 04/21/23 14:34 Pulse 53 L 04/21/23 14:34 Resp 18 04/21/23 14:34 BP 113/59 L 04/21/23 14:34 Pulse Ox 94 04/21/23 14:34 O2 Flow Rate CV Function Including HR & BP: Stable Pain Control: Satisfactory Nausea & Vomiting: Negative Mental Status: Baseline Respiratory Status: Airway Patent Hydration Status: Satisfactory Anesthesia Complications: None
[2023-04-22] MEDS: SODIUM CHLORIDE FLUSH 0.9% 10 ML SYRINGE IVP SCH ×3 (04:46→16:04)
[2023-04-22] MEDS: PANTOPRAZOLE 80 MG in SODIUM CHLORIDE 0.9% 100ML 100 ML IV SCH (05:15)
[2023-04-22] MEDS ORDERED: SODIUM CHLORIDE 0.9% 250 ML IV ONE (05:21)
[2023-04-22] MEDS: ACETAMINOPHEN 325 MG TABLET PO SCH ×3 (05:23→21:09)
[2023-04-22 05:59] LABS: BASOPHILS % (AUTO) 0.9 %; EOSINOPHILS % (AUTO) 7.6 %; HCT - HEMATOCRIT 35.1 % (42.0-52.0); HGB - HEMOGLOBIN 11.9 g/dL (14.0-18.0); LYMPHOCYTES % (AUTO) 45.8 %; MEAN CORPUSCULAR HEMOGLOBIN 30.1 pg (27.0-31.0); MEAN CORPUSCULAR HGB CONC 33.9 g/dL (32.0-36.0); MEAN CORPUSCULAR VOLUME 88.9 fL (80.0-94.0); MEAN PLATELET VOLUME 9.5 fL (7.4-11.4); MONOCYTES % (AUTO) 11.6 %; NEUTROPHILS % (AUTO) 33.7 %; PLT - PLATELET COUNT 227 10^3/uL (130-450); RED BLOOD COUNT 3.95 10^6/uL (4.70-6.10); WHITE BLOOD COUNT 2.3 x10^3/uL (4.8-10.8)
[2023-04-22 06:11] LABS: ABNORMAL LYMPHS % (MANUAL) 0 %; CALCIUM 8.2 mg/dL (8.5-10.3); CREATININE 0.8 mg/dL (0.6-1.3); POTASSIUM 3.9 mmol/L (3.5-4.5)
[2023-04-22 06:38] LABS: BAND NEUTROPHILS % (MANUAL) 1 %; BASOPHILS % (MANUAL) 1 %; DIFFERENTIAL COMMENT MANUAL DIFFERENTIAL; EOSINOPHILS # (MANUAL) 0.2 10^3/uL (0-0.7); LYMPHOCYTES # (MANUAL) 1.1 10^3/uL (1.5-3.5); LYMPHOCYTES % (MANUAL) 46 %; MONOCYTES # (MANUAL) 0.3 10^3/uL (0.0-1.0); NEUTROPHILS # (MANUAL) 0.7 10^3/uL (1.5-6.6); PLATELET ESTIMATE, MANUAL NORMAL (130-450,000) (NORMAL); RBC MORPHOLOGY (MULTIPLE) NORMAL APPEARANCE (NORMAL)
[2023-04-22] MEDS: PANTOPRAZOLE 40 MG TABLET PO SCH ×2 (08:41→21:08)
[2023-04-22] MEDS: amLODIPine 5 MG TABLET PO SCH (08:41)
[2023-04-22] MEDS ORDERED: MAG HYDROX/AL HYDROX/SIMETH 30 ML UDC PO PRN (12:27)
[2023-04-22] MEDS: BENZOCAINE/MENTHOL LOZENGE MM PRN (13:09)
[2023-04-22] MEDS: PHENOL THROAT SPRAY 177 ML MM PRN (13:09)
--- NOTE | 2023-04-22 14:41 | PROVIDER PROGRESS NOTE ---
Assessment/Plan - Problem List (1) Gastritis Assessment/Plan: As per findings on EGD done yesterday 04/21/23, and Dr. Gage recommended PPI twice a day for 4-6 weeks He was given PPI drip for 24h Plan: Started on PPI oral today and plan 4-6 weeks PPI Stop the prophylactic baby ASA he was on. I discussed this with pt today. I will also add QID Sucralfate (2) Odynophagia Assessment/Plan: To yesterday's provider it seemed like a "sore throat", so strep throat culture was ordered and is still pending For me today he describes it as pain in his lower neck when he swallows. He said it started after the ng tube was placed. I spoke to Dr Gage today who did the EGD and he advised to try Mylanta, which was ordered and it had no effect Plan: I will order QID Sucralfate Await Strep throat culture (3) Acute anemia Assessment/Plan: Hb 15 on admission, then dropped to 11, and he had black stool, which was guaic positive Given PPI drip for 24h Surgery Dr[address] Gage performed EGD, found gastritis, and recommended PPI twice a day for 4-6 weeks Plan: Monitor Hgb daily, transfuse if <7 or if <8 and unstable (4) Orthostatic hypotension Assessment/Plan: Today he feels fatigued which could be from the anemia. I ordered orthostatic vital sign checks and they are very abnormal (supine BP 121>> standing BP 88) Plan: He is not yet ready for discharge I will adjust meds that drop his BP and watch the hemoglobin. He may need another transfusion (5) Small bowel obstruction Assessment/Plan: Resolved and he is passing gas and stool Plan: Cont on soft, low fiber diet (6) HTN (hypertension) Qualifiers: Hypertension type: essential hypertension Assessment/Plan: Stable resting BP Plan: Continue with amlodipine but I will place parameters for holding and decrease the dose due to orthostasis - Current Meds Current Meds: Current Medications Generic Name Dose Route Start Last Admin Trade Name Freq PRN Reason Stop Dose Admin Acetaminophen 650 mg 04/20/23 14:00 04/22/23 13:09 Acetaminophen 325 Mg Tablet PO 650 mg TID DENZEL Administration Al Hydroxide/Mg Hydroxide 30 ml 04/22/23 12:27 04/22/23 13:09 Mag Hydrox/Al Hydrox/Simeth 30 Ml Udc PO 30 ml Q4HR PRN Administration INDIGESTION Amlodipine Besylate 5 mg 04/20/23 09:00 04/22/23 08:41 Amlodipine 5 Mg Tablet PO 5 mg DAILY DENZEL Administration Guaifenesin 10 ml 04/19/23 07:37 04/20/23 21:28 Guaifenesin/Dextromethorphan 10 Ml Udc PO 10 ml Q6HR PRN Administration Cough Pantoprazole Sodium 40 mg 04/22/23 09:00 04/22/23 08:41 Pantoprazole 40 Mg Tablet PO 40 mg BID DENZEL Administration Phenol/Menthol 2 sprays 04/19/23 16:05 04/22/23 13:09 Phenol Throat [place] 177 Ml MM 2 sprays Q1HR PRN Administration Throat Pain Sodium Chloride 10 ml 04/18/23 09:00 04/22/23 08:41 Sodium Chloride Flush 0.9% 10 Ml Syringe IVP Not Given 0100,0900,1700 DENZEL Throat Lozenges 1 lozenge 04/18/23 14:39 04/22/23 13:09 Benzocaine/Menthol Lozenge MM 1 lozenge Q1H PRN Administration zia nino - Lab Result Fish Bone Diagrams: 04/22/23 05:00 04/22/23 05:00 - Additional Planning My Orders: My Active Orders 04/22/23 Evaluate and Treat PT [PT] Routine 04/22/23 09:18 Orthostatic [Vital Signs - Orthostatic] [RC] QSHIFT 04/22/23 12:27 Mag Hydrox/Al Hydrox/Simeth [Mylanta Plus] 30 ml PO Q4HR PRN 04/22/23 16:00 Sucralfate [Carafate] 1 gm PO 0700,1100,1600,2200 04/23/23 05:00 HGB - HEMOGLOBIN [HEME] DAILYLAB Subjective - Subjective Patient Reports: Pain (10/10 pain in lower neck when he swallows) Objective Vital Signs: Vital Signs - 24 hr 04/21/23 04/21/23 04/21/23 14:45 14:59 16:00 Temperature 36.6 C 36.6 C 35.9 C L Heart Rate [ 50 L 53 L 58 L Brachial] Respiratory 18 18 18 Rate Blood Pressure 123/64 116/70 142/68 H [Right Brachial artery] O2 Saturation 95 93 97 04/22/23 04/22/23 00:00 08:31 Temperature 36.5 C 36.4 C L Heart Rate [ 58 L 70 Brachial] Respiratory 18 18 Rate Blood Pressure 108/58 L 124/60 [Right Brachial artery] O2 Saturation 91 L 93 Oxygen O2 Source Room air I&O (Last 24 Hrs): Intake and Output Totals x24h 04/20/23 04/21/23 04/22/23 23:59 23:59 23:59 Intake Total 2360.0 7562.062 9616 Output Total 300 500 325 Balance 2060.0 461.042 3859 General: Alert, Oriented x3 HEENT: Mucous membr. moist/pink Neck: Supple, No JVD Neuro: Alert, Non Focal Cardiovascular: Regular rate, No murmurs Respiratory: No respiratory distress Abdomen: Normal bowel sounds, Soft, No tenderness Extremities: No clubbing, No edema, No tenderness/swelling - Results Results: Laboratory Results WBC 2.3 x10^3/uL (4.8-10.8) L 04/22/23 05:00 RBC 3.95 10^6/uL (4.70-6.10) L 04/22/23 05:00 Hgb 11.9 g/dL (14.0-18.0) L 04/22/23 05:00 Hct 35.1 % (42.0-52.0) L 04/22/23 05:00 MCV 88.9 fL (80.0-94.0) 04/22/23 05:00 MCH 30.1 pg (27.0-31.0) 04/22/23 05:00 MCHC 33.9 g/dL (32.0-36.0) 04/22/23 05:00 RDW 14.0 % (12.0-15.0) 04/22/23 05:00 Plt Count 227 10^3/uL (130-450) 04/22/23 05:00 MPV 9.5 fL (7.4-11.4) 04/22/23 05:00 Neut # (Auto) Not Reportable 04/22/23 05:00 Lymph # (Auto) Not Reportable 04/22/23 05:00 [place] # (Auto) Not Reportable 04/22/23 05:00 Eos # (Auto) Not Reportable 04/22/23 05:00 Baso # (Auto) Not Reportable 04/22/23 05:00 Absolute Nucleated RBC Not Reportable 04/22/23 05:00 Total Counted 100 04/22/23 05:00 Band Neuts % (Manual) 1 % (0-10) 04/22/23 05:00 Abnorm Lymph % (Manual) 0 % 04/22/23 05:00 Nucleated RBC % Not Reportable 04/22/23 05:00 Neutrophils # (Manual) 0.7 10^3/uL (1.5-6.6) L 04/22/23 05:00 Lymphocytes # (Manual) 1.1 10^3/uL (1.5-3.5) L 04/22/23 05:00 Monocytes # (Manual) 0.3 10^3/uL (0.0-1.0) 04/22/23 05:00 Eosinophils # (Manual) 0.2 10^3/uL (0-0.7) 04/22/23 05:00 Basophils # (Manual) 0.0 10^3/uL (0-0.1) 04/22/23 05:00 Differential Comment MANUAL DIFFERENTIAL 04/22/23 05:00 Platelet Estimate NORMAL (130-450,000) (NORMAL) 04/22/23 05:00 RBC Morph Micro Appear NORMAL APPEARANCE (NORMAL) 04/22/23 05:00 Sodium 140 mmol/L (135-145) 04/22/23 05:00 Potassium 3.9 mmol/L (3.5-4.5) 04/22/23 05:00 Chloride 109 mmol/L (101-111) 04/22/23 05:00 Carbon Dioxide 26 mmol/L (21-32) 04/22/23 05:00 Anion Gap 5.0 (6-13) L 04/22/23 05:00 BUN 15 mg/dL (6-20) 04/22/23 05:00 Creatinine 0.8 mg/dL (0.6-1.3) 04/22/23 05:00 Estimated GFR (MDRD) 93 (>89) 04/22/23 05:00 Glucose 160 mg/dL (74-104) H 04/22/23 05:00 Calcium 8.2 mg/dL (8.5-10.3) L 04/22/23 05:00 Total Bilirubin 0.7 mg/dL (0.2-1.0) 04/18/23 03:13 AST 30 IU/L (10-42) 04/18/23 03:13 ALT 34 IU/L (10-60) 04/18/23 03:13 Alkaline Phosphatase 92 IU/L (42-121) 04/18/23 03:13 C-Reactive Protein 10.4 mg/dL (<0.5) H 04/20/23 04:33 Total Protein 7.4 g/dL (6.4-8.9) 04/18/23 03:13 Albumin 4.5 g/dL (3.2-5.5) 04/18/23 03:13 Globulin 2.9 g/dL (2.1-4.2) 04/18/23 03:13 Albumin/Globulin Ratio 1.6 (1.0-2.2) 04/18/23 03:13 Lipase 18 U/L (11-82) 04/18/23 03:13 Urine Color YELLOW 04/18/23 06:35 Urine Clarity CLEAR (CLEAR) 04/18/23 06:35 Urine pH 6.0 PH (5.0-7.5) 04/18/23 06:35 Ur Specific [place] 1.010 (1.002-1.030) 04/18/23 06:35 Urine Protein NEGATIVE mg/dL (NEGATIVE) 04/18/23 06:35 Urine Glucose (UA) NEGATIVE mg/dL (NEGATIVE) 04/18/23 06:35 Urine Ketones NEGATIVE mg/dL (NEGATIVE) 04/18/23 06:35 Urine Occult Blood NEGATIVE (NEGATIVE) 04/18/23 06:35 Urine Nitrite NEGATIVE (NEGATIVE) 04/18/23 06:35 Urine Bilirubin NEGATIVE (NEGATIVE) 04/18/23 06:35 Urine Urobilinogen 0.2 (NORMAL) E.U./dL (NORMAL) 04/18/23 06:35 Ur Leukocyte Esterase NEGATIVE (NEGATIVE) 04/18/23 06:35 Ur Microscopic Review NOT INDICATED 04/18/23 06:35 Urine Culture Comments NOT INDICATED 04/18/23 06:35 - Procedures Procedures: Procedures EXCISION OF ASCENDING COLON, ENDO, DIAGN (01/30/17) RELEASE SMALL INTESTINE, PERCUTANEOUS ENDOSCOPIC APPROACH (08/11/17) Sepsis Event Note (H) - Evaluation Current Stage of Sepsis: Ruled out
[2023-04-22] MEDS: SUCRALFATE 1 GM/10 ML UDC PO SCH ×2 (16:04→21:09)
[2023-04-23] MEDS: SODIUM CHLORIDE FLUSH 0.9% 10 ML SYRINGE IVP SCH ×2 (00:45→08:35)
[2023-04-23 06:05] LABS: CALCIUM 8.5 mg/dL (8.5-10.3); CREATININE 0.9 mg/dL (0.6-1.3); POTASSIUM 4.1 mmol/L (3.5-4.5)
[2023-04-23] MEDS: ACETAMINOPHEN 325 MG TABLET PO SCH (06:17)
[2023-04-23] MEDS: SUCRALFATE 1 GM/10 ML UDC PO SCH ×2 (06:18→13:20)
--- NOTE | 2023-04-23 07:57 | Discharge Plan ---
Discharge Plan Problem Reviewed?: Yes Disposition: Home, Self Care Condition: Stable Prescriptions: Sucralfate [Carafate] 1 gm PO 0700,1100,1600,2200 #28 ea Pantoprazole [Protonix] 40 mg PO BID #60 tab Diet: Soft Activity Restrictions: Activity as Tolerated Assistance Devices: Walker Weight Bearing: Full Weight Instruction Topics: Gastritis Tx, Lysis of Adhesions Health Concerns: You were hospitalized to manage a recurrent small bowel obstruction. You have recurrent obstructions due to "adhesions" in your abdominal cavity and these even needed to be "removed" with "adhesiolysis" in 2018. You may need this again if bowel obstructions keep occurring. Then we found that you to be anemia and you had blood in your bowel movements, thus a scope of the stomach was done which showed you have gastritis (an inflamed stomach). This is treated like having a stomach ulcer with a medicine called Protonix, which you should take for the next 4-6 weeks. Also, the insertion of the first naso-gastric tube caused some nasal bleeding and then painful swallowing. This is treated by taking a week of a medicine called Suc ralfate, to coat the inflamed area, which will also help heal the gastritis. Stop taking the daily aspirin going forward, which added to the inflammation. You should now be eating a soft and easily digestible diet. Stop taking aspirin but resume all your other pre-hospital medications. All new medications were electronically sent to your [facility] in [place]. Plan of Treatment: As above. Care Goals: Improvement in symptoms and stabilization are the goals. Assessment: The patient understands and is agreeable with the plan. Additional Instructions or Follow Up instructions: If you have new or worsening symptoms, call your Primary Care Provider for advice, or come to the ER. No Smoking: If you smoke, Please STOP! Call for help. Follow-up with: Maya Jin ARNP [Provider Admit Priv/Credential] -
[2023-04-23] MEDS: PANTOPRAZOLE 40 MG TABLET PO SCH (08:35)
[2023-04-23] MEDS ORDERED: amLODIPine 5 MG TABLET PO SCH (09:00)
[2023-04-23 10:07] VITALS: BP 131/72; O2SAT 98
--- NOTE | 2023-04-23 12:14 | DISCHARGE SUMMARY ---
Discharge Summary Admit Date: 04/18/23 Discharge Date: 04/23/23 Discharging Provider: Dr Jossie Giordano Primary Care Provider: JEN Jin Condition at Discharge: Stable Discharge Disposition: 01 Home, Self Care - HPI History of Present Illness: An 83 years old male with history of hypertension, hyperlipidemia, recurrent small bowel obstruction, with no history of abdominal surgery Presented to the ED due to severe abdominal pain for 1 day, unable to pass gas, report similar symptoms as previous small bowel obstructions. Patient reports this is the fifth time of the same condition, his last small bowel obstruction was 3 years ago. The previous episode was on managed conservatively with NG tube suction. Patient reports he was not given a diagnosis on why he has recurrent small bowel obstruction. He only recalled in 1965 he was told that he had hernia. Patient reports he eat out often. After his 3 years ago, he really felt depressed. He has 1 son lives in an RV on his property, another son lives in town. Both are single, somewhat supportive. In the ED, patient vitals were within normal limits, labs are unremarkable. CT abdomen showsSmall bowel obstruction, transition point in the right lower quadrant. Trace fluid next to the liver no free air. Small bladder diverticuli, diverticulosis. Benign right adrenal adenoma ED provider discussed with on-call surgeon who recommended continued conservative treatment, NG tube was placed for GI decompression - HOSPITAL COURSE Hospital Course: (1) Small bowel obstruction This is his 6th SBO. He did have lysis of adhesions in 2018, but this SBO recurred. It resolved with conservative management (ng decompression and Gastrografin challenge) and he began passing gas and stool and a diet was started. (2) Acute anemia Hgb was 15 on admission, then dropped rapidly to 11, and he had black stool, which was guaic positive. He underwent a W/U (see #3). He did not need blood transfused. The Hgb was 12.6 at discharge. (3) Gastritis Gastritis was found on EGD done 04/21/23. He was given a PPI drip for 24 hrs, and Dr. Gage then recommended oral PPI twice a day for 4-6 weeks. He was told to stop taking daily baby aspirin. (4) Odynophagia He first complained of a "sore throat", so a Strep throat culture was ordered and is still pending. The next day he described the pain in his lower neck, worse when he swallows. He said it started after the ng tube was placed and that gave him a nose bleed. Dr Gage advised Mylanta, which was ordered and it had no effect. Then po Sucralfate was ordered, which helped, and he was discharged to take this QID for a week, and to stay on a very soft diet. (5) Orthostatic hypotension On the expected day of discharge, he felt marked fatigued. Orthostatic vital signs were checked and were very abnormal (supine BP 121>> standing BP 88). This delayed his discharge by a day. He was evaluated by PT and felt to be at his baseline. (6) HTN (hypertension) Stable resting BP, but he needed parameters for holding BP meds due to orthostasis - ALLERGIES Allergies/Adverse Reactions: Allergies Allergy/AdvReac Type Severity Reaction Status Date / Time No Known Drug Allergies Allergy Verified 04/18/23 02:36 - MEDICATIONS Home Medications: Ambulatory Orders Medication Instructions Recorded Confirmed Simvastatin [Zocor] 40 mg PO QPM 09/25/14 04/18/23 lisinopriL [Lisinopril] 10 mg ORAL DAILY 09/25/14 04/18/23 Multivit-Min/Iron/Folic/Smn575 1 each PO DAILY 04/11/19 04/18/23 [Hair, Skin and Nails Tablet] Mv-Min/Folic/K1/Lycopen/Lutein 1 each PO DAILY 04/11/19 04/18/23 [Centrum Silver Men Tablet] Hyoscyamine Sulfate [Levsin-Sl] 0.125 mg SL Q6H PRN #30 tab 09/24/21 04/18/23 Pantoprazole [Protonix] 40 mg PO BID #60 tab 04/23/23 Sucralfate [Carafate] 1 gm PO 0700,1100,1600,2200 #28 ea 04/23/23 - PHYSICAL EXAM AT DISCHARGE General Appearance: positive: No acute distress, Alert, Other (Elderly obese male, male pattern baldness) Eyes Bilateral: positive: Normal inspection (except lid lag on one side), EOMI ENT: positive: ENT inspection nml, No signs of dehydration Neck: positive: Nml inspection, No JVD Respiratory: positive: No respiratory distress, Breath sounds nml Cardiovascular: positive: Regular rate & rhythm, No murmur Abdomen: positive: Non-tender, No distention, Other (Obese) Skin: positive: Warm, Dry Extremities: positive: Non-tender, No pedal edema Neurologic/Psychiatric: positive: Oriented x3, Motor nml - LABS Result Diagrams: 04/23/23 05:32 04/23/23 05:32 - DIAGNOSTIC IMAGING Diagnostic Imaging Results: Final report reviewed - SEPSIS Current Stage of Sepsis: Ruled out - FOLLOW UP Follow Up: See PCP in 1-2 weeks after discharge. - TIME SPENT Time Spent in Discharge (Minutes): 40
== END 2023-04-23 14:00 | disposition home or self-care (01) | DRG 389 ==
LOC: ED 02:28 → MS2 08:56
PROVIDERS: ADMIT Internal Medicine; ATTEND Internal Medicine
PROC: 0DJ08ZZ Inspection of Upper Intestinal Tract, Via Natural or Artificial Opening Endoscopic (ICD-10-PCS; principal; 2023-04-21 13:30)
DX: K56.609 Unspecified intestinal obstruction, unspecified as to partial versus complete obstruction (principal); K56.50 Intestinal adhesions [bands], unspecified as to partial versus complete obstruction; K92.1 Melena; D64.9 Anemia, unspecified; K29.70 Gastritis, unspecified, without bleeding; R13.10 Dysphagia, unspecified; I95.1 Orthostatic hypotension; I10 Essential (primary) hypertension; E66.9 Obesity, unspecified; Z68.31 Body mass index [BMI] 31.0-31.9, adult; Z87.891 Personal history of nicotine dependence; E86.0 Dehydration; N40.1 Benign prostatic hyperplasia with lower urinary tract symptoms; N39.498 Other specified urinary incontinence
CPT/HCPCS: 36415; 43753; 74177; 74250; 80048; 80053; 81003; 82272; 83690; 85018; 85025; 86140; 87070; 96374; 96375; 96376; 97116; 97162; 99285; A9270; J1170; J1650; Q9963; Q9967; 81001; 87086

== ENCOUNTER 2023-09-24 09:00 | Outpatient (CLI) | payer MEDICARE, OTHER ==
--- NOTE | 2023-09-24 16:13 | XRAY Report ---
PROCEDURE: Ribs w/PA Chest 3+V RT INDICATIONS: RIB PAIN, RIGHT SIDED FROM UNSPECIFIED FALL TECHNIQUE: 2 views of the ribs were acquired, along with a single view chest. COMPARISON: None. FINDINGS: Surgical changes and devices: None. Bones and chest wall: No fractures or dislocations. No suspicious bony lesions. Overlying soft tis sues appear unremarkable. Lungs and pleura: No pleural effusions or pneumothorax. Lungs appear clear. Mediastinum: Mediastinal contours appear normal. Heart size is normal. IMPRESSION: No displaced rib fracture or pneumothorax. Reviewed by: Subhash Barnes MD on 09/24/2023 3:11 PM AKDT Approved by: Subhash Barnes MD on 09/24/2023 3:11 PM AKDT Station ID: [id number]
== END 2023-09-24 09:15 | disposition home or self-care (01) ==
LOC: DI.N 09:00
PROVIDERS: ATTEND Registered Nurse
DX: R07.81 Pleurodynia (principal)

== ENCOUNTER 2024-01-28 15:06 | Outpatient (CLI) | payer MEDICARE, OTHER ==
--- NOTE | 2024-01-28 20:38 | XRAY Report ---
PROCEDURE: Foot 1-2V RT INDICATIONS: PAIN IN RIGHT FOOT TECHNIQUE: 2 views of the foot were acquired. COMPARISON: 01/19/2021. FINDINGS: Bones: No acute fractures or dislocations. Chronic fracture deformity of the fifth proximal phalanx. Mild diffuse interphalangeal and first MTP joint degeneration. No suspicious bony lesions. Soft tissues: No tibiotalar joint effusion. Achilles tendon appears normal. IMPRESSION: No acute bony abnormality. Mild degenerative changes of the foot. Reviewed by: Tim Kirk MD on 01/28/2024 8:37 PM PDT Approved by: Tim Kirk MD on 01/28/2024 8:37 PM PDT Station ID: [id number]
== END 2024-01-28 23:59 | disposition home or self-care (01) ==
LOC: DI.N 15:06
PROVIDERS: ATTEND Physician Assistant Medical
DX: M19.071 Primary osteoarthritis, right ankle and foot (principal)

== ENCOUNTER 2024-03-17 11:25 | Outpatient (CLI) | payer MEDICARE, OTHER ==
--- NOTE | 2024-03-17 11:57 | Sleep Patient Instructions ---
Sleep Center Visit Summary - Patient Visit Information Reason for Visit: Annual follow-up - Patient Instructions Additional Instructions: You will continue with CPAP therapy with pressure set at 16-20 cmH2O. A supply prescription will be updated with your DME supplier. We encourage you to continue to try to lose weight. Please follow up with the sleep care office in 1 year. - Clinic Information Contact: [facility] [address] [place] [address] [email or web address] T: [phone]
--- NOTE | 2024-03-17 12:14 | SLEEP CARE CONSULTATION ---
Information from patient questionnaire entered by Addie Barnett. I have reviewed and concur with the information entered by Addie Barnett. This document represents the service I personally performed and the decisions made by , Maya Jin ARNP. History of Present Illness Service Date and Time: 03/17/2024 1125 Previous diagnosis: Moderate, Obstructive Sleep Apnea-Hypopnea Syndrome AHI: 21.5 (in 2018)(34.9 in 2009) Reason for follow up: annual (last seen 02/2023) Equipment type: CPAP (DREAMSTATION (not affected by recall); s/u 09/2020, SD CARD NEEDED) Equipment obtained from: Other ([facility]: getting supplies as needed) Mask style: Nasal (Dreamwear, medium) Mask brand: Respironics Backup mask available: Yes Last cushion change: 2 weeks Prior sleep studies: Yes Year and Where: 2017 and [address] - [facility] Type of Sleep Study: Polysomnography HPI additional information: CATIA FROST was diagnosed to have moderate, AHI 21.5, obstructive sleep apnea-hypopnea syndrome and returned today for CPAP therapy annual follow-up. Sleep Study - Results Type of Sleep Study: Polysomnography Prior sleep studies: Yes Year and Where: 2017 and [address] - [facility] CPAP Compliance Data - Data Reviewed with Patient Average duration of nightly device use: 4 hours 32 minutes Compliance rate %: 47.2 (149/180 days used (82.8%)) Current pressure setting (cmH2O): 16-20 (avg 17) Humidity settin Heated hose settin Average residual AHI: 27.6 Central apnea: 4.3 Obstructive apnea: 3.8 Hypopnea: 19.5 Average large leak: 2 hours 3 mins Subjective Missed days of use due to: reports: illness, other (having hard time adjust to new bed) Patient concerns: reports: dry mouth, nose, throat (not often). denies: aerophagia, mask discomfort, air blowing in eyes, mask leak noise, condensation in mask/hose, nasal congestion, epistaxis Observed to snore while using device: No Current pressure setting perceived as: comfortable On therapy, patient: reports: sleeping better, awakening more refreshed, being more awake and alert during the day, more rested overall, other (trying to adjust to new bed, more tired and not sleeping much). denies: drowsiness while driving Initial [place] Sleepiness Scale score: 8 (in 2009) Current [place] Sleepiness Scale score: 18 (03/17/24) Allergies and Home Medications Known drug allergies: No Drug allergies reviewed: Yes Home medication list reviewed: Yes (no changes) Allergy and home medication list: Allergies No Known Drug Allergies Allergy Review of Systems Review of systems same as previous: Yes (no changes) Physical Exam Vital signs obtained and entered by: Maya Adan NP Blood Pressure: 143/74 Cuff size: long (left arm) Heart Rate: 89 O2 Saturation: 97 Height: 5 ft 10 in Weight: 212 lb 12.8 oz Body Mass Index: 30.5 BMI Classification: Obese Impression and Plan 1. Obstructive Sleep Apnea-Hypopnea Syndrome, moderate, with fair treatment compliance and fair apnea control with elevated residual AHI. On CPAP therapy, the patient has better sleep quality and is more rested overall. Darek has been having difficulty with using his CPAP because he got a new bed and it is just not comfortable for him to sleep in. He has been used to sleeping in a recliner until he got this but about 2 weeks ago. He has not been able to sleep well, get comfortable and it has affected his CPAP use. His residual AHI is elevated but he has an average large leak of 2 hours and most of the residual AHI is hypopneas. Because of his CPAP set at higher pressures, I recommended he try a full face mask. He likes his nasal cushion, DreamWear. He did try a full face during a titration study but says the mask made the bridge of his nose really sore and so he did not want to continue with a full face mask. I showed him a hybrid full face which does not go over the bridge of the nose and he liked how it fit. I will write for a mask refitting for a hybrid like the Dreamwear full face mask for him to try to get a better fitted mask and hopefully reduce his large average leaks. Patient's apnea severity and rationale for treatment to reduce apnea, improve sleep quality and reduce cardiovascular and cerebrovascular events was reviewed. I also reviewed the benefit of consistent device use of CPAP for hypertension. 2. Obesity, unspecified. Currently patients BMI is 30.5. Obesity increases the risk of apnea, CPAP pressure requirements and overall health risks especially cardiovascular and diabetes. Thus patient is advised to lose weight. * Continue auto CPAP pressure at 16-20 cmH2O * Mask refitting for hybrid full face mask (Dreamwear) * Update supply prescription * Notify me if snoring with mask or feeling that the pressure is too much or too little * Attempt to lose weight * Call this office if any problems using CPAP * Return for follow up in 12 months, or sooner if concerns arise Counseling Topics: Spare mask, Weight loss health impact Prescriptions: Device supplies Follow up with Sleep Care in: 1 year Visit Type: In Office Time Spent with Patient (minutes): 29 Provider Statement: I spent 100% of the Face to Face Visit with the patient with greater than 50% spent counseling the patient and coordination of care.
[2024-03-17 12:15] VITALS: BP 143/74; O2SAT 97
== END 2024-03-17 11:26 | disposition home or self-care (01) ==
LOC: SC 11:25
PROVIDERS: ATTEND Nurse Practitioner Family
DX: G47.33 Obstructive sleep apnea (adult) (pediatric) (principal); E66.9 Obesity, unspecified; Z68.30 Body mass index [BMI] 30.0-30.9, adult
CPT/HCPCS: 99213; G0463; 99212

== ENCOUNTER 2024-08-21 18:22 | Inpatient (IN) ==
[2024-08-21 19:08] LABS: BASOPHILS % (AUTO) 0.8 %; EOSINOPHILS # (AUTO) 0.1 10^3/uL (0.0-0.7); EOSINOPHILS % (AUTO) 1.8 %; HCT - HEMATOCRIT 40.3 % (42.0-52.0); HGB - HEMOGLOBIN 13.2 g/dL (14.0-18.0); LYMPHOCYTES # (AUTO) 1.3 10^3/uL (1.5-3.5); MEAN CORPUSCULAR HEMOGLOBIN 27.4 pg (27.0-31.0); MEAN CORPUSCULAR HGB CONC 32.8 g/dL (32.0-36.0); MEAN CORPUSCULAR VOLUME 83.6 fL (80.0-94.0); MEAN PLATELET VOLUME 8.5 fL (7.4-11.4); MONOCYTES # (AUTO) 0.3 10^3/uL (0.0-1.0); MONOCYTES % (AUTO) 8.4 %; NEUTROPHILS # (AUTO) 2.1 10^3/uL (1.5-6.6); NEUTROPHILS % (AUTO) 54.5 %; PLT - PLATELET COUNT 382 10^3/uL (130-450); RED BLOOD COUNT 4.82 10^6/uL (4.70-6.10); RED CELL DISTRIBUTION WIDTH 16.1 % (12.0-15.0); WHITE BLOOD COUNT 3.9 x10^3/uL (4.8-10.8)
[2024-08-21 19:21] LABS: ALBUMIN 3.9 g/dL (3.2-5.5); ALBUMIN/GLOBULIN RATIO 1.2 (1.0-2.2); BILIRUBIN,TOTAL 0.5 mg/dL (0.2-1.0); CALCIUM 9.3 mg/dL (8.5-10.3); CREATININE 0.9 mg/dL (0.6-1.3); POTASSIUM 4.3 mmol/L (3.5-4.5); TOTAL PROTEIN 7.2 g/dL (6.4-8.9)
[2024-08-21] MEDS ORDERED: iohexoL-300 100 ML VIAL ONE (19:39)
[2024-08-21] MEDS: MAG HYDROX/AL HYDROX/SIMETH 30 ML UDC PO STA (20:09)
[2024-08-21] MEDS: LIDOCAINE VISCOUS 2% 15 ML UDC MM STA (20:10)
--- NOTE | 2024-08-21 21:46 | ED Physician Documentation ---
PD HPI ABD PAIN Stated complaint Stated Complaint: ABD PX Chief complaint Chief Complaint: Abd Pain History obtained from History obtained from: Patient History of Present Illness Timing - onset: Enter time (0700) and Today Additional information Additional information: Liu Byers is an 84-year-old male with a prior history of small bowel obstruction who presents today with symptoms similar to what he is had previously with small bowel obstruction. He states that pain began about 7:00 this morning. He was able to eat some today and drink some fluids but pain persisted he felt this was similar to what he is had previously with bowel obstruction. He did have a bowel movement this morning. He has not had vomiting. He does indicate to me that he has been working with his son carrying some pieces of plywood over the past several days. He has a history of bladder outlet obstruction he has had a catheter placed at some point. He does not have a catheter in place currently does not feel that he has a problem urinating. Michael Coma Scale Assess Eye opening: Spontaneous Verbal response: Oriented Motor response: Obeys Commands Total score: 15 Review of Systems Patient denies any vomiting does have slight nausea he has epigastric abdominal pain. He had a normal bowel movement this morning. He has not had fever chills sweats. He has had slight cough. Meds/Allgy Home Medications Ambulatory Orders Medication Instructions Recorded Confirmed lisinopril 10 mg tablet 10 mg ORAL DAILY 09/25/14 08/17/24 simvastatin 40 mg tablet (Zocor) 40 mg PO QPM 09/25/14 08/09/24 deimtyxq-xv-ppxyb 300 mcg-K 60 1 ea PO DAILY 04/11/19 08/09/24 mcg-lycop 600 mcg-lutein 300 mcg tablet (Centrum Silver Men) hyoscyamine sulfate 0.125 mg 0.125 mg sublingual Q6H PRN 09/24/21 08/03/24 sublingual tablet (Levsin/SL) Abdominal Pain #30 tabs pantoprazole 40 mg tablet,delayed 40 mg PO BID #60 tabs 04/23/23 08/09/24 release sucralfate 100 mg/mL oral 1 g (10 mL) PO 0700,1100,1600,2200 04/23/23 08/09/24 suspension #28 ea nystatin 100,000 unit/gram topical 1 applic topical BID #30 grams 06/17/24 08/03/24 cream albuterol sulfate 90 mcg/actuation 2 puff inhalation 6XD PRN 07/22/24 08/03/24 aerosol inhaler (Ventolin HFA) shortness of breath or wheezing #8.5 grams Allergies Allergies Allergy/AdvReac Type Severity Reaction Status Date / Time No Known Drug Allergies Allergy Verified 08/21/24 18:48 PFSH Active Problems All Active Problems (Updated 08/22/24 @ 04:36 by Darek Desai MD) Acute UTI (Acute) SBO (small bowel obstruction) (Acute) Acute urinary retention (Acute) Dyspnea on exertion (Acute) Urethral stenosis (Acute) Cough (Acute) Frequent urination (Acute) Balanoposthitis (Acute) Gastritis (Acute) Acute anemia (Acute) Sore throat (Acute) Abdominal pain (Acute) Right shoulder strain (Acute) Hyperglycemia, unspecified (Acute) Chronic leukopenia (Acute) Bowel obstruction (Acute) Small bowel obstruction (Acute) Sciatic leg pain (Acute) Left leg pain (Acute) Shoulder contusion (Acute) Pneumonia (Acute) Medical History Medical History (Updated 08/22/24 @ 04:36 by Darek Desai MD) Hx of small bowel obstruction HTN (hypertension) History of cataract High cholesterol Sleep apnea treated with continuous positive airway pressure (CPAP) Surgical History Surgical History History of colonoscopy Social History Social History Smoking Status: Former smoker If you are a former smoker, when did you quit? (Date/Year): 1989 Number of Years Smoked: 10 How many cigarettes a day do you smoke? (20 cigarettes=1 Pk): 2 Second hand tobacco smoke exposure: No Do you dip or chew tobacco?: No Do you vape?: No Patient requests smoking cessation consult: No Initiate information on smoking cessation: No Living arrangement: At home Living Condition: With spouse/s.o. ( has her own medical problems and knee fx 01/2019) Relationship: Level: Independent Do you feel safe in your home environment?: Yes Suffered physical, verbal, emotional, or financial abuse?: No History of Abuse: No ETOH Use: None Substance Use: denies use Are you sexually active?: No POLST Patient has POLST: No POLST Status: Full Code Exam Exam 84-year-old male laying supine on a gurney appears hard of hearing but does not appear to be in significant distress. Vital signs show mild hypertension of 132/70 normal pulse of 63 respirations of 16 and O2 saturation of 93%. Constitutional normal general appearance and no apparent distress HENMT normocephalic, head/scalp atraumatic and hearing grossly abnormal (The patient is hard of hearing) Eyes PERRL and EOMs intact bilaterally Neck/C-Spine visual inspection normal and trachea midline Respiratory breath sounds equal bilaterally, normal respiratory effort and clear to auscultation bilaterally Cardiovascular normal heart rate noted, regular rhythm noted and no murmur Gastrointestinal abdomen normal to inspection, abdomen soft to palpation and tender to palpation (There is specific point tenderness to the epigastric region without tendern) Genitourinary no CVA tenderness and bladder normal to palpation The bladder is examined bedside ultrasound it is not over distended and the bladder is sonographically nontender Back/Pelvis spine normal to inspection, no thoracic spine tenderness and no lumbar spine tenderness Extremities normal to inspection Neurology student counsellor II-XII intact and speech normal Psychiatry mental status grossly normal, oriented x3, thought process normal, cooperative, affect normal, psychomotor activity normal and memory normal Skin skin color normal and no rash Results Vitals Vitals: Vital Signs - 24 hr 08/21/24 18:46 08/21/24 20:13 08/21/24 21:44 Temperature 36.5 C Temperature Source Temporal Artery Scan Pulse Rate 96 84 Respiratory Rate 18 16 Blood Pressure 137/89 H O2 Saturation 96 96 O2 Source Room air Room air Pain Intensity 6 4 08/21/24 21:50 08/21/24 23:00 08/22/24 00:25 Temperature Temperature Source Pulse Rate 82 76 63 Respiratory Rate 16 20 16 Blood Pressure 153/85 H 130/78 132/70 H O2 Saturation 393 H 95 93 O2 Source Room air Room air Room air Pain Intensity 3 08/22/24 00:39 08/22/24 01:03 Temperature Temperature Source Pulse Rate Respiratory Rate Blood Pressure O2 Saturation O2 Source Pain Intensity 7 7 Oxygen O2 Source Room air Labs Labs: Laboratory Tests 08/21/24 08/22/24 19:00 00:50 WBC 3.9 L RBC 4.82 Hgb 13.2 L Hct 40.3 L MCV 83.6 MCH 27.4 MCHC 32.8 RDW 16.1 H Plt Count 382 MPV 8.5 Neut # (Auto) 2.1 Lymph # (Auto) 1.3 L Traill # (Auto) 0.3 Eos # (Auto) 0.1 Baso # (Auto) 0.0 Absolute Nucleated RBC 0.00 Nucleated RBC % 0.0 Sodium 137 Potassium 4.3 Chloride 103 Carbon Dioxide 27 Anion Gap 7.0 BUN 20 Creatinine 0.9 Estimated GFR (MDRD) 81 L Glucose 141 H Calcium 9.3 Total Bilirubin 0.5 AST 21 ALT 16 Alkaline Phosphatase 86 Total Protein 7.2 Albumin 3.9 Globulin 3.3 Albumin/Globulin Ratio 1.2 Lipase 15 Urine Color YELLOW Urine Clarity HAZY Urine pH 8.0 H Ur Specific [place] 1.010 Urine Protein 30 H Urine Glucose (UA) NEGATIVE Urine Ketones TRACE Urine Occult Blood TRACE-INTA Urine Nitrite POSITIVE H Urine Bilirubin NEGATIVE Urine Urobilinogen 0.2 (NORMAL) Ur Leukocyte Esterase SMALL H Urine RBC 0-5 Urine WBC >25 H Ur Squamous Epith Cells RARE Squamous Urine Bacteria Moderate H Ur Microscopic Review INDICATED Urine Culture Comments INDICATED Rads (name of study) CT ab/pel with: Relevant Findings:: Final report received and EMP independent interpretation of test (dilated loops of small bowel with air fluid levels) Interpretation: Impression: There is a small bowel obstruction seen, with a transition point seen with in the right lower quadrant, where there is small bowel wall thickening seen. The bladder wall is thickened and irregular with diverticular formation. TURP defect is seen. Please correlate with a history of bladder outlet obstruction. Additional findings: Moderate coronary calcification minimal stable nodules at the lung bases stable right adrenal nodule diverticulosis, without findings of active diverticulitis. Bilateral fat- containing inguinal hernias. Procedures Bedside sono Bedside sono by EMP: With use of POCUS the bladder is examined it is sonographically nontender and does not appear overfilled. PD Medical Decision Making ED course Complexity details: reviewed old records, reviewed results, re-evaluated patient, considered differential, d/w patient and d/w family ED course: Keke Byers presented to the emergency department with signs and symptoms of small bowel obstruction similar to his had previously. By history the patient had been carrying some plywood with his son the previous days and abdominal pain was mostly in the epigastrium to palpation. I thought it was important that we rule out a musculoskeletal cause the CT scan to help this with that and that the patient appears to have a bowel obstruction similar to what he is had previously. Additionally we considered the possibility of peptic ulcer disease as a cause for the patient's epigastric pain we administered viscous lidocaine and Mylanta without relief. I have contacted our surgeon Dr. Arcos who recommends placement of an NG tube to low intermittent suction IV fluids and admission to the hospitalist. Discharge Plan Discharge Patient Disposition: 66 [facility] DC/Xfer Condition: Stable Clinical Impression: SBO (small bowel obstruction), Acute UTI Interventions: ED Admission Assessment Last Done: 08/22/24 02:45
[2024-08-21] MEDS: iohexoL-300 100 ML VIAL IVP ONE (21:49)
--- NOTE | 2024-08-21 22:31 | CT Report ---
PROCEDURE: CT Abdomen/Pelvis W INDICATIONS: abd pain hx of SBO CONTRAST: 100 ML OMNI 300 TECHNIQUE: After the administration of intravenous contrast, a CT scan of the abdomen and pelvis was performed. Images were recorded and evaluated at appropriate window settings. Reformats: coronal and sagittal. F or radiation dose reduction, the following was used: automated exposure control, adjustment of mA and /or kV according to patient size. COMPARISON: 04/18/2023, 09/24/2021 FINDINGS: Image quality: Diagnostic. Lower chest: Moderate coronary calcification is seen. Minimal stable lung nodules can be seen at the lung bases. Liver: No solid mass. Gallbladder: Within normal limits. Biliary tree: No intrahepatic or extrahepatic dilation, accounting for age. Spleen: No splenomegaly. Pancreas: No pancreatic ductal dilation. Adrenals: There is a right adrenal nodule seen, as on series 2 image 49, measuring 2.6 cm. On this po stcontrast study, this measures 64 Hounsfield units. No left adrenal nodule. Kidneys and ureters: No hydronephrosis. No renal cystic lesion which requires follow up. No solid mas s. Stomach, bowel and peritoneum: Dilated loops of small bowel can be seen, measuring up to 3.7 cm. Ther e is a relative transition point seen within the right lower quadrant, where there is thickened small bowel seen. Distal to this point, the small bowel is relatively decompressed. Diverticulosis can be seen, without isabel findings of active diverticulitis. No significant colonic a bnormality is seen. Lymph nodes: No central or retroperitoneal adenopathy. Vessels: No infrarenal aortic aneurysm. Patent portal vein. PELVIS Reproductive organs: A TURP defect is seen. Bladder: The urinary bladder wall is thickened and irregular, with diverticular formation. Pelvic lymph nodes: No pelvic adenopathy by size criteria. Bones: No aggressive osseous abnormality. Other: Bilateral fat-containing inguinal hernias are seen, left larger than right. IMPRESSION: There is a small bowel obstruction seen, with a transition point seen within the right lower quadrant , where there is small bowel wall thickening seen. The bladder wall is thickened and irregular with diverticular formation. TURP defect is seen. Please correlate with a history of bladder outlet obstruction. Additional findings: Moderate coronary calcification Minimal stable nodules at the lung bases Stable right adrenal nodule Diverticulosis, without findings of active diverticulitis. Bilateral fat-containing inguinal hernias Reviewed by: Matt Cortés MD on 08/21/2024 9:30 PM [place] Approved by: Matt Cortés MD on 08/21/2024 9:30 PM [facility] Station ID: [id number]
[2024-08-22] MEDS: ONDANSETRON 4 MG/2 ML VIAL IVP STA (01:02)
[2024-08-22] MEDS: MORPHINE 10 MG/ML VIAL IVP STA (01:03)
[2024-08-22 01:12] LABS: BILIRUBIN,URINE NEGATIVE (NEGATIVE); GLUCOSE, URINE (UA) NEGATIVE (NEGATIVE); KETONES,URINE (UA) TRACE mg/dL (NEGATIVE); LEUKOCYTE ESTERASE, URINE SMALL (NEGATIVE); NITRITE,URINE POSITIVE (NEGATIVE); OCCULT BLOOD,URINE TRACE-INTA (NEGATIVE); PROTEIN,URINE 30 mg/dL (NEGATIVE); UROBILINOGEN,URINE 0.2 (NORMAL) E.U./dL (NORMAL)
[2024-08-22 01:14] LABS: CLARITY,URINE HAZY (CLEAR)
[2024-08-22] MEDS: SODIUM CHLORIDE 0.9% 1,000 ML IV STA (01:15)
[2024-08-22 01:26] LABS: WBC,URINE >25 /HPF (0-3)
[2024-08-22 01:27] LABS: BACTERIA,URINE Moderate /HPF (None Seen); RBC,URINE 0-5 /HPF (0-5); SQUAMOUS EPITHELIAL CELL,UR RARE Squamous (<= Few)
[2024-08-22] MEDS ORDERED: HYOSCYAMINE SL 0.125 MG TABLET SL PRN (01:33)
[2024-08-22] MEDS ORDERED: SODIUM CHLORIDE FLUSH 0.9% 10 ML SYRINGE IVP PRN (01:37)
[2024-08-22] MEDS ORDERED: ONDANSETRON ODT 4 MG TABLET TL PRN (01:37)
[2024-08-22] MEDS ORDERED: ONDANSETRON 4 MG/2 ML VIAL IVP PRN (01:37)
[2024-08-22] MEDS ORDERED: MORPHINE 2 MG/ML CARPUJECT IVP PRN (01:37)
--- NOTE | 2024-08-22 01:43 | HISTORY & PHYSICAL EXAMINATION ---
Chief Complaint Chief Complaint Chief Complaint: Abdominal pain History of Present Illness Admitted From Admitted From:: ER History Obtained From Records Reviewed: Yes History obtained from: Pt, staff, chart Exam Limitations: Virtual exam History of Present Illness HPI Comment/Other: H&P was conducted via video remotely, using [employer]. Patient is in [place] Physician is in [place]. No one is at bedside. 84 yo M with PMH of HTN, HLD, MIRTA, BPH, Urethral stenosis, recurrent small bowel obstruction presented to the ED with c/o 1 day h/o abdominal pain. Pt recently required Paredes catheter for his BPH; this was removed on Friday without complications. Today, pt was helping his son in the garage with heavy lifting. He began to have upper to mid-abdo pain this AM. He was able to eat pizza at noon and had a normal BM x 1 around noon. After that, his abdo pain worsened and he has not been able to tolerate PO food or drink since then. No dysuria/urinary symptoms. No N/V. +subjective Fever/not measured. Pt has had SBO 5x now and his symptoms today felt the same as in previous SBO. He was managed conservatively each time with NGT, IVF, pain meds, except for the 2nd episode. He had a lap abdo for that episode and his SB was found to be "crooked" and was straightened out. He does not know what year that was. No other previous abdo surgeries. In the ER, WBC 3.9, Glc 141, U/A: Nitr + WBC LE. CT abdomen: There is a small bowel obstruction seen, with a transition point seen within the right lower quadrant, where there is small bowel wall thickening seen. The bladder wall is thickened and irregular with diverticular formation. TURP defect is seen. Please correlate with a history of bladder outlet obstruction. Small bladder diverticuli, diverticulosis. Benign right adrenal adenoma ED provider discussed with on-call surgeon Dr. Arcos who recommended placement of an NG tube to low intermittent suction IV fluids and admission to the hospitalist. NG tube was placed for GI decompression Pt was given IVF, Morphine, viscous Lidocaine and Mylanta in the ER. Review of Systems Status of ROS: 10 or more systems reviewed and unremarkable except as noted in history and below PFSH Active Problems All Active Problems (Updated 08/21/24 @ 23:47 by Darek Desai MD) SBO (small bowel obstruction) (Acute) Acute urinary retention (Acute) Dyspnea on exertion (Acute) Urethral stenosis (Acute) Cough (Acute) Frequent urination (Acute) Balanoposthitis (Acute) Gastritis (Acute) Acute anemia (Acute) Sore throat (Acute) Abdominal pain (Acute) Right shoulder strain (Acute) Hyperglycemia, unspecified (Acute) Chronic leukopenia (Acute) Bowel obstruction (Acute) Small bowel obstruction (Acute) Sciatic leg pain (Acute) Left leg pain (Acute) Shoulder contusion (Acute) Pneumonia (Acute) Medical History Medical History (Updated 08/21/24 @ 23:47 by Darek Desai MD) Hx of small bowel obstruction HTN (hypertension) History of cataract High cholesterol Sleep apnea treated with continuous positive airway pressure (CPAP) Surgical History Surgical History History of colonoscopy Social History Social History Smoking Status: Former smoker If you are a former smoker, when did you quit? (Date/Year): 1989 Number of Years Smoked: 10 How many cigarettes a day do you smoke? (20 cigarettes=1 Pk): 2 Do you dip or chew tobacco?: No Do you vape?: No Patient requests smoking cessation consult: No Initiate information on smoking cessation: No Living arrangement: At home Living Condition: With spouse/s.o. ( has her own medical problems and knee fx 01/2019) Relationship: Level: Independent Do you feel safe in your home environment?: Yes Suffered physical, verbal, emotional, or financial abuse?: No History of Abuse: No ETOH Use: None Substance Use: denies use Are you sexually active?: No POLST Patient has POLST: No POLST Status: Full Code Meds/Allgy Home Medications Ambulatory Orders Medication Instructions Recorded Confirmed lisinopril 10 mg tablet 10 mg ORAL DAILY 09/25/14 08/17/24 simvastatin 40 mg tablet (Zocor) 40 mg PO QPM 09/25/14 08/09/24 [id number]-sa-sjctb 300 mcg-K 60 1 ea PO DAILY 04/11/19 08/09/24 mcg-lycop 600 mcg-lutein 300 mcg tablet (Centrum Silver Men) hyoscyamine sulfate 0.125 mg 0.125 mg sublingual Q6H PRN 09/24/21 08/03/24 sublingual tablet (Levsin/SL) Abdominal Pain #30 tabs pantoprazole 40 mg tablet,delayed 40 mg PO BID #60 tabs 04/23/23 08/09/24 release sucralfate 100 mg/mL oral 1 g (10 mL) PO 0700,1100,1600,2200 04/23/23 08/09/24 suspension #28 ea nystatin 100,000 unit/gram topical 1 applic topical BID #30 grams 06/17/24 08/03/24 cream albuterol sulfate 90 mcg/actuation 2 puff inhalation 6XD PRN 07/22/24 08/03/24 aerosol inhaler (Ventolin HFA) shortness of breath or wheezing #8.5 grams Allergies Allergies Allergy/AdvReac Type Severity Reaction Status Date / Time No Known Drug Allergies Allergy Verified 08/21/24 18:48 Exam Constitutional normal general appearance and no apparent distress HENMT normocephalic Eyes EOMs intact bilaterally and no scleral icterus Respiratory cart stethoscope not working; per ER Provider: CTA B/L Cardiovascular cart stethoscope not working; per ER Provider: RRR, no murmurs Gastrointestinal Abdo: per ER Provider: abdomen soft to palpation and tender to palpation (There is specific point tenderness to the epigastric region without tenderness), no CVAT Extremities per ER Provider: moves all extrem, no edema Neurology A+Ox3, normal speech, cooperative; per ER Provider: NFD Conclusion/Plan Problem List (1) SBO (small bowel obstruction): Plan Abdominal pain SBO H/o recurrent small bowel obstruction -CT abdomen: There is a small bowel obstruction seen, with a transition point seen within the right lower quadrant, where there is small bowel wall thickening seen. The bladder wall is thickened and irregular with diverticular formation. TURP defect is seen. Please correlate with a history of bladder outlet obstruction. Small bladder diverticuli, diverticulosis. Benign right adrenal adenoma -ER Physician discussed with on-call surgeon Dr. Arcos who recommended placement of an NG tube to low intermittent suction IV fluids and admission to the hospitalist. NG tube was placed for GI decompression -Pt was given IVF, Morphine, viscous Lidocaine and Mylanta in the ER. -admit to MedSurg -NGT to LIS -IVF -NPO -anti-emetics PRN, pain control PRN -mgmt per Surgeon UTI BPH s/p TURP H/o Urethral stenosis -U/A: Nitr + WBC LE -recent need for Paredes; out now -Rocephin ordered -F/U UC Hyperglycemia -Glc 141 -check Hgba1c HTN HLD -continue home medications: Lisinopril, Zocor MIRTA -continue CPAP VTE Prophylaxis: Hep SQ Code Status: D/W pt; he is Full Code ~Lorelei Owens MD Hospitalist Lab Results 08/21/24 19:00 08/21/24 19:00
[2024-08-22] MEDS ORDERED: ALBUTEROL NEB 2.5 MG/3 ML INH PRN (01:48)
[2024-08-22] MEDS: MIDAZOLAM 2 MG/2 ML VIAL IVP ONE (02:11)
[2024-08-22] MEDS: LACTATED RINGERS 1,000 ML IV SCH (03:35)
[2024-08-22 05:31] LABS: BASOPHILS % (AUTO) 0.6 %; EOSINOPHILS # (AUTO) 0.1 10^3/uL (0.0-0.7); EOSINOPHILS % (AUTO) 1.8 %; HCT - HEMATOCRIT 37.5 % (42.0-52.0); HGB - HEMOGLOBIN 11.8 g/dL (14.0-18.0); LYMPHOCYTES % (AUTO) 30.2 %; MEAN CORPUSCULAR HEMOGLOBIN 26.7 pg (27.0-31.0); MEAN CORPUSCULAR HGB CONC 31.5 g/dL (32.0-36.0); MEAN CORPUSCULAR VOLUME 84.8 fL (80.0-94.0); MEAN PLATELET VOLUME 8.6 fL (7.4-11.4); MONOCYTES # (AUTO) 0.4 10^3/uL (0.0-1.0); MONOCYTES % (AUTO) 11.5 %; NEUTROPHILS # (AUTO) 1.9 10^3/uL (1.5-6.6); NEUTROPHILS % (AUTO) 55.6 %; PLT - PLATELET COUNT 329 10^3/uL (130-450); RED BLOOD COUNT 4.42 10^6/uL (4.70-6.10); RED CELL DISTRIBUTION WIDTH 16.2 % (12.0-15.0); WHITE BLOOD COUNT 3.4 x10^3/uL (4.8-10.8)
[2024-08-22] MEDS ORDERED: PHENOL THROAT SPRAY 177 ML MM PRN (05:44)
[2024-08-22 05:50] LABS: ALBUMIN 3.3 g/dL (3.2-5.5); ALBUMIN/GLOBULIN RATIO 1.1 (1.0-2.2); BILIRUBIN,TOTAL 0.4 mg/dL (0.2-1.0); CALCIUM 8.9 mg/dL (8.5-10.3); CREATININE 0.8 mg/dL (0.6-1.3); POTASSIUM 4.9 mmol/L (3.5-4.5); TOTAL PROTEIN 6.3 g/dL (6.4-8.9)
[2024-08-22] MEDS: SUCRALFATE 1 GM/10 ML UDC PO SCH (06:36)
[2024-08-22] MEDS: MULTIVITAMIN TABLET PO SCH (08:10)
[2024-08-22] MEDS: HEPARIN 5,000 UNIT/ML VIAL SUBQ SCH (08:10)
[2024-08-22] MEDS: PANTOPRAZOLE 40 MG TABLET PO SCH (08:10)
[2024-08-22] MEDS: lisinopriL 5 MG TABLET PO SCH (08:10)
[2024-08-22] MEDS: cefTRIAXone 1 GM in SODIUM CHLORIDE 0.9% MINIBAG 100 ML IV SCH (08:10)
[2024-08-22] MEDS: SODIUM CHLORIDE FLUSH 0.9% 10 ML SYRINGE IVP SCH (08:44)
[2024-08-22] MEDS: NYSTATIN CREAM 15 GM TUBE TOP SCH (08:44)
--- NOTE | 2024-08-22 08:45 | CONSULTATION NOTE ---
Referring Provider Name of Referring Provider:: Dr. Desai Consult Date: 09/22/24 Chief Complaint Chief Complaint Chief Complaint: Abdominal cramping History of Present Illness History of Present Illness HPI Comment/Other: Josias is an 84 year old male who developed the sudden onset of genralized abdominal cramping and abdominal distension yesterday morning. He tried eating solids and liquids yesterday afternoon but his symptoms worsened. He did have a bowel motion yesterday morning but no passage of flatus or stool since then., He denies nausea or vomiting. He denies eating unusual or tainted food. Josias underwent laparoscopic adhesiolysis for a small bowel obstruction several years ago. In 2022, he was treated at this facility with similar symptoms which resolved with NGT decompression of the GI tract and the administration of gastrografin as part of a SB challenge study. Other than the laparoscopic adhesiolysis, he denies other abdominal surgical procedures. [facility] Active Problems All Active Problems (Updated 08/22/24 @ 04:36 by Darek Desai MD) Acute UTI (Acute) SBO (small bowel obstruction) (Acute) Acute urinary retention (Acute) Dyspnea on exertion (Acute) Urethral stenosis (Acute) Cough (Acute) Frequent urination (Acute) Balanoposthitis (Acute) Gastritis (Acute) Acute anemia (Acute) Sore throat (Acute) Abdominal pain (Acute) Right shoulder strain (Acute) Hyperglycemia, unspecified (Acute) Chronic leukopenia (Acute) Bowel obstruction (Acute) Small bowel obstruction (Acute) Sciatic leg pain (Acute) Left leg pain (Acute) Shoulder contusion (Acute) Pneumonia (Acute) Medical History Medical History (Updated 08/22/24 @ 04:36 by Darek Desai MD) Hx of small bowel obstruction HTN (hypertension) History of cataract High cholesterol Sleep apnea treated with continuous positive airway pressure (CPAP) Surgical History Surgical History (Updated 08/22/24 @ 08:49 by Thien Gage MD) S/P laparoscopy with lysis of adhesions History of colonoscopy Social History Social History Smoking Status: Former smoker If you are a former smoker, when did you quit? (Date/Year): 1989 Number of Years Smoked: 10 How many cigarettes a day do you smoke? (20 cigarettes=1 Pk): 2 Second hand tobacco smoke exposure: No Do you dip or chew tobacco?: No Do you vape?: No Patient requests smoking cessation consult: No Initiate information on smoking cessation: No Living arrangement: At home Living Condition: With spouse/s.o. ( has her own medical problems and knee fx 01/2019) Relationship: Level: Independent Do you feel safe in your home environment?: Yes Suffered physical, verbal, emotional, or financial abuse?: No History of Abuse: No ETOH Use: None Substance Use: denies use Are you sexually active?: No POLST Patient has POLST: No POLST Status: Full Code Meds/Allgy Home Medications Ambulatory Orders Medication Instructions Recorded Confirmed lisinopril 10 mg tablet 10 mg ORAL DAILY 09/25/14 08/17/24 simvastatin 40 mg tablet (Zocor) 40 mg PO QPM 09/25/14 08/09/24 pojzybtr-ax-pyaul 300 mcg-K 60 1 ea PO DAILY 04/11/19 08/09/24 mcg-lycop 600 mcg-lutein 300 mcg tablet (Centrum Silver Men) hyoscyamine sulfate 0.125 mg 0.125 mg sublingual Q6H PRN 09/24/21 08/03/24 sublingual tablet (Levsin/SL) Abdominal Pain #30 tabs pantoprazole 40 mg tablet,delayed 40 mg PO BID #60 tabs 04/23/23 08/09/24 release sucralfate 100 mg/mL oral 1 g (10 mL) PO 0700,1100,1600,2200 04/23/23 08/09/24 suspension #28 ea nystatin 100,000 unit/gram topical 1 applic topical BID #30 grams 06/17/24 08/03/24 cream albuterol sulfate 90 mcg/actuation 2 puff inhalation 6XD PRN 07/22/24 08/03/24 aerosol inhaler (Ventolin HFA) shortness of breath or wheezing #8.5 grams Allergies Allergies Allergy/AdvReac Type Severity Reaction Status Date / Time No Known Drug Allergies Allergy Verified 08/21/24 18:48 Results Lab Results 08/22/24 05:16 08/22/24 05:16 Other Lab Results: Lab Results x24hrs 08/22/24 08/22/24 08/21/24 Range/Units 05:16 00:50 19:00 WBC 3.4 L 3.9 L (4.8-10.8) x10^3/uL RBC 4.42 L 4.82 (4.70-6.10) 10^6/uL Hgb 11.8 L 13.2 L (14.0-18.0) g/dL Hct 37.5 L 40.3 L (42.0-52.0) % MCV 84.8 83.6 (80.0-94.0) fL MCH 26.7 L 27.4 (27.0-31.0) pg MCHC 31.5 L 32.8 (32.0-36.0) g/dL RDW 16.2 H 16.1 H (12.0-15.0) % Plt Count 329 382 (130-450) 10^3/uL MPV 8.6 8.5 (7.4-11.4) fL Neut # (Auto) 1.9 2.1 (1.5-6.6) 10^3/uL Lymph # (Auto) 1.0 L 1.3 L (1.5-3.5) 10^3/uL [place] # (Auto) 0.4 0.3 (0.0-1.0) 10^3/uL Eos # (Auto) 0.1 0.1 (0.0-0.7) 10^3/uL Baso # (Auto) 0.0 0.0 (0.0-0.1) 10^3/uL Absolute Nucleated RBC 0.00 0.00 x10^3/uL Nucleated RBC % 0.0 0.0 /100WBC Sodium 138 137 (135-145) mmol/L Potassium 4.9 H 4.3 (3.5-4.5) mmol/L Chloride 106 103 (101-111) mmol/L Carbon Dioxide 29 27 (21-32) mmol/L Anion Gap 3.0 L 7.0 (6-13) BUN 18 20 (6-20) mg/dL Creatinine 0.8 0.9 (0.6-1.3) mg/dL Estimated GFR (MDRD) 92 81 L (>89) Glucose 133 H 141 H (74-104) mg/dL Calcium 8.9 9.3 (8.5-10.3) mg/dL Total Bilirubin 0.4 0.5 (0.2-1.0) mg/dL AST 17 21 (10-42) IU/L ALT 14 16 (10-60) IU/L Alkaline Phosphatase 74 86 (42-121) IU/L Total Protein 6.3 L 7.2 (6.4-8.9) g/dL Albumin 3.3 3.9 (3.2-5.5) g/dL Globulin 3.0 3.3 (2.1-4.2) g/dL Albumin/Globulin Ratio 1.1 1.2 (1.0-2.2) Lipase 15 (11-82) U/L Urine Color YELLOW Urine Clarity HAZY (CLEAR) Urine pH 8.0 H (5.0-7.5) PH Ur Specific [place] 1.010 (1.002-1.030) Urine Protein 30 H (NEGATIVE) mg/dL Urine Glucose (UA) NEGATIVE (NEGATIVE) mg/dL Urine Ketones TRACE (NEGATIVE) mg/dL Urine Occult Blood TRACE-INTA (NEGATIVE) Urine Nitrite POSITIVE H (NEGATIVE) Urine Bilirubin NEGATIVE (NEGATIVE) Urine Urobilinogen 0.2 (NORMAL) (NORMAL) E.U./dL Ur Leukocyte Esterase SMALL H (NEGATIVE) Urine RBC 0-5 (0-5) /HPF Urine WBC >25 H (0-3) /HPF Ur Squamous Epith Cells RARE Squamous (<= Few) Urine Bacteria Moderate H (None Seen) /HPF Ur Microscopic Review INDICATED Urine Culture Comments INDICATED Diagnostic Imaging Results Diagnostic Imaging Results Comments: CT Abd/Pelvis - Dilated small bowel with suspected transition zone in RLQ; No free fluid or evidence of ischemia. Degree of small bowel distension similar compared to the 2022 study Conclusion and Plan Diagnosis Diagnosis: Small bowel Obstruction vs ileus - no evidence of ischemic bowel Plan Plan: 1) NGT to LIS 2) SB Challenge study today 3) Ambulate 4) If no passage of contrast into colon within 24 hours, I will consider operative intervention Thien Gage MD, FACS General Surgery Service Review of Systems Constitutional Reports: Poor appetite Gastrointestinal Reports: Abdominal pain, Abdominal distention and Constipation (No passage of flatus or stool since yesterday morning) Exam Constitutional normal general appearance and no apparent distress HENMT normocephalic, head/scalp atraumatic and hearing grossly normal bilaterally NGT in place Eyes PERRL, EOMs intact bilaterally, conjunctivae normal and no scleral icterus Neck/C-Spine visual inspection normal, trachea midline and cervical spine nontender Lymph no lymphadenopathy noted Chest inspection of chest normal Respiratory breath sounds equal bilaterally, normal respiratory effort, clear to auscultation bilaterally and no wheezes Cardiovascular normal heart rate noted, regular rhythm noted and no murmur Gastrointestinal abdomen normal to inspection, abdomen soft to palpation and nontender to palpation Few bowel sounds Extremities normal to inspection and normal to palpation Neurology no focal motor deficit noted Psychiatry mental status grossly normal, oriented x3, thought process normal and cooperative Skin skin color normal and no rash
--- NOTE | 2024-08-22 08:49 | XRAY Report ---
PROCEDURE: XR Chest for Line Placement INDICATIONS: ng tube placement TECHNIQUE: One view of the chest was acquired. COMPARISON: CT abdomen and pelvis 08/22/2023. CXR 07/22/2024. FINDINGS: Surgical changes and devices: Enteric tube in the stomach. Lungs and pleura: No pleural effusions or pneumothorax. No consolidation. Mediastinum: Mediastinal contours appear unchanged. Heart size is normal. Bones and chest wall: No suspicious bony lesions. Overlying soft tissues appear unremarkable. IMPRESSION: Enteric tube in the stomach. This report is concordant with the overnight preliminary interpretation. Reviewed by: Anthony Alvarez MD on 08/22/2024 8:48 AM PST Approved by: Anthony Alvarez MD on 08/22/2024 8:48 AM PST Station ID: [id number]
[2024-08-22] MEDS ORDERED: DIATRIZOATE MEGLU/DIATRIZO SOD 30 ML BOTTLE PO ONE (08:50)
[2024-08-22 09:17] LABS: ESTIMATED AVERAGE GLUCOSE 151 mg/dL (70-100); HEMOGLOBIN A1c% 6.9 % (4.27-6.07)
--- NOTE | 2024-08-22 12:30 | PHARMACY PROGRESS NOTE ---
Best Possible Medication History Admit Date and Time: 08/22/24 0137 Home Medications Medication Instructions Recorded Confirmed Type lisinopril 10 mg tablet 10 mg ORAL DAILY 09/25/14 08/22/24 History simvastatin 40 mg tablet (Zocor) 40 mg PO QPM 09/25/14 08/22/24 History lvzqtykn-su-qigbg 300 mcg-K 60 1 ea PO DAILY 04/11/19 08/22/24 History mcg-lycop 600 mcg-lutein 300 mcg tablet (Centrum Silver Men) pantoprazole 40 mg tablet,delayed 40 mg PO BID #60 tabs 04/23/23 08/22/24 Rx release metformin 500 mg tablet 500 mg PO BID 08/22/24 08/22/24 History sucralfate 100 mg/mL oral 1 g PO BIDAC 08/22/24 08/22/24 History suspension tamsulosin 0.4 mg capsule 0.4 mg PO DAILY 08/22/24 08/22/24 History Processed by: Pharmacy Medications reviewed in ED?: No Medication History completed: Yes Patient Interview: Completed Secondary Source(s): Pharmacy records, Insurance records and Previous admit records [facility] Statement: As the person ultimately responsible for medication therapy, providers are able to order a medication from an existing home medication list in [facility] via the "Reconcile Routine" prior to Confirmation of that medication by account support rep. Such practice is discouraged except when the physician, in their clinical judgment, deems that a medical need exists for a medication without regard to previous use.
--- NOTE | 2024-08-22 14:59 | PROVIDER PROGRESS NOTE ---
Progress Note Progress Note Progress Note: General Surgery Progress Note S: Passing stool from rectum; Abdominal distension and discomfort resolving O: VSS, afeb; Abd soft; SB Challenge identified contrast within the colon A: Ileus vs partial SBO - resolved P: Remove NGT; Clear liquid diet; Probably home tomorrow Thien Gage MD, FACS General Surgery Service
--- NOTE | 2024-08-22 15:07 | XRAY Report ---
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 No suspicious abdominal calc ifications. Visualized solid organ contours appear normal. No suspicious bony abnormalities. Small bowel: There is normal transit time of barium through the small bowel. Small bowel loops are of normal caliber throughout. Mucosal folds are smooth and of normal thickness. No strictures, intr aluminal masses, or extrinsic mass effects are noted. The terminal ileum is identified, and is tom l in morphology. Contrast in the right colon noted at the 2 hour film and rectum on the 4 hour film IMPRESSION: Unremarkable small bowel follow-through and transit time. No obstruction. Reviewed by: Subhash Barnes MD on 08/22/2024 2:06 PM AKST Approved by: Subhash Barnes MD on 08/22/2024 2:06 PM AKST Station ID: [id number]
[2024-08-22] MEDS: ATORVASTATIN 10 MG TABLET PO SCH (21:44)
[2024-08-23 05:30] LABS: BASOPHILS % (AUTO) 0.9 %; EOSINOPHILS # (AUTO) 0.1 10^3/uL (0.0-0.7); EOSINOPHILS % (AUTO) 3.1 %; LYMPHOCYTES # (AUTO) 0.9 10^3/uL (1.5-3.5); LYMPHOCYTES % (AUTO) 39.7 %; MEAN CORPUSCULAR HEMOGLOBIN 27.4 pg (27.0-31.0); MEAN CORPUSCULAR HGB CONC 32.4 g/dL (32.0-36.0); MEAN CORPUSCULAR VOLUME 84.6 fL (80.0-94.0); MEAN PLATELET VOLUME 8.6 fL (7.4-11.4); MONOCYTES # (AUTO) 0.3 10^3/uL (0.0-1.0); MONOCYTES % (AUTO) 13.5 %; NEUTROPHILS % (AUTO) 41.9 %; PLT - PLATELET COUNT 281 10^3/uL (130-450); RED BLOOD COUNT 4.02 10^6/uL (4.70-6.10); RED CELL DISTRIBUTION WIDTH 16.5 % (12.0-15.0); WHITE BLOOD COUNT 2.3 x10^3/uL (4.8-10.8)
[2024-08-23 05:48] LABS: ALBUMIN 3.1 g/dL (3.2-5.5); ALBUMIN/GLOBULIN RATIO 1.2 (1.0-2.2); BILIRUBIN,TOTAL 0.4 mg/dL (0.2-1.0); CALCIUM 8.1 mg/dL (8.5-10.3); CREATININE 0.9 mg/dL (0.6-1.3); POTASSIUM 4.3 mmol/L (3.5-4.5); TOTAL PROTEIN 5.7 g/dL (6.4-8.9)
[2024-08-23 06:19] LABS: DIFFERENTIAL COMMENT MANUAL=AUTO DIFF; PLATELET ESTIMATE, MANUAL NORMAL (130-450,000) (NORMAL); PLATELET MORPHOLOGY NORMAL APPEARANCE (NORMAL); RBC MORPHOLOGY (MULTIPLE) NORMAL APPEARANCE (NORMAL); WBC MORPHOLOGY (MULTIPLE) NORMAL APPEARANCE (NORMAL)
--- NOTE | 2024-08-23 07:08 | PROVIDER PROGRESS NOTE ---
Progress Note Progress Note Progress Note: General Surgery Progress Note S: Feels food; Tolerating PO; Passing stool from rectum O: VSS, afeb; Abdomen is soft and without tenderness. Labs unchanged A: SBO vs ileus - resolved P: iet, activity as tolerated; May be discharged to home at discretion of Medical Hospitalist Service. The General Surgery Service will sign off today. Please do not hesitate to contact us if you have further questions or concerns or if you wish to have us continue to follow this patient with you. Thien Gage MD, FACS General Surgery Service
[2024-08-23] MEDS: ACETAMINOPHEN 325 MG TABLET PO PRN (11:49)
--- NOTE | 2024-08-23 13:10 | Discharge Summary ---
Discharge Summary Admit Date: 08/22/24 Discharge Date: 08/23/24 Discharging Provider: Dr. Randell Nunez Primary Care Provider: Amari Strauss MD Code Status: Attempt Resuscitation Discharge Facility Name: Home DIAGNOSES Admission Diagnoses: Abdominal pain Small bowel obstruction Urinary tract infection Hyperglycemia Hypertension Hyperlipidemia Obstructive sleep apnea Discharge Diagnoses with Status of Each Condition: Abdominal pain Patient had abdominal pain on admission. Abdomen/pelvis CT showed small bowel obstruction with transition point in right lower quadrant. Surgery was consulted. NG tube was placed, and was placed on low intermittent suction. They then did a Gastrografin study, and patient had multiple bowel movements. Small bowel obstruction Resolved. Urinary tract infection Completed two days of Rocephin, will send him with 5 more days of oral antibiotics. Urine culture grew Proteus. Susceptibilities are not back yet. Will continue to update the patient. Hypertension Continue home medications. Hyperlipidemia Continue home medications. 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 Obstructive sleep apnea HPI History of Present Illness: Per Lorelei Owens: 84 yo M with PMH of HTN, HLD, MIRTA, BPH, Urethral stenosis, recurrent small bowel obstruction presented to the ED with c/o 1 day h/o abdominal pain. Pt recently required Paredes catheter for his BPH; this was removed on Friday without complications. Today, pt was helping his son in the garage with heavy lifting. He began to have upper to mid-abdo pain this AM. He was able to eat pizza at noon and had a normal BM x 1 around noon. After that, his abdo pain worsened and he has not been able to tolerate PO food or drink since then. No dysuria/urinary symptoms. No N/V. +subjective Fever/not measured. Pt has had SBO 5x now and his symptoms today felt the same as in previous SBO. He was managed conservatively each time with NGT, IVF, pain meds, except for the 2nd episode. He had a lap abdo for that episode and his SB was found to be "crooked" and was straightened out. He does not know what year that was. No other previous abdo surgeries. In the ER, WBC 3.9, Glc 141, U/A: Nitr + WBC LE. CT abdomen: There is a small bowel obstruction seen, with a transition point seen within the right lower quadrant, where there is small bowel wall thickening seen. The bladder wall is thickened and irregular with diverticular formation. TURP defect is seen. Please correlate with a history of bladder outlet obstruction. Small bladder diverticuli, diverticulosis. Benign right adrenal adenoma ED provider discussed with on-call surgeon Dr. Arcos who recommended placement of an NG tube to low intermittent suction IV fluids and admission to the hospitalist. NG tube was placed for GI decompression Pt was given IVF, Morphine, viscous Lidocaine and Mylanta in the ER. CONSULTS | PROCEDURES Consultations: General surgery Procedures: CT abd/pelvis, small bowel follow through study ALLERGIES Allergies Allergy/AdvReac Type Severity Reaction Status Date / Time No Known Drug Allergies Allergy Verified 08/21/24 18:48 MEDICATIONS Ambulatory Orders Medication Instructions Recorded Confirmed lisinopril 10 mg tablet 10 mg ORAL DAILY 09/25/14 08/22/24 simvastatin 40 mg tablet (Zocor) 40 mg PO QPM 09/25/14 08/22/24 [id number]-[id number] 300 mcg-K 60 1 ea PO DAILY 04/11/19 08/22/24 mcg-lycop 600 mcg-lutein 300 mcg tablet (Centrum Silver Men) pantoprazole 40 mg tablet,delayed 40 mg PO BID #60 tabs 04/23/23 08/22/24 release metformin 500 mg tablet 500 mg PO BID 08/22/24 08/22/24 sucralfate 100 mg/mL oral 1 g PO BIDAC 08/22/24 08/22/24 suspension tamsulosin 0.4 mg capsule 0.4 mg PO DAILY 08/22/24 08/22/24 sulfamethoxazole 800 1 tab PO BID 5 days #10 tabs 08/23/24 mg-trimethoprim 160 mg tablet (Bactrim DS) PHYSICAL EXAM AT DISCHARGE General Appearance: positive No acute distress and Alert; negative Anxious or Lethargic Eyes Bilateral: positive Normal inspection, PERRL and EOMI ENT: positive ENT inspection nml, Pharynx nml and No signs of dehydration Neck: positive Nml inspection, Thyroid nml and No JVD Respiratory: positive Chest non-tender, No respiratory distress and Breath sounds nml; negative Wheezes, Rales or Rhonchi Cardiovascular: positive Regular rate & rhythm, No murmur and No gallop Peripheral Pulses: positive 2+ Abdomen: positive No distention and Tenderness (mild in lower abdominal lew); negative Guarding, Rebound, Hepatomegaly, Splenomegaly or Mass Back: positive Nml inspection; negative CVA tenderness (R) or CVA tenderness (L) Skin: positive Color nml, No rash, Warm and Dry Extremities: positive Non-tender, Full ROM, Nml appearance and No pedal edema Neurologic/Psychiatric: positive Oriented x3 and Mood/affect nml LABS 08/23/24 05:20 08/23/24 05:20 DIAGNOSTIC IMAGING Diagnostic Imaging Results: Final report reviewed QUALITY (Female Hip Fx Only) Was patient sent home on osteoporosis medication?: No FOLLOW UP Follow Up: Social work helped make an appointment for him on 09/01 at 1545 with his PCP. TIME SPENT Time Spent in Discharge (Minutes): 35 Discharge Plan Discharge Patient Disposition: Home, Self Care Condition: Stable Prescriptions: New sulfamethoxazole-trimethoprim [Bactrim DS] 800-160 mg tablet 1 tab PO BID 5 Days Qty: 10 0RF Continued simvastatin [Zocor] 40 MG tablet 40 mg PO QPM lisinopril 10 MG tablet 10 mg ORAL DAILY Centrum Silver Men 1 EACH tablet 1 ea PO DAILY pantoprazole 40 MG tablet,delayed release (DR/EC) 40 mg PO BID Qty: 60 0RF metformin 500 mg tablet 500 mg PO BID tamsulosin 0.4 mg capsule 0.4 mg PO DAILY Patient Comments: take 1 capsule by mouth ONCE nightly sucralfate 1 GM/10 ML suspension 1 g PO BIDAC Activity Restrictions: Activity as Tolerated Diet: Regular Health Concerns: You came in because you had some abdominal pain. You have a history of recurrent small bowel obstructions, and the CT scan demonstrated this at that time. We placed an NG tube in your nose and allowed some bowel rest. We did a study called a small bowel follow-through which resulted in you having multiple bowel movements. It appears your obstruction has effectively resolved. You saw a surgeon while you were here who assisted with this process. While you were here, you were noted to have a urinary tract infection. You completed 2 days of IV antibiotics for this. I will send you home with 5 more days of oral antibiotics, which I've sent to your [facility] which I'd like you to complete (twice daily). I am glad you are feeling better. Just a reminder that you have an appointment with Dr. Strauss on 09/01 at 1545. Please keep him updated about how you are feeling. You should also continue to follow-up with your urologist, Dr. Argueta. We are glad you are feeling better, thank you for allowing us to take care of you. Print Language: Polish Patient Instructions: Obstruction Sm Bowel Stand Alone Forms: PCP List Follow-up Care: Amari Strauss MD [Primary Care Provider] -
--- NOTE | 2024-08-23 14:38 | PROVIDER PROGRESS NOTE ---
Subjective Subjective Subjective: Today, patient states that he was feeling good earlier this morning. We trialed a GI soft diet, and he just had some mashed potatoes. His abdominal pain came back and is slowly progressing. He describes it as a sharp pain in his lower abdomen. He had a bowel movement this morning, and a few yesterday, but now feels as if it is hard to pass gas. He has been walking the halls and attempt to keep himself regular. He is concerned about going home and having to return if the pain worsens. Current Medications Current Medications Current Medications: Current Medications Generic Name Dose Route Start Last Admin Trade Name Freq PRN Reason Stop Dose Admin Acetaminophen 650 mg 08/22/24 01:37 08/23/24 11:49 Acetaminophen 325 Mg Tablet PO 650 mg Q4HR PRN Administration Pain 1 to 4, or Fever Albuterol 2.5 mg 08/22/24 01:48 Albuterol Neb 2.5 Mg/3 Ml INH Q4H PRN Shortness of Air/Wheezing Atorvastatin Calcium 20 mg 08/22/24 21:00 08/22/24 21:44 Atorvastatin 10 Mg Tablet PO 20 mg QPM DENZEL Administration Heparin Sodium (Porcine) 5,000 unit 08/22/24 09:00 08/23/24 08:09 Heparin 5,000 Unit/Ml Vial SUBQ Not Given BID DENZEL Hyoscyamine 0.125 mg 08/22/24 01:33 Hyoscyamine Sl 0.125 Mg Tablet SL Q6H PRN Abdominal Pain Ceftriaxone Sodium 1 gm/ 100 mls @ 200 mls/hr 08/22/24 09:00 08/23/24 08:50 Sodium Chloride IV Infused DAILY DENZEL Infusion Lisinopril 10 mg 08/22/24 09:00 08/23/24 08:08 Lisinopril 5 Mg Tablet PO 10 mg DAILY DENZEL Administration Morphine Sulfate 2 mg 08/22/24 01:37 Morphine 2 Mg/Ml Carpuject IVP Q4HR PRN Pain 8 to 10 Multivitamins 1 tab 08/22/24 08:00 08/23/24 08:08 Multivitamin Tablet PO 1 tab DAILYWM DENZEL Administration Nystatin 1 applic 08/22/24 09:00 08/23/24 08:19 Nystatin Cream 15 Gm Tube TOP Not Given BID DENZEL Ondansetron HCl 4 mg 08/22/24 01:37 Ondansetron Odt 4 Mg Tablet TL Q6HR PRN Nausea / Vomiting Ondansetron HCl 4 mg 08/22/24 01:37 Ondansetron 4 Mg/2 Ml Vial IVP Q6HR PRN Nausea / Vomiting Pantoprazole Sodium 40 mg 08/22/24 09:00 08/23/24 08:08 Pantoprazole 40 Mg Tablet PO 40 mg BID DENZEL Administration Phenol/Menthol 2 sprays 08/22/24 05:44 Phenol Throat [place] 177 Ml MM Q2HR PRN Throat Pain Sodium Chloride 10 ml 08/22/24 01:37 Sodium Chloride Flush 0.9% 10 Ml Syringe IVP PRN PRN NEEDED PER PROVIDER ORDERS Sodium Chloride 10 ml 08/22/24 09:00 08/23/24 08:20 Sodium Chloride Flush 0.9% 10 Ml Syringe IVP 10 ml 0100,0900,1700 DENZEL Administration Sucralfate 1 gm 08/22/24 07:00 08/23/24 11:45 Sucralfate 1 Gm/10 Ml Udc PO 1 gm 0700,1100,1600,2200 DENZEL Administration Objective Vital Signs/Intake & Output Reviewed Vital Signs: Yes Vital Signs: Vital Signs x48h Temp Pulse Resp BP Pulse Ox 08/23/24 08:27 97.9 F 82 16 135/78 H 95 Intake & Output: Intake & Output 08/20/24 08/21/24 08/22/24 08/23/24 23:59 23:59 23:59 23:59 Intake Total 2390 / 2390 1340 / 1340 Output Total 600 / 600 Balance 1790 / 1790 1340 / 1340 Weight (kg) 92.986 kg 91.5 kg Objective General Appearance: positive No acute distress and Alert; negative Anxious or Lethargic Eyes Bilateral: positive Normal inspection, PERRL and EOMI ENT: positive ENT inspection nml, Pharynx nml and No signs of dehydration Neck: positive Nml inspection, Thyroid nml and No JVD Respiratory: positive Chest non-tender, No respiratory distress and Breath sounds nml; negative Wheezes, Rales or Rhonchi Cardiovascular: positive Regular rate & rhythm, No murmur and No gallop; negative Irregularly irregular, Extrasystoles, Tachycardia or Bradycardia Abdomen: positive Tenderness (Mild tenderness to palpation in the bilateral lower abdominal quadrants); negative No distention (Distension noted), Guarding, Rebound or Abnml bowel sounds Back: positive Nml inspection; negative CVA tenderness (R) or CVA tenderness (L) Skin: positive Color nml, No rash, Warm and Dry Extremities: positive Non-tender, Full ROM, Nml appearance and No pedal edema Neurologic/Psychiatric: positive Oriented x3 and Mood/affect nml; negative Weakness, Sensory loss or Facial droop Lab Results 08/23/24 05:20 08/23/24 05:20 Other Labs: Lab Results x24hrs 08/23/24 Range/Units 05:20 WBC 2.3 L (4.8-10.8) x10^3/uL RBC 4.02 L (4.70-6.10) 10^6/uL Hgb 11.0 L (14.0-18.0) g/dL Hct 34.0 L (42.0-52.0) % MCV 84.6 (80.0-94.0) fL MCH 27.4 (27.0-31.0) pg MCHC 32.4 (32.0-36.0) g/dL RDW 16.5 H (12.0-15.0) % Plt Count 281 (130-450) 10^3/uL MPV 8.6 (7.4-11.4) fL Neut # (Auto) 1.0 L (1.5-6.6) 10^3/uL Lymph # (Auto) 0.9 L (1.5-3.5) 10^3/uL [place] # (Auto) 0.3 (0.0-1.0) 10^3/uL Eos # (Auto) 0.1 (0.0-0.7) 10^3/uL Baso # (Auto) 0.0 (0.0-0.1) 10^3/uL Absolute Nucleated RBC 0.00 x10^3/uL Total Counted [employer]AND[employer]TER [employer]ERK Band Neuts % (Manual) Not Reportable Abnorm Lymph % (Manual) Not Reportable Nucleated RBC % 0.0 /100WBC Neutrophils # (Manual) Not Reportable Lymphocytes # (Manual) Not Reportable Monocytes # (Manual) Not Reportable Eosinophils # (Manual) Not Reportable Basophils # (Manual) Not Reportable Differential Comment MANUAL=AUTO DIFF WBC Morphology NORMAL APPEARANCE (NORMAL) Platelet Estimate NORMAL (130-450,000) (NORMAL) Platelet Morphology NORMAL APPEARANCE (NORMAL) RBC Morph Micro Appear NORMAL APPEARANCE (NORMAL) Sodium 140 (135-145) mmol/L Potassium 4.3 (3.5-4.5) mmol/L Chloride 108 (101-111) mmol/L Carbon Dioxide 28 (21-32) mmol/L Anion Gap 4.0 L (6-13) BUN 13 (6-20) mg/dL Creatinine 0.9 (0.6-1.3) mg/dL Estimated GFR (MDRD) 81 L (>89) Glucose 164 H (74-104) mg/dL Calcium 8.1 L (8.5-10.3) mg/dL Total Bilirubin 0.4 (0.2-1.0) mg/dL AST 15 (10-42) IU/L ALT 11 (10-60) IU/L Alkaline Phosphatase 68 (42-121) IU/L Total Protein 5.7 L (6.4-8.9) g/dL Albumin 3.1 L (3.2-5.5) g/dL Globulin 2.6 (2.1-4.2) g/dL Albumin/Globulin Ratio 1.2 (1.0-2.2) Diagnostic Imaging Diagnostic Imaging Results: positive Final report reviewed Assessment/Plan Problem List (1) SBO (small bowel obstruction): Impression: Patient has a long history of recurrent small bowel obstructions; he has had surgery once for this. Presented yesterday with abdominal pain, nausea, vomiting. CT abdomen/pelvis did show small bowel obstruction, with a transition point in the right lower quadrant, where there is small bowel thickening seen. NG tube was placed yesterday to low intermittent suction. Small bowel follow- through study was done, and he had multiple bowel movements afterwards. His pain abated. He was started on clear liquids, and this was advanced to GI soft diet. Later today, he had worsening abdominal pain. Will put him back on clear liquids, repeat abdominal x-ray. General surgery is following, and has been updated, appreciate the recommendations. (2) Acute UTI: Impression: Continue Rocephin while inpatient. Urine culture is growing Proteus, susceptibilities are pending. Will transition to oral on discharge. Patient had recent cystoscopy with urethral dilation done on 08/09/2024. He had a Paredes placed after the procedure, which was removed 3 days ago. Patient has not been retaining. (3) HTN (hypertension): Impression: Continue lisinopril Qualifiers: Hypertension type: unspecified Qualified Code(s): I10 - Essential (primary) hypertension (4) Sleep apnea treated with continuous positive airway pressure (CPAP): Impression: Continue CPAP at home. (5) Urethral stricture: Impression: Patient had recent cystoscopy with urethral dilation done on 08/09/2024. He had a Paredes placed after the procedure, which was removed 3 days ago. Patient has not been retaining. Continue tamsulosin. Qualifiers: Urethral stricture sex-location: male urethra-unspecified Urethral stricture type: unspecified stricture type Qualified Code(s): N35.919 - Unspecified urethral stricture, male, unspecified site (6) Diabetes mellitus: Impression: Patient is on metformin at home. Continue low-dose sliding scale here. Hypoglycemic protocol in place Qualifiers: Diabetes mellitus type: type 2 Diabetes mellitus nursing home insulin use: without weight reducing technician use Diabetes mellitus complication status: without complication Qualified Code(s): E11.9 - Type 2 diabetes mellitus without complications
--- NOTE | 2024-08-23 15:50 | PROVIDER PROGRESS NOTE ---
Progress Note Progress Note Progress Note: General Surgery Progress Note I was asked to re-evaluate Mr. Byers because he still has abdominal discomfort. He tells me that he has been ambulating all day after eating a large meat and potatoes meal. He claims to have generalized abdominal pain. He is not nauseated and has not vomited. His last bowel motion was this morning. His abdomen is soft and i elicit no tenderness. He does seem a bit distended. KUB was performed and I don't see anything unusual. The bowel gas pattern seems normal and the is contrast in the colon which occurred within 2 hours of administration yesterday. He is worried that if he goes home he will have to come back and get another NGT. I am uncertain why he is still has abdominal discomfort. He may just need a laxative, something that he uses regularly at home. I can find no indication for operative intervention at this time. Recommendation: Keep on a clear liquid diet today and tomorrow. Miralax or MOM today; If his symptoms resolve by morning, consider discharge to home at that time. Thien Gage MD, [facility] General Surgery Service
[2024-08-23] MEDS ORDERED: MAGNESIUM CITRATE 296 ML BOTTLE PO SCH (16:00)
[2024-08-23] MEDS: polyethylene glycoL 3350 17 GM PACKET PO ONE (16:19)
[2024-08-23] MEDS: MAGNESIUM CITRATE 296 ML BOTTLE PO ONE (17:09)
[2024-08-23] MEDS: INSULIN LISPRO 300 UNIT/3 ML PEN SUBQ SCH (17:12)
--- NOTE | 2024-08-23 17:16 | XRAY Report ---
PROCEDURE: XR Abdomen 1 V INDICATIONS: abd pain TECHNIQUE: One view of the abdomen acquired. COMPARISON: None. FINDINGS: Surgical changes and devices: None. Bowel: Bowel gas pattern is normal. Soft tissues: No suspicious abdominal calcifications. Visualized solid organ contours appear normal in size. Bones: No suspicious bony lesions. IMPRESSION: No acute abdominal pathology. Reviewed by: Silas Mina MD on 08/23/2024 5:15 PM PST Approved by: Silas Mina MD on 08/23/2024 5:15 PM PST Station ID: [id number]
[2024-08-24 05:29] LABS: BASOPHILS % (AUTO) 1.3 %; EOSINOPHILS # (AUTO) 0.1 10^3/uL (0.0-0.7); HCT - HEMATOCRIT 33.7 % (42.0-52.0); HGB - HEMOGLOBIN 10.7 g/dL (14.0-18.0); LYMPHOCYTES # (AUTO) 1.3 10^3/uL (1.5-3.5); MEAN CORPUSCULAR HEMOGLOBIN 26.8 pg (27.0-31.0); MEAN CORPUSCULAR HGB CONC 31.8 g/dL (32.0-36.0); MEAN CORPUSCULAR VOLUME 84.5 fL (80.0-94.0); MEAN PLATELET VOLUME 8.7 fL (7.4-11.4); MONOCYTES # (AUTO) 0.4 10^3/uL (0.0-1.0); MONOCYTES % (AUTO) 15.3 %; NEUTROPHILS % (AUTO) 25.5 %; PLT - PLATELET COUNT 282 10^3/uL (130-450); RED BLOOD COUNT 3.99 10^6/uL (4.70-6.10); RED CELL DISTRIBUTION WIDTH 16.2 % (12.0-15.0); WHITE BLOOD COUNT 2.4 x10^3/uL (4.8-10.8)
[2024-08-24 05:41] LABS: ALBUMIN 3.2 g/dL (3.2-5.5); ALBUMIN/GLOBULIN RATIO 1.2 (1.0-2.2); BILIRUBIN,TOTAL 0.3 mg/dL (0.2-1.0); CREATININE 0.9 mg/dL (0.6-1.3); POTASSIUM 4.2 mmol/L (3.5-4.5); TOTAL PROTEIN 5.8 g/dL (6.4-8.9)
[2024-08-24 05:42] LABS: NEUTROPHILS # (AUTO) 0.6 10^3/uL (1.5-6.6)
[2024-08-24 06:15] LABS: RBC MORPHOLOGY (MULTIPLE) NORMAL APPEARANCE (NORMAL)
[2024-08-24 06:16] LABS: PLATELET ESTIMATE, MANUAL NORMAL (130-450,000) (NORMAL); PLATELET MORPHOLOGY NORMAL APPEARANCE (NORMAL)
[2024-08-24 06:18] LABS: WBC MORPHOLOGY (MULTIPLE) NORMAL APPEARANCE (NORMAL)
[2024-08-24 06:19] LABS: DIFFERENTIAL COMMENT MANUAL=AUTO DIFF
[2024-08-24] MEDS: TAMSULOSIN 0.4 MG CAPSULE PO SCH (08:18)
--- NOTE | 2024-08-24 15:09 | PROVIDER PROGRESS NOTE ---
Progress Note Progress Note Progress Note: August 24, 2024 30 p.m. Patient was to be discharged yesterday on August 23 but he developed abdominal pain. We reevaluated him with a flatplate of the abdomen. The bowel gas pattern was normal. He had a small bowel movement yesterday. He does have flatus today. But he still has tingling bilateral lower quadrant abdominal discomfort. Yesterday, we thought he may be developing repeat small bowel obstruction so we changed him back to clear liquids. He tolerated that so this afternoon, at lunch, we put him back on a diet but it is low fiber. Pain has not changed much. He is worried. Exam: Blood pressure 125/71, pulse 53, respirations 20, temp 36.5, O2 sat 97% on room air. He is an anxious elderly gentleman sitting upright in his bed. This morning he was on the phone with someone who was getting his taxes together and made him ve ry anxious. But no respiratory distress. No abdominal distress. Neck is supple Lungs are clear to auscultation and percussion without any increased respiratory effort Abdomen is soft, obese, mild tenderness. No rebound or guarding. Ext: no edema Neuro: Alert and oriented to person, place, time and situation. I reviewed his labs for today. Electrolytes are normal except an anion gap that is low at 4. BUN and creatinine are normal. Glucose is 139, 124 today. Liver enzymes normal. Total protein status is low. He came in at 7.2 and is 5.8 today. White cell count is low at 2.4. His ANC is 0.6. Hemoglobin 10.7. He is drifted down from 13.2 on admission. His urine culture from August 22 is growing Proteus sensitive everything but nitrofurantoin. Assessment/Plan (1) SBO (small bowel obstruction): Impression: Patient has a long history of recurrent small bowel obstructions; he has had surgery once for this. Presented 08/22/24 with abdominal pain, nausea, vomiting. CT abdomen/pelvis did show small bowel obstruction, with a transition point in the right lower quadrant, where there is small bowel thickening seen. NG tube was placed 08/22 to low intermittent suction. Small bowel follow- through study was done, and he had multiple bowel movements afterwards. His pain abated. He was started on clear liquids 08/23, and this was advanced to GI soft diet. Later on 08/23/24 he had worsening abdominal pain. Will put him back on clear liquids, repeat abdominal x-ray which showed normal bowel gas. General surgery is following,and I discussed the case. I asked if I could advance diet again and I am ordering a low residue diet. I have reassured the patient that I will not dc unless he is safe. But I anticipate dc tomorrow if he tolerates the diet today. (2) Acute UTI: Impression: Continue Rocephin while inpatient. Urine culture is growing Proteus, susceptibilities show sensitive to all except Macrobid. Will transition to oral on discharge. Patient had recent cystoscopy with urethral dilation done on 08/09/2024. He had a Paredes placed after the procedure, which was removed 3 days [employer]. Patient has not been retaining. I wonder if some of his lower abd discomfort is the residual bladder pain from the cystoscopy and now UTI. (3) HTN (hypertension): Impression: Blood pressure on admission was as low as 95/87. Yesterday he was 114/62. This morning is 131/70. Continue lisinopril Qualifiers: Hypertension type: unspecified Qualified Code(s): I10 - Essential (primary) hypertension (4) Sleep apnea treated with continuous positive airway pressure (CPAP): Impression: Continue CPAP at home. (5) Urethral stricture: Impression: Patient had recent cystoscopy with urethral dilation done on 08/09/2024. He had a Paredes placed after the procedure, which was removed 3 days ago. Patient has not been retaining. Continue tamsulosin. Qualifiers: Urethral stricture sex-location: male urethra-unspecified Urethral stricture type: unspecified stricture type Qualified Code(s): N35.919 - Unspecified urethral stricture, male, unspecified site (6) Diabetes mellitus: Impression: Patient is on metformin at home. He is on low-dose sliding scale here. A1c is 6.9%. Yesterday he did not need any insulin, and this morning he has not needed any insulin. Hypoglycemic protocol in place. -I will not resume metformin while he is here. And I would recommend that he resume it 3 days after returning home. I want avoid any lactic acidosis or drug interaction. 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 At that point in time he got as low as 1.4. Here his white cell count was 3.9 on admission With an ANC of 2.1. The WBC has dropped down to 2.4 today. ANC is 0.6. Considering he has a UTI with Proteus, I am continuing the IV antibiotics.Since I do not have history, nor can the patient provide 1, he is not able to tell me why he is neutropenic. He is not on chemotherapy. He is not on any drugs that would do this. Current Medications Current Medications Current Medications: Current Medications Generic Name Dose Route Start Last Admin Trade Name Freq PRN Reason Stop Dose Admin Acetaminophen 650 mg 08/22/24 01:37 08/23/24 11:49 Acetaminophen 325 Mg Tablet PO 650 mg Q4HR PRN Administration Pain 1 to 4, or Fever Albuterol 2.5 mg 08/22/24 01:48 Albuterol Neb 2.5 Mg/3 Ml INH Q4H PRN Shortness of Air/Wheezing Atorvastatin Calcium 20 mg 08/22/24 21:00 08/23/24 21:05 Atorvastatin 10 Mg Tablet PO 20 mg QPM DENZEL Administration Heparin Sodium (Porcine) 5,000 unit 08/22/24 09:00 08/24/24 08:18 Heparin 5,000 Unit/Ml Vial SUBQ Not Given BID DENZEL Hyoscyamine 0.125 mg 08/22/24 01:33 Hyoscyamine Sl 0.125 Mg Tablet SL Q6H PRN Abdominal Pain Ceftriaxone Sodium 1 gm/ 100 mls @ 200 mls/hr 08/22/24 09:00 08/24/24 11:22 Sodium Chloride IV Infused DAILY [facility] Infusion Insulin Human Lispro 1 - 5 unit 08/23/24 17:00 08/24/24 11:21 Insulin Lispro 300 Unit/3 Ml Pen SUBQ Not Given 0800,1200,1700,2100 [facility] Protocol Lisinopril 10 mg 08/22/24 09:00 08/24/24 08:18 Lisinopril 5 Mg Tablet PO 10 mg DAILY DENZEL Administration Morphine Sulfate 2 mg 08/22/24 01:37 Morphine 2 Mg/Ml Carpuject IVP Q4HR PRN Pain 8 to 10 Multivitamins 1 tab 03/02/25 08:00 08/24/24 08:18 Multivitamin Tablet PO 1 tab DAILYWM DENZEL Administration Nystatin 1 applic 08/22/24 09:00 08/24/24 08:19 Nystatin Cream 15 Gm Tube TOP Not Given BID DENZEL Ondansetron HCl 4 mg 08/22/24 01:37 Ondansetron Odt 4 Mg Tablet TL Q6HR PRN Nausea / Vomiting Ondansetron HCl 4 mg 08/22/24 01:37 Ondansetron 4 Mg/2 Ml Vial IVP Q6HR PRN Nausea / Vomiting Pantoprazole Sodium 40 mg 08/24/24 10:43 Pantoprazole 40 Mg Tablet PO BIDAC [facility] Phenol/Menthol 2 sprays 08/22/24 05:44 Phenol Throat [place] 177 Ml MM Q2HR PRN Throat Pain Sodium Chloride 10 ml 08/22/24 01:37 Sodium Chloride Flush 0.9% 10 Ml Syringe IVP PRN PRN NEEDED PER PROVIDER ORDERS Sodium Chloride 10 ml 08/22/24 09:00 08/24/24 08:18 Sodium Chloride Flush 0.9% 10 Ml Syringe IVP 10 ml 0100,0900,1700 DENZEL Administration Sucralfate 1 gm 08/22/24 07:00 08/24/24 11:20 Sucralfate 1 Gm/10 Ml Udc PO 1 gm 0700,1100,1600,2200 DENZEL Administration Tamsulosin HCl 0.4 mg 08/24/24 09:00 08/24/24 08:18 Tamsulosin 0.4 Mg Capsule PO 0.4 mg DAILY DENZEL Administration
[2024-08-24] MEDS: PANTOPRAZOLE 40 MG TABLET PO SCH (16:48)
--- NOTE | 2024-08-24 19:12 | PROVIDER PROGRESS NOTE ---
Progress Note Progress Note Progress Note: General Surgery Progress Note S: Mr. Byers has had a better day. The laxatives last night were successful in achieving loose bowel motions. He continues to complain of lower abdominal discomfort but the obstructive symptoms that brought him to our facility seems to have resolved. He is very worried that these symptoms might recur although since his 2019 diagnostic laparoscopy and "unkinking" of the small bowel, he has only had 2 admissions for similar symptoms that resolved without surgery. However, the frequency of admissions has decreased (2016, 2022, 2024). In addition, he tells me that he is in the process of being worked up for manage ment of prostate cancer (Dr. Argueta) and that he has experienced several episode of painless rectal bleeding with straining at bowel movements. His last CS exam was in 2016 at which time a small TA was removed from the ascending colon. O: VSS, afeb; Abdomen is soft, not distended, no palpable mass, not tender. On Ceftriaxone for a UTI A: Chronic, recurrent, self-limiting partial small bowel obstruction. There is probably a small bowel stricture or angulation in the RLQ that is the cause although the rapid transit of gastrografin into the colon (< 2 hours) indicates that the bowel is not significantly obstructed. The rectal bleeding is of concern. P: Diet and activity as tolerated. I will check with Dr. Argueta (Urology) regarding the plans for his prostate cancer and whether he would like a colonoscopy performed first. If he is to have laparotomy or laparoscopy for the prostate cancer, the small bowel could be examined at that time. Thien Gage MD, FACS General Surgery Service
[2024-08-25 07:27] VITALS: BP 143/73; TEMP 97.7; O2SAT 97
--- NOTE | 2024-08-25 10:01 | Discharge Summary ---
Discharge Summary Admit Date: 08/22/24 Discharge Date: 08/25/24 Discharging Provider: Charley Galicia MD Primary Care Provider: Amari Strauss MD Code Status: Attempt Resuscitation DIAGNOSES Discharge Diagnoses with Status of Each Condition: 1. Recurrent small bowel obstruction 2. Acute UTI with proteus 3. Benign prostatic hypertrophy with LUTS 4. Urethral stricture 5. Hypertension 6. Sleep apnea treated with continuous positive airway pressure 7. Type 2 diabetes mellitus, controlled, without long-term use of insulin, without complications 8. Chronic neutropenia, ANC 0.6 9. BRBPR HPI History of Present Illness: 84 yo M with PMH of HTN, HLD, MIRTA, BPH, Urethral stenosis, recurrent small bowel obstruction presented to the ED with c/o 1 day h/o abdominal pain. Pt recently required Paredes catheter for his BPH; this was removed on Friday without complications. Today, pt was helping his son in the garage with heavy lifting. He began to have upper to mid-abdo pain this AM. He was able to eat pizza at noon and had a normal BM x 1 around noon. After that, his abdo pain worsened and he has not been able to tolerate PO food or drink since then. No dysuria/urinary symptoms. No N/V. +subjective Fever/not measured. Pt has had SBO 5x now and his symptoms today felt the same as in previous SBO. He was managed conservatively each time with NGT, IVF, pain meds, except for the 2nd episode. He had a lap abdo for that episode and his SB was found to be "crooked" and was straightened out. He does not know what year that was. No other previous abdo surgeries. In the ER, WBC 3.9, Glc 141, U/A: Nitr + WBC LE. CT abdomen: There is a small bowel obstruction seen, with a transition point seen within the right lower quadrant, where there is small bowel wall thickening seen. The bladder wall is thickened and irregular with diverticular formation. TURP defect is seen. Please correlate with a history of bladder outlet obstruction. Small bladder diverticuli, diverticulosis. Benign right adrenal adenoma ED provider discussed with on-call surgeon Dr. Arcos who recommended placement of an NG tube to low intermittent suction IV fluids and admission to the hospitalist. NG tube was placed for GI decompression Pt was given IVF, Morphine, viscous Lidocaine and Mylanta in the ER. CONSULTS | PROCEDURES Consultations: General Surgery, Dr. Gage Procedures: 1. Abdomen pelvis CT with small bowel obstruction and a transition point in the right lower quadrant. Small bowel thickening. Bladder wall is thickened with irregular diverticular formation. TURP defect is seen. 2. Chest x-ray shows an NG tube in the stomach. Lungs and pleura are without abnormalities. 3. Plain film for small bowel follow-through challenge panel. Normal transit time of barium through the small bowel. Small bowel loops are normal in caliber. No strictures, intraluminal masses, or intrinsic masses noted. Terminal ileum identified and is normal. Contrast time of the right colon is noted that it tore from and rectum at the 4-hour film. 4. Repeat plain film done August 23 because of recurrent abdominal pain after eating. Bowel gas pattern was normal. No acute abdominal pathology. 5. Urine culture from August 22 was Proteus mirabilis. Resistant to nitrofurantoin. Sensitive to Bactrim. ALLERGIES Allergies Allergy/AdvReac Type Severity Reaction Status Date / Time No Known Drug Allergies Allergy Verified 08/21/24 18:48 MEDICATIONS Ambulatory Orders Medication Instructions Recorded Confirmed lisinopril 10 mg tablet 10 mg ORAL DAILY 09/25/14 08/22/24 simvastatin 40 mg tablet (Zocor) 40 mg PO QPM 09/25/14 08/22/24 [id number] 300 mcg-K 60 1 ea PO DAILY 04/11/19 08/22/24 mcg-lycop 600 mcg-lutein 300 mcg tablet (Centrum Silver Men) pantoprazole 40 mg tablet,delayed 40 mg PO BID #60 tabs 04/23/23 08/22/24 release metformin 500 mg tablet 500 mg PO BID 08/22/24 08/22/24 sucralfate 100 mg/mL oral 1 g PO BIDAC 08/22/24 08/22/24 suspension tamsulosin 0.4 mg capsule 0.4 mg PO DAILY 08/22/24 08/22/24 sulfamethoxazole 800 1 tab PO BID 5 days #10 tabs 08/23/24 mg-trimethoprim 160 mg tablet (Bactrim DS) LABS 08/24/24 05:12 08/24/24 05:12 Discharge Plan Discharge Patient Disposition: 01 Home, Self Care Condition: Stable Medically Cleared Date:: 08/25/24 Prescriptions: New sulfamethoxazole-trimethoprim [Bactrim DS] 800-160 mg tablet 1 tab PO BID 5 Days Qty: 10 0RF Continued simvastatin [Zocor] 40 MG tablet 40 mg PO QPM lisinopril 10 MG tablet 10 mg ORAL DAILY Centrum Silver Men 1 EACH tablet 1 ea PO DAILY pantoprazole 40 MG tablet,delayed release (DR/EC) 40 mg PO BID Qty: 60 0RF metformin 500 mg tablet 500 mg PO BID tamsulosin 0.4 mg capsule 0.4 mg PO DAILY Patient Comments: take 1 capsule by mouth ONCE nightly sucralfate 1 GM/10 ML suspension 1 g PO BIDAC Activity Restrictions: Activity as Tolerated Diet: Regular Health Concerns: You came in because you had some abdominal pain. You have a history of recurrent small bowel obstructions, and the CT scan demonstrated this at that time. We placed an NG tube in your nose and allowed some bowel rest. We did a study called a small bowel follow-through which resulted in you having multiple bowel movements. It appears your obstruction has effectively resolved. You saw a surgeon while you were here who assisted with this process. Dr. Gage, the surgeon, tells us that he would like to do a colonoscopy on you because of blood in your stool at times. He is going to be talking to Dr. Argueta about when to schedule that. Dr. Lyons is 1 of 4 surgeons. That office will call you to set up the colonoscopy. So it could be Dr. Palmer, Dr. Gage, Dr. Lujan, or Dr. Palacios. While you were here, you were noted to have a urinary tract infection. You completed 2 days of IV antibiotics for this. I will send you home with 5 more days of oral antibiotics, which I've sent to your [facility] which I'd like you to complete (twice daily). I am glad you are feeling better. Just a reminder that you have an appointment with Dr. Strauss on 09/01 at 7119. Please keep him updated about how you are feeling. You should also continue to follow-up with your urologist, Dr. Argueta. We are glad you are feeling better, thank you for allowing us to take care of you. Print Language: Ecu[place] Patient Instructions: Obstruction Sm Bowel Follow-up Care: Amari Strauss MD [Primary Care Provider] -
--- NOTE | 2024-08-25 15:47 | PROVIDER PROGRESS NOTE ---
Progress Note Progress Note Progress Note: General Surgery Brief Progress Note I discussed this case with Dr. Argueta and discovered that the patient does not have prostate cancer and is not scheduled for surgery of his prostate as he indicated to me yesterday. The patient was discharged from the hospital before I could clarify our conversation yesterday. I called Mr Byers today and explained to him what Dr. Loo Does he need a colonoscopy? At this point in time, I am not sure since he has not demonstrated rectal bleeding while in the hospital and I don't know if his history of rectal blood loss is reliable given the erroneous statement regarding his prostate. His personal history of a colon polypectomy 10 years ago and his age are the only two risk factors at this time. Regarding his recurrent partial SBO - I think he probably does have a small bowel issue and will likely have future recurrent problems. Diagnostic laparoscopy could be offered with the intent to treat but if I offer this I would want his colon examined first. Thien Gage MD, [facility] General Surgery Service
== END 2024-08-25 10:40 | disposition home or self-care (01) | DRG 389 ==
LOC: ED 18:22 → MS2 08-22 01:37
PROVIDERS: ADMIT Internal Medicine; ATTEND Internal Medicine
DX: N35.919 Unspecified urethral stricture, male, unspecified site; R33.9 Retention of urine, unspecified; G47.33 Obstructive sleep apnea (adult) (pediatric); I10 Essential (primary) hypertension; K62.5 Hemorrhage of anus and rectum; N40.1 Benign prostatic hyperplasia with lower urinary tract symptoms; R33.8 Other retention of urine; Z79.84 Long term (current) use of oral hypoglycemic drugs; K40.20 Bilateral inguinal hernia, without obstruction or gangrene, not specified as recurrent; D70.9 Neutropenia, unspecified; I25.10 Atherosclerotic heart disease of native coronary artery without angina pectoris; Z87.891 Personal history of nicotine dependence; N32.3 Diverticulum of bladder; K56.609 Unspecified intestinal obstruction, unspecified as to partial versus complete obstruction; N39.0 Urinary tract infection, site not specified; B96.4 Proteus (mirabilis) (morganii) as the cause of diseases classified elsewhere; K57.30 Diverticulosis of large intestine without perforation or abscess without bleeding; E11.65 Type 2 diabetes mellitus with hyperglycemia; E78.5 Hyperlipidemia, unspecified